=== PATIENT | female | born 1950 | race Caucasian/White ===

== ENCOUNTER → 2022-11-03 16:11 | Outpatient (BNVA) | payer MEDICARE, MEDICAID, SELFPAY | PROVIDERS: PCP Nurse Practitioner Family; Visit Provider Nurse Practitioner Family | DX: R30.0 Dysuria (principal) | CPT/HCPCS: 81003; 87077; 87086; 87184 ==

== ENCOUNTER 2023-01-03 14:56 | Inpatient (IN) | payer MEDICARE, MEDICAID, SELFPAY ==
--- NOTE | 2023-01-03 15:02 | XRR_ITS ---
PROCEDURE INFORMATION: Exam: XR Chest Exam date and time: 01/03/2023 3:26 PM Age: 72 years old Clinical indication: Fever; Additional info: Fever chills TECHNIQUE: Imaging protocol: Radiologic exam of the chest. Views: 1 view. COMPARISON: No relevant prior studies available. FINDINGS: Tubes, catheters and devices: Left chest loop recorder. Lungs: Mild left basilar scarring versus atelectasis. Vertical bandlike medial retrocardiac opacity. Pleural spaces: Unremarkable. No pleural effusion. No pneumothorax. Heart/Mediastinum: Unremarkable. No cardiomegaly. Vasculature: Aortic arch atherosclerotic calcification. Bones/joints: Multiple healed fracture deformities of the left ribs. Degenerative changes along the spine and [id number]-left shoulders. XR/XR chest 1V portable [id number] IMPRESSION: Left medial retrocardiac bandlike opacity favored to represent atelectasis, although infection or aspiration difficult to entirely exclude.
[2023-01-03 15:12] VITALS: BP 119/66; PULSE 99; RESP 16; TEMP 39.1; O2SAT 98
--- NOTE | 2023-01-03 15:18 | ED_ITS ---
HPI - Fever General: Chief Complaint: Fever Stated Complaint: weakness, fever, chills Time Seen by Provider: 01/03/23 14:59 History of Present Illness: Patient presents by EMS to the ER from [facility] with complaints of fever chills altered mental status possible urosepsis. Patient alert and oriented x1 at the moment he is alert and oriented x3. EMS did states she had a fever of 102 upon their arrival. Otherwise patient is patient is very poor historian patient is a full code per shelter chart Review of Systems General: Reports: ROS unobtainable due to mental status Physical Exam Const: COMMON NORMALS: no acute distress, average body habitus, healthy appearing, alert and well nourished HENMT: COMMON NORMALS: normocephalic, atraumatic, hearing grossly normal bilaterally, external ears normal, Normal external nose present and moist oral mucous membranes HEAD & SCALP: normocephalic and atraumatic NOSE: Normal external nose present EXTERNAL EAR: Yes external ears normal Eye: COMMON NORMALS: Equal, round and reactive pupils present, EOMs intact bilaterally, conjunctivae normal and no scleral icterus CONJUNCTIVA: Yes conjunctivae normal PUPIL: Yes Equal, round and reactive pupils present Neck/C-Spine: COMMON NORMALS: full ROM, no lymphadenopathy, no meningeal signs, no JVD and Thyroid normal THYROID: Thyroid normal Lymph: LYMPHATIC: no lymphadenopathy noted Chest: COMMONS NORMALS: normal inspection of the chest and normal palpation of entire chest wall Resp: COMMON NORMALS: normal respiratory effort, No retractions, No use of accessory muscles and clear to auscultation bilaterally AUSCULTATION: clear to auscultation bilaterally Cardio: COMMON NORMALS: no JVD, regular rate, regular rhythm, S1 normal heart sound present, S2 normal heart sound present, No gallops present (Cardio), No clicks present (Cardio), No murmurs present (Cardio) and No rub (Cardio) RATE: regular rate RHYTHM: regular rhythm HEART SOUNDS: S1 normal heart sound present and S2 normal heart sound present GI: COMMON NORMALS: Normal to inspection, nondistended, normoactive bowel fadumo nds present, Soft to palpation, non-tender, No hepatosplenomegaly present and no masses PALPATION: Yes Soft to palpation and Yes No hepatosplenomegaly present : COMMON NORMALS: Yes no CVA tenderness BLADDER/KIDNEY EXAM: Yes no CVA tenderness Back/Pelvis: COMMON NORMALS: no CVA tenderness Extremity: NARRATIVE EXTREMITY EXAM: 2 Plus pitting edema bilateral lower extremities Neuro: SENSORIUM/ORIENTATION: Yes alert MENINGEAL SIGNS: Yes no meningeal signs Course Vital Signs: Vital signs: Vital Signs Temperature 99.5 F 01/03/23 19:08 Pulse Rate 89 01/03/23 17:16 Respiratory Rate 22 H 01/03/23 18:00 Blood Pressure 119/66 01/03/23 15:12 Pulse Oximetry 95 01/03/23 18:00 Oxygen Delivery Me thod Room Air 01/03/23 15:12 MDM - Fever Medical Decision Making Patient presented with altered mental status and fever. Patient has history of urosepsis. Work-up was obtained which showed significant for urinary tract infection. Patient's white blood cell count was 6.3. Chest x-ray showed bandlike opacity favored to represent atelectasis although infection aspiration difficulty to entirely exclude. Patient was given magnesium oxide p.o., Toradol IV for fever, normal saline bolus, Cipro IV, Dr. Morales was consulted who agreed to admit for further evaluation and treatment and MedSurg. Differential Diagnosis Unlikely abdominal pain, acute appendicitis, calculus of kidney, constipation, diverticulitis, endometriosis, gastroenteritis, pancreatitis or small bowel obstruction Medical Records I reviewed the patient's medical records. Lab Data I reviewed the patient's lab results. 01/03/23 16:00 01/03/23 16:00 Radiology Impressions Chest X-Ray 01/03/23 15:02 IMPRESSION: Left medial retrocardiac bandlike opacity favored to represent atelectasis, although infection or aspiration difficult to entirely exclude. Laboratory Results WBC 6.3 10^3/uL (4.0-10.0) 01/03/23 16:00 RBC 4.23 10^6/uL (4.1-5.3) 01/03/23 16:00 Hgb 11.0 g/dL (11.5-15.3) L 01/03/23 16:00 Hct 35.3 % (37.0-47.0) L 01/03/23 16:00 MCV 83.5 fl (81-99) 01/03/23 16:00 MCH 26.0 pg (28.0-34.0) L 01/03/23 16:00 MCHC 31.2 g/dL (30.0-36.0) 01/03/23 16:00 RDW 14.2 % (12.1-15.1) 01/03/23 16:00 Plt Count 229 10^3/cmm (130-400) 01/03/23 16:00 MPV 9.3 fL (7.4-10.4) 01/03/23 16:00 Neut % (Auto) 83.7 % 01/03/23 16:00 Lymph % (Auto) 8.1 % 01/03/23 16:00 [place] % (Auto) 6.5 % 01/03/23 16:00 Eos % (Auto) 1.1 % 01/03/23 16:00 Baso % (Auto) 0.3 % 01/03/23 16:00 Neut # (Auto) 5.24 10^3/uL (1.8-7.7) 01/03/23 16:00 Lymph # (Auto) 0.5 10^3/uL (0.8-4.8) L 01/03/23 16:00 [place] # (Auto) 0.4 10^3/uL (0.2-0.9) 01/03/23 16:00 Eos # (Auto) 0.1 10^3/uL (0.0-0.8) 01/03/23 16:00 Baso # (Auto) 0.0 10^3/uL (0.0-0.1) 01/03/23 16:00 Nucleated RBC % (auto) 0 % 01/03/23 16:00 Nucleated RBCs # 0.0 /100WBC 01/03/23 16:00 Sodium 137 mmol/L (136-145) 01/03/23 16:00 Potassium 4.5 mmol/L (3.5-5.1) 01/03/23 16:00 Chloride 102 mmol/L (98-107) 01/03/23 16:00 Carbon Dioxide 24 mmol/L (22-29) 01/03/23 16:00 Anion Gap 15.5 (5-19) 01/03/23 16:00 BUN 12 mg/dL (8-23) 01/03/23 16:00 Creatinine 0.8 mg/dL (0.5-0.9) 01/03/23 16:00 GFR Calculation Not Reportable 01/03/23 16:00 Glucose 104 mg/dL (65-115) 01/03/23 16:00 Calculated Osmolality 284 mOsm/kg (285-295) L 01/03/23 16:00 Calcium 8.7 mg/dL (8.5-10.5) 01/03/23 16:00 Magnesium 1.6 mg/dL (1.7-2.3) L 01/03/23 16:00 Total Bilirubin 0.5 mg/dL (0.15-1.2) 01/03/23 16:00 AST 5 U/L (0-32) 01/03/23 16:00 ALT 6 U/L (0-33) 01/03/23 16:00 Alkaline Phosphatase 117 U/L (35-105) H 01/03/23 16:00 Total Protein 6.2 g/dL (6.6-8.7) L 01/03/23 16:00 Albumin 3.7 g/dL (3.5-5.2) 01/03/23 16:00 Globulin 2.5 g/dL (1.3-4.6) 01/03/23 16:00 Urine Color [place] (Yellow) 01/03/23 16:13 Urine Appearance Clear (CLEAR) 01/03/23 16:13 Urine pH 5 (5-7) 01/03/23 16:13 Ur Specific [place] 1.010 (1.005-1.030) 01/03/23 16:13 Urine Protein 3+ (Negative) H 01/03/23 16:13 Urine Glucose (UA) Norm (Normal) 01/03/23 16:13 Urine Ketones Negative (Negative) 01/03/23 16:13 Urine Blood Neg (Negative) 01/03/23 16:13 Urine Nitrate Positive (Negative) H 01/03/23 16:13 Urine Bilirubin 2+ (Negative) H 01/03/23 16:13 Urine Urobilinogen 8 mg/dL (Negative) H 01/03/23 16:13 Ur Leukocyte Esterase Negative (Negative) 01/03/23 16:13 Urine RBC 0-4 /hpf (0-2) H 01/03/23 16:13 Urine WBC 5-10 /hpf (0-5) H 01/03/23 16:13 Ur Squamous Epith Cells 0-4 /hpf (0-5) H 01/03/23 16:13 Amorphous Sediment Not Reportable 01/03/23 16:13 Urine Bacteria Trace /hpf (NONE) 01/03/23 16:13 EKG Data EKG 1: I personally reviewed and interpreted this EKG as follows: EKG interpretation date: 01/03/23 EKG interpretation time: 15:19 Prior EKG tracings: not available for review Interpretation: EKG showed ventricular rate 97 beats minute, DC interval 197, QRS duration 96, QTc 388, sinus rhythm with occasional PVC, left axis deviation, Q waves in V1 through V4, Discharge Plan Discharge Patient Disposition: Admitted As Inpatient Clinical Impression: Acute alteration in mental status, Urinary tract infection, Fever Condition: Stable Coding Level of Care Code ED Manager Progressive Care for Sergio Pinedo
--- NOTE | 2023-01-03 15:19 | ECG_ITS ---
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 Measurements Intervals [place] Rate: 97 P: 60 OK: 197 QRS: -37 QRSD: 96 T: 30 QT: 334 QTc: 425 Interpretive Statements SINUS RHYTHM WITH OCCASIONAL SUPRAVENTRICULAR PREMATURE COMPLEXES LEFT AXIS DEVIATION [QRS AXIS < -30] MODERATE VOLTAGE CRITERIA FOR LVH, CONSIDER NORMAL VARIANT [MEETS CRITERIA IN ONE OF: R(aVL), S(V1), R(V5), R(V5/V6)+S(V1)] POSSIBLE ANTEROSEPTAL MYOCARDIAL INFARCTION , OF INDETERMINATE AGE [30 ms Q WAVE IN V1-V4] No previous ECG available for comparison Electronically Signed On 01-03-2023 21:05:36 CDT by Patricia Liang M.D. [id number]
--- NOTE | 2023-01-03 15:53 | PC.PHAR ---
pt is from [facility] [phone]-per barbi charge nurse states the pt had all am and noon meds-and only had prn 10 ml of dextromethorphan polistirex today
[2023-01-03 16:19] LABS: Basophils % 0.3 %; Eosinophils # 0.1 10^3/uL (0.0-0.8); Eosinophils % 1.1 %; Hematocrit 35.3 % (37.0-47.0); Lymphocytes # 0.5 10^3/uL (0.8-4.8); Lymphocytes % 8.1 %; Mean Corpuscular HGB Conc 31.2 g/dL (30.0-36.0); Mean Corpuscular Volume 83.5 fl (81-99); Mean Platelet Volume 9.3 fL (7.4-10.4); Monocytes # 0.4 10^3/uL (0.2-0.9); Monocytes % 6.5 %; Neutrophils # 5.24 10^3/uL (1.8-7.7); Neutrophils % 83.7 %; Nucleated Red Blood Cells % 0 %; Platelet Count 229 10^3/cmm (130-400); Red Blood Count 4.23 10^6/uL (4.1-5.3); Red Cell Distribution Width 14.2 % (12.1-15.1); White Blood Count 6.3 10^3/uL (4.0-10.0)
[2023-01-03 16:35] LABS: Alanine Aminotransferase 6 U/L (0-33); Albumin Level 3.7 g/dL (3.5-5.2); Alkaline Phosphatase 117 U/L (35-105); Anion Gap 15.5 (5-19); Blood Urea Nitrogen 12 mg/dL (8-23); Calcium 8.7 mg/dL (8.5-10.5); Carbon Dioxide 24 mmol/L (22-29); Chloride 102 mmol/L (98-107); Globulin 2.5 g/dL (1.3-4.6); Glucose 104 mg/dL (65-115); Magnesium 1.6 mg/dL (1.7-2.3); Osmolality Calculated 284 mOsm/kg (285-295); Potassium 4.5 mmol/L (3.5-5.1); Sodium 137 mmol/L (136-145); Total Bilirubin 0.5 mg/dL (0.15-1.2); Total Protein 6.2 g/dL (6.6-8.7)
[2023-01-03 16:44] LABS: Aspartate Amino Transferase 5 U/L (0-32)
[2023-01-03 16:48] LABS: Urine Appearance Clear (CLEAR)
[2023-01-03 16:49] LABS: Add Urine Culture? No; Add Urine Microscopic? YES; Bacteria Urine TRACE /hpf; Bilirubin Urine 2+ (Negative); Blood Urine Neg (Negative); Glucose Urine UA Norm (Normal); Ketones Urine Negative (Negative); Leukocyte Esterase Urine Negative (Negative); Nitrate Urine Positive (Negative); Protein Urine 3+ (Negative); RBC Urine 0-4 /hpf (0-2); Squamous Epithelial Cell Urine 0-4 /hpf (0-5); Urine Color Orange (Yellow); Urobilinogen Urine 8 mg/dL (Negative); pH Urine 5 (5-7)
[2023-01-03 17:16] VITALS: PULSE 89; RESP 22; O2SAT 98
[2023-01-03] MEDS: magnesium oxide 400 mg tablet PO (17:44)
[2023-01-03] MEDS: ciprofloxacin 400 MG/200 ML PREMIX 200 MG IV (17:44)
[2023-01-03] MEDS: sodium chloride 0.9% 1,000 ML 999 ML IV (17:44)
[2023-01-03] MEDS: ketorolac 30 mg/mL INJ IVP (17:45)
[2023-01-03 18:00] VITALS: RESP 22; O2SAT 95
[2023-01-03 19:08] VITALS: TEMP 37.5
--- NOTE | 2023-01-03 19:50 | CTR_ITS ---
PROCEDURE INFORMATION: Exam: CT Chest Without Contrast; Diagnostic Exam date and time: 01/03/2023 8:30 PM Age: 72 years old Clinical indication: Other: Copd/pneumonia; Additional info: Copd/pna TECHNIQUE: Imaging protocol: Diagnostic computed tomography of the chest without contrast. Radiation optimization: All CT scans at this facility use at least one of these dose optimization techniques: automated exposure control; mA and/or kV adjustment per patient size (includes targeted exams where dose is matched to clinical indication); or iterative reconstruction. REPORTING DATA: Count of CT and Cardiac NM exams in prior 12 months: This patient has received 0 known CTs and 0 known cardiac nuclear medicine studies in the 12 months prior to the current study. COMPARISON: CR XR chest 1V portable [id number] 01/03/2023 3:26 PM RADIATION DOSE METRICS: Total DLP (mGy-cm): 648.88 FINDINGS: Lungs: Left lower lobe pneumonia. Emphysematous changes. Pleural spaces: Small left pleural effusion. Heart: Cardiomegaly. Coronary arteries: Coronary artery atherosclerotic calcifications. Lymph nodes: Scattered prominent subcentimeter short axis nonspecific mediastinal lymph nodes. Vasculature: Ascending thoracic aorta dilated to 3.9 cm. Gallbladder and bile ducts: Cholecystectomy. Bones/joints: Multiple chronic left rib fractures. Soft tissues: Unremarkable. CT/CT chest wo con [id number] IMPRESSION: 1. Small left pleural effusion. 2. Left lower lobe pneumonia. 3. Coronary artery atherosclerotic calcifications. 4. Cardiomegaly. 5. Cholecystectomy. 6. Emphysematous changes. 7. Scattered prominent subcentimeter short axis nonspecific mediastinal lymph nodes. 8. Multiple chronic left rib fractures. COMMENTS: In the absence of a history or active diagnosis of lung cancer, it is recommended that this patient with emphysema be evaluated for enrollment in a low dose CT lung cancer screening program.
--- NOTE | 2023-01-03 22:04 | PM.HP ---
Providers/Chief Complaint Admitting Physician: Alf Calderon MD Primary Care Provider: Martha Lloyd NP Chief Complaint: weakness, fever, chills History of Present Illness History gathered through chart review. Herlinda Shah is a 72 year old female senior care resident, past medical history of type 2 diabetes mellitus, hypertension, recurrent UTIs, possible history of recent gram-negative bacteremia was sent in the senior care today for worsening mental status over the last 2 days along with high-grade fever today. As per documentation from senior care patient has been complaining of burning micturition, increased frequency of urination over the last 2 days week. Patient has also been having nausea and vomiting for 2 days along with diarrhea around a week ago. Patient was recently at [facility] for UTI and gram-negative bacteremia around a month ago and was discharged on oral amoxicillin which she finished 3 weeks ago. At baseline patient is AOx3, able to ambulate with a walker but today morning became acutely confused. On examination patient sleeping, looks dehydrated, wakes up to verbal stimulus, not waking up is alert to self and being in the hospital, following simple commands and stating she is hungry ER course: CBC, CMP, blood culture and UA have been drawn, chest x-ray was done with results as below. Patient has been given ketorolac 30 mg IV 1 time, oral magnesium, 1 L of normal saline, IV ciprofloxacin one-time Review of Systems General: Reports: ROS unobtainable due to mental status Medications/Allergies Home Medications Medication Instructions Recorded Confirmed Last Taken Type acetaminophen 325 mg tablet 650 mg PO Q4H PRN pain/fever 01/03/23 01/03/23 Unknown History (Tylenol) albuterol sulfate 2.5 mg/3 mL 2.5 mg inhalation Q6H PRN 01/03/23 01/03/23 Unknown History (0.083 %) solution for nebulization Shortness Of Breath apixaban 5 mg tablet (Eliquis) 5 mg PO BID 01/03/23 01/03/23 01/03/23 10:10 History budesonide-formoterol HFA 160 2 puff inhalation BID 01/03/23 01/03/23 01/03/23 History mcg-4.5 mcg/actuation aerosol inhaler cetirizine 10 mg tablet (Zyrtec) 10 mg PO QAM 01/03/23 01/03/23 01/03/23 10:10 History cholecalciferol (vitamin D3) 1,250 50,000 unit PO Q7D 01/03/23 01/03/23 12/30/22 History mcg (50,000 unit) capsule colestipol 1 gram tablet 1 g PO BID 01/03/23 01/03/23 01/03/23 10:10 History cyanocobalamin (vitamin B-12) 1,000 mcg PO QAM 01/03/23 01/03/23 01/03/23 10:10 History 1,000 mcg tablet dextromethorphan polistirex 30 10 ml PO Q12H PRN Cough 01/03/23 01/03/23 01/03/23 History mg/5 mL oral susp ext.release 12hr diclofenac sodium 1 % topical gel See Rx Instructions .Route .COMPLEX 01/03/23 01/03/23 Unknown History escitalopram oxalate 20 mg tablet 20 mg PO QAM 01/03/23 01/03/23 01/03/23 10:10 History fluticasone propionate 50 2 spray intranasal QAM 01/03/23 01/03/23 01/03/23 History mcg/actuation nasal spray,suspension gabapentin 600 mg tablet 600 mg PO TID 01/03/23 01/03/23 01/03/23 12:00 History glipizide 5 mg tablet 5 mg PO DAILY@12 01/03/23 01/03/23 01/03/23 History guaifenesin 400 mg tablet (Mucus 400 - 800 mg PO Q12H PRN Cough 01/03/23 01/03/23 Unknown History Relief) ibuprofen 800 mg tablet 800 mg PO Q8H PRN Pain 01/03/23 01/03/23 Unknown History ipratropium 0.5 mg-albuterol 3 mg 3 ml inhalation Q6H PRN Shortness 01/03/23 01/03/23 Unknown History (2.5 mg base)/3 mL nebulization Of Breath soln lisinopril 5 mg tablet 5 mg PO QAM 01/03/23 01/03/23 01/03/23 10:10 History metformin 1,000 mg tablet 1,000 mg PO BID 01/03/23 01/03/23 01/03/23 History metoprolol tartrate 25 mg tablet 25 mg PO BID 01/03/23 01/03/23 01/03/23 10:10 History phenazopyridine 95 mg tablet 190 mg PO TID for pain with 01/03/23 01/03/23 01/03/23 History urination for 2 days 2 tabs potassium chloride 20 mEq 20 meq PO BID 01/03/23 01/03/23 01/03/23 10:10 History tablet,extended release(part/cryst) ropinirole 0.5 mg tablet 0.5 mg PO DAILY PRN Restless Leg(S) 01/03/23 01/03/23 Unknown History tramadol 50 mg tablet 50 - 100 mg PO Q6H PRN Pain 01/03/23 01/03/23 Unknown History Allergies Allergy/AdvReac Type Severity Reaction Status Date / Time acetaminophen Allergy Unknown Verified 01/03/23 15:21 [From Tylenol-Codeine #3] atorvastatin Allergy Unknown Verified 01/03/23 15:21 codeine Allergy Unknown Verified 01/03/23 15:21 iodine Allergy Unknown Verified 01/03/23 15:21 PFSH Acute PFSH: Medical History (Updated 01/03/23 @ 22:13 by Alf Calderon MD) COPD (chronic obstructive pulmonary disease) Gram-negative bacteremia History of recurrent UTIs HTN (hypertension) Malignant melanoma Non-Hodgkin lymphoma Osteoarthritis, knee Paroxysmal A-fib Type 2 diabetes mellitus Social History (Updated 01/03/23 @ 22:13 by Alf Calderon MD) Smoking and tobacco status: former smoker Alcohol intake: never Household members: other Housing: Custodial Vitals/I&O/Wt Last Vital Signs Temp 99.5 F 01/03/23 19:08 Pulse 89 01/03/23 17:16 Resp 22 H 01/03/23 18:00 BP 119/66 01/03/23 15:12 Pulse Ox 95 01/03/23 18:00 O2 Del Method Room Air 01/03/23 15:12 01/03/23 01/03/23 01/03/23 06:59 14:59 22:59 Intake Total 1200 / 1200 Balance 1200 / 1200 Weight last 48 hrs Weight 133.356 kg Physical Exam Narrative: General: No acute distress, sleeping on entering room, wakes up to verbal stimulus, AO x2-3, slow to respond, dehydrated HEENT: PERRLA, pupils bilaterally equal and reactive Chest: Normal vesicular breath sounds, no added sounds, equal good air entry bilaterally CVS: S1-S2 regular, no murmurs, no tachycardia, no gallops, no rubs Abdomen: Soft, soft, no guarding, generalized tenderness all over abdomen, no organomegaly, bowel sounds present but sluggish Neuro: No focal deficits, no facial deformity, moving all limbs Data 01/03/23 16:00 01/03/23 16:00 Micro: Microbiology 01/03/23 17:37 Blood Culture - Preliminary Blood SPECIMEN COLLECTED 01/03/23 17:37 Blood Culture - Preliminary Blood SPECIMEN COLLECTED A&P Assessment and plan (1) Acute alteration in mental status: Most likely in setting of UTI versus diarrhea. Not in sepsis currently. Patient does not have leukocytosis, tachycardia though did have high-grade fever of 102. Chest x-ray consistent with a possible right-sided pneumonia though patient is on room air and not complaining of cough. CT chest without contrast, CT abdomen pelvis with contrast given concerns for recurrent UTI, diarrhea. CT head as patient is on Eliquis. LFTs within normal limits so we will hold off on ammonia levels. Cannot rule out polypharmacy. Continue gabapentin but at a lower dose of 200 mg 3 times daily, hold off on escitalopram for now. Normal saline at 75 cc/h. Follow-up blood culture, urine culture, check procalcitonin, lactate, MRSA swab. Culture history consistent with E. coli in urine sensitive to ceftriaxone. Start on IV ceftriaxone 1 g daily for now. (2) Urinary tract infection: Qualifiers: Hematuria presence: without hematuria Urinary tract infection type: acute cystitis Qualified Code(s): N30.00 - Acute cystitis without hematuria (3) Diarrhea: Check stool studies to rule out C. difficile. Patient was recently on amoxicillin. (4) Paroxysmal A-fib: Chronic history. Telemetry. Continue with home dose of Eliquis, metoprolol 25 mg twice daily. Plan Type 2 diabetes mellitus: Hold off on OHA's. Check A1c. Insulin sliding scale low-dose protocol before meals and at bedtime. History of COPD: Not in acute exacerbation. DuoNebs as needed. Cannot rule out aspiration pneumonitis. Currently on room air. Continue with ceftriaxone as above. Currently NPO. Advance diet as per speech evaluation when possible. CODE STATUS: As per documentation from the senior care as per conversation with the nurse at [facility]. Full code. N.p.o. for now. Start on diet once patient more awake. Protonix for PUD prophylaxis. Eliquis will suffice as DVT prophylaxis. Attestations Medical Necessity Statement*: Admission for more than 2 midnights for management and evaluation of altered mental status while UTI is ruled out in an elderly with past medical history of recurrent UTIs Coding Level of Care Code 37113 High MDM includes number and complexity of problems actively addressed during encounter, amount and/or complexity of data reviewed/ordered (Speaking with nurse at the senior care, gathering past medical history through chart review and conversation with nurse at senior care) [ previous or external records, resulted lab(s)/test(s), ordered lab(s)/test(s), independent historian, independent test interpretation and other healthcare professional discussion] and described risk of complication, morbidity or mortality of management as documented Diagnoses Acute alteration in mental status R41.82 Urinary tract infection N30.00 Hematuria presence: without hematuria Urinary tract infection type: acute cystitis Diarrhea R19.7 Paroxysmal A-fib I48.0
[2023-01-03 22:10] LABS: Adenovirus Not Detected (NOT DETECT); Chlamydia Pneumoniae Not Detected (NOT DETECT); Coronavirus 229E,HKU1,NL63,OC4 Not Detected (NOT DETECT); Human Metapneumovirus Not Detected (NOT DETECT); Human Rhinovirus/Enterovirus Detected (NOT DETECT); Influenza A Not Detected (NOT DETECT); Influenza A H1 Not Detected (NOT DETECT); Influenza A H1-2009 Not Detected (NOT DETECT); Influenza A H3 Not Detected (NOT DETECT); Influenza B Not Detected (NOT DETECT); Mycoplasma Pneumoniae Not Detected (NOT DETECT); Parainfluenza Virus Type 1 Not Detected (NOT DETECT); Parainfluenza Virus Type 2 Not Detected (NOT DETECT); Parainfluenza Virus Type 3 Not Detected (NOT DETECT); Parainfluenza Virus Type 4 Not Detected (NOT DETECT); Respiratory Syncytial Virus A Not Detected (NOT DETECT); Respiratory Syncytial Virus B Not Detected (NOT DETECT); SARS-COV-2 Not Detected (NOT DETECT)
[2023-01-03 22:26] VITALS: BP 97/56; PULSE 72; RESP 17; TEMP 36.4; O2SAT 92
[2023-01-03 23:48] LABS: Lactic Sepsis W/Reflex 0.6 mmol/L (0.5-2.2)
[2023-01-04] VITALS (14 sets, daily range): BP systolic 94–130; BP diastolic 51–72; PULSE 68–96; RESP 16–20; TEMP 36.6–37.6; O2SAT 91–99
[2023-01-04] MEDS: sodium chloride 0.9% 1,000 ML 75 ML IV (01:47)
[2023-01-04] MEDS: cefTRIAXone 1,000 MG in sodium chloride 0.9% (plus) 50 ML 100 MG IV (01:48)
[2023-01-04 01:57] LABS: Iron 30 ug/dL (37-145); Percent Saturation 9.1 % (20-50); Thyroid Stimulating Hormone 2.21 uIU/mL (0.27-4.20); Total Iron Binding Capacity 328 mcg/dl; Unsaturated Iron Binding 298 ug/dL (112-347); Vitamin B12 628 pg/mL (232-1245)
[2023-01-04] MEDS: pantoprazole 40 mg SDV IVP (02:32)
[2023-01-04] MEDS: lisinopril 5 mg Tablet PO (06:15)
[2023-01-04 06:47] LABS: Basophils % 0.6 %; Eosinophils # 0.1 10^3/uL (0.0-0.8); Eosinophils % 1.9 %; Hemoglobin 9.7 g/dL (11.5-15.3); Lymphocytes # 0.6 10^3/uL (0.8-4.8); Lymphocytes % 12.2 %; Mean Corpuscular HGB Conc 31.3 g/dL (30.0-36.0); Mean Corpuscular Hemoglobin 26.2 pg (28.0-34.0); Mean Corpuscular Volume 83.8 fl (81-99); Mean Platelet Volume 9.5 fL (7.4-10.4); Monocytes # 0.5 10^3/uL (0.2-0.9); Monocytes % 9.7 %; Neutrophils # 3.88 10^3/uL (1.8-7.7); Neutrophils % 74.8 %; Nucleated Red Blood Cells % 0 %; Platelet Count 219 10^3/cmm (130-400); Red Cell Distribution Width 14.3 % (12.1-15.1); White Blood Count 5.2 10^3/uL (4.0-10.0)
[2023-01-04 06:51] LABS: Glucose Point of Care 130 mg/dL (70-110)
[2023-01-04 07:09] LABS: Alanine Aminotransferase < 5 U/L (0-33); Alkaline Phosphatase 99 U/L (35-105); Anion Gap 14.5 (5-19); Aspartate Amino Transferase 9 U/L (0-32); Blood Urea Nitrogen 11 mg/dL (8-23); Carbon Dioxide 23 mmol/L (22-29); Chloride 107 mmol/L (98-107); Globulin 1.4 g/dL (1.3-4.6); Glucose 105 mg/dL (65-115); Magnesium 1.5 mg/dL (1.7-2.3); Osmolality Calculated 290 mOsm/kg (285-295); Phosphorus 3.8 mg/dL (2.5-4.5); Potassium 4.5 mmol/L (3.5-5.1); Sodium 140 mmol/L (136-145); Total Bilirubin 0.4 mg/dL (0.15-1.2); Total Protein 4.4 g/dL (6.6-8.7)
[2023-01-04 07:10] LABS: Chol HDL Ratio 3.31 mg/dL (0.0-4.40); Cholesterol 116 mg/dL (0-200); HDL Cholesterol 35 mg/dL (60-100); LDL Cholesterol Calculated 66 mg/dL (50-129); LDL HDL Ratio 1.89 RATIO (0.00-3.22); Triglycerides 77 mg/dL (0-150)
[2023-01-04 07:28] LABS: Folate Level 8.8 ng/mL (4.8-37.3)
[2023-01-04 07:52] LABS: Estmated Average Glucose 114; Hemoglobin A1C 5.6 % (4.0-6.0)
[2023-01-04] MEDS: metoprolol tartrate 25 mg Tablet PO ×2 (08:28→17:59)
[2023-01-04] MEDS: apixaban 5 mg Tablet PO ×2 (08:28→17:59)
[2023-01-04] MEDS: gabapentin 100 mg Capsule 200 MG PO ×3 (08:29→21:38)
[2023-01-04 12:16] LABS: Glucose Point of Care 113 mg/dL (70-110)
--- NOTE | 2023-01-04 13:30 | P.PN_ITS ---
Subjective Subjective: H&P reviewed Patient feeling much better Blood culture prelim report showing gram-negative chloe Repeat blood culture tomorrow No leukocytosis or fever Altered mental status has improved Patient is stating that she was at [facility] but she did not like her stay at there We are waiting for records Not endorsing nausea, vomiting abdominal pain or dysuria at this point CT abdomen consistent with umbilical hernia with concern for bowel obstruction however she does not have any active symptoms, it is reversible Vitals/I&O/Wt Last Vital Signs Temp 99.1 F 01/04/23 11:07 Pulse 76 01/04/23 11:07 Resp 20 H 01/04/23 11:07 BP 130/54 01/04/23 11:07 Pulse Ox 94 01/04/23 11:07 O2 Del Method Room Air 01/04/23 11:07 01/03/23 01/04/23 01/04/23 22:59 06:59 14:59 Intake Total 1200 / 1200 50 / 1250 240 / 240 Output Total 300 / 300 Balance 1200 / 1200 -250 / 950 240 / 240 Weight last 48 hrs Weight 138.391 kg Weight 133.356 kg Physical Exam Narrative: Nonfocal neuro exam GCS 15 Abdomen distended nontender Reducible umbilical hernia No active nausea or vomiting Morbidly obese Distended abdomen GCS 15 Nonfocal neuro exam S1, S2 Currently on room air Urinary Catheter Management: Valenzuela: Cath Placed During This Visit: yes Reason for Continuing Indwelling Catheter: Other Urinary Catheter Date of Insertion: 01/04/23 Urinary Catheter Time of Insertion: 02:01 Data 01/04/23 06:00 01/04/23 06:09 Micro: Microbiology 01/03/23 17:37 Blood Culture - Preliminary Blood 01/03/23 17:37 Blood Culture - Preliminary Blood SPECIMEN COLLECTED A&P Assessment and plan (1) Enterovirus infection: (2) Paroxysmal A-fib: (3) Diarrhea: (4) Acute alteration in mental status: (5) Urinary tract infection: Qualifiers: Hematuria presence: without hematuria Urinary tract infection type: acute cystitis Qualified Code(s): N30.00 - Acute cystitis without hematuria (6) Fever: Qualifiers: Fever type: unspecified Qualified Code(s): R50.9 - Fever, unspecified Plan Acute metabolic encephalopathy related to UTI and pneumonia gram-negative bacteremia, repeat cultures on 7/26 Continue broad-spectrum antibiotics Request records from [facility] No fever or leukocytosis today Metabolic encephalopathy: Resolved No signs of stroke Patient is not septic, does not meet sepsis criteria Diarrhea: C. difficile to be ruled out Umbilical hernia with bowel No signs of strangulation Reversible hernia No active symptoms COPD without acute exacerbation currently on room air doing well I will put her on CPAP for tonight Type 2 diabetes: Continues diabetic diet with insulin and sliding scale A-fib without RVR: Continue anticoagulating agent Awaiting records from [facility] Full code Patient is stating that at the long term at [place] she is wheelchair- bound does not use a walker because of her bad knee osteoarthritis she never had a stroke in the past Attestations Medical Necessity Statement*: Continue medical management Diagnoses Enterovirus infection B34.1 Paroxysmal A-fib I48.0 Diarrhea R19.7 Acute alteration in mental status R41.82 Urinary tract infection N30.00 Hematuria presence: without hematuria Urinary tract infection type: acute cystitis Fever R50.9 Fever type: unspecified
[2023-01-04] MEDS: meropenem 500 MG in sodium chloride 0.9% (plus) 50 ML 100 MG IV ×2 (13:55→21:39)
[2023-01-04 16:31] LABS: Glucose Point of Care 140 mg/dL (70-110)
[2023-01-04] MEDS: magnesium oxide 400 mg tablet PO (18:02)
[2023-01-04] MEDS: ipratropium-albuterol 3 mL Neb INHALATION (18:05)
[2023-01-04 20:21] LABS: Glucose Point of Care 140 mg/dL (70-110)
[2023-01-04] MEDS: insulin glargine 100 units/1 mL 10 UNIT SUBCUT (21:38)
[2023-01-04] MEDS: lanolin oint 7 gm 1 APPLIC TOPICAL (21:49)
[2023-01-04] MEDS: acetaminophen 325 mg Tablet 650 MG PO (21:49)
--- NOTE | 2023-01-04 21:52 | CT_ITS ---
WS: [id number] CT HEAD TECHNIQUE: Noncontrast CT of the head obtained from the skullbase to the vertex. CLINICAL INFORMATION: ams COMPARISON: None. DLP: 1154.[address] scans at [facility] use at least one of these dose optimization techniques: automated e xposure control; mA and/or kV adjustment per patient size (includes targeted exams where dose is matc hed to clinical indication); or iterative reconstruction. FINDINGS: No evidence of intracranial hemorrhage or mass effect. Ventricular system and basal cisterns are cason nt. Mild small vessel changes with moderate parenchymal volume loss. Intracranial vascular calcificat ion. Cavum septum pellucidum and vergae. No extra-axial fluid collections. No evidence of mass or mas s effect. 15 mm retention cyst or polyp RIGHT maxillary sinus. Mucosal thickening LEFT mastoid tip. Normal posterior nasopharynx. Normal parapharyngeal fat. CT/CT head wo con* [id number] IMPRESSION: 1. No evidence of intracranial hemorrhage or mass effect. 2. Mild small vessel changes. Moderate parenchymal volume loss. 3. Intracranial vascular calcification. 4. No acute intracranial findings.
--- NOTE | 2023-01-04 21:52 | CT_ITS ---
WS: [id number] CT ABDOMEN PELVIS TECHNIQUE: Noncontrast CT of the abdomen and pelvis with coronal and sagittal reformatted images. CLINICAL INFORMATION: abd pain, uti, obs nephropathy COMPARISON: None. DLP: 1851.[address] scans at [facility] use at least one of these dose optimization techniques: automated e xposure control; mA and/or kV adjustment per patient size (includes targeted exams where dose is matc hed to clinical indication); or iterative reconstruction. FINDINGS: Tiny LEFT pleural effusion with compressive atelectasis LEFT lower lobe. Hazy atelectasis in the ling isiah. Slight subsegmental atelectasis RIGHT lower lobe. Small umbilical/supraumbilical hernia with her niated small segment of small bowel with evidence of early partial obstruction. Air-fluid level in th e herniated segment. Fluid in the proximal small bowel loops. Recommend correlation for umbilical isidro n No free air. Mild hepatomegaly and splenomegaly. Splenic granulomas. Hepatic granulomas. Prior cholec ystectomy. Splenic artery calcification. Tiny esophageal hiatal hernia. Fatty atrophy of the pancreas. Splenic artery calcification. Normal caliber abdominal aorta. Aortic c alcification. Adrenal glands are normal. No hydronephrosis in either kidney. Valenzuela catheter. Normal s igmoid colon. Colon is decompressed. Small bowel anastomosis in the RIGHT lower quadrant. No free fluid in the abdomen or pelvis. Slight anterolisthesis L4 on L5. Moderate spondylitic changes lumbar spine. Tiny calcified uterine fibroid. CT/CT abdomen pelvis con [id number] IMPRESSION: 1. Umbilical/supraumbilical hernia with herniation of a small segment of small bowel with air-fluid level suspicious for partial obstruction. No free air. 2. Small LEFT pleural effusion with compressive atelectasis LEFT lower lobe ap pears unchanged. 3. Prior cholecystectomy. 4. Evidence of prior small bowel surgery in the RIGHT lower quadrant. 5. No hydronephrosis in either kidney. Notified Alf Calderon MD at 01/04/2023 8:55 AM.
[2023-01-05] VITALS (10 sets, daily range): BP systolic 105–133; BP diastolic 68–76; PULSE 66–84; RESP 15–20; TEMP 36.1–37; O2SAT 92–96
[2023-01-05] MEDS: pantoprazole 40 mg SDV IVP (02:53)
[2023-01-05] MEDS: meropenem 500 MG in sodium chloride 0.9% (plus) 50 ML 100 MG IV ×3 (06:12→21:18)
[2023-01-05] MEDS: lisinopril 5 mg Tablet PO (06:12)
[2023-01-05 06:36] LABS: Glucose Point of Care 144 mg/dL (70-110)
[2023-01-05 08:50] LABS: Basophils % 0.7 %; Eosinophils # 0.2 10^3/uL (0.0-0.8); Eosinophils % 3.6 %; Hematocrit 33.3 % (37.0-47.0); Hemoglobin 10.2 g/dL (11.5-15.3); Lymphocytes # 0.8 10^3/uL (0.8-4.8); Lymphocytes % 17.7 %; Mean Corpuscular HGB Conc 30.6 g/dL (30.0-36.0); Mean Corpuscular Hemoglobin 26.2 pg (28.0-34.0); Mean Corpuscular Volume 85.4 fl (81-99); Mean Platelet Volume 9.5 fL (7.4-10.4); Monocytes # 0.6 10^3/uL (0.2-0.9); Monocytes % 12.5 %; Neutrophils # 2.87 10^3/uL (1.8-7.7); Nucleated Red Blood Cells % 0 %; Platelet Count 221 10^3/cmm (130-400); Red Cell Distribution Width 14.4 % (12.1-15.1); White Blood Count 4.4 10^3/uL (4.0-10.0)
[2023-01-05] MEDS: gabapentin 100 mg Capsule 200 MG PO ×3 (09:28→21:19)
[2023-01-05] MEDS: apixaban 5 mg Tablet PO ×2 (09:28→17:21)
[2023-01-05 09:29] LABS: Alanine Aminotransferase < 5 U/L (0-33); Alkaline Phosphatase 98 U/L (35-105); Blood Urea Nitrogen 7 mg/dL (8-23); Calcium 8.4 mg/dL (8.5-10.5); Carbon Dioxide 22 mmol/L (22-29); Chloride 106 mmol/L (98-107); Globulin 1.6 g/dL (1.3-4.6); Glucose 133 mg/dL (65-115); Osmolality Calculated 286 mOsm/kg (285-295); Procalcitonin 0.13 ng/mL (0-0.5); Sodium 138 mmol/L (136-145); Total Bilirubin 0.4 mg/dL (0.15-1.2); Total Protein 4.6 g/dL (6.6-8.7)
[2023-01-05] MEDS: metoprolol tartrate 25 mg Tablet PO ×2 (09:29→17:21)
[2023-01-05] MEDS: insulin lispro 100 unit/1 mL SUBCUT ×2 (09:29→21:19)
[2023-01-05] MEDS: magnesium oxide 400 mg tablet PO ×2 (09:29→17:21)
[2023-01-05 09:31] LABS: Anion Gap 14.4 (5-19); Aspartate Amino Transferase 11 U/L (0-32); Potassium 4.4 mmol/L (3.5-5.1)
[2023-01-05 11:34] LABS: Glucose Point of Care 131 mg/dL (70-110)
--- NOTE | 2023-01-05 11:43 | PM.PN ---
Subjective Subjective: She is awake and alert Watching television No overnight events Repeat cultures today No fever or worsening of leukocytosis Vitals/I&O/Wt Last Vital Signs Temp 97.0 F L 01/05/23 07:57 Pulse 76 01/05/23 08:00 Resp 16 01/05/23 08:00 BP 111/68 01/05/23 07:57 Pulse Ox 92 01/05/23 08:00 O2 Del Method Room Air 01/05/23 08:00 01/04/23 01/05/23 01/05/23 22:59 06:59 14:59 Intake Total 460 / 1843.75 290 / 290 Output Total 1800 / 1800 1500 / 3300 Balance -1340 / 43.75 -1500 / -1456.25 290 / 290 Weight last 48 hrs Weight 138.391 kg Weight 133.356 kg Physical Exam Narrative: Morbid obese female sitting in a chair watching television Awake and alert Currently on room air Pleasant and cooperative No signs of confusion Nonfocal neuro exam S1, S2 Nonpitting edema of legs Urinary Catheter Management: Valenzuela: Cath Placed During This Visit: yes Reason for Continuing Indwelling Catheter: Other Urinary Catheter Date of Insertion: 01/04/23 Urinary Catheter Time of Insertion: 02:01 Data 01/05/23 08:25 01/05/23 08:25 Micro: Microbiology 01/03/23 17:37 Blood Culture - Preliminary Blood NEGATIVE TO DATE 01/03/23 17:37 Blood Culture - Preliminary Blood A&P Assessment and plan (1) Enterovirus infection: (2) Paroxysmal A-fib: (3) Diarrhea: (4) Acute alteration in mental status: (5) Urinary tract infection: Qualifiers: Hematuria presence: without hematuria Urinary tract infection type: acute cystitis Qualified Code(s): N30.00 - Acute cystitis without hematuria (6) Fever: Qualifiers: Fever type: unspecified Qualified Code(s): R50.9 - Fever, unspecified Plan Metabolic encephalopathy related to UTI Bacteremia with gram-negative chloe Repeat cultures today Continue broad-spectrum antibiotics No signs of sepsis, febrile episodes improved No leukocytosis A-fib without RVR Continue AV volodymyr blocking agent and anticoagulating agent Diarrhea: Resolved Repeat cultures 01/05 Full code Eliquis will suffice DVT prophylaxis Dissipating discharge today Tuesday to [facility] Continue consistent carb diet with insulin and sliding scale Attestations Medical Necessity Statement*: Awaiting final blood culture report Diagnoses Enterovirus infection B34.1 Paroxysmal A-fib I48.0 Diarrhea R19.7 Acute alteration in mental status R41.82 Urinary tract infection N30.00 Hematuria presence: without hematuria Urinary tract infection type: acute cystitis Fever R50.9 Fever type: unspecified
[2023-01-05 16:25] LABS: Glucose Point of Care 122 mg/dL (70-110)
[2023-01-05 21:00] LABS: Glucose Point of Care 217 mg/dL (70-110)
[2023-01-05] MEDS: insulin glargine 100 units/1 mL 10 UNIT SUBCUT (21:19)
[2023-01-06] VITALS (9 sets, daily range): BP systolic 103–159; BP diastolic 66–72; PULSE 67–92; RESP 13–16; TEMP 36.4–37.4; O2SAT 91–98
[2023-01-06] MEDS: pantoprazole 40 mg SDV IVP (01:57)
[2023-01-06] MEDS: lisinopril 5 mg Tablet PO (06:30)
[2023-01-06] MEDS: meropenem 500 MG in sodium chloride 0.9% (plus) 50 ML 100 MG IV ×3 (06:30→21:31)
[2023-01-06 06:34] LABS: Glucose Point of Care 151 mg/dL (70-110)
[2023-01-06] MEDS: gabapentin 100 mg Capsule 200 MG PO ×3 (08:43→21:30)
[2023-01-06] MEDS: apixaban 5 mg Tablet PO ×2 (08:43→17:54)
[2023-01-06] MEDS: magnesium oxide 400 mg tablet PO ×2 (08:43→17:54)
[2023-01-06] MEDS: metoprolol tartrate 25 mg Tablet PO ×2 (08:44→17:54)
[2023-01-06] MEDS: insulin lispro 100 unit/1 mL SUBCUT (08:44)
--- NOTE | 2023-01-06 11:49 | PC.SOCIAL ---
IMM update IMM Updated with patient. Verbalized an understanding. Copy PG 2 provided. Initialled, dated, timed, and placed in chart.
[2023-01-06 12:07] LABS: Glucose Point of Care 112 mg/dL (70-110)
--- NOTE | 2023-01-06 12:14 | P.PN_ITS ---
Subjective Subjective: Patient is endorsing feeling better Valenzuela catheter will be removed We will touch this with micro lab for finalization of blood culture report Patient is afebrile Vitals/I&O/Wt Last Vital Signs Temp 97.6 F 01/06/23 11:52 Pulse 71 01/06/23 11:52 Resp 16 01/06/23 11:52 BP 103/66 01/06/23 11:52 Pulse Ox 94 01/06/23 11:52 O2 Del Method Room Air 01/06/23 11:52 01/05/23 01/06/23 01/06/23 22:59 06:59 14:59 Intake Total 290 / 990 530 / 530 Output Total 450 / 450 1425 / 1875 750 / 750 Balance -160 / 540 -1425 / -885 -220 / -220 Weight last 48 hrs Weight 136.395 kg Weight 136.395 kg Physical Exam Narrative: Patient endorsing feeling better Currently on room air Watching television GCS 15 Nonfocal neuro exam Morbid obese Dorsum of the nonpitting edema Pleasant and cooperative S1, S2 No audible stridor or wheezing Urinary Catheter Management: Valenzuela: Cath Placed During This Visit: yes, but has since been removed by the nurse Reason for Continuing Indwelling Catheter: Decision to DC Catheter Urinary Catheter Date of Insertion: 01/04/23 Urinary Catheter Time of Insertion: 02:01 Date Urinary Catheter Removed: 01/06/23 Time Urinary Catheter Discontinued: 11:37 Data 01/05/23 08:25 01/05/23 08:25 Micro: Microbiology 01/05/23 13:33 Blood Culture - Preliminary Blood SPECIMEN COLLECTED 01/05/23 13:28 Blood Culture - Preliminary Blood SPECIMEN COLLECTED A&P Assessment and plan (1) Enterovirus infection: (2) Paroxysmal A-fib: (3) Diarrhea: (4) Acute alteration in mental status: (5) Urinary tract infection: Qualifiers: Hematuria presence: without hematuria Urinary tract infection type: acute cystitis Qualified Code(s): N30.00 - Acute cystitis without hematuria (6) Fever: Qualifiers: Fever type: unspecified Qualified Code(s): R50.9 - Fever, unspecified Plan Acute metabolic encephalopathy related to UTI Bacteremia with gram-negative chloe Currently on meropenem No signs of sepsis Persistent/recurrent UTI currently on meropenem We will remove Valenzuela catheter today Paroxysmal A-fib not in RVR Continue Eliquis History carb diet with insulin and sliding scale COPD without acute exacerbation doing well on room air Patient is full code Common cold with enterovirus, face mask will be needed during encounter Plan to discharge her on Tuesday if we get prior Auth and cultures are finalized, provided cultures are pansensitive Attestations Medical Necessity Statement*: Likely discharge in next 24 hours Coding Level of Care Code 06102 Moderate MDM includes number and complexity of problems actively addressed during encounter, amount and/or complexity of data reviewed/ordered and described risk of complication, morbidity or mortality of management as docum ented Diagnoses Enterovirus infection B34.1 Paroxysmal A-fib I48.0 Diarrhea R19.7 Acute alteration in mental status R41.82 Urinary tract infection N30.00 Hematuria presence: without hematuria Urinary tract infection type: acute cystitis Fever R50.9 Fever type: unspecified
[2023-01-06 17:06] LABS: Glucose Point of Care 119 mg/dL (70-110)
[2023-01-06 18:53] LABS: SARS Covid-2 Antigen negative (Negative)
[2023-01-06 20:57] LABS: Glucose Point of Care 139 mg/dL (70-110)
[2023-01-06] MEDS: insulin glargine 100 units/1 mL 10 UNIT SUBCUT (21:30)
[2023-01-07] VITALS: BP 112/66; PULSE 77; RESP 16; TEMP 36.7; O2SAT 92
[2023-01-07] MEDS: pantoprazole 40 mg SDV IVP (02:00)
[2023-01-07 02:04] VITALS: PULSE 82; RESP 14; O2SAT 93
[2023-01-07 04:00] VITALS: BP 120/69; PULSE 80; RESP 17; TEMP 36.4; O2SAT 95
[2023-01-07 05:35] LABS: Basophils % 0.7 %; Eosinophils # 0.2 10^3/uL (0.0-0.8); Eosinophils % 4.9 %; Hematocrit 34.2 % (37.0-47.0); Lymphocytes # 0.9 10^3/uL (0.8-4.8); Lymphocytes % 21.6 %; Mean Corpuscular HGB Conc 32.2 g/dL (30.0-36.0); Mean Corpuscular Hemoglobin 26.7 pg (28.0-34.0); Mean Platelet Volume 8.7 fL (7.4-10.4); Monocytes # 0.4 10^3/uL (0.2-0.9); Monocytes % 9.8 %; Neutrophils # 2.55 10^3/uL (1.8-7.7); Neutrophils % 62.5 %; Nucleated Red Blood Cells % 0 %; Platelet Count 221 10^3/cmm (130-400); Red Blood Count 4.12 10^6/uL (4.1-5.3); Red Cell Distribution Width 14.2 % (12.1-15.1); White Blood Count 4.1 10^3/uL (4.0-10.0)
[2023-01-07] MEDS: lisinopril 5 mg Tablet PO (05:45)
[2023-01-07] MEDS: meropenem 500 MG in sodium chloride 0.9% (plus) 50 ML 100 MG IV (05:46)
[2023-01-07 06:00] VITALS: PULSE 89
[2023-01-07 06:00] LABS: Anion Gap 13.1 (5-19); Blood Urea Nitrogen 7 mg/dL (8-23); Calcium 8.8 mg/dL (8.5-10.5); Carbon Dioxide 29 mmol/L (22-29); Chloride 102 mmol/L (98-107); Glucose 149 mg/dL (65-115); Osmolality Calculated 291 mOsm/kg (285-295); Potassium 4.1 mmol/L (3.5-5.1); Sodium 140 mmol/L (136-145)
[2023-01-07 06:33] LABS: Glucose Point of Care 146 mg/dL (70-110)
[2023-01-07 07:54] VITALS: BP 116/66; PULSE 79; RESP 18; TEMP 36.8; O2SAT 94
--- NOTE | 2023-01-07 08:14 | PM.DCS ---
Discharge Providers Date of Admission: 01/03/23 19:27 Date of Discharge: January 07, 2023 Attending Provider at Admission: Alf Calderon MD Attending Provider at Discharge: Kay Acevedo MD Primary Care Provider: Martha Lloyd NP Diagnoses at Discharge Discharge Diagnosis (1) Enterovirus infection: Status: Acute (2) Paroxysmal A-fib: Status: Acute (3) Diarrhea: Status: Acute (4) Acute alteration in mental status: Status: Acute (5) Urinary tract infection: Status: Acute Qualifiers: Hematuria presence: without hematuria Urinary tract infection type: acute cystitis Qualified Code(s): N30.00 - Acute cystitis without hematuria (6) Fever: Status: Acute Qualifiers: Fever type: unspecified Qualified Code(s): R50.9 - Fever, unspecified Reason for Visit Reason for Visit: weakness, fever, chills Hospital Course Hospital Course 72-year-old female who was recently discharged from [facility] after management of UTI, reportedly there was concern for gram-negative bacteremia, she was discharged back to her shelter at [facility] patient presented back with altered mental status related to UTI, urine and blood culture showing E. coli which is pansensitive, she will be discharged on cefpodoxime 2-week regimen, she remained afebrile other than 1 episode at the time of admission, no leukocytosis, we are not able to calculate her GFR I have discontinued her metformin and glipizide because her hemoglobin A1c is 5.6 and she is at risk of hypoglycemic events I have asked her to follow-up with her doctor to discuss her antihyperglycemic agent She remained hemodynamically stable, able to work with PT, Valenzuela catheter removed 01/06 Repeat blood cultures negative to date, CT abdomen pelvis did not show any stones to show any foci of infection Physical Exam Narrative: Pleasant and cooperative Morbid obese GCS 15 Currently on room air S1, S2 variable Urinary Catheter Management: Valenzuela: Cath Placed During This Visit: yes, but has since been removed by the nurse Reason for Continuing Indwelling Catheter: Decision to DC Catheter Urinary Catheter Date of Insertion: 01/04/23 Urinary Catheter Time of Insertion: 02:01 Date Urinary Catheter Removed: 01/06/23 Time Urinary Catheter Discontinued: 11:37 Discharge Data Studies Completed and Pending Completed Studies During Hospitalization Category Date Time Status CT abdomen pelvis wo con [id number] Routine Cat Scan 01/04/23 21:[address] chest wo con [id number] Stat Cat Scan 01/03/23 19:[address] head wo con* [id number] Routine Cat Scan 01/04/23 21:52 Completed XR chest 1V portable [id number] Stat Exams 01/03/23 15:02 Completed Pending at discharge Category Date Time Status Blood Culture Stat Lab 01/03/23 17:37 Results Blood Culture Stat Lab 01/05/23 13:33 Results Radiology Impressions Chest X-Ray 01/03/23 15:02 IMPRESSION: Left medial retrocardiac bandlike opacity favored to represent atelectasis, although infection or aspiration difficult to entirely exclude. Chest CT 01/03/23 19:50 IMPRESSION: 1. Small left pleural effusion. 2. Left lower lobe pneumonia. 3. Coronary artery atherosclerotic calcifications. 4. Cardiomegaly. 5. Cholecystectomy. 6. Emphysematous changes. 7. Scattered prominent subcentimeter short axis nonspecific mediastinal lymph nodes. 8. Multiple chronic left rib fractures. COMMENTS: In the absence of a history or active diagnosis of lung cancer, it is recommended that this patient with emphysema be evaluated for enrollment in a low dose CT lung cancer screening program. Abdomen/Pelvis CT 01/04/23 21:52 IMPRESSION: 1. Umbilical/supraumbilical hernia with herniation of a small segment of small bowel with air-fluid level suspicious for partial obstruction. No free air. 2. Small LEFT pleural effusion with compressive atelectasis LEFT lower lobe appears unchanged. 3. Prior cholecystectomy. 4. Evidence of prior small bowel surgery in the RIGHT lower quadrant. 5. No hydronephrosis in either kidney. Notified Alf Calderon MD at 01/04/2023 8:[address] 01/04/23 21:52 IMPRESSION: 1. No evidence of intracranial hemorrhage or mass effect. 2. Mild small vessel changes. Moderate parenchymal volume loss. 3. Intracranial vascular calcification. 4. No acute intracranial findings. Laboratory Results WBC 4.1 10^3/uL (4.0-10.0) 01/07/23 05:24 RBC 4.12 10^6/uL (4.1-5.3) 01/07/23 05:24 Hgb 11.0 g/dL (11.5-15.3) L 01/07/23 05:24 Hct 34.2 % (37.0-47.0) L 01/07/23 05:24 MCV 83.0 fl (81-99) 01/07/23 05:24 MCH 26.7 pg (28.0-34.0) L 01/07/23 05:24 MCHC 32.2 g/dL (30.0-36.0) 01/07/23 05:24 RDW 14.2 % (12.1-15.1) 01/07/23 05:24 Plt Count 221 10^3/cmm (130-400) 01/07/23 05:24 MPV 8.7 fL (7.4-10.4) 01/07/23 05:24 Neut % (Auto) 62.5 % 01/07/23 05:24 Lymph % (Auto) 21.6 % 01/07/23 05:24 [place] % (Auto) 9.8 % 01/07/23 05:24 Eos % (Auto) 4.9 % 01/07/23 05:24 Baso % (Auto) 0.7 % 01/07/23 05:24 Neut # (Auto) 2.55 10^3/uL (1.8-7.7) 01/07/23 05:24 Lymph # (Auto) 0.9 10^3/uL (0.8-4.8) 01/07/23 05:24 [place] # (Auto) 0.4 10^3/uL (0.2-0.9) 01/07/23 05:24 Eos # (Auto) 0.2 10^3/uL (0.0-0.8) 01/07/23 05:24 Baso # (Auto) 0.0 10^3/uL (0.0-0.1) 01/07/23 05:24 Nucleated RBC % (auto) 0 % 01/07/23 05:24 Nucleated RBCs # 0.0 /100WBC 01/07/23 05:24 Sodium 140 mmol/L (136-145) 01/07/23 05:24 Potassium 4.1 mmol/L (3.5-5.1) 01/07/23 05:24 Chloride 102 mmol/L (98-107) 01/07/23 05:24 Carbon Dioxide 29 mmol/L (22-29) 01/07/23 05:24 Anion Gap 13.1 (5-19) 01/07/23 05:24 BUN 7 mg/dL (8-23) L 01/07/23 05:24 Creatinine 0.8 mg/dL (0.5-0.9) 01/07/23 05:24 GFR Calculation Not Reportable 01/07/23 05:24 Glucose 149 mg/dL (65-115) H 01/07/23 05:24 POC Glucose 146 mg/dL (70-110) H 01/07/23 06:29 Estimat Average Glucose 114 01/04/23 06:09 Hemoglobin A1c 5.6 % (4.0-6.0) 01/04/23 06:09 Calculated Osmolality 291 mOsm/kg (285-295) 01/07/23 05:24 Lactic Acid 0.6 mmol/L (0.5-2.2) 01/03/23 23:15 Calcium 8.8 mg/dL (8.5-10.5) 01/07/23 05:24 Phosphorus 3.8 mg/dL (2.5-4.5) 01/04/23 06:09 Magnesium 1.5 mg/dL (1.7-2.3) L 01/04/23 06:09 Iron 30 ug/dL (37-145) L 01/03/23 16:00 TIBC 328 mcg/dl 01/03/23 16:00 % Saturation 9.1 % (20-50) L 01/03/23 16:00 Unsat Iron Binding 298 ug/dL (112-347) 01/03/23 16:00 Total Bilirubin 0.4 mg/dL (0.15-1.2) 01/05/23 08:25 AST 11 U/L (0-32) 01/05/23 08:25 ALT < 5 U/L (0-33) 01/05/23 08:25 Alkaline Phosphatase 98 U/L (35-105) 01/05/23 08:25 Total Protein 4.6 g/dL (6.6-8.7) L 01/05/23 08:25 Albumin 3.0 g/dL (3.5-5.2) L 01/05/23 08:25 Globulin 1.6 g/dL (1.3-4.6) 01/05/23 08:25 Triglycerides 77 mg/dL (0-150) 01/04/23 06:09 Cholesterol 116 mg/dL (0-200) 01/04/23 06:09 LDL Cholesterol, Calc 66 mg/dL (50-129) 01/04/23 06:09 HDL Cholesterol 35 mg/dL (60-100) L 01/04/23 06:09 LDL/HDL Ratio 1.89 RATIO (0.00-3.22) 01/04/23 06:09 Cholesterol/HDL Ratio 3.31 mg/dL (0.0-4.40) 01/04/23 06:09 Vitamin B12 628 pg/mL (232-1245) 01/03/23 16:00 Folate 8.8 ng/mL (4.8-37.3) 01/04/23 06:09 Procalcitonin 0.13 ng/mL (0-0.5) 01/05/23 08:25 TSH 2.21 uIU/mL (0.27-4.20) 01/03/23 16:00 Urine Color [place] (Yellow) 01/03/23 16:13 Urine Appearance Clear (CLEAR) 01/03/23 16:13 Urine pH 5 (5-7) 01/03/23 16:13 Ur Specific [place] 1.010 (1.005-1.030) 01/03/23 16:13 Urine Protein 3+ (Negative) H 01/03/23 16:13 Urine Glucose (UA) Norm (Normal) 01/03/23 16:13 Urine Ketones Negative (Negative) 01/03/23 16:13 Urine Blood Neg (Negative) 01/03/23 16:13 Urine Nitrate Positive (Negative) H 01/03/23 16:13 Urine Bilirubin 2+ (Negative) H 01/03/23 16:13 Urine Urobilinogen 8 mg/dL (Negative) H 01/03/23 16:13 Ur Leukocyte Esterase Negative (Negative) 01/03/23 16:13 Urine RBC 0-4 /hpf (0-2) H 01/03/23 16:13 Urine WBC 5-10 /hpf (0-5) H 01/03/23 16:13 Ur Squamous Epith Cells 0-4 /hpf (0-5) H 01/03/23 16:13 Amorphous Sediment Not Reportable 01/03/23 16:13 Urine Bacteria Trace /hpf (NONE) 01/03/23 16:13 Nasal Influ A H1 2009 PCR Not detected (NOT DETECT) 01/03/23 20:25 Adenovirus (PCR) Not detected (NOT DETECT) 01/03/23 20:25 C. pneumoniae DNA (PCR) Not detected (NOT DETECT) 01/03/23 20:25 Coronavirus 229E (PCR) Not detected (NOT DETECT) 01/03/23 20:25 Human Metapneumovir PCR Not detected (NOT DETECT) 01/03/23 20:25 Influenza A (H1) PCR Not detected (NOT DETECT) 01/03/23 20:25 Influenza A (H3) PCR Not detected (NOT DETECT) 01/03/23 20:25 Influenza Type A (PCR) Not detected (NOT DETECT) 01/03/23 20:25 Influenza Type B (PCR) Not detected (NOT DETECT) 01/03/23 20:25 M. pneumoniae (PCR) Not detected (NOT DETECT) 01/03/23 20:25 Parainfluenza 1 (PCR) Not detected (NOT DETECT) 01/03/23 20:25 Parainfluenza 2 (PCR) Not detected (NOT DETECT) 01/03/23 20:25 Parainfluenza 3 (PCR) Not detected (NOT DETECT) 01/03/23 20:25 Parainfluenza 4 (PCR) Not detected (NOT DETECT) 01/03/23 20:25 RSV Type A (PCR) Not detected (NOT DETECT) 01/03/23 20:25 RSV Type B (PCR) Not detected (NOT DETECT) 01/03/23 20:25 Entero/Rhino (PCR) Detected (NOT DETECT) A 01/03/23 20:25 SARS-CoV-2 (PCR) Not detected (NOT DETECT) 01/03/23 20:25 SARS-CoV-2 Ag (Rapid) negative (Negative) 01/06/23 17:51 Vitals Last Vital Signs Temp 98.2 F 01/07/23 07:54 Pulse 79 01/07/23 07:54 Resp 18 01/07/23 07:54 BP 116/66 01/07/23 07:54 Pulse Ox 94 01/07/23 07:54 O2 Del Method Room Air 01/07/23 07:54 Discharge Plan Discharge Patient Disposition: Xfer SNF Condition: Stable Prescriptions: New cefpodoxime 200 mg tablet 200 mg PO BID Qty: 28 0RF Rx Instructions: must administer with a meal/food Continued dextromethorphan polistirex 30 mg/5 mL Suspension,Extended Rel 12 Hr 10 ml PO Q12H PRN (Reason: Cough) Tylenol 325 mg Tablet 650 mg PO Q4H PRN (Reason: pain/fever) gabapentin 600 mg tablet 600 mg PO TID ipratropium-albuterol 0.5 mg-3 mg(2.5 mg base)/3 mL solution for nebulization 3 ml INHALATION Q6H PRN (Reason: Shortness Of Breath) albuterol sulfate 2.5 mg /3 mL (0.083 %) Solution For Nebulization 2.5 mg INHALATION Q6H PRN (Reason: Shortness Of Breath) Zyrtec 10 mg Tablet 10 mg PO QAM cyanocobalamin (vitamin B-12) 1,000 mcg Tablet 1,000 mcg PO QAM tramadol 50 mg tablet 50 - 100 mg PO Q6H PRN (Reason: Pain) phenazopyridine [Azo-Tabs] 95 mg Tablet 190 mg PO TID ropinirole 0.5 mg tablet 0.5 mg PO DAILY PRN (Reason: Restless Leg(S)) lisinopril 5 mg tablet 5 mg PO QAM Flonase 50 mcg/actuation [place],Suspension 2 spray INTRANASAL QAM Rx Instructions: administer into each nostril colestipol 1 gram tablet 1 g PO BID escitalopram oxalate 20 mg tablet 20 mg PO QAM Mucus Relief 400 mg Tablet 400 - 800 mg PO Q12H PRN (Reason: Cough) metoprolol tartrate 25 mg tablet 25 mg PO BID cholecalciferol (vitamin D3) 1,250 mcg (50,000 unit) Capsule 50,000 unit PO Q7D Rx Instructions: on budesonide-formoterol 160-4.5 mcg/actuation HFA aerosol inhaler 2 puff INHALATION BID diclofenac sodium 1 % gel See Rx Instructions .ROUTE .COMPLEX Rx Instructions: apply 2 grams topically up to four times a day to upper ext and 4 grams up to four times to lower ext max dose per joint 16gm/day on lower ext and 8gm/day upper ext Eliquis 5 mg tablet 5 mg PO BID Discontinued ibuprofen 800 mg tablet 800 mg PO Q8H PRN (Reason: Pain) potassium chloride 20 mEq tablet,ER particles/crystals 20 meq PO BID metformin 1,000 mg tablet 1,000 mg PO BID glipizide 5 mg tablet 5 mg PO DAILY@12 Discharge Orders: Discharge Order (Routine); Ordered 01/07/23 Ordered By: Kay Acevedo Referrals: [facility] [Outside] Martha Lloyd NP [Primary Care Provider] - Discharge Diet: Diabetic Discharge Activity: Increase activity as tolerated Patient Instructions: Opioid Safety Activity Restrictions/Additional Instructions: I have discontinued metformin because we are not able to calculate GFR here in the hospital kindly discussed with doctor Considering your hemoglobin A1c of 5.6 I have also discontinued glipizide which can cause low sugar You have E. coli which is pansensitive please take 2 weeks of cefpodoxime 200 mg twice daily Discharge Attestations Time Spent in Discharge Care*: greater than 30 min Quality Metrics Clinical Quality Measures [ No reported AMI, CVA or VTE this stay] Coding Level of Care Code Acute Code for Chg Fwd Diagnoses Enterovirus infection B34.1 Paroxysmal A-fib I48.0 Diarrhea R19.7 Acute alteration in mental status R41.82 Urinary tract infection N30.00 Hematuria presence: without hematuria Urinary tract infection type: acute cystitis Fever R50.9 Fever type: unspecified
[2023-01-07] MEDS: gabapentin 100 mg Capsule 200 MG PO (08:36)
[2023-01-07] MEDS: magnesium oxide 400 mg tablet PO (08:36)
[2023-01-07] MEDS: insulin lispro 100 unit/1 mL SUBCUT (08:36)
[2023-01-07] MEDS: apixaban 5 mg Tablet PO (08:37)
[2023-01-07] MEDS: metoprolol tartrate 25 mg Tablet PO (08:37)
[2023-01-07 11:06] VITALS: BP 116/66; PULSE 79; RESP 18; TEMP 36.8; O2SAT 94
== END 2023-01-07 11:08 | disposition skilled nursing facility (03) | DRG 689 ==
LOC: ER 19:36 → MEDSURG 20:11
PROVIDERS: Admitting Provider Student in an Organized Health Care Education/Training Program; Emergency Provider Emergency Medicine; PCP Nurse Practitioner Family; Visit Provider Internal Medicine
DX: N30.00 Acute cystitis without hematuria (principal); G93.41 Metabolic encephalopathy; I48.0 Paroxysmal atrial fibrillation; Z87.440 Personal history of urinary (tract) infections; B96.20 Unspecified Escherichia coli [E. coli] as the cause of diseases classified elsewhere; E66.01 Morbid (severe) obesity due to excess calories; Z79.51 Long term (current) use of inhaled steroids; Z79.891 Long term (current) use of opiate analgesic; E11.9 Type 2 diabetes mellitus without complications; I10 Essential (primary) hypertension; E86.0 Dehydration; Z85.820 Personal history of malignant melanoma of skin; Z85.72 Personal history of non-Hodgkin lymphomas; Z87.891 Personal history of nicotine dependence; J44.9 Chronic obstructive pulmonary disease, unspecified; R19.7 Diarrhea, unspecified; B97.10 Unspecified enterovirus as the cause of diseases classified elsewhere
CPT/HCPCS: 36415; 36416; 51702; 70450; 71045; 71250; 74176; 80048; 80053; 80061; 81001; 82607; 82746; 82962; 83036; 83540; 83550; 83605; 83735; 84100; 84145; 84443; 85025; 87040; 87077; 87186; 87205; 87426; 87486; 87581; 87633; 92523; 92610; 93005; 94640; 94664; 96365; 96372; 96375; 99285; C9113; J0696; J0744; J1815; J1885; J2185; J7030

== ENCOUNTER 2023-02-04 22:59 | Inpatient (IN) | payer MEDICARE, MEDICAID, SELFPAY ==
[2023-02-04 22:59] VITALS: BP 81/47; PULSE 120; RESP 18; TEMP 40.3; O2SAT 91; BMI 48.6
--- NOTE | 2023-02-04 23:11 | XRR_ITS ---
PROCEDURE INFORMATION: Exam: XR Chest Exam date and time: 02/04/2023 11:34 PM Age: 73 years old Clinical indication: Fever and shortness of breath; Prior surgery; Surgery date: 6+ months; Surgery type: Loop recorder; Patient HX: SOB with fever. History of copd. TECHNIQUE: Imaging protocol: Radiologic exam of the chest. Views: 1 view. COMPARISON: CT chest con [id number] 01/03/2023 8:30 PM FINDINGS: Tubes, catheters and devices: There is a loop recorder device seen overlying the left lower thorax. Lungs: No consolidative pulmonary infiltrate noted. Pleural spaces: No pleural effusion. No pneumothorax. Heart/Mediastinum: Cardiomegaly is present. Calcified lymph nodes in the bilateral dve, consistent with old granulomatous disease. Bones/joints: Degenerative spine changes are noted. XR/XR chest 1V portable [id number] IMPRESSION: 1. Cardiomegaly is present. 2. No consolidative pulmonary infiltrate noted. 3. There is a loop recorder device seen overlying the left lower thorax. 4. Findings of old granulomatous disease are identified.
[2023-02-04] MEDS: ketorolac 30 mg/mL INJ 15 MG IVP (23:26)
[2023-02-04] MEDS: piperacillin-tazobactam 4.5 GM in sodium chloride 0.9% (plus) 50 ML IV (23:27)
[2023-02-04] MEDS: vancomycin 1,500 MG/300 ML PIGGYBACK 200 MG IV (23:28)
[2023-02-04 23:31] LABS: Basophils % 0.5 %; Eosinophils % 0.5 %; Lymphocytes # 0.6 10^3/uL (0.8-4.8); Lymphocytes % 6.8 %; Mean Corpuscular HGB Conc 32.5 g/dL (30-55); Mean Corpuscular Hemoglobin 26.5 pg (27-33); Mean Corpuscular Volume 81.4 fl (85-98); Mean Platelet Volume 9.5 fL (7.4-10.4); Monocytes # 0.5 10^3/uL (0.2-0.9); Monocytes % 5.8 %; Neutrophils # 7.54 10^3/uL (1.8-7.7); Neutrophils % 86.2 %; Nucleated Red Blood Cells % 0 %; Platelet Count 146 10^3/cmm (157-399); Red Blood Count 3.93 10^6/uL (3.85-5.65); Red Cell Distribution Width 14.1 % (12.1-15.1); White Blood Count 8.74 10^3/uL (3.29-11.43)
[2023-02-04] MEDS: sodium chloride 0.9% 1,000 ML 999 ML IV (23:33)
[2023-02-04 23:53] LABS: Alanine Aminotransferase 7 U/L (0-33); Albumin Level 3.5 g/dL (3.5-5.2); Alkaline Phosphatase 104 U/L (35-105); Anion Gap 11.1 (5-19); Aspartate Amino Transferase 11 U/L (0-32); Blood Urea Nitrogen 19 mg/dL (8-23); Calcium 8.4 mg/dL (8.5-10.5); Carbon Dioxide 26 mmol/L (22-29); Chloride 103 mmol/L (98-107); Globulin 1.8 g/dL (1.3-4.6); Glucose 177 mg/dL (65-115); Osmolality Calculated 289 mOsm/kg (285-295); Potassium 4.1 mmol/L (3.5-5.1); Sodium 136 mmol/L (136-145); Total Bilirubin 0.9 mg/dL (0.15-1.2); Total Protein 5.3 g/dL (6.6-8.7)
[2023-02-04 23:54] LABS: Lactic Sepsis W/Reflex 1.4 mmol/L (0.5-2.2)
[2023-02-05] VITALS (54 sets, daily range): BP systolic 61–177; BP diastolic 43–84; PULSE 55–104; RESP 15–26; TEMP 36.9–38.3; O2SAT 90–100
[2023-02-05 00:23] LABS: Add Urine Culture? Yes; Add Urine Microscopic? YES; Bacteria Urine 3+ /hpf; Bilirubin Urine Neg (Negative); Blood Urine 3+ (Negative); Glucose Urine UA Trace (Normal); Ketones Urine Negative (Negative); Leukocyte Esterase Urine 2+ (Negative); Nitrate Urine Positive (Negative); Protein Urine 3+ (Negative); RBC Urine 0-4 /hpf (0-2); Specific Gravity, Urine 1.015 (1.005-1.030); Squamous Epithelial Cell Urine 0-4 /hpf (0-5); Urine Appearance Cloudy (CLEAR); Urine Color Yellow (Yellow); Urobilinogen Urine Norm (Negative); WBC Urine TOO NUMEROUS TO CNT /hpf (0-5); pH Urine 6 (5-7)
--- NOTE | 2023-02-05 00:33 | CTR_ITS ---
PROCEDURE INFORMATION: Exam: CT Abdomen And Pelvis Without Contrast Exam date and time: 02/05/2023 1:56 AM Age: 73 years old Clinical indication: Fever and other: Hypotensive. Bacteriuria. Prior surgery; Surgery date: 6+ months; Surgery type: Loop recorder. Gb; Patient HX: Hypotensive with high grade fever and bacteriuria. ; Additional info: Sepsis, vomiting TECHNIQUE: Imaging protocol: Computed tomography of the abdomen and pelvis without contrast. Radiation optimization: All CT scans at this facility use at least one of these dose optimization techniques: automated exposure control; mA and/or kV adjustment per patient size (includes targeted exams where dose is matched to clinical indication); or iterative reconstruction. REPORTING DATA: Count of CT and Cardiac NM exams in prior 12 months: This patient has received 3 known CTs and 0 known cardiac nuclear medicine studies in the 12 months prior to the current study. COMPARISON: CT abdomen pelvis wo con [id number] 01/04/2023 8:01 AM RADIATION DOSE METRICS: Total DLP (mGy-cm): 1750.01 FINDINGS: Lungs: Mild probable atelectasis or parenchymal scarring lower lungs. Previously seen left medial lower lung consolidation has almost completely resolved. Trace amount of pleural fluid bilaterally. Liver: The liver appears mildly enlarged, with right lobe length of about 21 cm. Several small hepatic calcifications/granulomata. No definite/significant focal hepatic abnormality. Gallbladder and bile ducts: Prior cholecystectomy, no significant biliary tree dilation. Pancreas: Unremarkable. Spleen: The spleen appears moderately enlarged, with a length of 14-15 cm. Several small splenic calcifications. No definite/significant focal splenic abnormality or perisplenic fluid. Adrenal glands: Unremarkable. Kidneys and ureters: No hydronephrosis of either kidney. No visible renal or ureteral calculus. Mild perinephric stranding bilaterally, similar to prior exam. This is a nonspecific appearance and could be chronic. Pyelonephritis should also be considered, please correlate clinically. Stomach and bowel: No significant bowel distention. There are no CT findings to strongly suggest diverticulitis. Appendix: The appendix is not identified with certainty, however no pericecal inflammatory changes are seen. Intraperitoneal space: No free intraperitoneal air, or ascites. No evidence for retroperitoneal or intra-abdominal hematoma. Vasculature: Prominent aortic and other vascular calcifications noted. No evidence for abdominal aortic aneurysm. Lymph nodes: No retroperitoneal adenopathy. Urinary bladder: Valenzuela catheter in the urinary bladder. Possible mild diffuse urinary bladder wall thickening. However, evaluation is limited, as the bladder is essentially empty. While nonspecific, this could indicate evidence for cystitis. Please correlate clinically. Reproductive: Small uterine calcification, similar to the prior exam. A small uterine fibroid is possible. No definite abnormal ovarian/adnexal cyst or mass by CT. Bones/joints: Moderate to severe degenerative/arthritic changes throughout the lumbar spine, similar to the prior exam. Soft tissues: Small supraumbilical ventral hernia again noted, partially containing a small bowel loop. No evidence for significant bowel obstruction at this time. As clinically directed, follow-up be helpful to exclude progression. CT/CT abdomen pelvis wo con [id number] IMPRESSION: 1. No hydronephrosis of either kidney. No visible renal or ureteral calculus. 2. Mild perinephric stranding bilaterally, see above discussion. 3. Valenzuela catheter in the urinary bladder. Possible mild urinary bladder wall thickening, see above. 4. Small supraumbilical ventral hernia again noted, partially containing a small bowel loop. No evidence for significant bowel obstruction at this time. As clinically directed, follow-up may be helpful to exclude progression. 5. No free air or significant bowel distention. 6. No evidence for retroperitoneal intra-abdominal hematoma. 7. Other findings discussed above.
[2023-02-05] MEDS: sodium chloride 0.9% 1,000 ML 999 ML IV ×2 (00:46)
--- NOTE | 2023-02-05 01:01 | XRR_ITS ---
PROCEDURE INFORMATION: Exam: XR Chest Exam date and time: 02/05/2023 1:39 AM Age: 73 years old Clinical indication: Other vascular access device placement or adjustment; Central line, tunnelled; Prior surgery; Surgery date: 6+ months; Surgery type: Loop recorder; Patient HX: Check S/P RT sided central line placement TECHNIQUE: Imaging protocol: Radiologic exam of the chest. Views: 1 view. COMPARISON: CR (CHEST, ) 02/04/2023 11:34 PM FINDINGS: Tubes, catheters and devices: A right central venous catheter is present. The tip appears to lie in the right atrium of the heart. Lungs: No CHF/pulmonary edema. Very mild bilateral lower lung opacities, suspicious for atelectasis or parenchymal scarring. Pneumonitis not excluded. Please correlate clinically. Calcified hilar lymph nodes again noted. Pleural spaces: No visible pneumothorax . No definite pleural fluid. Heart/Mediastinum: Mild to moderate cardiomegaly. Bones/joints: Several old rib fractures again noted. XR/XR chest 1V portable [id number] IMPRESSION: 1. Catheter placement as above. 2. Very mild bilateral lower lung opacities, see above discussion. 3. Other findings discussed above.
--- NOTE | 2023-02-05 01:25 | P.HP_ITS ---
Providers/Chief Complaint Primary Care Provider: Martha Lloyd NP Chief Complaint: FEVER History of Present Illness Herlinda Shah is a 73 year old female with a past medical history of hypertension, history of recurrent UTIs, recent hospitalization for gram- negative bacteremia with UTI, who had a hospitalization at [place] in November for UTI and bacteremia, COPD, hypertension, paroxysmal atrial fibrillation on Eliquis, who presents to [facility] due to confusion, and high fever of 104. Currently patient is alert to person, not to place, not to time, she tells me that nothing is really bothering her she does not know why she is here, denies any abdominal pain, nausea, vomiting, no chest pain, no palpitations,. In emergency room she was found to have Tmax of 104, given Toradol, hypotensive, given sepsis bolus remains persistently hypotensive placed on Levophed, received vancomycin, Zosyn, UA with evidence of UTI, creatinine 1.1, CT scan of the pelvis ordered, will be moved to the ICU for septic shock secondary to UTI with encephalopathy Review of Systems Const: Denies: fever(s) or chills Card: Denies: chest pain Resp: Denies: dyspnea GI: Denies: abdominal pain : Denies: flank pain, difficulty voiding or dysuria Skin/Breast: Denies: rash Neuro: Denies: headache(s) Medications/Allergies Home Medications Medication Instructions Recorded Confirmed Last Taken Type acetaminophen 325 mg tablet 650 mg PO Q4H PRN pain/fever 01/03/23 01/03/23 Unknown History (Tylenol) albuterol sulfate 2.5 mg/3 mL 2.5 mg inhalation Q6H PRN 01/03/23 01/03/23 Unknown History (0.083 %) solution for nebulization Shortness Of Breath apixaban 5 mg tablet (Eliquis) 5 mg PO BID 01/03/23 01/03/23 01/03/23 10:10 History budesonide-formoterol HFA 160 2 puff inhalation BID 01/03/23 01/03/23 01/03/23 History mcg-4.5 mcg/actuation aerosol inhaler cetirizine 10 mg tablet (Zyrtec) 10 mg PO QAM 01/03/23 01/03/23 01/03/23 10:10 History cholecalciferol (vitamin D3) 1,250 50,000 unit PO Q7D 01/03/23 01/03/23 12/30/22 History mcg (50,000 unit) capsule colestipol 1 gram tablet 1 g PO BID 01/03/23 01/03/23 01/03/23 10:10 History cyanocobalamin (vitamin B-12) 1,000 mcg PO QAM 01/03/23 01/03/23 01/03/23 10:10 History 1,000 mcg tablet dextromethorphan polistirex 30 10 ml PO Q12H PRN Cough 01/03/23 01/03/23 01/03/23 History mg/5 mL oral susp ext.release 12hr diclofenac sodium 1 % topical gel See Rx Instructions .Route .COMPLEX 01/03/23 01/03/23 Unknown History escitalopram oxalate 20 mg tablet 20 mg PO QAM 01/03/23 01/03/23 01/03/23 10:10 History fluticasone propionate 50 2 spray intranasal QAM 01/03/23 01/03/23 01/03/23 History mcg/actuation nasal spray,suspension gabapentin 600 mg tablet 600 mg PO TID 01/03/23 01/03/23 01/03/23 12:00 History guaifenesin 400 mg tablet (Mucus 400 - 800 mg PO Q12H PRN Cough 01/03/2312/12 Unknown History Relief) ipratropium 0.5 mg-albuterol 3 mg 3 ml inhalation Q6H PRN Shortness 01/03/23 01/03/23 Unknown History (2.5 mg base)/3 mL nebulization Of Breath soln lisinopril 5 mg tablet 5 mg PO QAM 01/03/23 01/03/23 01/03/23 10:10 History metoprolol tartrate 25 mg tablet 25 mg PO BID 01/03/23 01/03/23 01/03/23 10:10 History phenazopyridine 95 mg tablet 190 mg PO TID for pain with 01/03/23 01/03/23 01/03/23 History urination for 2 days 2 tabs ropinirole 0.5 mg tablet 0.5 mg PO DAILY PRN Restless Leg(S) 01/03/23 01/03/23 Unknown History tramadol 50 mg tablet 50 - 100 mg PO Q6H PRN Pain 01/03/23 01/03/23 Unknown History cefpodoxime 200 mg tablet 200 mg PO BID #28 tabs 01/07/23 Unknown Rx Allergies Allergy/AdvReac Type Severity Reaction Status Date / Time acetaminophen Allergy Unknown Verified 01/03/23 15:21 [From Tylenol-Codeine #3] atorvastatin Allergy Unknown Verified 01/03/23 15:21 codeine Allergy Unknown Verified 01/03/23 15:21 iodine Allergy Unknown Verified 01/03/23 15:21 PFSH Acute PFSH: Medical History (Updated 02/05/23 @ 01:30 by Wellington Duff MD) Acute alteration in mental status COPD (chronic obstructive pulmonary disease) Diarrhea Enterovirus infection Fever Gram-negative bacteremia History of recurrent UTIs HTN (hypertension) Malignant melanoma Non-Hodgkin lymphoma Osteoarthritis, knee Paroxysmal A-fib Type 2 diabetes mellitus Urinary tract infection Social History Smoking and tobacco status: former smoker Alcohol intake: never Household members: other Housing: Alf Vitals/I&O/Wt Last Vital Signs Temp 104.6 F H 02/04/23 22:59 Pulse 120 H 02/04/23 22:59 Resp 18 02/04/23 22:59 BP 81/47 02/04/23 22:59 Pulse Ox 91 02/04/23 22:59 O2 Del Method Nasal Cannula 02/04/23 22:59 O2 Flow Rate 3 02/04/23 22:59 02/04/23 02/04/23 02/05/23 14:59 22:59 06:59 Intake Total 1050 / 1050 Balance 1050 / 1050 Weight last 48 hrs Weight 136.531 kg Physical Exam Const: COMMON NORMALS: no acute distress EXAM LIMITATIONS: altered mental status GENERAL APPEARANCE: cooperative and well developed ORIENTATION/CONSCIOUSNESS: Yes awake, Yes oriented to person and Yes confused; not oriented to place and not oriented to time HENMT: COMMON NORMALS: normocephalic and Normal external nose present HEAD & SCALP: normocephalic FACE & SINUS: normal facial exam NOSE: Normal external nose present Eye: COMMON NORMALS: Equal, round and reactive pupils present, conjunctivae normal and no scleral icterus CONJUNCTIVA: Yes conjunctivae normal PUPIL: Yes Equal, round and reactive pupils present Neck/C-Spine: COMMON NORMALS: full ROM, no lymphadenopathy, no meningeal signs, Thyroid normal and No carotid bruits THYROID: Thyroid normal Lymph: LYMPHATIC: no lymphadenopathy noted Chest: COMMONS NORMALS: normal inspection of the chest Resp: COMMON NORMALS: normal respiratory effort, No retractions, No use of accessory muscles and clear to auscultation bilaterally AUSCULTATION: clear to auscultation bilaterally Cardio: COMMON NORMALS: regular rate, regular rhythm, S1 normal heart sound present, S2 normal heart sound present and No murmurs present (Cardio) RATE: tachycardic RHYTHM: regular rhythm HEART SOUNDS: S1 normal heart sound present and S2 normal heart sound present GI: COMMON NORMALS: Normal to inspection, nondistended, normoactive bowel sounds present, Soft to palpation and non-tender : BLADDER/KIDNEY EXAM: Yes no CVA tenderness Back/Pelvis: COMMON NORMALS: no CVA tenderness Neuro: COMMON NORMALS: moves all extremities MENINGEAL SIGNS: Yes no meningeal signs OTHER: Altered mental status, does not follow neurologic testing Psych: COMMON NORMALS: speech normal THOUGHT PROCESS: Normal thought process present Sepsis: Is patient septic: Yes Focused sepsis exam performed: Yes Focused sepsis exam: DP PT pulses diminished bilateral lower extremities, mottling, pale extremity up to the level of bilateral mid calf, capillary refill greater than 3 seconds, tachycardia, hypotension Data 02/04/23 23:20 02/04/23 23:20 Micro: Microbiology 02/04/23 23:20 Blood Culture - Preliminary Blood SPECIMEN COLLECTED 02/04/23 23:20 Blood Culture - Preliminary Blood SPECIMEN COLLECTED A&P Assessment and plan (1) Septic shock: (2) Acute kidney injury: (3) Acute encephalopathy: (4) Urinary tract infection: Qualifiers: Hematuria presence: without hematuria Urinary tract infection type: acute cystitis Qualified Code(s): N30.00 - Acute cystitis without hematuria Plan Septic shock -Secondary to UTI -With DEIRDRE -Acute encephalopathy Plan -Admit to ICU -Neurochecks -Aspiration precautions -Continue Levophed, maintain MAP greater than 65 -Vancomycin, Zosyn -follow-up blood cultures, urine culture -Pro-Dante, CRP -Eliquis 5 mg twice daily -Monitor mentation closely -Central line to be placed in the emergency room -CT scan abdomen pelvis -Full code -Eliquis for DVT prophylaxis Attestations Medical Necessity Statement*: Patient requires hospitalization, inpatient, greater than 2 midnights, for encephalopathy, UTI, DEIRDRE, secondary to septic shock Coding Level of Care Code Critical Care >/= 30 minutes Critical care time (in minutes): 45 The high probability of a clinically significant, sudden or life threatening deterioration, as referenced in this documentation, required my full and direct attention, intervention and personal management. The critical care time shown is in addition to time spent performing any reported separately billable procedures and includes the following: [x] Data and vital sign review and interpretation [x ] Patient assessment, examination and intervention [x] Medication orders and management [x] Patient/Family updates as able [x] Care Coordination and Documentation. Diagnoses Septic shock A41.9; R65.21 Acute kidney injury N17.9 Acute encephalopathy G93.40 Urinary tract infection N30.00 Hematuria presence: without hematuria Urinary tract infection type: acute cystitis
--- NOTE | 2023-02-05 01:43 | ECG_ITS ---
[facility] Test Date: 2023-02-05 Pat Name: Herlinda Shah Department: Room: [facility] Gender: Female [place]: : 1950 Requested By: Wellington Duff Order Number: [id number] Jack MD: Tejas Kwon M.D. Measurements Intervals [place] Rate: 84 P: 30 SC: 171 QRS: -46 QRSD: 92 T: 9 QT: 409 QTc: 485 Interpretive Statements SINUS RHYTHM LEFT ANTERIOR FASCICULAR BLOCK [QRS AXIS <= -45, QR IN I, RS IN II] MINIMAL VOLTAGE CRITERIA FOR LVH, CONSIDER NORMAL VARIANT [MEETS CRITERIA IN ONE OF: R(aVL), S(V1), R(V5), R(V5/V6)+S(V1)] ANTEROSEPTAL MYOCARDIAL INFARCTION , OF INDETERMINATE AGE [40+ ms Q WAVE IN V1-V4] Compared to ECG 01/03/2023 15:19:09 Left anterior fascicular block now present Left-axis deviation no longer present Myocardial infarct finding still present Electronically Signed On 02-05-2023 14:41:53 CDT by Tejas Kwon M.D. [email or web address]
[2023-02-05 01:54] LABS: Troponin(5th) Baseline 174 ng/L (0-10)
[2023-02-05 01:58] LABS: Adenovirus Not Detected (NOT DETECT); Chlamydia Pneumoniae Not Detected (NOT DETECT); Coronavirus 229E,HKU1,NL63,OC4 Not Detected (NOT DETECT); Human Metapneumovirus Not Detected (NOT DETECT); Human Rhinovirus/Enterovirus Not Detected (NOT DETECT); Influenza A Not Detected (NOT DETECT); Influenza A H1 Not Detected (NOT DETECT); Influenza A H1-2009 Not Detected (NOT DETECT); Influenza A H3 Not Detected (NOT DETECT); Influenza B Not Detected (NOT DETECT); Mycoplasma Pneumoniae Not Detected (NOT DETECT); Parainfluenza Virus Type 1 Not Detected (NOT DETECT); Parainfluenza Virus Type 2 Not Detected (NOT DETECT); Parainfluenza Virus Type 3 Not Detected (NOT DETECT); Parainfluenza Virus Type 4 Not Detected (NOT DETECT); Respiratory Syncytial Virus A Not Detected (NOT DETECT); Respiratory Syncytial Virus B Not Detected (NOT DETECT); SARS-COV-2 Not Detected (NOT DETECT)
[2023-02-05 02:00] LABS: NT Pro B Type Natriuretic Pept 1257 pg/mL (0-450); Procalcitonin 0.36 ng/mL (0-0.5)
--- NOTE | 2023-02-05 03:10 | PC.PHAR ---
Pharmacokinetic dosing service Date: 02/05/23 Time: 310 Objective: Patient: Herlinda Shah Floor: ICU-4 Age: 73 yo Serum creatinine: 1.0 mg/dL Height: 66.0 Inches Weight (kg): 136.531 Diagnosis: Relevant medical/social history: Cultures and sensitivities: Other labs: Assessment: IBW (kg): 59.30 Dosing wt(kg): 90.2 Estimated Creatinine clearance (ml/min): 45.5 CRCL method: Cockcroft and Gault using ibw(default). Drug selected: Vancomycin Loading dose (mg): 0 Vd (liters): 81.2 (factor used: 0.9 L/kg) Don (hr-1): 0.042 Half life (hrs): 16.50 Recommended dose: 2000 mg Interval: 24 hrs Infusion time (hrs): 1.5 Predicted peak (mcg/mL): 37.6 Predicted trough (mcg/mL): 14.61 Adjusted body weight was selected for vancomycin dosing. To switch back, select the total body weight option above. Renal function is stable [ ] /unstable [ ] Recommendations: Give Vancomycin 2000 mg q 24 hrs with an expected Cpeak of 37.6 mcg/ml and an expected Ctrough of 14.61 mcg/ml Renal dosing of other antibiotics (review renal dosing of other medications and list guidelines here): Thank you for the consult, will continue to follow. Signature: Claudia Oliver [facility]
[2023-02-05] MEDS: pantoprazole 40 mg SDV IVP (03:15)
[2023-02-05 03:41] LABS: Thyroid Stimulating Hormone 2.38 uIU/mL (0.27-4.20)
--- NOTE | 2023-02-05 04:30 | W.ED.FEVER ---
HPI - Fever General: Chief Complaint: Fever Stated Complaint: FEVER Time Seen by Provider: 02/04/23 23:03 History of Present Illness: 73-year-old female presenting with fever and hypotension and mild mental status changes. She was evidently seen at an outside facility yesterday, and sent home with Melida for vomiting. He states she has vomited a couple more times today. Initial systolic pressures for EMS were in the 80s with a significant temperature Associated symptoms: Reports confusion, nausea and vomiting; Deny abdominal pain, chest pain, dysuria or headache(s) Review of Systems Const: Reports: fever(s) ENMT: Denies: throat pain Card: Denies: chest pain or palpitations Resp: Denies: dyspnea, productive cough or non-productive cough GI: Reports: nausea and vomiting; Denies: abdominal pain : Denies: dysuria Neuro: Reports: confusion; Denies: headache(s) PFS ED PFSH: Medical History Acute alteration in mental status COPD (chronic obstructive pulmonary disease) Diarrhea Enterovirus infection Fever Gram-negative bacteremia History of recurrent UTIs HTN (hypertension) Malignant melanoma Non-Hodgkin lymphoma Osteoarthritis, knee Paroxysmal A-fib Type 2 diabetes mellitus Urinary tract infection Social History Smoking and tobacco status: former smoker Alcohol intake: never Household members: other Housing: [facility] Physical Exam Const: GENERAL APPEARANCE: cooperative, ill appearing and frail appearing NUTRITIONAL APPEARANCE: obese HENMT: COMMON NORMALS: normocephalic, atraumatic and Normal external nose present HEAD & SCALP: normocephalic and atraumatic NOSE: Normal external nose present Eye: COMMON NORMALS: Equal, round and reactive pupils present and EOMs intact bilaterally PUPIL: Yes Equal, round and reactive pupils present Neck/C-Spine: GENERAL: Yes trachea midline Chest: CHEST: Yes Symmetrical chest wall rise Resp: COMMON NORMALS: normal respiratory effort, No use of accessory muscles and clear to auscultation bilaterally AUSCULTATION: clear to auscultation bilaterally Cardio: COMMON NORMALS: regular rhythm RATE: tachycardic RHYTHM: regular rhythm GI: COMMON NORMALS: Soft to palpation PALPATION: Yes Soft to palpation and No Tenderness to palpation present (GI) : COMMON NORMALS: Yes no CVA tenderness BLADDER/KIDNEY EXAM: Yes no CVA tenderness Back/Pelvis: COMMON NORMALS: no CVA tenderness Neuro: PAM COMA SCALE: document GCS findings Pam coma scale eye opening: Spontaneous Pam coma scale verbal response: Confused Hanahan coma scale motor response: Obey commands Pam coma scale total score: 14 Psych: COMMON NORMALS: cooperative Skin: COMMON NORMALS: no rashes or lesions noted GENERAL SKIN EXAM: no rashes or lesions noted Procedures Central Line Placement Right IJ: Time Out Performed: Yes Patient Placed on Monitor/Pulse Ox: Yes MD Prep: mask, gown and gloves Central Line Prep: Chlorhexidine scrub Local Anesthetic: lidocaine 1% Amount of anesthesia used (mL): 3 Ultrasound Used for Placement: Yes Central Line Lumen Inserted: triple Post Procedure: sutured in place, good blood return, all ports aspirated, flushed, capped and sterile dressing applied Post Procedure X-Ray: tip of catheter in good position and no pneumothorax seen Patient Tolerated Procedure: well and no complications Complications: none Course Vital Signs: Vital signs: Vital Signs Temperature 100 F H 02/05/23 03:00 Pulse Rate 85 02/05/23 03:00 Respiratory Rate 19 H 02/05/23 03:00 Blood Pressure 105/55 02/05/23 03:00 Pulse Oximetry 95 02/05/23 04:31 Oxygen Delivery Me thod Room Air 02/05/23 04:31 Oxygen Flow Rate 3 02/04/23 22:59 MDM - Fever Medical Decision Making Temperature initially was 104.6. Patient is awake, and alert, she has mild situational confusion. Blood pressures were in the 80s systolic. Fluid bolus to 30 mL/kg was completed, but the patient remained hypotensive. She was placed on Levophed for sepsis protocol. Patient had a normal white blood cell count, hemoglobin of 10.4 creatinine of 1. Fever was treated with Toradol and fluid. Chest x-ray was initially negative for infiltrate. Urinalysis showed too many white blood cells to count and positive nitrates. She was started on vancomycin and Zosyn following blood cultures. Central line was placed due to the need for pressors. This happened without complication. Hospitalist was alerted to admission. He will see the patient. She will go to the ICU. Lab Data 02/04/23 23:20 02/04/23 23:20 Radiology Impressions Abdomen/Pelvis CT 02/05/23 00:33 IMPRESSION: 1. No hydronephrosis of either kidney. No visible renal or ureteral calculus. 2. Mild perinephric stranding bilaterally, see above discussion. 3. Valenzuela catheter in the urinary bladder. Possible mild urinary bladder wall thickening, see above. 4. Small supraumbilical ventral hernia again noted, partially containing a small bowel loop. No evidence for significant bowel obstruction at this time. As clinically directed, follow-up may be helpful to exclude progression. 5. No free air or significant bowel distention. 6. No evidence for retroperitoneal intra-abdominal hematoma. 7. Other findings discussed above. Chest X-Ray 02/05/23 01:01 IMPRESSION: 1. Catheter placement as above. 2. Very mild bilateral lower lung opacities, see above discussion. 3. Other findings discussed above. Laboratory Results WBC 8.74 10^3/uL (3.29-11.43) 02/04/23 23:20 RBC 3.93 10^6/uL (3.85-5.65) 02/04/23 23:20 Hgb 10.40 g/dL (11.27-16.99) L 02/04/23 23:20 Hct 32.0 % (36-47) L 02/04/23 23:20 MCV 81.4 fl (85-98) L 02/04/23 23:20 MCH 26.5 pg (27-33) L 02/04/23 23:20 MCHC 32.5 g/dL (30-55) 02/04/23 23:20 RDW 14.1 % (12.1-15.1) 02/04/23 23:20 Plt Count 146 10^3/cmm (157-399) L 02/04/23 23:20 MPV 9.5 fL (7.4-10.4) 02/04/23 23:20 Neut % (Auto) 86.2 % 02/04/23 23:20 Lymph % (Auto) 6.8 % 02/04/23 23:20 Sharkey % (Auto) 5.8 % 02/04/23 23:20 Eos % (Auto) 0.5 % 02/04/23 23:20 Baso % (Auto) 0.5 % 02/04/23 23:20 Neut # (Auto) 7.54 10^3/uL (1.8-7.7) 02/04/23 23:20 Lymph # (Auto) 0.6 10^3/uL (0.8-4.8) L 02/04/23 23:20 Sharkey # (Auto) 0.5 10^3/uL (0.2-0.9) 02/04/23 23:20 Eos # (Auto) 0.0 10^3/uL (0.0-0.8) 02/04/23 23:20 Baso # (Auto) 0.0 10^3/uL (0.0-0.1) 02/04/23 23:20 Nucleated RBC % (auto) 0 % 02/04/23 23:20 Nucleated RBCs # 0.0 /100WBC 02/04/23 23:20 Sodium 136 mmol/L (136-145) 02/04/23 23:20 Potassium 4.1 mmol/L (3.5-5.1) 02/04/23 23:20 Chloride 103 mmol/L (98-107) 02/04/23 23:20 Carbon Dioxide 26 mmol/L (22-29) 02/04/23 23:20 Anion Gap 11.1 (5-19) 02/04/23 23:20 BUN 19 mg/dL (8-23) 02/04/23 23:20 Creatinine 1.0 mg/dL (0.5-0.9) H 02/04/23 23:20 GFR Calculation Not Reportable 02/04/23 23:20 Glucose 177 mg/dL (65-115) H 02/04/23 23:20 Calculated Osmolality 289 mOsm/kg (285-295) 02/04/23 23:20 Lactic Acid 1.4 mmol/L (0.5-2.2) 02/04/23 23:20 Calcium 8.4 mg/dL (8.5-10.5) L 02/04/23 23:20 Total Bilirubin 0.9 mg/dL (0.15-1.2) 02/04/23 23:20 AST 11 U/L (0-32) 02/04/23 23:20 ALT 7 U/L (0-33) 02/04/23 23:20 Alkaline Phosphatase 104 U/L (35-105) 02/04/23 23:20 Troponin T Baseline 174 ng/L (0-10) H* 02/04/23 23:20 C-Reactive Protein 63.0 mg/L (0.0-4.9) H 02/04/23 23:20 NT-Pro-B Natriuret Pep 1257 pg/mL (0-450) H 02/04/23 23:20 Total Protein 5.3 g/dL (6.6-8.7) L 02/04/23 23:20 Albumin 3.5 g/dL (3.5-5.2) 02/04/23 23:20 Globulin 1.8 g/dL (1.3-4.6) 02/04/23 23:20 Procalcitonin 0.36 ng/mL (0-0.5) 02/04/23 23:20 Urine Color Yellow (Yellow) 02/05/23 00:00 Urine Appearance Cloudy (CLEAR) A 02/05/23 00:00 Urine pH 6 (5-7) 02/05/23 00:00 Ur Specific [place] 1.015 (1.005-1.030) 02/05/23 00:00 Urine Protein 3+ (Negative) H 02/05/23 00:00 Urine Glucose (UA) Trace (Normal) H 02/05/23 00:00 Urine Ketones Negative (Negative) 02/05/23 00:00 Urine Blood 3+ (Negative) H 02/05/23 00:00 Urine Nitrate Positive (Negative) H 02/05/23 00:00 Urine Bilirubin Neg (Negative) 02/05/23 00:00 Urine Urobilinogen Norm mg/dL (Negative) 02/05/23 00:00 Ur Leukocyte Esterase 2+ (Negative) H 02/05/23 00:00 Urine RBC 0-4 /hpf (0-2) H 02/05/23 00:00 Urine WBC Too numerous to cnt /hpf (0-5) H 02/05/23 00:00 Ur Squamous Epith Cells 0-4 /hpf (0-5) H 02/05/23 00:00 Amorphous Sediment Not Reportable 02/05/23 00:00 Urine Bacteria 3+ /hpf (NONE) H 02/05/23 00:00 Nasal Influ A H1 2009 PCR Not detected (NOT DETECT) 02/04/23 23:38 Adenovirus (PCR) Not detected (NOT DETECT) 02/04/23 23:38 C. pneumoniae DNA (PCR) Not detected (NOT DETECT) 02/04/23 23:38 Coronavirus 229E (PCR) Not detected (NOT DETECT) 02/04/23 23:38 Human Metapneumovir PCR Not detected (NOT DETECT) 02/04/23 23:38 Influenza A (H1) PCR Not detected (NOT DETECT) 02/04/23 23:38 Influenza A (H3) PCR Not detected (NOT DETECT) 02/04/23 23:38 Influenza Type A (PCR) Not detected (NOT DETECT) 02/04/23 23:38 Influenza Type B (PCR) Not detected (NOT DETECT) 02/04/23 23:38 M. pneumoniae (PCR) Not detected (NOT DETECT) 02/04/23 23:38 Parainfluenza 1 (PCR) Not detected (NOT DETECT) 02/04/23 23:38 Parainfluenza 2 (PCR) Not detected (NOT DETECT) 02/04/23 23:38 Parainfluenza 3 (PCR) Not detected (NOT DETECT) 02/04/23 23:38 Parainfluenza 4 (PCR) Not detected (NOT DETECT) 02/04/23 23:38 RSV Type A (PCR) Not detected (NOT DETECT) 02/04/23 23:38 RSV Type B (PCR) Not detected (NOT DETECT) 02/04/23 23:38 Entero/Rhino (PCR) Not detected (NOT DETECT) 02/04/23 23:38 SARS-CoV-2 (PCR) Not detected (NOT DETECT) 02/04/23 23:38 Critical Care Time Critical Care Time: Critical Care Time: Yes Total Critical Care Time: 40 Attestation: This case had a high probability of a clinically significant, sudden, or life threatening deterioration of this patient's condition which required my full and direct attention, intervention and personal management. Time is independent of any procedures performed Discharge Plan Discharge Patient Disposition: Admitted As Inpatient Admit Provider: Wellington Duff Clinical Impression: Septic shock, Acute kidney injury, Acute encephalopathy, Urinary tract infection Condition: Serious Coding Level of Care Code ED Architecture Analyst for Sergio Pinedo
[2023-02-05] MEDS: sodium chloride 0.9% 1,000 ML 50 ML IV (06:14)
[2023-02-05 06:27] LABS: Troponin 5 6HR 211.3 ng/L (0-10); Troponin 5 6HR Delta 37.3 ng/L (0-12)
--- NOTE | 2023-02-05 06:31 | USCV_ITS ---
Herlinda Shah Age: 73 Gender: F : 1950 Exam Date: 02/05/2023 06:54 Ordering Phys: Wellington Duff MD Technologist: Dario Hoffman Exam Location: [facility] [place] Indication: NSTEMI BP: 136 / 61 HR: 87 Rhythm: Sinus Technical Quality: Adequate MEASUREMENTS (Male / Female) Normal Values 2D ECHO LVOT Diameter 2.0 cm LV Ejection Fraction MOD 2C 60.4 % LV Ejection Fraction 2C AL 62.3 % LA Diameter 3.4 cm LA Width 4.1 cm LA Height 5.6 cm RA Width 3.5 cm RA Height 4.4 cm Aorta at Sinotubular Diameter 2.6 cm IVC Diameter 2.9 cm M-MODE Aortic Annulus Diameter 3.2 cm LA Ao Ratio MM 1.2 MV E Point Septal Separation 0.7 cm DOPPLER AV Peak Velocity 340.0 cm/s LVOT Peak Velocity 81.0 cm/s AV Area Cont Eq vti 0.7 cm squared AV Area Cont Eq pk 0.8 cm squared MV Peak Velocity 180.0 cm/s MV Area PHT 6.5 cm squared Mitral E to A Ratio 0.7 MV E' Velocity 36.5 cm/s Mitral E to MV E' Ratio 10.5 Mitral E to LV E' Lateral Ratio 11.2 Mitral E to LV E' Septal Ratio 10.0 TR Peak Velocity 282.4 cm/s TR Peak Gradient 31.9 mmHg TR Mean Velocity 211.5 cm/s TR Mean Gradient 19.5 mmHg TR Velocity Time Integral 85.0 cm Right Atrial Pressure 15.0 mmHg Pulmonary Artery Systolic Pressu 46.9 mmHg PV Peak Velocity 90.0 cm/s RV Acceleration Time 0.1 s RV Ejection Time 0.3 s RV AcT/ET 0.3 FINDINGS Left Ventricle Technically limited quality echocardiogram because of poor ultrasonic windows. LV systolic function is normal with EF of 55 to 60%. No regional wall motion abnormalities seen. Grade 1 diastolic dysfunction Right Ventricle Normal in size and function Right Atrium Normal in size Left Atrium Dilated Mitral Valve Moderate to severe mitral annular calcification. Mild mitral regurgitation. Moderate mitral stenosis with mean gradient across mitral stenosis is 6.3mmHg. Aortic Valve Aortic valve is thickened and calcified. Moderate to severe aortic stenosis with aortic valve area of 0.85cm2 and mean gradient across aortic valve of 23mmHg.Moderate aortic regurgitation. Tricuspid Valve Mild tricuspid regurgitation. RVSP is 45-50mmHg. This is consistent with moderate pulmonary hypertension Pulmonic Valve Not well visualized Pericardium Normal Aorta Normal in size IVC Appears to be dilated. RA pressure is elevated CONCLUSIONS LV systolic function is normal with EF of 55-60%. Grade 1 diastolic dysfunction Left atrial dilation Moderate to severe mitral annular calcification. Mild mitral regurgitation. Moderate mitral stenosis Moderate to severe aortic stenosis Moderate aortic regurgitation Mild tricuspid regurgitation. Moderate pulmonary hypertension IVC appears to be dilated. RA pressure is elevated. No comparsion studies are available. Tejas Kwon MD (Electronically Signed) Final Date: 05 February 2023 11:27 S
[2023-02-05] MEDS: perflutren protein-a microsphr 0.22 mg/mL SDV 3 mL IV (07:42)
[2023-02-05] MEDS: ipratropium-albuterol 3 mL Neb INHALATION ×2 (07:44→19:32)
[2023-02-05] MEDS: budesonide 0.5 mg/2 mL Neb INHALATION ×2 (07:45→19:32)
--- NOTE | 2023-02-05 07:49 | ECG_ITS ---
[facility] Test Date: 2023-02-05 Pat Name: Herlinda Shah Department: Room: [facility] Gender: Female Educational Program Director: : 1950 Requested By: Wellington Duff Order Number: [id number] Marcie MD: Tejas Kwon M.D. Measurements Intervals [place] Rate: 76 P: 35 WV: 192 QRS: -44 QRSD: 93 T: -13 QT: 414 QTc: 467 Interpretive Statements SINUS RHYTHM LEFT AXIS DEVIATION [QRS AXIS < -30] MODERATE VOLTAGE CRITERIA FOR LVH, CONSIDER NORMAL VARIANT [MEETS CRITERIA IN ONE OF: R(aVL), S(V1), R(V5), R(V5/V6)+S(V1)] ANTEROSEPTAL MYOCARDIAL INFARCTION , OF INDETERMINATE AGE [40+ ms Q WAVE IN V1-V4] Compared to ECG 02/05/2023 01:43:06 Left-axis deviation now present Left anterior fascicular block no longer present Myocardial infarct finding still present Electronically Signed On 02-05-2023 14:45:23 CDT by Tejas Kwon M.D. [id number]
--- NOTE | 2023-02-05 08:00 | PC.PHAR ---
[facility] W[employer] RESOURCES PROJECT MANAGER RECORD 8 AM 02/05/23
[2023-02-05] MEDS: piperacillin-tazobactam 3.375 GM in sodium chloride 0.9% (plus) 50 ML IV (09:19)
[2023-02-05] MEDS: apixaban 5 mg Tablet PO (09:19)
[2023-02-05] MEDS: acetaminophen 325 mg Tablet 650 MG PO ×2 (10:37→20:03)
[2023-02-05] MEDS: aspirin 81 mg Chew Tablet 324 MG PO (10:39)
[2023-02-05] MEDS: meropenem 1,000 MG in sodium chloride 0.9% (plus) 50 ML 100 MG IV ×2 (11:10→21:10)
--- NOTE | 2023-02-05 13:00 | P.PN_ITS ---
Subjective Subjective: She is alert awake oriented. Continues to have fever spikes of 100.9 Fahrenheit. She has chills. Appears pale and ill. Currently on Levophed at 7. Medications: Reviewed: Yes Vitals/I&O/Wt Last Vital Signs Temp 100.9 F H 02/05/23 12:30 Pulse 80 02/05/23 14:00 Resp 21 H 02/05/23 11:30 BP 128/84 02/05/23 12:30 Pulse Ox 92 02/05/23 12:30 O2 Del Method Nasal Cannula 02/05/23 09:00 O2 Flow Rate 2 02/05/23 09:00 02/05/23 02/05/23 02/05/23 06:59 14:59 22:59 Intake Total 3387.592 / 3387.592 528.700 / 528.700 Output Total 750 / 750 Balance 2637.592 / 2637.592 528.700 / 528.700 Weight last 48 hrs Weight 136.531 kg Physical Exam Narrative: General: No acute distress, AO x3 HEENT: PERRLA, pupils bilaterally equal and reactive, pallors not present Chest: Normal vesicular breath sounds, no added sounds, equal good air entry bilaterally CVS: S1-S2 regular, no murmurs, no tachycardia, no gallops, no rubs Abdomen: Soft, nontender, no organomegaly, bowel sounds present Neuro: No focal deficits, no facial deformity, AO x3, power 5/5 in all limbs Data 02/04/23 23:20 02/04/23 23:20 Micro: Microbiology 02/04/23 23:20 Blood Culture - Preliminary Blood Escherichia coli 02/04/23 23:20 Blood Culture - Preliminary Blood SPECIMEN COLLECTED A&P Assessment and plan (1) Septic shock: (2) Acute kidney injury: (3) Acute encephalopathy: (4) Urinary tract infection: (5) NSTEMI (non-ST elevated myocardial infarction): Plan # Septic shock -Secondary to UTI, possible pyelonephritis -With DEIRDRE and Acute encephalopathy Patient has had recurrent hospital admissions recently due to UTI. Suspicion for possibly resistant organisms. Change Zosyn to meropenem. Continue vancomycin Await cultures. Clinical suspicion for gram-negative sepsis. Continue Levophed, titrate for map of 65. #NSTEMI Troponin trend 174--> 253 ---> 211 with delta of 79 and 37 at 2 and 6 hours respectively. Concern for NSTEMI versus type II [place] due to sepsis. IVIS Ruano. Change to Lovenox 1 mg/kg every 12 hours. Aspirin 325 mg now, followed by aspirin 81 mg p.o. daily listed allergy to atorvastatin Echocardiogram ordered. Once patient is treated for acute sepsis and starts to clinically improve, will likely need further ischemic work-up. She denies any past medical history of CAD. DVT prophylaxis: Currently on full dose Lovenox Full code Attestations Medical Necessity Statement*: Continued ICU level care for need of pressors, IV antibiotics, sepsis likely from a UTI, awaiting cultures, NSTEMI needing close cardiac monitoring. Critical Care Time: The high probability of a clinically significant, sudden or life threatening deterioration of the patient's [infectious, cardiovascular] system(s) required my full and direct attention, intervention and personal management. The critical care time is as shown. This time is in addition to time spent performing any reported procedures but includes the following: [x] Data and vital sign review and interpretation [x] Patient assessment, examination and intervention [x] Documentation [x] Medication orders and management Critical Care Time (min): 40 Coding Level of Care Code Acute Code for [facility] Fwd Diagnoses Septic shock A41.9; R65.21 Acute kidney injury N17.9 Acute encephalopathy G93.40 Urinary tract infection N39.0 NSTEMI (non-ST elevated myocardial infarction) I21.4
[2023-02-05] MEDS: enoxaparin 150 mg/mL Syringe 140 MG SUBCUT (21:10)
--- NOTE | 2023-02-05 21:51 | PC.NURSE ---
Patient was unable to follow finger when I was testing visual holland. No signs of stroke. Equal senior trial attorney on both hands and equal strength on both feet.
[2023-02-05] MEDS: lanolin oint 7 gm 1 APPLIC TOPICAL (22:31)
[2023-02-06] VITALS (39 sets, daily range): BP systolic 106–178; BP diastolic 53–105; PULSE 66–110; RESP 11–27; TEMP 36.9–37.7; O2SAT 79–100; BMI 50.3
[2023-02-06] MEDS: acetaminophen 325 mg Tablet 650 MG PO (00:32)
[2023-02-06] MEDS: meropenem 1,000 MG in sodium chloride 0.9% (plus) 50 ML 100 MG IV ×3 (02:08→18:37)
[2023-02-06] MEDS: sodium chloride 0.9% 1,000 ML 50 ML IV (02:09)
[2023-02-06] MEDS: pantoprazole 40 mg SDV IVP (02:09)
[2023-02-06 04:58] LABS: Basophils % 0.7 %; Eosinophils # 0.1 10^3/uL (0.0-0.8); Eosinophils % 1.6 %; Hematocrit 30.7 % (36-47); Lymphocytes # 0.8 10^3/uL (0.8-4.8); Lymphocytes % 14.5 %; Mean Corpuscular HGB Conc 31.3 g/dL (30-55); Mean Corpuscular Hemoglobin 26.1 pg (27-33); Mean Corpuscular Volume 83.4 fl (85-98); Mean Platelet Volume 10.4 fL (7.4-10.4); Monocytes # 0.6 10^3/uL (0.2-0.9); Monocytes % 10.1 %; Neutrophils # 4.18 10^3/uL (1.8-7.7); Neutrophils % 72.8 %; Nucleated Red Blood Cells % 0 %; Platelet Count 139 10^3/cmm (157-399); Red Blood Count 3.68 10^6/uL (3.85-5.65); Red Cell Distribution Width 14.2 % (12.1-15.1); White Blood Count 5.74 10^3/uL (3.29-11.43)
[2023-02-06 05:16] LABS: Alanine Aminotransferase 6 U/L (0-33); Alkaline Phosphatase 92 U/L (35-105); Anion Gap 11.6 (5-19); Aspartate Amino Transferase 13 U/L (0-32); Blood Urea Nitrogen 9 mg/dL (8-23); Carbon Dioxide 23 mmol/L (22-29); Chloride 111 mmol/L (98-107); Chol HDL Ratio 2.38 mg/dL (0.0-4.40); Cholesterol 124 mg/dL (0-200); Globulin 1.7 g/dL (1.3-4.6); Glucose 150 mg/dL (65-115); HDL Cholesterol 52 mg/dL (60-100); LDL Cholesterol Calculated 55 mg/dL (50-129); LDL HDL Ratio 1.06 RATIO (0.00-3.22); Magnesium 1.7 mg/dL (1.7-2.3); Osmolality Calculated 296 mOsm/kg (285-295); Potassium 3.6 mmol/L (3.5-5.1); Sodium 142 mmol/L (136-145); Total Bilirubin 0.7 mg/dL (0.15-1.2); Total Protein 4.7 g/dL (6.6-8.7); Triglycerides 86 mg/dL (0-150)
[2023-02-06 05:21] LABS: Estmated Average Glucose 128; Hemoglobin A1C 6.1 % (4.0-6.0)
[2023-02-06] MEDS: enoxaparin 150 mg/mL Syringe 140 MG SUBCUT ×2 (06:06→17:30)
[2023-02-06] MEDS: escitalopram 10 mg Tablet 20 MG PO (06:06)
[2023-02-06] MEDS: budesonide 0.5 mg/2 mL Neb INHALATION ×2 (07:48→20:28)
[2023-02-06] MEDS: ipratropium-albuterol 3 mL Neb INHALATION ×2 (07:48→20:28)
[2023-02-06] MEDS: aspirin 81 mg EC Tablet PO (08:29)
[2023-02-06] MEDS: lanolin oint 7 gm 1 APPLIC TOPICAL (08:41)
--- NOTE | 2023-02-06 16:48 | P.PN_ITS ---
Subjective Subjective: t max 100F today, off pressors, feeling much better, wants to eat , blood cx + GNR identified as e coli Medications: Reviewed: Yes Vitals/I&O/Wt Last Vital Signs Temp 100 F H 02/06/23 14:00 Pulse 100 02/06/23 15:00 Resp 22 H 02/06/23 15:00 BP 161/96 02/06/23 15:00 Pulse Ox 92 02/06/23 14:30 O2 Del Method Room Air 02/06/23 15:00 O2 Flow Rate 2 02/05/23 19:33 02/06/23 02/06/23 02/06/23 06:59 14:59 22:59 Intake Total 1093.077 / 2241.342 650 / 650 Output Total 1800 / 4050 Balance -706.923 / -1808.658 650 / 650 Weight last 48 hrs Weight 141.5 kg Weight 136.531 kg Physical Exam Narrative: General: No acute distress, AO x3 HEENT: PERRLA, pupils bilaterally equal and reactive, pallors not present Chest: Normal vesicular breath sounds, no added sounds, equal good air entry bi laterally CVS: S1-S2 regular, no murmurs, no tachycardia, no gallops, no rubs Abdomen: Soft, nontender, no organomegaly, bowel sounds present Neuro: No focal deficits, no facial deformity, AO x3, power 5/5 in all limbs Urinary Catheter Management: Valenzuela: Cath Placed During This Visit: no Reason for Continuing Indwelling Catheter: Accurate Measurement of Urinary Output in Critically Ill Patients Data 02/06/23 04:05 02/06/23 04:05 Micro: Microbiology 02/04/23 23:20 Blood Culture - Preliminary Blood Escherichia coli 02/04/23 23:20 Blood Culture - Preliminary Blood Escherichia coli 02/05/23 00:00 Urine Culture - Preliminary Urine,Clean Catch Gram Negative Rods 02/06/23 04:15 Blood Culture - Preliminary Blood SPECIMEN COLLECTED 02/06/23 04:05 Blood Culture - Preliminary Blood SPECIMEN COLLECTED A&P Assessment and plan (1) Septic shock: (2) Acute kidney injury: (3) Acute encephalopathy: (4) Urinary tract infection: (5) NSTEMI (non-ST elevated myocardial infarction): (6) Gram negative sepsis: Plan # gram negative sepsis # Septic shock -Secondary to UTI, possible pyelonephritis -With DEIRDRE and Acute encephalopathy, now improving Patient has had recurrent hospital admissions recently due to UTI. continue meropenem while pending cx D/c vancomycin Blood cx + GNR identified as E coli, susceptibility pending off pressors advance diet CT abd/pelvis without any source of urinary obstruction. Will need urology referral as outpatient after discharge for possible cystoscopy and voiding studies given recurrent episodes of UTI leading to sepsis. #NSTEMI Denies any chest pain Troponin trend 174--> 253 ---> 211 with delta of 79 and 37 at 2 and 6 hours respectively. Concern for NSTEMI versus type II [place] due to sepsis. continue Lovenox 1 mg/kg every 12 hours. continue aspirin 81 mg p.o. daily listed allergy to atorvastatin Echocardiogram with LVEF 55-60%, mild MR, mild AR Plan on possible stress test, likely Tuesday if continues to do well now that improving from sepsis standpoint. DVT prophylaxis: Currently on full dose Lovenox Full code Attestations Medical Necessity Statement*: Transfer out of ICU to med/surg with tele, continued iv abx for E coli sepsis, d/c fluids, encourage po intake Coding Level of Care Code Acute Code for Chg Fwd High MDM includes number and complexity of problems actively addressed during encounter, amount and/or complexity of data reviewed/ordered and described risk of complication, morbidity or mortality of management as documented Diagnoses Septic shock A41.9; R65.21 Acute kidney injury N17.9 Acute encephalopathy G93.40 Urinary tract infection N39.0 NSTEMI (non-ST elevated myocardial infarction) I21.4 Gram negative sepsis A41.50
--- NOTE | 2023-02-06 17:17 | PC.NURSE ---
Central line removed as per Dr Nuñez. Two peripheral lines in place. CVL intact. Pressure held unto hemostatis obtained. Gauze and Bioccluisve dressing in place. Pt tolerated well.
--- NOTE | 2023-02-06 17:56 | PC.NURSE ---
Report called to [facility], given to STEPHANIE Abreu. Pt transferred to [facility] via Bed. All belongings with pt. [facility] updated on urine output.
[2023-02-07] VITALS (10 sets, daily range): BP systolic 102–145; BP diastolic 62–84; PULSE 88–118; RESP 16–20; TEMP 36.6–37.1; O2SAT 92–98
[2023-02-07] MEDS: meropenem 1,000 MG in sodium chloride 0.9% (plus) 50 ML 100 MG IV ×3 (03:51→19:13)
[2023-02-07 05:07] LABS: Basophils % 0.8 %; Eosinophils # 0.1 10^3/uL (0.0-0.8); Eosinophils % 3.4 %; Hematocrit 29.8 % (36-47); Lymphocytes # 0.8 10^3/uL (0.8-4.8); Lymphocytes % 19.6 %; Mean Corpuscular HGB Conc 31.5 g/dL (30-55); Mean Corpuscular Hemoglobin 25.8 pg (27-33); Mean Corpuscular Volume 81.9 fl (85-98); Mean Platelet Volume 10.4 fL (7.4-10.4); Monocytes # 0.5 10^3/uL (0.2-0.9); Monocytes % 11.6 %; Neutrophils # 2.49 10^3/uL (1.8-7.7); Neutrophils % 64.3 %; Nucleated Red Blood Cells % 0 %; Platelet Count 132 10^3/cmm (157-399); Red Blood Count 3.64 10^6/uL (3.85-5.65); Red Cell Distribution Width 14.1 % (12.1-15.1); White Blood Count 3.87 10^3/uL (3.29-11.43)
[2023-02-07] MEDS: escitalopram 10 mg Tablet 20 MG PO (05:28)
[2023-02-07] MEDS: enoxaparin 150 mg/mL Syringe 140 MG SUBCUT ×2 (05:28→18:50)
[2023-02-07 05:29] LABS: Troponin T (5th) Once 88 ng/L (0-10)
[2023-02-07 05:30] LABS: Alanine Aminotransferase 7 U/L (0-33); Albumin Level 3.2 g/dL (3.5-5.2); Alkaline Phosphatase 96 U/L (35-105); Aspartate Amino Transferase 10 U/L (0-32); Blood Urea Nitrogen 8 mg/dL (8-23); Calcium 8.1 mg/dL (8.5-10.5); Carbon Dioxide 25 mmol/L (22-29); Chloride 107 mmol/L (98-107); Globulin 1.2 g/dL (1.3-4.6); Glucose 138 mg/dL (65-115); Magnesium 1.7 mg/dL (1.7-2.3); Osmolality Calculated 291 mOsm/kg (285-295); Sodium 140 mmol/L (136-145); Total Bilirubin 0.6 mg/dL (0.15-1.2); Total Protein 4.4 g/dL (6.6-8.7)
[2023-02-07] MEDS: ipratropium-albuterol 3 mL Neb INHALATION (08:32)
[2023-02-07] MEDS: budesonide 0.5 mg/2 mL Neb INHALATION ×2 (08:32→20:37)
[2023-02-07] MEDS: aspirin 81 mg EC Tablet PO (09:15)
[2023-02-07] MEDS: pantoprazole DR 40 mg Tablet PO (09:15)
[2023-02-07 11:19] LABS: Glucose Point of Care 183 mg/dL (70-110)
--- NOTE | 2023-02-07 19:56 | P.PN_ITS ---
Subjective Subjective: TSH is MRI. She is inquiring about follow-up with urology after discharge. Denies chest pain or pressure. Discussed stress test tomorrow. Medications: Reviewed: Yes Vitals/I&O/Wt Last Vital Signs Temp 98.2 F 02/07/23 16:00 Pulse 94 02/07/23 16:00 Resp 17 02/07/23 16:00 BP 123/84 02/07/23 16:00 Pulse Ox 96 02/07/23 16:00 O2 Del Method Room Air 02/07/23 08:30 O2 Flow Rate 2 02/05/23 19:33 02/07/23 02/07/23 02/07/23 06:59 14:59 22:59 Intake Total 50 / 2081.191 650 / 650 290 / 940 Output Total 700 / 1600 Balance -650 / 481.191 650 / 650 290 / 940 Weight last 48 hrs Weight 141.5 kg Physical Exam Narrative: Up in chair. Const: COMMON NORMALS: patient oriented x3 and alert GENERAL APPEARANCE: cooperative ORIENTATION/CONSCIOUSNESS: Yes awake HENMT: COMMON NORMALS: oropharynx normal Neck/C-Spine: COMMON NORMALS: no JVD Resp: COMMON NORMALS: normal respiratory effort and clear to auscultation bilaterally AUSCULTATION: clear to auscultation bilaterally Cardio: COMMON NORMALS: no JVD, regular rhythm, S1 normal heart sound present, S2 normal heart sound present and No murmurs present (Cardio) RHYTHM: regular rhythm HEART SOUNDS: S1 normal heart sound present and S2 normal heart sound present GI: COMMON NORMALS: Normal to inspection, nondistended, normoactive bowel sounds present, Soft to palpation and non-tender PALPATION: Yes Soft to palpation Extremity: COMMON NORMALS: no joint enlargement and no pedal edema Neuro: COMMON NORMALS: patient oriented x3 and moves all extremities SENSORIUM/ORIENTATION: Yes alert Skin: COMMON NORMALS: no rashes or lesions noted GENERAL SKIN EXAM: no rashes or lesions noted Urinary Catheter Management: Valenzuela: Cath Placed During This Visit: no Reason for Continuing Indwelling Catheter: Other Data 02/07/23 04:08 02/07/23 04:08 Micro: Microbiology 02/04/23 23:20 Blood Culture - Preliminary Blood Escherichia coli 02/04/23 23:20 Blood Culture - Preliminary Blood Escherichia coli 02/05/23 00:00 Urine Culture - Final Urine,Clean Catch Escherichia coli 02/06/23 04:15 Blood Culture - Preliminary Blood NEGATIVE TO DATE 02/06/23 04:05 Blood Culture - Preliminary Blood NEGATIVE TO DATE A&P Assessment and plan (1) Septic shock: (2) Acute kidney injury: (3) Acute encephalopathy: (4) Urinary tract infection: (5) NSTEMI (non-ST elevated myocardial infarction): (6) Gram negative sepsis: Plan # gram negative sepsis # Septic shock Septic shock resolved. Continue treatment of complicated UTI with bacteremia. Review of culture reveals E. coli in urine. Follow-up culture results. Repeat blood cultures so far negative. Original blood culture growing E. coli. Follow-up CBC. continue meropenem. -Secondary to UTI, possible pyelonephritis -With DEIRDRE and Acute encephalopathy, now improving Patient has had recurrent hospital admissions recently due to UTI. continue meropenem while pending cx D/c vancomycin Blood cx + GNR identified as E coli, susceptibility pending off pressors advance diet CT abd/pelvis without any source of urinary obstruction. Will need urology referral as outpatient after discharge for possible cystoscopy and voiding studies given recurrent episodes of UTI leading to sepsis. #NSTEMI Discussed with her regarding obtaining a stress test. Requested for tomorrow. Continue aspirin, Lovenox. Follow-up BMP. Denies any chest pain. Possible type II NSTEMI with septic shock. Troponin trend 174--> 253 ---> 211 with delta of 79 and 37 at 2 and 6 hours respectively. Concern for NSTEMI versus type II [place] due to sepsis. continue Lovenox 1 mg/kg every 12 hours. continue aspirin 81 mg p.o. daily listed allergy to atorvastatin Echocardiogram with LVEF 55-60%, mild MR, mild AR Hypomagnesemia: Magnesium is 1.7, will give 1 g magnesium. Recheck magnesium in the morning. Discussed with case management, nursing. DVT prophylaxis: Currently on full dose Lovenox Full code Attestations Medical Necessity Statement*: Continue admission for assessment management of complicated UTI with gram- negative chloe bacteremia, additional cardiac assessment after NSTEMI. Diagnoses Septic shock A41.9; R65.21 Acute kidney injury N17.9 Acute encephalopathy G93.40 Urinary tract infection N39.0 NSTEMI (non-ST elevated myocardial infarction) I21.4 Gram negative sepsis A41.50
[2023-02-08] VITALS (13 sets, daily range): BP systolic 103–136; BP diastolic 63–85; PULSE 86–106; RESP 16–19; TEMP 36.4–36.8; O2SAT 94–98
--- NOTE | 2023-02-08 | ECG_ITS ---
[facility] Test Date: 2023-02-08 Pat Name: Herlinda Shah Department: Room: 266 Gender: Female Hospital Staff Pharmacist: Margo Hernandez : 1950 Requested By: Davin Lezama Order Number: [id number] Marcie MD: Tejas Kwon M.D. Interpretive Statements NAME OF STUDY: LEXISCAN SESTAMIBI STRESS TEST INDICATION: [Trop Elevation] Procedure: At the baseline, the blood pressure was 124/82mmHg with a heart rate of 97 bpm. The electrocardiogram showed normal sinus rhythm, left axis deviation with normal ST and T's. The Lexiscan was infused over a period of 20 seconds. A total of 0.4 mg of Lexiscan was infused. The stress phase was continued for a total of 5 minutes. Heart rate was at the end of stress phase was 100bpm and a blood pressure of 132/72 mmHg. The EKG at the peak infusion revealed normal sinus rhythm with no significant ST-T wave changes. Sestamibi was injected 20 seconds after the Lexiscan infusion. Blood pressure at the end of recovery phase was 126/71 mmHg with a heart rate of 108 bpm. Conclusion: 1. Normal EKG response to Lexiscan infusion 2. No Lexiscan induced chest pain or cardiac arrhythmia. 3. Normal blood pressure and heart rate response. 4. Sestamibi/sestamibi perfusion scan pending; see separate report. Electronically Signed On 02-22-2023 10:09:02 CDT by Tejas Kwon M.D. [id number]
[2023-02-08] MEDS: meropenem 1,000 MG in sodium chloride 0.9% (plus) 50 ML 100 MG IV ×2 (02:49→18:16)
[2023-02-08] MEDS: enoxaparin 150 mg/mL Syringe 140 MG SUBCUT ×2 (05:07→17:08)
[2023-02-08 06:04] LABS: Basophils % 0.9 %; Eosinophils # 0.1 10^3/uL (0.0-0.8); Eosinophils % 4.1 %; Hematocrit 30.4 % (36-47); Lymphocytes # 0.9 10^3/uL (0.8-4.8); Lymphocytes % 24.9 %; Mean Corpuscular HGB Conc 32.2 g/dL (30-55); Mean Corpuscular Hemoglobin 26.2 pg (27-33); Mean Corpuscular Volume 81.3 fl (85-98); Mean Platelet Volume 9.6 fL (7.4-10.4); Monocytes # 0.4 10^3/uL (0.2-0.9); Monocytes % 10.5 %; Neutrophils # 2.03 10^3/uL (1.8-7.7); Neutrophils % 59.3 %; Nucleated Red Blood Cells % 0 %; Platelet Count 157 10^3/cmm (157-399); Red Blood Count 3.74 10^6/uL (3.85-5.65); Red Cell Distribution Width 14.3 % (12.1-15.1); White Blood Count 3.42 10^3/uL (3.29-11.43)
[2023-02-08 06:26] LABS: Alanine Aminotransferase 6 U/L (0-33); Albumin Level 3.2 g/dL (3.5-5.2); Alkaline Phosphatase 88 U/L (35-105); Anion Gap 9.6 (5-19); Aspartate Amino Transferase 9 U/L (0-32); Blood Urea Nitrogen 7 mg/dL (8-23); Calcium 8.3 mg/dL (8.5-10.5); Carbon Dioxide 27 mmol/L (22-29); Chloride 106 mmol/L (98-107); Globulin 1.7 g/dL (1.3-4.6); Glucose 147 mg/dL (65-115); Magnesium 1.7 mg/dL (1.7-2.3); Osmolality Calculated 289 mOsm/kg (285-295); Potassium 3.6 mmol/L (3.5-5.1); Sodium 139 mmol/L (136-145); Total Bilirubin 0.5 mg/dL (0.15-1.2); Total Protein 4.9 g/dL (6.6-8.7)
[2023-02-08] MEDS: budesonide 0.5 mg/2 mL Neb INHALATION ×2 (07:48→20:10)
--- NOTE | 2023-02-08 10:52 | PC.SOCIAL ---
IMM update IMM updated with patient. Verbalized an understanding. Copy Pg 2 provided. Initialled, dated, timed, and placed in chart.
[2023-02-08] MEDS: regadenoson 0.4 Mg/5 ml Syringe IVP (12:57)
[2023-02-08] MEDS: ondansetron 2 mg/ML SDV 2 mL 4 MG IVP ×2 (13:13→22:16)
--- NOTE | 2023-02-08 16:24 | PM.PN ---
Subjective Subjective: She is doing well today. Awaiting stress test. Denies chest pain or pressure. No trouble breathing. Vitals/I&O/Wt Last Vital Signs Temp 97.6 F 02/08/23 15:31 Pulse 94 02/08/23 15:31 Resp 16 02/08/23 15:31 BP 122/81 02/08/23 15:31 Pulse Ox 98 02/08/23 15:31 O2 Del Method Room Air 02/08/23 15:31 O2 Flow Rate 2 02/08/23 08:00 02/08/23 02/08/23 02/08/23 06:59 14:59 22:59 Intake Total 290 / 1282 Output Total 1250 / 1250 Balance -960 / 32 Physical Exam Const: COMMON NORMALS: patient oriented x3 and alert GENERAL APPEARANCE: cooperative ORIENTATION/CONSCIOUSNESS: Yes awake OTHER: In good spirits. HENMT: COMMON NORMALS: oropharynx normal Neck/C-Spine: COMMON NORMALS: no JVD Resp: COMMON NORMALS: normal respiratory effort and clear to auscultation bilaterally AUSCULTATION: clear to auscultation bilaterally Cardio: COMMON NORMALS: no JVD, regular rhythm, S1 normal heart sound present, S2 normal heart sound present and No murmurs present (Cardio) RHYTHM: regular rhythm HEART SOUNDS: S1 normal heart sound present and S2 normal heart sound present GI: COMMON NORMALS: Normal to inspection, nondistended, normoactive bowel sounds present, Soft to palpation and non-tender PALPATION: Yes Soft to palpation Extremity: COMMON NORMALS: no joint enlargement and no pedal edema Neuro: COMMON NORMALS: patient oriented x3 and moves all extremities SENSORIUM/ORIENTATION: Yes alert Skin: COMMON NORMALS: no rashes or lesions noted GENERAL SKIN EXAM: no rashes or lesions noted Urinary Catheter Management: Valenzuela: Cath Placed During This Visit: no Reason for Continuing Indwelling Catheter: Acute Urinary Retention or Obstruction Data 02/08/23 05:38 02/08/23 05:38 Micro: Microbiology 02/04/23 23:20 Blood Culture - Preliminary Blood Escherichia coli 02/04/23 23:20 Blood Culture - Preliminary Blood Escherichia coli 02/05/23 00:00 Urine Culture - Final Urine,Clean Catch Escherichia coli A&P Assessment and plan (1) Septic shock: (2) Acute kidney injury: (3) Acute encephalopathy: (4) Urinary tract infection: (5) NSTEMI (non-ST elevated myocardial infarction): (6) Gram negative sepsis: Plan # gram negative sepsis # Septic shock Complicated UTI with gram-negative chloe bacteremia, continue meropenem for now. Reviewed blood culture, E. coli noted 02/04. Urine culture with E. coli resistant to ciprofloxacin and Levaquin from 02/05. Negative blood culture noted from 02/06 still preliminary. Follow-up final cultures and sensitivities. Septic shock resolved. Review of culture reveals E. coli in urine. Follow-up culture results. Repeat blood cultures so far negative. Original blood culture growing E. coli. -Secondary to UTI, possible pyelonephritis -With DEIRDRE and Acute encephalopathy, now improving Patient has had recurrent hospital admissions recently due to UTI. continue meropenem while pending cx D/c vancomycin Blood cx + GNR identified as E coli, susceptibility pending off pressors advance diet CT abd/pelvis without any source of urinary obstruction. Will need urology referral as outpatient after discharge for possible cystoscopy and voiding studies given recurrent episodes of UTI leading to sepsis. #NSTEMI Pending stress test. Not yet resulted. Unable to discharge just yet. So far reviewed EKG portion, did have some noted intraprocedure shortness of breath. Pending perfusion scan interpretation. Discussed with case management, for now discharge pending cardiac work-up, stress test, as it is not back yet, unable to discharge today yet. Continue aspirin, Lovenox. Follow-up BMP. Denies any chest pain. Possible type II NSTEMI with septic shock. Troponin trend 174--> 253 ---> 211 with delta of 79 and 37 at 2 and 6 hours respectively. Concern for NSTEMI versus type II [place] due to sepsis. continue Lovenox 1 mg/kg every 12 hours. continue aspirin 81 mg p.o. daily listed allergy to atorvastatin Echocardiogram with LVEF 55-60%, mild MR, mild AR Hypomagnesemia: Magnesium reviewed, will give additional using replacement 2 g. Recheck level. DVT prophylaxis: Currently on full dose Lovenox Full code Attestations Medical Necessity Statement*: Continue admission for cardiac assessment after NSTEMI, treatment of complicated UTI with gram-negative chloe bacteremia. and High MDM includes amount and/or complexity of data reviewed/ordered [ resulted lab(s)/test(s), ordered lab(s)/test(s) and other healthcare professional discussion] as documented Diagnoses Septic shock A41.9; R65.21 Acute kidney injury N17.9 Acute encephalopathy G93.40 Urinary tract infection N39.0 NSTEMI (non-ST elevated myocardial infarction) I21.4 Gram negative sepsis A41.50
[2023-02-08] MEDS: acetaminophen 325 mg Tablet 650 MG PO ×2 (17:08→22:16)
[2023-02-08] MEDS: magnesium sulfate premix 2 GM/50 ML PIGGYBACK IV (17:08)
--- NOTE | 2023-02-08 19:56 | NMCV_ITS ---
NM kenny perf SPECT r/s* [id number] Herlinda Shah Age: 73 Gender: F : 1950 Exam Date: 02/08/2023 19:56 Ordering Phys: Davin Lezama MD Technologist: BRIANA Britt Exam Location: [facility] Indications: CHEST PAIN STRESS TEST Please see separate stress test report in [facility] for full findings IMAGE PROTOCOL Rest/Stress 1 Lexiscan Day Radiopharmaceutical Dose (mCi) Administration Site Administered by Rest: Tc-99m 11.0 IV BRIANA Britt Sestamibi Stress:Tc-99m 33.0 IV BRIANA Esparza Tetrofosmin Rest: 08-Feb-2023 60 Discovery 630 Stress: 08-Feb-2023 30 Discovery 630 0.4mg Lexiscan. Supine position only as patient was unable to lay prone. SPECT RESULTS Technical Quality: Excellent Raw Data Analysis: Normal Image Corrections: No attenuation or motion correction applied Summed Stress Score: 0 Summed Rest Score: 1 Summed Difference Score: 0 PERFUSION FINDINGS SPECT images demonstrate homogeneous tracer distribution throughout the myocardium. FUNCTIONAL RESULTS (calculated via Gated SPECT) Stress Image LV EF (%): 79 Stress EDV (mL):84 TID: 0.85 Stress ESV (mL):18 FUNCTIONAL FINDINGS: There is normal left ventricular systolic function. IMPRESSIONS 1. Normal myocardial perfusion imaging with no evidence of ischemia 2. LV systolic function is normal Tejas Kwon MD (Electronically Signed) Final Date: 08 February 2023 16:35 S
[2023-02-09] VITALS (49 sets, daily range): BP systolic 57–159; BP diastolic 30–112; PULSE 103–148; RESP 16–38; TEMP 36.2–36.6; O2SAT 64–100
[2023-02-09 00:42] LABS: Glucose Point of Care 289 mg/dL (70-110)
[2023-02-09] MEDS: TRAMadol 50 mg Tablet PO (01:53)
[2023-02-09] MEDS: meropenem 1,000 MG in sodium chloride 0.9% (plus) 50 ML 100 MG IV ×2 (03:10→10:29)
--- NOTE | 2023-02-09 03:41 | ECG_ITS ---
[facility] Test Date: 2023-02-09 Pat Name: Herlinda Shah Department: Room: 266 Gender: Female [employer] Coxswain: : 1950 Requested By: Merritt Barney Order Number: [id number] Marcie MD: Patricia Liang M.D. Measurements Intervals [place] Rate: 115 P: 50 KS: 159 QRS: -35 QRSD: 89 T: 13 QT: 381 QTc: 529 Interpretive Statements SINUS TACHYCARDIA WITH OCCASIONAL SUPRAVENTRICULAR PREMATURE COMPLEXES LEFT AXIS DEVIATION [QRS AXIS < -30] ANTEROSEPTAL MYOCARDIAL INFARCTION , PROBABLY RECENT Compared to ECG 02/05/2023 07:49:02 Sinus rhythm no longer present Myocardial infarct finding still present Electronically Signed On 02-09-2023 8:41:44 CDT by Patricia Liang M.D. [email or web address]/[id number] f
[2023-02-09 03:45] LABS: Glucose Point of Care 329 mg/dL (70-110)
[2023-02-09] MEDS: sodium chloride 0.9% 1,000 ML 999 ML IV (03:48)
[2023-02-09 04:18] LABS: Magnesium 2.1 mg/dL (1.7-2.3)
[2023-02-09 04:24] LABS: Basophils # 0.1 10^3/uL (0.0-0.1); Basophils % 0.5 %; Eosinophils % 0.1 %; Hematocrit 26.9 % (36-47); Lymphocytes # 1.4 10^3/uL (0.8-4.8); Lymphocytes % 10.4 %; Mean Corpuscular HGB Conc 30.1 g/dL (30-55); Mean Corpuscular Hemoglobin 26.2 pg (27-33); Mean Corpuscular Volume 87.1 fl (85-98); Mean Platelet Volume 10.4 fL (7.4-10.4); Monocytes # 0.9 10^3/uL (0.2-0.9); Monocytes % 6.9 %; Neutrophils # 11.07 10^3/uL (1.8-7.7); Neutrophils % 81.5 %; Nucleated Red Blood Cells % 0 %; Platelet Count 283 10^3/cmm (157-399); Red Blood Count 3.09 10^6/uL (3.85-5.65); Red Cell Distribution Width 14.4 % (12.1-15.1); White Blood Count 13.59 10^3/uL (3.29-11.43)
[2023-02-09 04:39] LABS: Anion Gap 24.5 (5-19); Blood Urea Nitrogen 12 mg/dL (8-23); Calcium 8.4 mg/dL (8.5-10.5); Carbon Dioxide 16 mmol/L (22-29); Chloride 103 mmol/L (98-107); Glucose 356 mg/dL (65-115); Osmolality Calculated 304 mOsm/kg (285-295); Potassium 3.5 mmol/L (3.5-5.1); Sodium 140 mmol/L (136-145)
--- NOTE | 2023-02-09 05:05 | PC.NURSE ---
Addendum entered by Anil Garcia LPN 02/09/23 06:00: Patient hypotensive at time of syncopal episode, not hypertensive Original Note: At approximately 0330 this nurse went to patients room to answer call light. Patient stated she needed to use the restroom. Patient was assisted to the side of the bed and to a sitting position. I had enough time to grab the bedside commode and turn back to the patient, when I turned back the patient closed her eyes and fell back on the bed and passed out. I yelled for help to assist patient into bed. Several other nurses assisted with assessing the patient. Blood pressure was noted to have a hypertensive blood pressure. Attempts were made to call the hospitalist for orders with no answer, so Rapid response was called. Patient placed in trendelenburg to assist with low blood pressure. supervisor core drilling at bedside. Blood glucose was 304. Patient then transferred to ICU with failure to raise blood pressure with fluid bolus.Bedside report given to MASSIMO Reinoso.
--- NOTE | 2023-02-09 05:29 | PC.NURSE ---
Transfer to ICU 7: Pt arrived to ICU @0412 w/ 2 RN's @bedside. Verbal order from Dr. Breaux to transfer pt to CT for chest CTA. Pt connected to continuos monitoring. BP 72/45. Dr. Breaux notified, verbal order for Levophed drip and transfer pt to CT. Pt transferred to CT w/ 3 RN's @bedside on continuos cardiac monitoring. CTA was unable to be completed due to equipment malfunction. Oriana, [employer] Tooling Technician, made aware. Pt transferred back to ICU. Arrived to ICU @0445. See MAR for initiation of Levophed drip. Dr. Breaux on unit and notified of inability to complete scan.
--- NOTE | 2023-02-09 05:35 | P.MISC_ITS ---
Miscellaneous Note Purpose of Documentation: Rapid response around 0400 Note: Rapid response due to syncopal episode while patient sitting on edge of bed. Overnight patient had been complaining of knee pain and hip pain. She had received 1 dose of Ultram prior to event. Patient also had been complaining of of nausea. She received Zofran with good results then she is complained of pain like her stomach was tearing apart. She vomited bile. And felt better aft erwards she has tenderness to palpation per RN. Also of note. Patient underwent stress testing which was negative yesterday. On exam. Patient was alert slow to respond she was in a Trendelenburg position at time of exam. Patient only reported feeling pain in her right knee at time of exam Vital signs blood pressure was approximately 80/40 with a low MAP. Heart rate was in the 80s pulse ox was 100% on room air Neurologic patient was a lethargic but easily arousable she was nonfocal to exam Heart regular rate and rhythm normal S1-S2 with a 3 out of 6 systolic murmur heard best at the left lower sternal border Respiratory normal effort, clear to auscultation anteriorly difficult to assess due to body habitus Abdomen obese very tender in the epigastric and right lower quadrant area. Cam ewhat distended positive guarding Extremities nonpitting edema in the right lower extremity no calf tenderness the right lower extremity does seem larger than the left Impression #1 syncope/hypotension. Relating to the patient's anxiety earlier in the mild tachycardia wanted to rule out PE. Also with the patient's right knee pain/leg pain and overall size difference. CTA was ordered and unable to be completed. Still would like this test when day staff is present. #2 abdominal pain, vomiting bile. Abnormal abdominal exam. Recommend CT abdomen and pelvis. Concern for leading while on full dose Lovenox for suspected non-STEMI. #3. Doubt non-STEMI given normal stress test. #4 repeat blood cultures lactic acid pending #5 elevated WBC count today. #6 bicarb 16 consistent with acidosis. #7 creatinine elevated to 1.4 #8 blood sugar elevated
--- NOTE | 2023-02-09 05:47 | CTR_ITS ---
PROCEDURE INFORMATION: Exam: CT Chest Without Contrast; Diagnostic Exam date and time: 02/09/2023 6:37 AM Age: 73 years old Clinical indication: Bloating; Shortness of breath; Additional info: Syncope, hypotension, tachycardia, abd pain, please obtain when day staff arrives stat TECHNIQUE: Imaging protocol: Diagnostic computed tomography of the chest without contrast. Radiation optimization: All CT scans at this facility use at least one of these dose optimization techniques: automated exposure control; mA and/or kV adjustment per patient size (includes targeted exams where dose is matched to clinical indication); or iterative reconstruction. REPORTING DATA: Count of CT and Cardiac NM exams in prior 12 months: This patient has received 5 known CTs and 0 known cardiac nuclear medicine studies in the 12 months prior to the current study. COMPARISON: CT chest wo con [id number] 01/03/2023 8:30 PM RADIATION DOSE METRICS: Total DLP (mGy-cm): 1260.96 FINDINGS: Tubes, catheters and devices: Small leadless metallic device implanted superficially in the left chest, unchanged. Thyroid: Thyroid is normal. Lungs: Bibasilar linear atelectasis versus scarring . Small bibasilar dependent consolidations. Lungs demonstrate multiple tiny scattered calcified granulomas, unchanged. Pleural spaces: Unremarkable. No pneumothorax. No pleural effusion. Heart: Trace pericardial effusion. Coronary and valvular calcific disease. Lymph nodes: Calcified perihilar lymph nodes. No suspicious lymphadenopathy. Vasculature: Mild scattered calcific athero sclerosis of the large vessels. Bones/joints: Multiple healed fracture deformities of the left ribs laterally. Soft tissues: Unremarkable. PROCEDURE INFORMATION: Exam: CT Abdomen And Pelvis Without Contrast Exam date and time: 02/09/2023 6:37 AM Age: 73 years old Clinical indication: Bloating; Shortness of breath; Additional info: Syncope, hypotension, tachycardia, abd pain, please obtain when day staff arrives stat Additional history: Technologist reports that patient received IV contrast earlier in the same day from an abandoned CTA chest PE study. TECHNIQUE: Imaging protocol: Computed tomography of the abdomen and pelvis without contrast. Radiation optimization: All CT scans at this facility use at least one of these dose optimization techniques: automated exposure control; mA and/or kV adjustment per patient size (includes targeted exams where dose is matched to clinical indication); or iterative reconstruction. REPORTING DATA: Count of CT and Cardiac NM exams in prior 12 months: This patient has received 5 known CTs and 0 known cardiac nuclear medicine studies in the 12 months prior to the current study. COMPARISON: CT abdomen pelvis wo con [id number] 02/05/2023 1:56 AM RADIATION DOSE METRICS: Total DLP (mGy-cm): 1260.96 FINDINGS: Liver: Multiple punctate calcifications throughout the liver and spleen, likely secondary to prior granulomatous disease. Gallbladder and bile ducts: Status post cholecystectomy. Pancreas: Fatty atrophy of the pancreas. Spleen: See Liver finding. Adrenal glands: Normal. Kidneys and ureters: Moderate atrophy of the bilateral kidneys. Bilateral kidney parenchyma demonstrates enhancement indicative of retained contrast from prior procedure/imaging. This was not present on 02/05/2023. Tiny bilateral renal cysts are noted, too small to further characterize. Retained contrast noted in the bilateral ureters. Stomach and bowel: Unremarkable. No obstruction. No mucosal thickening. Appendix: No evidence of appendicitis. Intraperitoneal space: Multiple inter loculated fluid collections within the abdomen, with the largest located in the central upper pelvis measuring roughly 11.2 x 6.0 x 9.0 cm (sagittal series 12, image 47; coronal series 11, image 35; axial series 10, image 70). No extraluminal free air in the abdomen. There is extensive soft tissue stranding about these fluid collections. There is no extravasated contrast within these collections from the ureters or bladder to suggest a urine leak. There is additional small amounts of free fluid about the liver and the spleen and extending along the bilateral paracolic gutters. Mild diffuse soft tissue anasarca. Vasculature: Mild scattered calcific disease of the large vessels. Moderate to severe calcific disease of the splenic artery, without distinct splenic artery aneurysm identified. Lymph nodes: No suspicious lymphadenopathy. Urinary bladder: Retained contrast noted in the urinary bladder, which is minimally distended. Reproductive: Uterus is poorly visualized. Bones/joints: Multilevel spondylosis. Chronic appearing grade 1 anterolisthesis of L4 on L5. No acute fracture identified. Soft tissues: The right psoas muscle is prominent and asymmetrically enlarged compared to the left. This was not present on 02/05/2023 and raises concern for psoas abscess. CT/[place] [id number] IMPRESSION: Small bibasilar dependent consolidations. This is improved on the left and worsened on the right compared to 01/03/2023 and likely represents dependent atelectasis. Consolidative pneumonia is not excluded but is considered less likely. IMPRESSION: 1. Multiple interloculated fluid collections within the abdomen, with the largest located in the central upper pelvis measuring roughly 11.2 x 6.0 x 9.0 cm. These were not present on 02/05/2023. These findings, in combination with surrounding significant fat stranding and the enlarged right psoas muscle, are highly concerning for multiple interloculated intra-abdominal abscesses. Interloculated ascites without infection is considered much less likely. Recommend surgery consult. 2. The right psoas muscle is prominent and asymmetrically enlarged compared to the left. This was not present on 02/05/2023 and likely represents a psoas abscess. COMMENTS: Consistent with the [employer]'s Incidental Findings Committee white paper (J Am Lux Radiol 2018): Any incidental renal lesion less than 1 cm or classified as too small to characterize, or any incidental cystic renal lesion characterized as simple-appearing, is likely benign. No follow-up imaging is recommended for these lesions per consensus recommendations based on imaging criteria.
--- NOTE | 2023-02-09 05:52 | PM.MISC ---
Miscellaneous Note Purpose of Documentation: follow up Note: Hemoglobin dropped from 9.8-8.1. Lovenox on hold . Abdominal pain with abnormal abdominal exam Concern for intra-abdominal bleeding. Called house soup, radiology day staff will be here soon. At that time will obtain CT chest abdomen and pelvis with CTA for the chest for PE.
--- NOTE | 2023-02-09 06:05 | PC.NURSE ---
Patient's next of kin notified of change in condition and relocation.
[2023-02-09] MEDS: vancomycin 1,750 MG/350 ML PIGGYBACK 233.33 MG IV (06:14)
[2023-02-09] MEDS: ondansetron 2 mg/ML SDV 2 mL 4 MG IVP ×2 (06:23→08:32)
[2023-02-09] MEDS: metroNIDAZOLE IV 500 MG/100 ML PREMIX 100 MG IV (07:13)
[2023-02-09] MEDS: sodium chloride 0.9% 1,000 ML 100 ML IV (07:14)
[2023-02-09] MEDS: budesonide 0.5 mg/2 mL Neb INHALATION (08:12)
[2023-02-09] MEDS: ipratropium-albuterol 3 mL Neb INHALATION (08:12)
[2023-02-09] MEDS: insulin lispro 100 unit/1 mL SUBCUT (08:43)
[2023-02-09] MEDS: sodium chloride 0.9% 500 ML 999 ML IV ×2 (09:03→10:10)
[2023-02-09 10:00] LABS: Lactate (Lactic Acid level) 11.6 mmol/L (0.5-2.2)
[2023-02-09] MEDS: norepinephrine 8 MG in dextrose 5 % 500 ML 76.2 MG IV (10:08)
[2023-02-09] MEDS: EPINEPHrine 2.5 MG in sodium chloride 0.9% 250 ML 428.75 MG IV (10:09)
--- NOTE | 2023-02-09 10:17 | PC.NURSE ---
approximately 0915 patient pale, decreased LOC dyspnea with gasping and wheezing, unable to obtain BP. Levo and vaso maxed dr. Valencia came to bedside orders received for 2 units emergent O neg blood, blood administered per , Epi drip started per AUG, placed 10L oxy mask. BP normalized at this time
--- NOTE | 2023-02-09 10:53 | ECG_ITS ---
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 Measurements Intervals [place] Rate: 124 P: 46 NM: 168 QRS: -51 QRSD: 89 T: 52 QT: 349 QTc: 502 Interpretive Statements SINUS TACHYCARDIA WITH OCCASIONAL SUPRAVENTRICULAR PREMATURE COMPLEXES LEFT AXIS DEVIATION [QRS AXIS < -30] LEFT VENTRICULAR HYPERTROPHY AND ST-T CHANGE [VOLTAGE CRITERIA PLUS ST/T ABNORMALITY] POSSIBLE ANTERIOR MYOCARDIAL INFARCTION , OF INDETERMINATE AGE [30 ms Q WAVE IN V3/V4, OR R < 0.2 mV IN V4] Compared to ECG 02/09/2023 03:44:01 Left ventricular hypertrophy now present ST (T wave) deviation now present Myocardial infarct finding still present Electronically Signed On 02-09-2023 12:11:11 CDT by Patricia Liang M.D. [email or web address]
--- NOTE | 2023-02-09 13:38 | XR_ITS ---
WS: [id number] Exam: XR chest 1V portable [id number] Date/Time of Exam: 02/09/2023 1:38 PM Reason For Exam: et/og Comparison 02/05/2023. An endotracheal tube is been placed and ends about 3 cm above the ronny. There is plaque atelectasis in the LEFT base. The lungs are fully inflated. No pleural effusions. Cardiomediastinal silhouette i s unremarkable for technique. Numerous old LEFT rib fractures. IMPRESSION: 1. ET tube ending about 3 cm above the ronny. 2. Plaque atelectasis in the LEFT lower lobe. No acute process identified.
--- NOTE | 2023-02-09 13:50 | PM.TDS ---
Transfer Summary Providers Date of Admission: 02/05/23 01:20 Date of Discharge/Transfer: 02/09/23 Attending Provider at Admission: Wellington Duff MD Attending Provider at Transfer: Davin Lezama Primary Care Provider: Martha Lloyd NP Transfer Plans: Anticipated date of transfer: 02/09/23. Diagnoses at Discharge Discharge Diagnosis (1) Septic shock: Status: Acute (2) Acute kidney injury: Status: Acute (3) Acute encephalopathy: Status: Acute (4) Urinary tract infection: Status: Acute (5) NSTEMI (non-ST elevated myocardial infarction): Status: Acute (6) Gram negative sepsis: Status: Acute Reason for Visit Reason for Visit FEVER Hospital Course Hospital Course Pleasant 73-year-old lady with history of COPD, paroxysmal A-fib, on anticoagulation with Eliquis, HTN, recurrent UTIs, DM 2, history of non-Hodgkin lymphoma, other medical problems, was admitted on 02/05 after presenting with fever, recently was hospitalized for gram-negative bacteremia with UTI, early in November hospitalization at [facility] for UTI and bacteremia, found to be febrile on presentation up to 104 Fahrenheit, hypotensive, with UA suggestive of UTI, started on Zosyn, empirically vancomycin, pressor support initially in ICU. With troponin elevation, baseline 174, 2 hours 253, 6hr 211. Mild acute encephalopathy on presentation. CT abdomen pelvis without obstructive uropathy. No renal or ureteric calculus. Mild perinephric stranding bilaterally. Possible mild urinary bladder wall thickening. Small supraumbilical ventral hernia. No evidence of bowel obstruction, free air or hematoma. Initially on Zosyn vancomycin, subsequently on meropenem with concern for recurrent UTIs, possibility of resistant infection. With treatment initial septic shock resolved, encephalopathy resolved, urine culture and blood cultures growing gram-negative rods, eventually identified as E. coli resistant to quinolones. Plans for referral for outpatient follow-up with urology for cystoscopy, consideration of chronic cystitis or other underlying anatomic abnormalities, as well as chronic suppression until follow-up with urology due to third episode of UTI dysuria. Heart rates have been controlled. Continued on Lovenox instead of Eliquis with regards to paroxysmal A-fib, as well as possible NSTEMI. 81 mg aspirin. TTE on 02/05 with normal ejection fraction, grade 1 diastolic function, noted left atrial dilation, moderate to severe mitral annular calcification, mild mitral regurgitation, moderate mitral stenosis. Moderate to severe aortic stenosis. Moderate aortic regurgitation. Mild cuspid regurgitation. Moderate pulmonary hypertension. IVC appears dilated. RA pressure elevated. Underwent stress testing on 02/08 which revealed normal perfusion scan, no evidence of ischemia. Overnight 02/08-02/09 her condition deteriorated with reported syncopal episode while sitting up at edge of bed, some additional complaints knee pain, hip pain, nausea, stomach pain, had an episode of emesis. Slow to respond. Blood pressure found hypotensive, 80/40, with no complaints CTA was requested to assess for possible PE, as well as CT abdomen pelvis requested for additional assessment. Repeat CBC with noted elevated WBC count 13.6. Blood cultures collected. Antibiotic broadened in addition to meropenem with vancomycin. Received fluid boluses, started on Levophed. Last anticoagulant dose 5 PM 02/08. This morning bicarb 16, creatinine up to 1.4. Elevated blood glucose 300s. Hemoglobin noted down from 9.4 yesterday this morning down to 8.1. Notification from [facility] concerning finding with new fluid collections as well as psoas asymmetry with right psoas enlargement concern for psoas abscess, intra-abdominal abscesses. Contacted surgery, further contacted IR for consideration of aspiration/drainage. On review of images by our radiologist, as well as discussed with colleague findings more consistent with psoas and intra-abdominal hematoma. Not likely amenable to a sample at this time due to hematoma, as well as with anticipated very difficult access due to high BMI 50.4. Continues on broad-spectrum antibiotics, with consideration of hematoma requested 1 unit RBC transfusion. Withhold anticoagulation. Discussed condition with her granddaughter. Repeat hemoglobin down to 7.1 drawn before the first unit. Additional RBC requested. Initially blood pressure maintained on 14 mics of Levophed, but with worsening, given additional bolus, blood finished with pressure bag, given additional unit of O- blood. 3 units of FFP requested, requested additionally several units of platelets which had to be brought up from [place]. Continued pressor support with norepinephrine 20, vasopressin 0.03 -> 0.04, epinephrine 0.5 mcg/kg/min. Third unit of RBC was ordered, to be set up prior to transfer. Maintaining mean arterial pressure over 65. With concern for persistence of hypotension, concern for psoas hematoma, intra-abdominal hematoma, encroachment onto IVC, versus possible abscesses or infected hematoma, need for high-level care, and need for possible IR embolization in case of persistent bleeding on discussion with math coach transfer sought to higher level facility, no beds available in [place] at [facility], no beds at [facility] or [facility], on discussion with math coach at [facility] accepted for further assessment management there. As per discussion math coach with family in addition to central access, art line, intubated due to high risk transfer, ICU staff confirming whether he can be transported by air EVAC. Physical Exam Const: COMMON NORMALS: patient oriented x3 and alert GENERAL APPEARANCE: cooperative ORIENTATION/CONSCIOUSNESS: Yes awake OTHER: Pale. HENMT: COMMON NORMALS: oropharynx normal Neck/C-Spine: COMMON NORMALS: no JVD Resp: COMMON NORMALS: normal respiratory effort and clear to auscultation bilaterally AUSCULTATION: clear to auscultation bilaterally Cardio: COMMON NORMALS: no JVD, regular rhythm, S1 normal heart sound present, S2 normal heart sound present and No murmurs present (Cardio) RHYTHM: regular rhythm HEART SOUNDS: S1 normal heart sound present and S2 normal heart sound present GI: COMMON NORMALS: Normal to inspection, nondistended, normoactive bowel sounds present, Soft to palpation and non-tender PALPATION: Yes Soft to palpation Extremity: COMMON NORMALS: no joint enlargement and no pedal edema Neuro: COMMON NORMALS: patient oriented x3 and moves all extremities SENSORIUM/ORIENTATION: Yes alert Skin: COMMON NORMALS: no rashes or lesions noted GENERAL SKIN EXAM: no rashes or lesions noted Urinary Catheter Management: Valenzuela: Cath Placed During This Visit: no Reason for Continuing Indwelling Catheter: Acute Urinary Retention or Obstruction TS Data Studies Completed and Pending Pending at discharge Category Date Time Status CXRP [XR chest 1V portable [id number]] Stat Exams 02/09/23 13:38 Ordered ABO/Rh Type Stat Lab 02/09/23 09:07 Results Blood Culture AM LABS Lab 02/06/23 04:15 Results Blood Culture Stat Lab 02/04/23 23:20 Results Blood Culture Stat Lab 02/09/23 09:10 Results Complete Blood Count w/Auto AM LABS Lab 02/10/23 04:00 Ordered Complete Blood Count w/Auto AM LABS Lab 02/11/23 04:00 Ordered Complete Blood Count w/Auto AM LABS Lab 02/12/23 04:00 Ordered Complete Crossmatch Stat Lab 02/09/23 09:07 Results Comprehensive Metabolic Panel AM LABS Lab 02/10/23 04:00 Ordered Comprehensive Metabolic Panel AM LABS Lab 02/11/23 04:00 Ordered Comprehensive Metabolic Panel AM LABS Lab 02/12/23 04:00 Ordered FFP [Frozen Plasma FZ <24 1st Cont] Routine Lab 02/09/23 09:07 Results Hemoglobin Q4H Lab 02/09/23 17:00 Ordered Hemoglobin Q4H Lab 02/09/23 21:00 Ordered Lactate (Lactic Acid level) Routine Lab 02/09/23 12:45 Received Leukocyte Reduced RBC Routine Lab 02/09/23 09:07 Results Platelets Leuko-Reduced Routine Lab 02/09/23 09:07 Results Type and Screen Routine Lab 02/09/23 09:07 Results Labs from last 24 hours 02/09/23 02/09/23 02/09/23 12:45 12:45 09:07 WBC RBC Hgb 8.30 L Hct MCV MCH MCHC RDW Plt Count MPV Neut % (Auto) Lymph % (Auto) [place] % (Auto) Eos % (Auto) Baso % (Auto) Neut # (Auto) Lymph # (Auto) [place] # (Auto) Eos # (Auto) Baso # (Auto) Nucleated RBC % (auto) Nucleated RBCs # Sodium Potassium Chloride Carbon Dioxide Anion Gap BUN Creatinine GFR Calculation Glucose POC Glucose Calculated Osmolality Lactate Pending Calcium Magnesium Blood Type A Positive Rho(D) Type Positive Antibody Screen Negative Crossmatch See Detail 02/09/23 02/09/23 02/09/23 09:07 09:07 03:57 WBC RBC Hgb 7.10 L Hct MCV MCH MCHC RDW Plt Count MPV Neut % (Auto) Lymph % (Auto) [place] % (Auto) Eos % (Auto) Baso % (Auto) Neut # (Auto) Lymph # (Auto) [place] # (Auto) Eos # (Auto) Baso # (Auto) Nucleated RBC % (auto) Nucleated RBCs # Sodium 140 Potassium 3.5 Chloride 103 Carbon Dioxide 16 L Anion Gap 24.5 H BUN 12 Creatinine 1.4 H GFR Calculation Not Reportable Glucose 356 H POC Glucose Calculated Osmolality 304 H Lactate 11.6 H* Calcium 8.4 L Magnesium Blood Type Rho(D) Type Antibody Screen Crossmatch 02/09/23 02/09/23 02/09/23 03:57 03:57 03:39 WBC 13.59 H RBC 3.09 L Hgb 8.10 L Hct 26.9 L MCV 87.1 D MCH 26.2 L MCHC 30.1 D RDW 14.4 Plt Count 283 D MPV 10.4 Neut % (Auto) 81.5 Lymph % (Auto) 10.4 [place] % (Auto) 6.9 Eos % (Auto) 0.1 Baso % (Auto) 0.5 Neut # (Auto) 11.07 H Lymph # (Auto) 1.4 [place] # (Auto) 0.9 Eos # (Auto) 0.0 Baso # (Auto) 0.1 Nucleated RBC % (auto) 0 Nucleated RBCs # 0.0 Sodium Potassium Chloride Carbon Dioxide Anion Gap BUN Creatinine GFR Calculation Glucose POC Glucose 329 H Calculated Osmolality Lactate Calcium Magnesium 2.1 Blood Type Rho(D) Type Antibody Screen Crossmatch 02/09/23 00:31 WBC RBC Hgb Hct MCV MCH MCHC RDW Plt Count MPV Neut % (Auto) Lymph % (Auto) [place] % (Auto) Eos % (Auto) Baso % (Auto) Neut # (Auto) Lymph # (Auto) [place] # (Auto) Eos # (Auto) Baso # (Auto) Nucleated RBC % (auto) Nucleated RBCs # Sodium Potassium Chloride Carbon Dioxide Anion Gap BUN Creatinine GFR Calculation Glucose POC Glucose 289 H Calculated Osmolality Lactate Calcium Magnesium Blood Type Rho(D) Type Antibody Screen Crossmatch Completed Studies During Hospitalization Category Date Time Status CT abdomen pelvis wo con [id number] Stat Cat Scan 02/05/23 00:[address] [place] [id number] Routine Cat Scan 02/09/23 05:47 Completed Cardiac Stress Test MIBI [Sestamibi Stress Test Request Exams 02/08/23 07:00 Draft ] Routine XR chest 1V portable [id number] Stat Exams 02/04/23 23:11 Completed XR chest 1V portable [id number] Stat Exams 02/05/23 01:01 Completed NM kenny perf SPECT r/s* [id number] Routine Nuc Med 02/08/23 19:56 Completed CV. echo wo/w contrast [id number] Routine Ultrasound 02/05/23 06:31 Completed Laboratory Last Values WBC 13.59 10^3/uL (3.29-11.43) H 02/09/23 03:57 RBC 3.09 10^6/uL (3.85-5.65) L 02/09/23 03:57 Hgb 8.30 g/dL (11.27-16.99) L 02/09/23 12:45 Hct 26.9 % (36-47) L 02/09/23 03:57 MCV 87.1 fl (85-98) D 02/09/23 03:57 MCH 26.2 pg (27-33) L 02/09/23 03:57 MCHC 30.1 g/dL (30-55) D 02/09/23 03:57 RDW 14.4 % (12.1-15.1) 02/09/23 03:57 Plt Count 283 10^3/cmm (157-399) D 02/09/23 03:57 MPV 10.4 fL (7.4-10.4) 02/09/23 03:57 Neut % (Auto) 81.5 % 02/09/23 03:57 Lymph % (Auto) 10.4 % 02/09/23 03:57 [place]lette % (Auto) 6.9 % 02/09/23 03:57 Eos % (Auto) 0.1 % 02/09/23 03:57 Baso % (Auto) 0.5 % 02/09/23 03:57 Neut # (Auto) 11.07 10^3/uL (1.8-7.7) H 02/09/23 03:57 Lymph # (Auto) 1.4 10^3/uL (0.8-4.8) 02/09/23 03:57 [place] # (Auto) 0.9 10^3/uL (0.2-0.9) 02/09/23 03:57 Eos # (Auto) 0.0 10^3/uL (0.0-0.8) 02/09/23 03:57 Baso # (Auto) 0.1 10^3/uL (0.0-0.1) 02/09/23 03:57 Nucleated RBC % (auto) 0 % 02/09/23 03:57 Nucleated RBCs # 0.0 /100WBC 02/09/23 03:57 Sodium 140 mmol/L (136-145) 02/09/23 03:57 Potassium 3.5 mmol/L (3.5-5.1) 02/09/23 03:57 Chloride 103 mmol/L (98-107) 02/09/23 03:57 Carbon Dioxide 16 mmol/L (22-29) L 02/09/23 03:57 Anion Gap 24.5 (5-19) H 02/09/23 03:57 BUN 12 mg/dL (8-23) 02/09/23 03:57 Creatinine 1.4 mg/dL (0.5-0.9) H 02/09/23 03:57 GFR Calculation Not Reportable 02/09/23 03:57 Glucose 356 mg/dL (65-115) H 02/09/23 03:57 POC Glucose 329 mg/dL (70-110) H 02/09/23 03:39 Estimat Average Glucose 128 02/06/23 04:05 Hemoglobin A1c 6.1 % (4.0-6.0) H 02/06/23 04:05 Calculated Osmolality 304 mOsm/kg (285-295) H 02/09/23 03:57 Lactic Acid 1.4 mmol/L (0.5-2.2) 02/04/23 23:20 Lactate 11.6 mmol/L (0.5-2.2) H* 02/09/23 09:07 Calcium 8.4 mg/dL (8.5-10.5) L 02/09/23 03:57 Magnesium 2.1 mg/dL (1.7-2.3) 02/09/23 03:57 Total Bilirubin 0.5 mg/dL (0.15-1.2) 02/08/23 05:38 AST 9 U/L (0-32) 02/08/23 05:38 ALT 6 U/L (0-33) 02/08/23 05:38 Alkaline Phosphatase 88 U/L (35-105) 02/08/23 05:38 Troponin T Gen 5 ng/L 88 ng/L (0-10) H 02/07/23 04:08 Troponin T Baseline 174 ng/L (0-10) H* 02/04/23 23:20 Troponin T 120 Minute 253.0 ng/L (0-10) H 02/05/23 02:53 Delta Troponin T 79.0 ABS# (0-10) H* 02/05/23 02:53 Troponin T Hi Sens 6Hr 211.3 ng/L (0-10) H 02/05/23 05:20 Troponin T Hi Sens 6Hr Delta 37.3 ng/L (0-12) H* 02/05/23 05:20 C-Reactive Protein 63.0 mg/L (0.0-4.9) H 02/04/23 23:20 NT-Pro-B Natriuret Pep 1257 pg/mL (0-450) H 02/04/23 23:20 Total Protein 4.9 g/dL (6.6-8.7) L 02/08/23 05:38 Albumin 3.2 g/dL (3.5-5.2) L 02/08/23 05:38 Globulin 1.7 g/dL (1.3-4.6) 02/08/23 05:38 Triglycerides 86 mg/dL (0-150) 02/06/23 04:05 Cholesterol 124 mg/dL (0-200) 02/06/23 04:05 LDL Cholesterol, Calc 55 mg/dL (50-129) 02/06/23 04:05 HDL Cholesterol 52 mg/dL (60-100) L 02/06/23 04:05 LDL/HDL Ratio 1.06 RATIO (0.00-3.22) 02/06/23 04:05 Cholesterol/HDL Ratio 2.38 mg/dL (0.0-4.40) 02/06/23 04:05 Procalcitonin 0.36 ng/mL (0-0.5) 02/04/23 23:20 TSH 2.38 uIU/mL (0.27-4.20) 02/05/23 02:53 Urine Color Yellow (Yellow) 02/05/23 00:00 Urine Appearance Cloudy (CLEAR) A 02/05/23 00:00 Urine pH 6 (5-7) 02/05/23 00:00 Ur Specific [place] 1.015 (1.005-1.030) 02/05/23 00:00 Urine Protein 3+ (Negative) H 02/05/23 00:00 Urine Glucose (UA) Trace (Normal) H 02/05/23 00:00 Urine Ketones Negative (Negative) 02/05/23 00:00 Urine Blood 3+ (Negative) H 02/05/23 00:00 Urine Nitrate Positive (Negative) H 02/05/23 00:00 Urine Bilirubin Neg (Negative) 02/05/23 00:00 Urine Urobilinogen Norm mg/dL (Negative) 02/05/23 00:00 Ur Leukocyte Esterase 2+ (Negative) H 02/05/23 00:00 Urine RBC 0-4 /hpf (0-2) H 02/05/23 00:00 Urine WBC Too numerous to cnt /hpf (0-5) H 02/05/23 00:00 Ur Squamous Epith Cells 0-4 /hpf (0-5) H 02/05/23 00:00 Amorphous Sediment Not Reportable 02/05/23 00:00 Urine Bacteria 3+ /hpf (NONE) H 02/05/23 00:00 Nasal Influ A H1 2009 PCR Not detected (NOT DETECT) 02/04/23 23:38 Adenovirus (PCR) Not detected (NOT DETECT) 02/04/23 23:38 C. pneumoniae DNA (PCR) Not detected (NOT DETECT) 02/04/23 23:38 Coronavirus 229E (PCR) Not detected (NOT DETECT) 02/04/23 23:38 Human Metapneumovir PCR Not detected (NOT DETECT) 02/04/23 23:38 Influenza A (H1) PCR Not detected (NOT DETECT) 02/04/23 23:38 Influenza A (H3) PCR Not detected (NOT DETECT) 02/04/23 23:38 Influenza Type A (PCR) Not detected (NOT DETECT) 02/04/23 23:38 Influenza Type B (PCR) Not detected (NOT DETECT) 02/04/23 23:38 M. pneumoniae (PCR) Not detected (NOT DETECT) 02/04/23 23:38 Parainfluenza 1 (PCR) Not detected (NOT DETECT) 02/04/23 23:38 Parainfluenza 2 (PCR) Not detected (NOT DETECT) 02/04/23 23:38 Parainfluenza 3 (PCR) Not detected (NOT DETECT) 02/04/23 23:38 Parainfluenza 4 (PCR) Not detected (NOT DETECT) 02/04/23 23:38 RSV Type A (PCR) Not detected (NOT DETECT) 02/04/23 23:38 RSV Type B (PCR) Not detected (NOT DETECT) 02/04/23 23:38 Entero/Rhino (PCR) Not detected (NOT DETECT) 02/04/23 23:38 SARS-CoV-2 (PCR) Not detected (NOT DETECT) 02/04/23 23:38 Blood Type A Positive 02/09/23 09:07 Rho(D) Type Positive 02/09/23 09:07 Antibody Screen Negative 02/09/23 09:07 Crossmatch See Detail 02/09/23 09:07 Radiology Impressions Abdomen/Pelvis CT 02/05/23 00:33 IMPRESSION: 1. No hydronephrosis of either kidney. No visible renal or ureteral calculus. 2. Mild perinephric stranding bilaterally, see above discussion. 3. Valenzuela catheter in the urinary bladder. Possible mild urinary bladder wall thickening, see above. 4. Small supraumbilical ventral hernia again noted, partially containing a small bowel loop. No evidence for significant bowel obstruction at this time. As clinically directed, follow-up may be helpful to exclude progression. 5. No free air or significant bowel distention. 6. No evidence for retroperitoneal intra-abdominal hematoma. 7. Other findings discussed above. Chest X-Ray 02/05/23 01:01 IMPRESSION: 1. Catheter placement as above. 2. Very mild bilateral lower lung opacities, see above discussion. 3. Other findings discussed above. Chest/Abdomen/Pelvis CT 02/09/23 05:47 IMPRESSION: Small bibasilar dependent consolidations. This is improved on the left and worsened on the right compared to 01/03/2023 and likely represents dependent atelectasis. Consolidative pneumonia is not excluded but is considered less likely. IMPRESSION: 1. Multiple interloculated fluid collections within the abdomen, with the largest located in the central upper pelvis measuring roughly 11.2 x 6.0 x 9.0 cm. These were not present on 02/05/2023. These findings, in combination with surrounding significant fat stranding and the enlarged right psoas muscle, are highly concerning for multiple interloculated intra-abdominal abscesses. Interloculated ascites without infection is considered much less likely. Recommend surgery consult. 2. The right psoas muscle is prominent and asymmetrically enlarged compared to the left. This was not present on 02/05/2023 and likely represents a psoas abscess. COMMENTS: Consistent with the [employer]'s Incidental Findings Committee white paper (J Am Lux Radiol 2018): Any incidental renal lesion less than 1 cm or classified as too small to characterize, or any incidental cystic renal lesion characterized as simple-appearing, is likely benign. No follow-up imaging is recommended for these lesions per consensus recommendations based on imaging criteria. ADDENDUM: 02/09/23 0750 ADDENDUM: THIS REPORT CONTAINS FINDINGS THAT MAY BE CRITICAL TO PATIENT CARE. The findings were verbally communicated via telephone conference with Dr. Lezama at 7:45 AM CDT on 02/09/2023. The findings were acknowledged and understood. Recent Clincial Data Last Vital Signs Temp 97.2 F L 02/09/23 05:30 Pulse 123 H 02/09/23 11:30 Resp 25 H 02/09/23 11:30 BP 78/56 02/09/23 11:30 Pulse Ox 89 L 02/09/23 11:30 O2 Del Method Room Air 02/09/23 08:12 O2 Flow Rate 2 02/08/23 08:00 Vital Signs Temp Pulse Resp BP Pulse Ox O2 Del Method 02/09/23 11:30 123 H 25 H 78/56 89 L 02/09/23 11:15 122 H 27 H 121/79 100 02/09/23 11:00 126 H 28 H 127/88 100 02/09/23 10:45 126 H 26 H 133/76 99 02/09/23 10:30 124 H 17 94/62 82 L 02/09/23 10:15 125 H 24 H 115/83 100 02/09/23 10:00 120 H 28 H 110/68 99 02/09/23 09:45 141 H 72/30 93 02/09/23 09:30 134 H 27 H 68/44 02/09/23 09:15 120 H 30 H 100 02/09/23 09:00 117 H 28 H 57/36 100 02/09/23 08:45 116 H 25 H 84/62 97 02/09/23 08:30 116 H 27 H 84/62 99 02/09/23 08:15 110 H 24 H 77/43 98 02/09/23 08:00 116 H 20 H 84/58 88 L 02/09/23 07:45 113 H 23 H 88/62 92 02/09/23 07:30 113 H 26 H 113/60 92 02/09/23 07:15 114 H 24 H 78/58 97 02/09/23 07:00 114 H 27 H 100/71 84 L 02/09/23 08:18 106 H 02/09/23 08:12 112 H 22 H 97 Room Air 02/09/23 06:15 111 H 23 H 88/50 96 Room Air 02/09/23 06:00 108 H 24 H 68/53 Room Air 02/09/23 05:45 110 H 26 H 74/47 100 Room Air 02/09/23 05:30 97.2 F L 104 H 24 H 85/60 98 Room Air 02/09/23 05:15 104 H 18 98/57 Room Air 02/09/23 05:00 106 H 22 H 86/57 100 Room Air 02/09/23 04:46 124 H 24 H 92 Room Air 02/09/23 06:11 108 H 02/09/23 03:42 135 H 62/42 91 Room Air Intake & Output/Weight 02/07/23 02/08/23 02/09/23 02/10/23 06:59 06:59 06:59 06:59 Intake Total 2081.191 / 2081.191 1282 / 1282 1431.148 / 1431.148 702.01 / 702.01 Output Total 1600 / 1600 1250 / 1250 Balance 481.191 / 481.191 32 / 32 1431.148 / 1431.148 702.01 / 702.01 Vitals Last Vital Signs Temp 97.2 F L 02/09/23 05:30 Pulse 123 H 02/09/23 11:30 Resp 25 H 02/09/23 11:30 BP 78/56 02/09/23 11:30 Pulse Ox 89 L 02/09/23 11:30 O2 Del Method Room Air 02/09/23 08:12 O2 Flow Rate 2 02/08/23 08:00 TS Medications Medications Acetaminophen (Acetaminophen 325 Mg Tablet) 650 mg PO Q6H PRN PRN Reason: MILD PAIN Last Admin: 02/08/23 22:16 Dose: 650 mg Albuterol/Ipratropium (Ipratropium-Albuterol 3 Ml Neb) 3 ml INHALATION Q6H PRN PRN Reason: SHORTNESS OF BREATH Last Admin: 02/09/23 08:12 Dose: 3 ml Aspirin (Aspirin 81 Mg Ec Tablet) 81 mg PO DAILY SOM Last Admin: 02/09/23 08:57 Dose: Not Given Budesonide (Budesonide 0.5 Mg/2 Ml Neb) 0.5 mg INHALATION BID.RESPIRATORY SOM Last Admin: 02/09/23 08:12 Dose: 0.5 mg Dextrose (Dextrose 50% Syringe 50 Ml) 50 ml IVP PRN PRN; Protocol PRN Reason: hypoglycemia protocol Dextrose (Dextrose 50% Syringe 50 Ml) 25 ml IVP ONCE PRN; Protocol PRN Reason: hypoglycemia protocol Glucagon (Glucagon 1 Mg/Ml Inj 1 Ml) 1 mg IM ONCE PRN; Protocol PRN Reason: Adult Acute Hypoglycemia Prot. Meropenem 1,000 mg/ Sodium (Chloride) 50 mls @ 100 mls/hr IV Q8H SOM; Protocol Last Admin: 02/09/23 10:29 Dose: 100 mls/hr Norepinephrine Bitartrate 4 mg (/ Dextrose) 254 mls @ 0 mls/hr IV .Q0M SOM; Protocol Last Titration: 02/09/23 06:22 Dose: 12 mcg/min, 45.72 mls/hr Vancomycin/PEG/NADA/Lysine/Water (Vancocin) 1,750 mg in 350 mls @ 233.333 mls/hr IV Q24H SOM Last Admin: 02/09/23 06:14 Dose: 233.33 mls/hr Metronidazole (Flagyl Iv) 500 mg in 100 mls @ 100 mls/hr IV Q8H SOM Last Admin: 02/09/23 07:13 Dose: 100 mls/hr Vasopressin 40 unit/ Sodium (Chloride) 40 mls @ 0.03 mls/min IV CONT SOM Last Infusion: 02/09/23 10:09 Dose: 0.04 mls/min Dextrose (D5w) 500 mls @ 100 mls/hr IV ONCE PRN; Protocol PRN Reason: Adult Acute Hypoglycemia Prot Norepinephrine Bitartrate 8 mg (/ Dextrose) 508 mls @ 0 mls/hr IV .Q0M SOM; Protocol Last Admin: 02/09/23 10:08 Dose: 20 mcg/min, 76.2 mls/hr Epinephrine HCl 2.5 mg/ Sodium (Chloride) 252.5 mls @ 0 mls/hr IV .Q0M [facility]; Protocol Last Admin: 02/09/23 10:09 Dose: 0.5 mcg/kg/min, 428.75 mls/hr Amiodarone HCl 900 mg/Dextrose/ IV Miscellaneous Supplies 518 mls @ 0 mls/hr IV .Q0M SOM; Protocol Epinephrine HCl 5 mg/ Sodium (Chloride) 505 mls @ 0 mls/hr IV .Q0M SOM; Protocol Propofol (Diprivan) 1,000 mg in 100 mls @ 0 mls/hr IV .Q0M SOM; Protocol Fentanyl 2,500 mcg/ Sodium (Chloride) 250 mls @ 0 mls/hr IV .Q0M SOM; Protocol Insulin Human Lispro (Insulin Lispro 100 Unit/1 Ml) 0 unit SUBCUT Q6H [facility]; Protocol Last Admin: 02/09/23 08:43 Dose: 6 unit Lanolin (Lanolin Oint 7 Gm) 1 applic TOPICAL PRN PRN PRN Reason: DRYNESS Last Admin: 02/06/23 08:41 Dose: 1 applic Ondansetron HCl (Ondansetron 2 Mg/Ml Sdv 2 Ml) 4 mg IVP Q8H PRN PRN Reason: vomiting, or N/V if npo Last Admin: 02/09/23 08:32 Dose: 4 mg Pantoprazole Sodium (Pantoprazole Dr 40 Mg Tablet) 40 mg PO DAILY [facility] Last Admin: 02/09/23 08:57 Dose: Not Given Promethazine HCl (Promethazine 25 Mg/Ml Sdv 1 Ml) 12.5 mg IM Q6H PRN PRN Reason: NAUSEA Saliva Substitute (Saliva Stimulant [place] 44.3 Ml Btl) 1 spray MUCOUS MEM BID [facility] Last Admin: 02/09/23 08:58 Dose: Not Given Sodium Chloride (Sodium Chloride 0.9% 100 Ml Bag) 50 ml IV PRN PRN PRN Reason: Blood transfusion prime and flush Stop: 02/10/23 08:47 Discontinued Medications Adenosine (Adenosine 3 Mg/Ml Sdv 2ml) 6 mg IVP ONCE ONE Stop: 02/09/23 12:48 Aminophylline (Aminophylline 25 Mg/Ml Sdv 10 Ml) 25 mg IVP Q2M PRN PRN Reason: see dose instructions Stop: 02/09/23 06:19 Apixaban (Apixaban 5 Mg Tablet) 5 mg PO BID [facility] Last Admin: 02/05/23 09:19 Dose: 5 mg Aspirin (Aspirin 81 Mg Chew Tablet) 324 mg PO NOW ONE Stop: 02/05/23 10:22 Last Admin: 02/05/23 10:39 Dose: 324 mg Cyanocobalamin (Cyanocobalamin 1,000 Mcg Tablet) [facility] Last Admin: 02/05/23 05:12 Dose: Not Given Enoxaparin Sodium (Enoxaparin 150 Mg/Ml Syringe) 140 mg SUBCUT Q12H [facility] Enoxaparin Sodium (Enoxaparin 150 Mg/Ml Syringe) 140 mg SUBCUT Q12H [facility] Last Admin: 02/08/23 17:08 Dose: 140 mg Escitalopram Oxalate ([facility]italopram 10 Mg Tablet) [facility] Last Admin: 02/09/23 06:49 Dose: Not Given Etomidate (Etomidate 2 Mg/Ml Inj Sdv 10 Ml) 20 mg IVP NOW ONE Stop: 02/09/23 13:07 Fentanyl (Fentanyl 50 Mcg/Ml Inj 2ml) 50 mcg IVP ONCE ONE Stop: 02/09/23 13:07 Sodium Chloride (Sodium Chloride 0.9%) 1,000 mls @ 999 mls/hr IV .Q1H1M [facility] Stop: 02/05/23 01:30 Last Infusion: 02/05/23 03:11 Dose: Infused Piperacillin Sod/Tazobactam (Sod 4.5 gm/ Sodium Chloride) 50 mls @ 100 mls/hr IV ONCE ONE; Protocol Stop: 02/04/23 23:46 Last Infusion: 02/05/23 00:50 Dose: Infused Vancomycin/PEG/NA[place]/Lysine/Water (Vancocin) 1,500 mg in 300 mls @ 200 mls/hr IV ONCE ONE; Protocol Stop: 02/05/23 00:46 Last Infusion: 02/05/23 03:11 Dose: Infused Sodium Chloride (Sodium Chloride 0.9%) 1,000 mls @ 999 mls/hr IV .Q1H1M [facility] Stop: 02/05/23 02:45 Last Infusion: 02/05/23 03:12 Dose: Infused Norepinephrine Bitartrate 4 mg (/ Dextrose) 254 mls @ 0 mls/hr IV .Q0M [facility]OM; Protocol Last Titration: 02/06/23 17:56 Dose: Infused Piperacillin Sod/Tazobactam (Sod 3.375 gm/ Sodium Chloride) 50 mls @ 12.5 mls/hr IV Q8H [facility]; Protocol Last Infusion: 02/05/23 11:06 Dose: Infused Sodium Chloride (Sodium Chloride 0.9%) 1,000 mls @ 50 mls/hr IV .Q20H [facility]OM Last Infusion: 02/06/23 17:56 Dose: Infused Vancomycin/PEG/[place]/Lysine/Water (Vancocin) 2,000 mg in 400 mls @ 200 mls/hr IV Q24H [facility] Magnesium Sulfate 1 gm/ Sodium (Chloride) 52 mls @ 104 mls/hr IV ONCE ONE Stop: 02/07/23 20:30 Last Infusion: 02/07/23 22:33 Dose: Infused Magnesium Sulfate (Magnesium Sulfate Premix) 2 gm in 50 mls @ 50 mls/hr IV ONCE ONE Stop: 02/08/23 17:31 Last Infusion: 02/08/23 18:10 Dose: Infused Sodium Chloride (Sodium Chloride 0.9%) Confirm Administered Dose 1,000 mls @ as directed .ROUTE .STK-MED ONE Stop: 02/09/23 03:49 Sodium Chloride (Sodium Chloride 0.9%) 1,000 mls @ 999 mls/hr IV .Q1H1M ONE Stop: 02/09/23 04:45 Last Infusion: 02/09/23 05:26 Dose: Infused Sodium Chloride (Sodium Chloride 0.9%) 1,000 mls @ 100 mls/hr IV .Q10H [facility] Last Admin: 02/09/23 07:14 Dose: 100 mls/hr Sodium Chloride (Sodium Chloride 0.9%) 500 mls @ 999 mls/hr IV .Q31M ONE Stop: 02/09/23 07:51 Last Admin: 02/09/23 09:03 Dose: 999 mls/hr Sodium Chloride (Sodium Chloride 0.9%) 500 mls @ 999 mls/hr IV .Q31M ONE Stop: 02/09/23 10:04 Last Admin: 02/09/23 10:10 Dose: 999 mls/hr Ketorolac Tromethamine (Ketorolac 30 Mg/Ml Inj) 15 mg IVP ONCE ONE Stop: 02/04/23 23:18 Last Admin: 02/04/23 23:26 Dose: 15 mg Midazolam HCl (Midazolam 1 Mg/Ml Inj 2 Ml) 2 mg IVP ONCE ONE Stop: 02/09/23 13:07 Naloxone HCl (Naloxone 0.4 Mg/Ml Sdv) 0.1 mg IVP Q2M PRN PRN Reason: OPIATERV Nitroglycerin (Nitroglycerin 0.4 Mg Sublingual Tablet) 0.4 mg SUBLINGUAL Q5M PRN PRN Reason: CHEST PAIN Stop: 02/09/23 06:19 Ondansetron HCl (Ondansetron 2 Mg/Ml Sdv 2 Ml) 4 mg IVP Q2M PRN PRN Reason: NAUSEA Last Admin: 02/08/23 13:13 Dose: 4 mg Pantoprazole Sodium (Pantoprazole 40 Mg Sdv) 40 mg IVP Q24H [facility] Last Admin: 02/06/23 02:09 Dose: 40 mg Perflutren Protein Type A Microsphe (Perflutren Protein-A Microsphr 0.22 Mg/Ml Sdv 3 Ml) 0 ml IV ONCE ONE Stop: 02/05/23 07:34 Last Admin: 02/05/23 07:42 Dose: 3 ml Regadenoson (Regadenoson 0.4 Mg/5 Ml Syringe) 0.4 mg IVP ONCE PRN PRN Reason: Lexiscan Stress Test Last Admin: 02/08/23 12:57 Dose: 0.4 mg Rocuronium [place] (Rocuronium 10 Mg/Ml Inj 5ml) 0 mg IVP Q1H ONE Stop: 02/09/23 13:16 Rocuronium [place] (Rocuronium 10 Mg/Ml Inj 5ml) Confirm Administered Dose 50 mg .ROUTE .STK-MED ONE Stop: 02/09/23 13:15 Tramadol HCl (Tramadol 50 Mg Tablet) 50 - 100 mg PO Q6H PRN PRN Reason: MODERATE PAIN Last Admin: 02/09/23 01:53 Dose: 100 mg Allergies atorvastatin Allergy (Verified 01/03/23 15:21) Unknown codeine Allergy (Verified 01/03/23 15:21) Unknown iodine Allergy (Verified 01/03/23 15:21) Unknown Home Medications acetaminophen 325 mg tablet (Tylenol) 650 mg PO Q4H PRN pain/fever 07/24/23 [History Confirmed 02/05/23] albuterol sulfate 2.5 mg/3 mL (0.083 %) solution for nebulization 2.5 mg inhalation Q6H PRN Shortness Of Breath 01/03/23 [History Confirmed 02/05/23] apixaban 5 mg tablet (Eliquis) 5 mg PO BID 01/03/23 [History Confirmed 02/05/23] budesonide-formoterol HFA 160 mcg-4.5 mcg/actuation aerosol inhaler 2 puff inhalation BID 01/03/23 [History Confirmed 02/05/23] cetirizine 10 mg tablet (Zyrtec) 10 mg PO QAM 01/03/23 [History Confirmed 02/05/23] cholecalciferol (vitamin D3) 1,250 mcg (50,000 unit) capsule 50,000 unit PO Q7D 01/03/23 [History Confirmed 02/05/23] colestipol 1 gram tablet 1 g PO BID 01/03/23 [History Confirmed 02/05/23] cyanocobalamin (vitamin B-12) 1,000 mcg tablet 1,000 mcg PO QAM 01/03/23 [History Confirmed 02/05/23] dextromethorphan polistirex 30 mg/5 mL oral susp ext.release 12hr 10 ml PO Q12H PRN Cough 01/03/23 [History Confirmed 02/05/23] diclofenac sodium 1 % topical gel See Rx Instructions .Route .COMPLEX 01/03/23 [History Confirmed 02/05/23] escitalopram oxalate 20 mg tablet 20 mg PO QAM 01/03/23 [History Confirmed 02/05/23] fluticasone propionate 50 mcg/actuation nasal spray,suspension 2 spray intranasal QAM 01/03/23 [History Confirmed 02/05/23] gabapentin 600 mg tablet 600 mg PO TID 01/03/23 [History Confirmed 02/05/23] guaifenesin 400 mg tablet (Mucus Relief) 400 - 800 mg PO Q12H PRN Cough 01/03/23 [History Confirmed 02/05/23] ipratropium 0.5 mg-albuterol 3 mg (2.5 mg base)/3 mL nebulization soln 3 ml inhalation Q6H PRN Shortness Of Breath 01/03/23 [History Confirmed 02/05/23] lisinopril 5 mg tablet 5 mg PO QAM 01/03/23 [History Confirmed 02/05/23] metoprolol tartrate 25 mg tablet 25 mg PO BID 01/03/23 [History Confirmed 02/05/23] ropinirole 0.5 mg tablet 0.5 mg PO DAILY PRN Restless Leg(S) 01/03/23 [History Confirmed 02/05/23] tramadol 50 mg tablet 50 - 100 mg PO Q6H PRN Pain 01/03/23 [History Confirmed 02/05/23] Lactobacillus acidophilus (Acidophilus capsule) 200 mg PO DAILY 02/05/23 [History Confirmed 02/05/23] ibuprofen 200 mg tablet 600 mg PO Q8H PRN Pain 02/05/23 [History Confirmed 02/05/23] metformin 500 mg tablet 500 mg PO BID 02/05/23 [History Confirmed 02/05/23] ondansetron 4 mg disintegrating tablet 4 mg PO Q6H PRN NAUSEA 02/05/23 [History Confirmed 02/05/23] Discharge Plan Discharge Patient Disposition: Xfer Short-Term Hosp Condition: Serious Prescriptions: No Action dextromethorphan polistirex 30 mg/5 mL Suspension,Extended Rel 12 Hr 10 ml PO Q12H PRN (Reason: Cough) acetaminophen [Tylenol] 325 mg Tablet 650 mg PO Q4H PRN (Reason: pain/fever) gabapentin 600 mg tablet 600 mg PO TID ipratropium-albuterol 0.5 mg-3 mg(2.5 mg base)/3 mL solution for nebulization 3 ml INHALATION Q6H PRN (Reason: Shortness Of Breath) albuterol sulfate 2.5 mg /3 mL (0.083 %) Solution For Nebulization 2.5 mg INHALATION Q6H PRN (Reason: Shortness Of Breath) cetirizine [Zyrtec] 10 mg Tablet 10 mg PO QAM cyanocobalamin (vitamin B-12) 1,000 mcg Tablet 1,000 mcg PO QAM tramadol 50 mg tablet 50 - 100 mg PO Q6H PRN (Reason: Pain) ropinirole 0.5 mg tablet 0.5 mg PO DAILY PRN (Reason: Restless Leg(S)) lisinopril 5 mg tablet 5 mg PO QAM fluticasone propionate 50 mcg/actuation [place],Suspension 2 spray INTRANASAL QAM Rx Instructions: administer into each nostril colestipol 1 gram tablet 1 g PO BID escitalopram oxalate 20 mg tablet 20 mg PO QAM guaifenesin [Mucus Relief] 400 mg Tablet 400 - 800 mg PO Q12H PRN (Reason: Cough) metoprolol tartrate 25 mg tablet 25 mg PO BID cholecalciferol (vitamin D3) 1,250 mcg (50,000 unit) Capsule 50,000 unit PO Q7D Rx Instructions: on budesonide-formoterol 160-4.5 mcg/actuation HFA aerosol inhaler 2 puff INHALATION BID diclofenac sodium 1 % gel See Rx Instructions .ROUTE .COMPLEX Rx Instructions: apply 2 grams topically up to four times a day to upper ext and 4 grams up to four times to lower ext max dose per joint 16gm/day on lower ext and 8gm/day upper ext Eliquis 5 mg tablet 5 mg PO BID metformin 500 mg tablet 500 mg PO BID ibuprofen 200 mg Tablet 600 mg PO Q8H PRN (Reason: Pain) ondansetron 4 mg Tablet,Disintegrating 4 mg PO Q6H PRN (Reason: NAUSEA) Acidophilus Capsule 200 mg PO DAILY Rx Instructions: FOR 30 DAYS Referrals: [facility] [Provider Group] - 2 weeks (chronic suppression- message sent to clinic. Clinic will contact patient for appointment) [facility] [Referring] - 2 weeks (recurrent UTI with sepsis, normal anatomy on CT imaging, assess for cytoscopy Faxed referral to clinic. Clinic will contact patient ) Patient Instructions: Opioid Safety Transfer Attestations Time Spent in Transfer Care: greater than 30 min Quality Metrics Clinical Quality Measures [ No reported AMI, CVA or VTE this stay] Coding Level of Care Code Critical Care >/= 30 minutes Critical care time (in minutes): 75 Diagnoses Septic shock A41.9; R65.21 Acute kidney injury N17.9 Acute encephalopathy G93.40 Urinary tract infection N39.0 NSTEMI (non-ST elevated myocardial infarction) I21.4 Gram negative sepsis A41.50
[2023-02-09 14:01] LABS: Lactate (Lactic Acid level) 11.8 mmol/L (0.5-2.2)
[2023-02-09 14:32] LABS: ABG PCO2 34.3 mmHg (35-45); Arterial Blood Gas Hematocrit 22.3 % (37-47); Base Excess ABG -14.4 mmol/L (-2.0-2.0); Blood Gas Allen Test Pos; Blood Gas Sample Type Arterial; Carboxyhemoglobin 1.2 %THgb (0.4-20.1); HCO3 ABG 12.8 mmol/L (22-26); HGB O2 Sat 98.3 % (95-100); Ionized Calcium Level - ABG 1.1 mmol/L (1.1-1.4); Oxygen Saturation ABG > 100.0; Potassium Level - ABG 3.1 mmol/L (3.5-5.0); Total Hemoglobin 7.3 g/dL (12-16)
[2023-02-09 14:33] LABS: Alveolar-Arterial Oxygen Gradi 37.7 mmHg (5-10); Blood Gas Operator Identificat MONRO; Blood Gas Sample Site A LINE; Oxygen Device VENT
[2023-02-09 14:35] LABS: ABG PH Result 7.18 (7.35-7.45)
[2023-02-09] MEDS: EPINEPHrine 5 MG in sodium chloride 0.9% 500 ML 171.5 MG IV (14:36)
--- NOTE | 2023-02-09 14:37 | P.PCN_ITS ---
Procedure/Consent Time out: Time Out Performed: Yes Consent: Consent for Procedure: Consent obtained from patient (Verbal consent obtained from patient), Emergency procedure, Risks & Benefits reviewed and Agrees to proceed with procedure Procedure Narrative: Procedure: Ultrasound-guided identification of the left femoral vein CPT code [id number] placement of Central venous line CPT code 69953 Acute Procedures Central Line Placement: Left Femoral: Additional comments: Procedure time: 1215 Procedure: Ultrasound-guided identification of the left femoral vein CPT code [id number] placement of Central venous line CPT code 58288 Indication: Hemodynamic unstable patient requiring multiple pressors Chinese Teacher(s): Nghia Elizabethr Consent: Emergent Yes Time out called. [place] precautions applied. Site: left femoral vein Catheter:7 Fr 20cm, Triple Lumen Sutured at: 20 cm Anesthesia: 5 cc 1% lidocaine without epinephrine Description: Cap, eye protection, mask donned by myself and RN. Sterile gown and gloves donned. Time out patient prepped with Chlorhexidine and full body fenestrated drape placed in sterile fashion. The vessel anatomy and patency was examined by ultrasound probe which was covered with sterile probe cover. Real time US guidance for target selection and real time US visualization of needle entry into vessel, after venous blood aspirated the guidewire was inserted through the needle and kept in situ, needle was removed. Placement of guidewire in the vein confirmed in relation to the adjacent artery in both in-plane and [id number] US views. After appropriate dilation of entry site with dilator, removed dilator and Catheter was then advanced over the guidewire,and guidewire was successfully removed. All ports drawn back and flushed with ease. Ports capped and locked. Catheter sutured at [address] Sterile dressing applied. Patient tolerated procedure well. Number of attempts:1 Dilator applied: 1, number of Dilations: 1 Placement Verified by: Blood draw from all ports and Ultrasound exam EBL: 5-10 cc Complications: None Ultrasound guidance used: Yes. Epistaxis Control: Time out performed: Yes
--- NOTE | 2023-02-09 14:37 | PM.CONSULT ---
Providers/Reason For Consult Consulting Physician/Specialty*: Nghia Baez MD [facility] Reason for Consult*: Shock likely Hemorrhagic versus septic-consulted for critical care evaluation as well as intervention for central line Requesting Physician: Davin Lezama Attending Physician: Davin Lezama Primary Care Provider: Martha Lloyd NP History of Present Illness History of Present Illness Herlinda Shah is a 73-year-old lady with history of COPD, paroxysmal A-fib, on anticoagulation with Eliquis, HTN, recurrent UTIs, DM 2, history of non-Hodgkin lymphoma, other medical problems, hospitalized for gram-negative bacteremia with UTI in early November at [facility], was admitted to [facility] on 02/05 for septic shock secondary to urosepsis and was started on Zosyn, empirically vancomycin, pressor support initially in ICU.? Initial CT abdomen pelvis without obstructive uropathy.? No renal or ureteric calculus.? Mild perinephric stranding bilaterally.? Possible mild urinary bladder wall thickening.? Small supraumbilical ventral hernia.? No evidence of bowel obstruction, free air or hematoma.? With Zosyn vancomycin, subsequently on meropenem with concern for recurrent UTIs, possibility of resistant infection her septic shock resolved, encephalopathy resolved. urine culture and blood cultures growing gram-negative rods, eventually identified as E. coli resistant to quinolones.? During hospitalization she was continued on Lovenox instead of Eliquis with regards to paroxysmal A-fib, as well as possible NSTEMI.? TTE on 02/05 with normal ejection fraction, grade 1 diastolic function, noted left atrial dilation, moderate to severe mitral annular calcification, mild mitral regurgitation, moderate mitral stenosis.? Moderate to severe aortic stenosis.? Moderate aortic regurgitation.? Mild cuspid regurgitation.? Moderate pulmonary hypertension.? IVC appears dilated.? RA pressure elevated.? Underwent stress testing on 02/08 which revealed normal perfusion scan, no evidence of ischemia.? Patient was recovering for septic shock due to history E. coli urine infection-She was off pressors and she was hemodynamically stable until yesterday night. Today early hours patient had syncopal episode while sitting on edge of bed and response was called Patient had abdominal pain, she was vomiting bile, she was hypotensive, and lethargic. She was on Lovenox for paroxysmal A-fib until yesterday evening. There is sudden drop in H&H from 9.80 yesterday to today morning 7.10 and drop in blood pressure requiring 3 pressors Currently she is requiring 3 pressors-received 2 units of PRBc Patient is being transferred to higher facility for IR embolization 02/09/2023 CT chest was not performed with contrast due to concern for DEIRDRE, however CT chest showed small bibasilar dependent consolidations improved on left and worsened on right compared to 01/03/2023. CT abdomen pelvis showed multiple interval loculated fluid collections within the abdomen with the largest loculated in the central upper pelvis measuring 11 x 6 x 9 cm which was not present during admission 02/05/2023. There is also significant fat stranding and enlarged right psoas muscle highly concerning for multiple intra loculated intra-abdominal abscesses. Pulmonary critical care consult requested for central line placement as well as evaluation of shock Hemorrhagic versus sepsis. I have seen patient at bedside-she is lethargic but awake alert and communicative; she denied any complaints except Intermittent chills. She complained of abdominal pain and is sensitive to touch By now she is requiring 3 pressor support Levophed, vasopressin and epinephrine to maintain MAP greater than 65. Her lactic acid is elevated as well as her bicarb is low. Her morning hemoglobin dropped From 9.4-8.1 and later to 7.1. Her Last anticoagulant dose 5 PM 02/08.? Upon review of images by our radiologist, as well as discussed with colleague findings more consistent with psoas and intra-abdominal hematoma.? She was transfused with 2 units of PRBC,1 unit of FFP and there is plan to transfuse more. Hospitalist is arranging for transfer to high-level care, and need for possible IR embolization in case of persistent bleeding on discussion with internal controls manager transfer sought to higher level facility. Apparently she was accepted at [facility].? I have discussed with patient and family in addition to central access, art line, Intubation due to high risk transfer. Patient agreed for the procedure. Review of Systems General: Reports: 10 or more systems reviewed and unremarkable except in HPI and below Medications/Allergies Home Medications Medication Instructions Recorded Confirmed Last Taken Type acetaminophen 325 mg tablet 650 mg PO Q4H PRN pain/fever 01/03/23 02/05/23 Unknown History (Tylenol) albuterol sulfate 2.5 mg/3 mL 2.5 mg inhalation Q6H PRN 01/03/23 02/05/23 Unknown History (0.083 %) solution for nebulization Shortness Of Breath apixaban 5 mg tablet (Eliquis) 5 mg PO BID 01/03/23 02/05/23 01/03/23 10:10 History budesonide-formoterol HFA 160 2 puff inhalation BID 01/03/23 02/05/23 01/03/23 History mcg-4.5 mcg/actuation aerosol inhaler cetirizine 10 mg tablet (Zyrtec) 10 mg PO QAM 01/03/23 02/05/23 01/03/23 10:10 History cholecalciferol (vitamin D3) 1,250 50,000 unit PO Q7D 01/03/23 02/05/23 12/30/22 History mcg (50,000 unit) capsule colestipol 1 gram tablet 1 g PO BID 01/03/23 02/05/23 01/03/23 10:10 History cyanocobalamin (vitamin B-12) 1,000 mcg PO QAM 01/03/23 02/05/23 01/03/23 10:10 History 1,000 mcg tablet dextromethorphan polistirex 30 10 ml PO Q12H PRN Cough 01/03/23 02/05/23 01/03/23 History mg/5 mL oral susp ext.release 12hr diclofenac sodium 1 % topical gel See Rx Instructions .Route .COMPLEX 01/03/23 02/05/23 Unknown History escitalopram oxalate 20 mg tablet 20 mg PO QAM 01/03/23 02/05/23 01/03/23 10:10 History fluticasone propionate 50 2 spray intranasal QAM 01/03/23 02/05/23 01/03/23 History mcg/actuation nasal spray,suspension gabapentin 600 mg tablet 600 mg PO TID 01/03/23 02/05/23 01/03/23 12:00 History guaifenesin 400 mg tablet (Mucus 400 - 800 mg PO Q12H PRN Cough 01/03/23 02/05/23 Unknown History Relief) ipratropium 0.5 mg-albuterol 3 mg 3 ml inhalation Q6H PRN Shortness 01/03/23 02/05/23 Unknown History (2.5 mg base)/3 mL nebulization Of Breath soln lisinopril 5 mg tablet 5 mg PO QAM 01/03/23 02/05/23 01/03/23 10:10 History metoprolol tartrate 25 mg tablet 25 mg PO BID 01/03/23 02/05/23 01/03/23 10:10 History ropinirole 0.5 mg tablet 0.5 mg PO DAILY PRN Restless Leg(S) 01/03/23 02/05/23 Unknown History tramadol 50 mg tablet 50 - 100 mg PO Q6H PRN Pain 01/03/23 02/05/23 Unknown History Lactobacillus acidophilus 200 mg PO DAILY 02/05/23 02/05/23 Unknown History (Acidophilus capsule) ibuprofen 200 mg tablet 600 mg PO Q8H PRN Pain 02/05/23 02/05/23 Unknown History metformin 500 mg tablet 500 mg PO BID 02/05/23 02/05/23 Unknown History ondansetron 4 mg disintegrating 4 mg PO Q6H PRN NAUSEA 02/05/23 02/05/23 Unknown History tablet Allergies Allergy/AdvReac Type Severity Reaction Status Date / Time atorvastatin Allergy Unknown Verified 01/03/23 15:21 codeine Allergy Unknown Verified 01/03/23 15:21 iodine Allergy Unknown Verified 01/03/23 15:21 Current Medications Generic Name Dose Route Start Last Admin Trade Name Freq PRN Reason Stop Dose Admin Acetaminophen 650 mg 02/05/23 10:00 02/08/23 22:16 Acetaminophen 325 Mg Tablet PO 650 mg Q6H PRN Administration MILD PAIN Albuterol/Ipratropium 3 ml 02/05/23 04:34 02/09/23 08:12 Ipratropium-Albuterol 3 Ml Neb INHALATION 3 ml Q6H PRN Administration SHORTNESS OF BREATH Aspirin 81 mg 02/06/23 09:00 02/09/23 08:57 Aspirin 81 Mg Ec Tablet PO Not Given DAILY SOM Budesonide 0.5 mg 02/05/23 08:00 02/09/23 08:12 Budesonide 0.5 Mg/2 Ml Neb INHALATION 0.5 mg BID.RESPIRATORY SOM Administration Meropenem 1,000 mg/ Sodium 50 mls @ 100 mls/hr 02/05/23 11:00 02/09/23 10:29 Chloride IV 100 mls/hr Q8H SOM Administration Protocol Norepinephrine Bitartrate 4 mg 254 mls @ 0 mls/hr 02/09/23 04:30 02/09/23 06:22 / Dextrose IV 12 mcg/min .Q0M SOM 45.72 mls/hr Titration Protocol Per Protocol Vancomycin/PEG/NADA/Lysine/Water 1,750 mg in 350 mls @ 233.333 mls/hr 02/09/23 06:30 02/09/23 06:14 Vancocin IV 233.33 mls/hr Q24H SOM Administration Metronidazole 500 mg in 100 mls @ 100 mls/hr 02/09/23 06:30 02/09/23 07:13 Flagyl Iv IV 100 mls/hr Q8H SOM Administration Vasopressin 40 unit/ Sodium 40 mls @ 0.03 mls/min 02/09/23 08:30 02/09/23 10:09 Chloride IV 0.04 mls/min CONT SOM Infusion Norepinephrine Bitartrate 8 mg 508 mls @ 0 mls/hr 02/09/23 09:30 02/09/23 10:08 / Dextrose IV 20 mcg/min .Q0M SOM 76.2 mls/hr Administration Protocol Per Protocol Epinephrine HCl 2.5 mg/ Sodium 252.5 mls @ 0 mls/hr 02/09/23 09:45 02/09/23 10:09 Chloride IV 0.5 mcg/kg/min .Q0M SOM 428.75 mls/hr Administration Protocol Per Protocol Epinephrine HCl 5 mg/ Sodium 505 mls @ 0 mls/hr 02/09/23 13:15 02/09/23 14:36 Chloride IV 0.2 mcg/kg/min .Q0M SOM 171.5 mls/hr Administration Protocol Per Protocol Fentanyl 2,500 mcg/ Sodium 250 mls @ 0 mls/hr 02/09/23 13:15 02/09/23 14:36 Chloride IV 50 mcg/hr .Q0M SOM 5 mls/hr Administration Protocol Per Protocol Insulin Human Lispro 0 unit 02/09/23 08:30 02/09/23 08:43 Insulin Lispro 100 Unit/1 Ml SUBCUT 6 unit Q6H SOM Administration Protocol Lanolin 1 applic 02/05/23 22:16 02/06/23 08:41 Lanolin Oint 7 Gm TOPICAL 1 applic PRN PRN Administration DRYNESS Ondansetron HCl 4 mg 02/05/23 02:36 02/09/23 08:32 Ondansetron 2 Mg/Ml Sdv 2 Ml IVP 4 mg Q8H PRN Administration vomiting, or N/V if npo Pantoprazole Sodium 40 mg 02/07/23 09:00 02/09/23 08:[address] 40 Mg Tablet PO Not Given DAILY SOM Saliva Substitute 1 spray 02/05/23 18:00 02/09/23 08:58 Saliva Stimulant [place] 44.3 Ml Btl MUCOUS MEM Not Given BID SOM PFSH Acute PFSH: Medical History Acute alteration in mental status COPD (chronic obstructive pulmonary disease) Diarrhea Enterovirus infection Fever Gram-negative bacteremia History of recurrent UTIs HTN (hypertension) Malignant melanoma Non-Hodgkin lymphoma Osteoarthritis, knee Paroxysmal A-fib Type 2 diabetes mellitus Urinary tract infection Social History Smoking and tobacco status: former smoker Alcohol intake: never Household members: other Housing: Jail Vitals/I&O/Wt Last Vital Signs Temp 97.2 F L 02/09/23 05:30 Pulse 123 H 02/09/23 11:30 Resp 16 02/09/23 13:48 BP 78/56 02/09/23 11:30 Pulse Ox 100 02/09/23 13:48 O2 Del Method Room Air 02/09/23 08:12 O2 Flow Rate 2 02/08/23 08:00 FiO2 100 02/09/23 13:48 02/08/23 02/09/23 02/09/23 22:59 06:59 14:59 Intake Total 340 / 340 1091.148 / 1431.148 702.01 / 702.01 Balance 340 / 340 1091.148 / 1431.148 702.01 / 702.01 Physical Exam Narrative: General: Lethargic but awake and alert and communicative HEENT: conj clear, EOMI, PERRL, mmm, Neck: supple, no meningismus Heme: no cervical LAP Respiratory: Inspection: No visible deformity of the chest wall Palpation: Trachea is mildly deviated to the right, bilateral symmetric expansion Percussion: Bilateral tympanic percussion note both anterior and posteriorly Auscultation: Bilateral clear to auscultation both anterior and posteriorly, no crackles wheezing or rhonchi Cardiovascular: rrr, nl s1s2, no mrg Abdomen: Distended obese abdomen-tenderness on palpation Extremities: pulses +, no edema, no c/c : no CVA tenderness Skin: intact, no rash MSK: no back or neck pain Neurologic: grossly intact Urinary Catheter Management: Valenzuela: Cath Placed During This Visit: no Reason for Continuing Indwelling Catheter: Acute Urinary Retention or Obstruction Data 02/09/23 12:45 02/09/23 03:57 Other Labs: Radiology Impressions Abdomen/Pelvis CT 02/05/23 00:33 IMPRESSION: 1. No hydronephrosis of either kidney. No visible renal or ureteral calculus. 2. Mild perinephric stranding bilaterally, see above discussion. 3. Valenzuela catheter in the urinary bladder. Possible mild urinary bladder wall thickening, see above. 4. Small supraumbilical ventral hernia again noted, partially containing a small bowel loop. No evidence for significant bowel obstruction at this time. As clinically directed, follow-up may be helpful to exclude progression. 5. No free air or significant bowel distention. 6. No evidence for retroperitoneal intra-abdominal hematoma. 7. Other findings discussed above. Chest/Abdomen/Pelvis CT 02/09/23 05:47 IMPRESSION: Small bibasilar dependent consolidations. This is improved on the left and worsened on the right compared to 01/03/2023 and likely represents dependent atelectasis. Consolidative pneumonia is not excluded but is considered less likely. IMPRESSION: 1. Multiple interloculated fluid collections within the abdomen, with the largest located in the central upper pelvis measuring roughly 11.2 x 6.0 x 9.0 cm. These were not present on 02/05/2023. These findings, in combination with surrounding significant fat stranding and the enlarged right psoas muscle, are highly concerning for multiple interloculated intra-abdominal abscesses. Interloculated ascites without infection is considered much less likely. Recommend surgery consult. 2. The right psoas muscle is prominent and asymmetrically enlarged compared to the left. This was not present on 02/05/2023 and likely represents a psoas abscess. COMMENTS: Consistent with the [employer]'s Incidental Findings Committee white paper (J Am Lux Radiol 2018): Any incidental renal lesion less than 1 cm or classified as too small to characterize, or any incidental cystic renal lesion characterized as simple-appearing, is likely benign. No follow-up imaging is recommended for these lesions per consensus recommendations based on imaging criteria. ADDENDUM: 02/09/23 0750 ADDENDUM: THIS REPORT CONTAINS FINDINGS THAT MAY BE CRITICAL TO PATIENT CARE. The findings were verbally communicated via telephone conference with Dr. Lezama at 7:45 AM CDT on 02/09/2023. The findings were acknowledged and understood. Laboratory Results WBC 13.59 10^3/uL (3.29-11.43) H 02/09/23 03:57 RBC 3.09 10^6/uL (3.85-5.65) L 02/09/23 03:57 Hgb 8.30 g/dL (11.27-16.99) L 02/09/23 12:45 Hct 26.9 % (36-47) L 02/09/23 03:57 MCV 87.1 fl (85-98) D 02/09/23 03:57 MCH 26.2 pg (27-33) L 02/09/23 03:57 MCHC 30.1 g/dL (30-55) D 02/09/23 03:57 RDW 14.4 % (12.1-15.1) 02/09/23 03:57 Plt Count 283 10^3/cmm (157-399) D 02/09/23 03:57 MPV 10.4 fL (7.4-10.4) 02/09/23 03:57 Neut % (Auto) 81.5 % 02/09/23 03:57 Lymph % (Auto) 10.4 % 02/09/23 03:57 Reeves % (Auto) 6.9 % 02/09/23 03:57 Eos % (Auto) 0.1 % 02/09/23 03:57 Baso % (Auto) 0.5 % 02/09/23 03:57 Neut # (Auto) 11.07 10^3/uL (1.8-7.7) H 02/09/23 03:57 Lymph # (Auto) 1.4 10^3/uL (0.8-4.8) 02/09/23 03:57 Reeves # (Auto) 0.9 10^3/uL (0.2-0.9) 02/09/23 03:57 Eos # (Auto) 0.0 10^3/uL (0.0-0.8) 02/09/23 03:57 Baso # (Auto) 0.1 10^3/uL (0.0-0.1) 02/09/23 03:57 Nucleated RBC % (auto) 0 % 02/09/23 03:57 Nucleated RBCs # 0.0 /100WBC 02/09/23 03:57 Specimen Type Arterial 02/09/23 14:20 Sample Site A line 02/09/23 14:20 ABG pH 7.18 (7.35-7.45) L* 02/09/23 14:20 ABG pCO2 34.3 mmHg (35-45) L 02/09/23 14:20 ABG pO2 230.0 mmHg (80.0-100.0) H 02/09/23 14:20 ABG HCO3 12.8 mmol/L (22-26) L 02/09/23 14:20 ABG O2 Saturation > 100.0 02/09/23 14:20 ABG Base Excess -14.4 mmol/L (-2.0-2.0) L 02/09/23 14:20 Juan J Test Pos 02/09/23 14:20 A-a O2 Gradient 37.7 mmHg (5-10) H 02/09/23 14:20 Hematocrit 22.3 % (37-47) L 02/09/23 14:20 Hgb O2 Saturation 98.3 % (95-100) 02/09/23 14:20 Carboxyhemoglobin 1.2 %THgb (0.4-20.1) 02/09/23 14:20 Methemoglobin 1.0 % (0.4-1.5) 02/09/23 14:20 Total Hemoglobin 7.3 g/dL (12-16) L 02/09/23 14:20 Sodium 142.0 mmol/L (131-143) 02/09/23 14:20 Potassium 3.1 mmol/L (3.5-5.0) L 02/09/23 14:20 Glucose 413.0 mg/dL (70-115) H 02/09/23 14:20 Ionized Calcium 1.1 mmol/L (1.1-1.4) 02/09/23 14:20 O2 Delivery Device Vent 02/09/23 14:20 FiO2 80.0 % 02/09/23 14:20 Tidal Volume 0.40 02/09/23 14:20 PEEP 5.0 cmH20 02/09/23 14:20 Exercise Equipment Specialist ID Monro 02/09/23 14:20 Sodium 140 mmol/L (136-145) 02/09/23 03:57 Potassium 3.5 mmol/L (3.5-5.1) 02/09/23 03:57 Chloride 103 mmol/L (98-107) 02/09/23 03:57 Carbon Dioxide 16 mmol/L (22-29) L 02/09/23 03:57 Anion Gap 24.5 (5-19) H 02/09/23 03:57 BUN 12 mg/dL (8-23) 02/09/23 03:57 Creatinine 1.4 mg/dL (0.5-0.9) H 02/09/23 03:57 GFR Calculation Not Reportable 02/09/23 03:57 Glucose 356 mg/dL (65-115) H 02/09/23 03:57 POC Glucose 294 mg/dL (70-110) H 02/09/23 08:38 Estimat Average Glucose 128 02/06/23 04:05 Hemoglobin A1c 6.1 % (4.0-6.0) H 02/06/23 04:05 Calculated Osmolality 304 mOsm/kg (285-295) H 02/09/23 03:57 Lactic Acid 1.4 mmol/L (0.5-2.2) 02/04/23 23:20 Lactate 11.8 mmol/L (0.5-2.2) H* 02/09/23 12:45 Calcium 8.4 mg/dL (8.5-10.5) L 02/09/23 03:57 Magnesium 2.1 mg/dL (1.7-2.3) 02/09/23 03:57 Total Bilirubin 0.5 mg/dL (0.15-1.2) 02/08/23 05:38 AST 9 U/L (0-32) 02/08/23 05:38 ALT 6 U/L (0-33) 02/08/23 05:38 Alkaline Phosphatase 88 U/L (35-105) 02/08/23 05:38 Troponin T Gen 5 ng/L 88 ng/L (0-10) H 02/07/23 04:08 Troponin T Baseline 174 ng/L (0-10) H* 02/04/23 23:20 Troponin T 120 Minute 253.0 ng/L (0-10) H 02/05/23 02:53 Delta Troponin T 79.0 ABS# (0-10) H* 02/05/23 02:53 Troponin T Hi Sens 6Hr 211.3 ng/L (0-10) H 02/05/23 05:20 Troponin T Hi Sens 6Hr Delta 37.3 ng/L (0-12) H* 02/05/23 05:20 C-Reactive Protein 63.0 mg/L (0.0-4.9) H 02/04/23 23:20 NT-Pro-B Natriuret Pep 1257 pg/mL (0-450) H 02/04/23 23:20 Total Protein 4.9 g/dL (6.6-8.7) L 02/08/23 05:38 Albumin 3.2 g/dL (3.5-5.2) L 02/08/23 05:38 Globulin 1.7 g/dL (1.3-4.6) 02/08/23 05:38 Triglycerides 86 mg/dL (0-150) 02/06/23 04:05 Cholesterol 124 mg/dL (0-200) 02/06/23 04:05 LDL Cholesterol, Calc 55 mg/dL (50-129) 02/06/23 04:05 HDL Cholesterol 52 mg/dL (60-100) L 02/06/23 04:05 LDL/HDL Ratio 1.06 RATIO (0.00-3.22) 02/06/23 04:05 Cholesterol/HDL Ratio 2.38 mg/dL (0.0-4.40) 02/06/23 04:05 Procalcitonin 0.36 ng/mL (0-0.5) 02/04/23 23:20 TSH 2.38 uIU/mL (0.27-4.20) 02/05/23 02:53 Urine Color Yellow (Yellow) 02/05/23 00:00 Urine Appearance Cloudy (CLEAR) A 02/05/23 00:00 Urine pH 6 (5-7) 02/05/23 00:00 Ur Specific [place] 1.015 (1.005-1.030) 02/05/23 00:00 Urine Protein 3+ (Negative) H 02/05/23 00:00 Urine Glucose (UA) Trace (Normal) H 02/05/23 00:00 Urine Ketones Negative (Negative) 02/05/23 00:00 Urine Blood 3+ (Negative) H 02/05/23 00:00 Urine Nitrate Positive (Negative) H 02/05/23 00:00 Urine Bilirubin Neg (Negative) 02/05/23 00:00 Urine Urobilinogen Norm mg/dL (Negative) 02/05/23 00:00 Ur Leukocyte Esterase 2+ (Negative) H 02/05/23 00:00 Urine RBC 0-4 /hpf (0-2) H 02/05/23 00:00 Urine WBC Too numerous to cnt /hpf (0-5) H 02/05/23 00:00 Ur Squamous Epith Cells 0-4 /hpf (0-5) H 02/05/23 00:00 Amorphous Sediment Not Reportable 02/05/23 00:00 Urine Bacteria 3+ /hpf (NONE) H 02/05/23 00:00 Nasal Influ A H1 2009 PCR Not detected (NOT DETECT) 02/04/23 23:38 Adenovirus (PCR) Not detected (NOT DETECT) 02/04/23 23:38 C. pneumoniae DNA (PCR) Not detected (NOT DETECT) 02/04/23 23:38 Coronavirus 229E (PCR) Not detected (NOT DETECT) 02/04/23 23:38 Human Metapneumovir PCR Not detected (NOT DETECT) 02/04/23 23:38 Influenza A (H1) PCR Not detected (NOT DETECT) 02/04/23 23:38 Influenza A (H3) PCR Not detected (NOT DETECT) 02/04/23 23:38 Influenza Type A (PCR) Not detected (NOT DETECT) 02/04/23 23:38 Influenza Type B (PCR) Not detected (NOT DETECT) 02/04/23 23:38 M. pneumoniae (PCR) Not detected (NOT DETECT) 02/04/23 23:38 Parainfluenza 1 (PCR) Not detected (NOT DETECT) 02/04/23 23:38 Parainfluenza 2 (PCR) Not detected (NOT DETECT) 02/04/23 23:38 Parainfluenza 3 (PCR) Not detected (NOT DETECT) 02/04/23 23:38 Parainfluenza 4 (PCR) Not detected (NOT DETECT) 02/04/23 23:38 RSV Type A (PCR) Not detected (NOT DETECT) 02/04/23 23:38 RSV Type B (PCR) Not detected (NOT DETECT) 02/04/23 23:38 Entero/Rhino (PCR) Not detected (NOT DETECT) 02/04/23 23:38 SARS-CoV-2 (PCR) Not detected (NOT DETECT) 02/04/23 23:38 Blood Type A Positive 02/09/23 09:07 Rho(D) Type Positive 02/09/23 09:07 Antibody Screen Negative 02/09/23 09:07 Crossmatch See Detail 02/09/23 09:07 Micro: Microbiology 02/09/23 09:10 Blood Culture - Preliminary Blood SPECIMEN COLLECTED 02/09/23 09:07 Blood Culture - Preliminary Blood SPECIMEN COLLECTED A&P Assessment and plan (1) Hemorrhagic shock: This could be a combination of hemorrhagic as well as cardiogenic Patient was recovering for septic shock due to history E. coli urine infection- and she was hemodynamically stable until yesterday night. Today early hours patient had syncopal episode while sitting on edge of bed and response was called Patient had abdominal pain, she was vomiting bile, she was hypotensive, and lethargic. She was on Lovenox for paroxysmal A-fib until yesterday evening. There is sudden drop in H&H from 9.80 yesterday to today morning 7.10 and drop in blood pressure requiring [address] showing intra abdominal collections-suspect spontaneous intra-abdominal bleeding Her echocardiogram showed moderate to severe aortic stenosis which worsened her shock given hypoperfusion due to hemorrhage Currently she is requiring 3 pressors-received 2 units of PRBC-repeat hemoglobin 8.30-closely monitoring hemoglobin hematocrit and transfusions Patient is being transferred to higher facility for IR embolization Elevated lactic acid can be secondary to hypoperfusion There is a concern if these are abscesses in the abdomen-less likely shock secondary to sepsis-however patient was being treated with vancomycin, Zosyn and meropenemfor the last 5 days when she was admitted with urosepsis-cultures positive for E. coli-she responded to antibiotics and her shock resolved and central line removed yesterday. Her admission CT abdomen pelvis 02/05/2023 did not show these collections. There is a concern for NSTEMI during admission-her myocardial perfusion scan 02/08/2023. was normal with no evidence of ischemia. Her echocardiogram 02/05/2023 showed moderate to severe mitral annular calcification. Moderate mitral stenosis with mean gradient 6.3. Moderate to severe aortic stenosis with aortic valve area 0.85 cm? and mean gradient 23. (2) Counseling regarding goals of care: I have discussed with the patient as well as patient's granddaughter over phone about goals of care and explained the current critical condition and risk of significant rapid deterioration given her hemorrhagic shock requiring 3 pressors I have discussed the need to intubate for safe transfer into higher facility and patient agreed for intubation. Patient's granddaughter was also informed over phone (3) Tachycardia: Patient had significant sinus tachycardia with heart rates up to 1 80-1 90s-did not resolve with 2 doses of 6 Mg adenosine given pt amio bolus 150 and started on amio drip Plan Currently patient is maintaining MAP more than 65 on 3 pressors, 2 units of PRBC were transfused-repeat hemoglobin 8.[address] a right internal jugular however bilateral internal jugular's are significantly collapsed due to hypovolemia I was able to place a left femoral central line, and arterial line for close blood pressure monitoring, intubated for safe transfer to higher facility for IR embolization of possible intra-abdominal bleed Consult Attestations Medical Necessity Statement: She is being transferred to higher facility Time Spent in Patient Care: Greater than 35 minutes (>than 50% of time spent in counselling and/or direct pt care on unit). Critical Care Time: The high probability of a clinically significant, sudden or life threatening deterioration of the patient's [heart, lungs, renal, hematologic] system(s) required my full and direct attention, intervention and personal management. The critical care time is as shown. This time is in addition to time spent performing any reported procedures but includes the following: [x] Data and vital sign review and interpretation [x] Patient assessment, examination and intervention [x] Documentation [x] Medication orders and management Critical Care Time (min): 84 Coding Level of Care Code Critical Care >/= 30 minutes Diagnoses Hemorrhagic shock R57.8 Counseling regarding goals of care Z71.89 Tachycardia R00.0 Time Spent (min) 84
--- NOTE | 2023-02-09 14:37 | PM.ACPR ---
Procedure/Consent Time out: Time Out Performed: Yes Consent: Consent for Procedure: Consent obtained from patient (Verbal consent taken from patient), Emergency procedure, Risks & Benefits reviewed and Agrees to proceed with procedure Procedure Narrative: Procedure: Ultrasound-guided arterial line placement; CPT code 79340 & CPT code 13128 Acute Procedures Arterial Line: Additional comments: Procedure: Ultrasound-guided arterial line placement; CPT code 81278 & CPT code 43941 Indication: Need for invasive BP monitoring Consent: Verbally given by patient Site: Right radial artery Anesthesia: 3 cc 1% lidocaine without epinephrine Complications: The patient tolerated the procedure well and no complications were noted. Estimated Blood Loss: minimal Plan: Arterial line to remain in place for hemodynamic monitoring. Description: All persons involved were shielded with hairnets, facemasks and sterile gowns. After doing timeout with patient's RN at bedside, the patient's wrist in the properly positioned and the site was prepped and draped in a sterile fashion. With sterile-gloved hands the right wrist area was draped with sterile towels. The skin and subcutaneous tissues superficial to the right radial artery was anesthetized with 3 mL of 1% lidocaine. The radial artery was identified under ultrasound guidance. The artery was noted to be pulsatile, patent. After collateral flow was determined by Juan J test, the Arrow catheter with included guide wire was advanced at a 45-degree angle with concurrent real-time ultrasound visualization of vascular needle entry into the lumen of the artery until the syringe was seen to rapidly fill with bright red blood. The needle was then held in place while the guide wire was advanced. The needle and guidewire was then removed as the arterial catheter was advanced into proper position. Bright red pulsatile blood was seen from the catheter as the tubing was being connected. The catheter was stabilized and sutured to the skin with 2- 0 silk. The catheter was then connected to the transducer with a good waveform noted on the monitor. After properly cleaning a sterile bio-occlusive dressing was placed over the catheter, including the insertion site. The patient tolerated the procedure well. Ultrasound guidance used: yes. EBL:5-10 cc Complications: None Nghia Mckeon MD, FCCP Pulmonary, Critical Care medicine Epistaxis Control: Time out performed: Yes
--- NOTE | 2023-02-09 14:37 | PM.ACPR ---
Procedure/Consent Time out: Time Out Performed: Yes Consent: Consent for Procedure: Consent obtained from patient, Emergency procedure, Risks & Benefits reviewed and Agrees to proceed with procedure Procedure Narrative: Endotracheal Intubation Procedure Note Acute Procedures Epistaxis Control: Time out performed: Yes Intubation: Additional comments: Endotracheal Intubation Procedure Note Just prior to intubation-patient had an episode of bilious vomiting; NG tube was placed and connected to suction for 10 minutes and after making sure there is no gastric aspirate NG tube was removed and proceeded with intubation Indication for endotracheal intubation: Patient in hemodynamic shock due to ongoing intraperitoneal bleed requiring 3 pressors and currently being transferred to higher facility in a different city; patient was made to intubate her for safe transfer. Time of the procedure: 1314 Consent: There was not time to obtain consent. The patient was in immediate danger, and required the procedure emergently. Patient gave consent verbally and we have notified patient's granddaughter over phone. Sedation: Fentanyl 50 mcg , Versed 2 mg, Etomidate 20 mg Paralytic: Rocuronium 100 mg Equipment: Glidoscope blade 4 ET tube size: 8 cm Tube secured at: 24 cm View: Grade 1 Cricoid Pressure: No Number of attempts: 1 ETT location confirmed by direct visulization, ET fogging, Capnometer, bilateral breath sounds, Chest x ray Complications: None Patient tolerated procedure well Nghia Mckeon MD Pulm/Critical Care Medicine
[2023-02-09] MEDS: rocuronium 10 mg/mL INJ 5mL IVP (14:39)
[2023-02-09] MEDS: fentaNYL 50 mcg/mL INJ 2mL IVP (14:40)
[2023-02-09] MEDS: etomidate 2 mg/mL INJ SDV 10 mL 20 MG IVP (14:40)
[2023-02-09] MEDS: adenosine 3 mg/mL SDV 2mL 6 MG IVP (14:40)
[2023-02-09] MEDS: midazolam 1 mg/mL INJ 2 mL 2 MG IVP (14:40)
--- NOTE | 2023-02-09 15:52 | PC.NURSE ---
Report called to Nancy. unable to fly patient due to size accommodation of helicopters, Lob[facility]1, family updated
--- NOTE | 2023-02-09 15:56 | PC.NURSE ---
Approximatly 1230 Dr Datar placed L femoral central line, R wrist art line and intubated patient
[2023-02-09 17:11] LABS: Glucose Point of Care 294 mg/dL (70-110)
== END 2023-02-09 15:57 | disposition short-term general hospital (02) | DRG 871 ==
LOC: ER 23:13 → ICU 02-05 01:32 → MEDSURG 02-06 17:41 → ICU 02-09 04:55
PROVIDERS: Internal Medicine; Internal Medicine Pulmonary Disease; Student in an Organized Health Care Education/Training Program; Admitting Provider Family Medicine; Emergency Provider Emergency Medicine; PCP Nurse Practitioner Family; Visit Provider Internal Medicine
DX: A41.51 Sepsis due to Escherichia coli [E. coli] (principal); G93.41 Metabolic encephalopathy; I21.A1 Myocardial infarction type 2; K66.1 Hemoperitoneum; R57.8 Other shock; R57.0 Cardiogenic shock; N30.00 Acute cystitis without hematuria; Z16.23 Resistance to quinolones and fluoroquinolones; N17.9 Acute kidney failure, unspecified; R65.20 Severe sepsis without septic shock; J44.9 Chronic obstructive pulmonary disease, unspecified; I48.0 Paroxysmal atrial fibrillation; I10 Essential (primary) hypertension; Z87.440 Personal history of urinary (tract) infections; E11.9 Type 2 diabetes mellitus without complications; Z85.72 Personal history of non-Hodgkin lymphomas; I08.3 Combined rheumatic disorders of mitral, aortic and tricuspid valves; E83.42 Hypomagnesemia; I25.10 Atherosclerotic heart disease of native coronary artery without angina pectoris; R00.0 Tachycardia, unspecified; Z87.891 Personal history of nicotine dependence; Z85.820 Personal history of malignant melanoma of skin; I95.9 Hypotension, unspecified; I27.20 Pulmonary hypertension, unspecified
CPT/HCPCS: 36415; 36416; 36556; 36592; 71045; 71250; 74176; 78452; 80048; 80051; 80053; 80061; 81001; 82330; 82805; 82962; 83036; 83605; 83735; 83880; 84145; 84443; 84484; 85018; 85025; 86140; 86850; 86900; 86920; 86927; 87040; 87077; 87086; 87150; 87186; 87205; 87486; 87581; 87633; 93005; 93017; 94002; 94640; 94664; 94799; 96365; 96367; 96372; 96375; 96376; 99291; A9500; C1751; C8929; C9113; J0153; J0171; J0282; J1650; J1815; J1885; J2185; J2250; J2405; J2543; J2785; J3010; J3370; J3372; J3475; J3490; J7030; J7040; J7050; J7060; J7626; P9016; P9017; Q9956

== ENCOUNTER → 2023-03-29 15:34 | Outpatient (BNVA) | payer MEDICARE, MEDICAID, SELFPAY | PROVIDERS: PCP Nurse Practitioner Family; Visit Provider Nurse Practitioner Family | DX: R30.0 Dysuria (principal) | CPT/HCPCS: 81000; 87077; 87086; 87184 ==

== ENCOUNTER → 2023-04-27 09:38 | Outpatient (BNVA) | payer MEDICARE, MEDICAID, SELFPAY | PROVIDERS: PCP Nurse Practitioner Family; Visit Provider Nurse Practitioner Family | DX: N39.0 Urinary tract infection, site not specified (principal) | CPT/HCPCS: 81003; 87077; 87086; 87184 ==

== ENCOUNTER 2023-05-15 11:49 | Emergency (ER) | payer MEDICARE, MEDICAID, SELFPAY ==
[2023-05-15] VITALS (9 sets, daily range): BP systolic 98–130; BP diastolic 52–74; PULSE 79–114; RESP 20; TEMP 36.9–37.7; O2SAT 93–100; BMI 43.8
--- NOTE | 2023-05-15 11:59 | XRR_ITS ---
PROCEDURE INFORMATION: Exam: XR Chest Exam date and time: 05/15/2023 12:03 PM Age: 73 years old Clinical indication: Cough; Additional info: Dyspnea/cough TECHNIQUE: Imaging protocol: Radiologic exam of the chest. Views: 1 view. COMPARISON: CR XR chest 1V portable [id number] 02/09/2023 1:58 PM FINDINGS: Lungs: No focal consolidation. Pleural spaces: No pleural effusion. No pneumothorax. Heart/Mediastinum: Heart size unchanged. Bones/joints: No acute findings. XR/XR chest 1V portable [id number] IMPRESSION: No acute findings.
--- NOTE | 2023-05-15 12:59 | W.ED.SOB ---
Documented by User: Anastacio Guido DO 05/22/23 17:07 HPI - SOB/Dyspnea General: Chief Complaint: Shortness of Breath/Dyspnea Stated Complaint: N/V; HAND TREMORS Time Seen by Provider: 05/15/23 11:56 Source: patient Mode of arrival: EMS History of Present Illness: HPI Narrative: 73-year-old female [facility] [place] presents to the ER with complaints of shortness of breath and tremor. Nursing reported temp of 100.3 temp on arrival here is 99 9. EMS reports tremors ceased once they applied oxygen. She is currently on Room air maintaining sats in the mid 90s. According to her nurse notes that she only uses the oxygen on a as needed basis and reads as 2 to 4 L/min. MD elicited complaint: shortness of breath Timing: intermittent Severity: mild Exacerbating factors: nothing Relieving factors: nothing Associated symptoms: Deny abdominal pain, chest congestion, chest pain, cough, diaphoresis, dizziness, extremity pain, fever(s), hemoptysis, lightheadedness, myalgias, nausea, orthopnea, palpitations, paresthesias, polydipsia, polyuria, rash, sense of impending doom, syncope or vomiting Review of Systems Const: Denies: fever(s), chills or diaphoresis Card: Denies: chest pain, palpitations, lightheadedness, syncope or orthopnea Resp: Denies: dyspnea, hemoptysis or chest congestion GI: Denies: abdominal pain, nausea or vomiting : Denies: dysuria, urinary frequency or urinary urgency Musc: Denies: neck pain, back pain or extremity pain Skin/Breast: Denies: rash Neuro: Denies: dizziness Endo: Denies: polyuria or polydipsia [facility] ED PFSH: Medical History Nonrheumatic aortic (valve) stenosis Acute kidney failure, unspecified Hemoperitoneum Morbid (severe) obesity with alveolar hypoventilation Muscle weakness (generalized) BMI 45.0-49.9, adult Candidiasis, unspecified Hypovolemic shock Pain in left shoulder Pain in right shoulder Primary osteoarthritis, unspecified site Weakness Metabolic encephalopathy Disorder of brain, unspecified detention (current) use of 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 Anxiety disorder, unspecified Personal history of COVID-19 Personal history of pneumonia (recurrent) Stiffness of left hip, not elsewhere classified Osteoarthritis of knee, unspecified Osteophyte, left knee Osteophyte, right knee NSTEMI (non-ST elevated myocardial infarction) Enterovirus infection Malignant melanoma Osteoarthritis, knee Non-Hodgkin lymphoma Paroxysmal A-fib COPD (chronic obstructive pulmonary disease) Diarrhea Gram-negative bacteremia HTN (hypertension) Type 2 diabetes mellitus History of recurrent UTIs Fever Urinary tract infection Acute alteration in mental status Social History Smoking and tobacco/nicotine status: former use of tobacco/nicotine Alcohol intake: never Household members: other Housing: Assisted Physical Exam Const: GENERAL APPEARANCE: cooperative and comfortable ORIENTATION/CONSCIOUSNESS: Yes awake HENMT: COMMON NORMALS: normocephalic, atraumatic and hearing grossly normal bilaterally HEAD & SCALP: normocephalic and atraumatic Resp: COMMON NORMALS: normal respiratory effort, No retractions, No use of accessory muscles and clear to auscultation bilaterally AUSCULTATION: clear to auscultation bilaterally Cardio: COMMON NORMALS: regular rate, regular rhythm and No murmurs present (Cardio) RATE: regular rate RHYTHM: regular rhythm GI: COMMON NORMALS: Soft to palpation and No hepatosplenomegaly present AUSCULTATION: Yes normoactive bowel sounds PALPATION: Yes Soft to palpation, No Tenderness to palpation present (GI), No Guarding due to palpation present (GI) and Yes No hepatosplenomegaly present Extremity: COMMON NORMALS: normal to inspection, capillary refill normal, no clubbing, cyanosis or edema, no calf tenderness and no pedal edema Skin: COMMON NORMALS: no rashes or lesions noted GENERAL SKIN EXAM: no rashes or lesions noted Course Vital Signs: Vital signs: Vital Signs Temperature 98.4 F 05/15/23 18:00 Pulse Rate 79 05/15/23 19:23 Respiratory Rate 20 H 05/15/23 11:51 Blood Pressure 114/67 05/15/23 19:23 Pulse Oximetry 100 05/15/23 19:23 Oxygen Delivery Me thod Room Air 05/15/23 18:00 Oxygen Flow Rate 4 05/15/23 11:51 MDM - SOB/Dyspnea Medical Decision Making Care signed out to Dr. Parks at change of shift. See final notes for diagnosis and disposition. Physical exam completed and documented, I will obtain laboratory evaluation to include a CBC, CMP, urinalysis, and a plain film x-ray Lab Data 05/15/23 12:49 05/15/23 12:49 Labs/Radiology: Radiology Impressions Chest X-Ray 05/15/23 11:59 IMPRESSION: No acute findings. Laboratory Results WBC 6.93 10^3/uL (3.29-11.43) 05/15/23 12:49 RBC 4.26 10^6/uL (3.85-5.65) 05/15/23 12:49 Hgb 12.10 g/dL (11.27-16.99) 05/15/23 12:49 Hct 37.6 % (36-47) 05/15/23 12:49 MCV 88.3 fl (85-98) 05/15/23 12:49 MCH 28.4 pg (27-33) 05/15/23 12:49 MCHC 32.2 g/dL (30-55) 05/15/23 12:49 RDW 13.4 % (12.1-15.1) 05/15/23 12:49 Plt Count 149 10^3/cmm (157-399) L 05/15/23 12:49 MPV 9.6 fL (7.4-10.4) 05/15/23 12:49 Neut % (Auto) 84.3 % 05/15/23 12:49 Lymph % (Auto) 8.1 % 05/15/23 12:49 [place] % (Auto) 5.9 % 05/15/23 12:49 Eos % (Auto) 0.6 % 05/15/23 12:49 Baso % (Auto) 0.4 % 05/15/23 12:49 Neut # (Auto) 5.84 10^3/uL (1.8-7.7) 05/15/23 12:49 Lymph # (Auto) 0.6 10^3/uL (0.8-4.8) L 05/15/23 12:49 [place] # (Auto) 0.4 10^3/uL (0.2-0.9) 05/15/23 12:49 Eos # (Auto) 0.0 10^3/uL (0.0-0.8) 05/15/23 12:49 Baso # (Auto) 0.0 10^3/uL (0.0-0.1) 05/15/23 12:49 Nucleated RBC % (auto) 0 % 05/15/23 12:49 Nucleated RBCs # 0.0 /100WBC 05/15/23 12:49 Sodium 138 mmol/L (136-145) 05/15/23 12:49 Potassium 3.9 mmol/L (3.5-5.1) 05/15/23 12:49 Chloride 103 mmol/L (98-107) 05/15/23 12:49 Carbon Dioxide 23 mmol/L (22-29) 05/15/23 12:49 Anion Gap 15.9 (5-19) 05/15/23 12:49 BUN 17 mg/dL (8-23) 05/15/23 12:49 Creatinine 0.8 mg/dL (0.5-0.9) 05/15/23 12:49 GFR Calculation Not Reportable 05/15/23 12:49 Glucose 134 mg/dL (65-115) H 05/15/23 12:49 Calculated Osmolality 290 mOsm/kg (285-295) 05/15/23 12:49 Calcium 9.1 mg/dL (8.5-10.5) 05/15/23 12:49 Total Bilirubin 0.8 mg/dL (0.15-1.2) 05/15/23 12:49 AST 11 U/L (0-32) 05/15/23 12:49 ALT 8 U/L (0-33) 05/15/23 12:49 Alkaline Phosphatase 98 U/L (35-105) 05/15/23 12:49 Troponin T Baseline 22 ng/L (0-10) H 05/15/23 12:49 Troponin T 120 Minute 25.73 ng/L (0-10) H 05/15/23 15:39 Delta Troponin T 3.73 ABS# (0-10) 05/15/23 15:39 Total Protein 5.7 g/dL (6.6-8.7) L 05/15/23 12:49 Albumin 3.8 g/dL (3.5-5.2) 05/15/23 12:49 Globulin 1.9 g/dL (1.3-4.6) 05/15/23 12:49 Urine Color Yellow (Yellow) 05/15/23 14:45 Urine Appearance Hazy (CLEAR) A 05/15/23 14:45 Urine pH 5 (5-7) 05/15/23 14:45 Ur Specific [place] 1.010 (1.005-1.030) 05/15/23 14:45 Urine Protein Trace (Negative) 05/15/23 14:45 Urine Glucose (UA) Norm (Normal) 05/15/23 14:45 Urine Ketones 1+ (Negative) H 05/15/23 14:45 Urine Blood 2+ (Negative) H 05/15/23 14:45 Urine Nitrate Positive (Negative) H 05/15/23 14:45 Urine Bilirubin Neg (Negative) 05/15/23 14:45 Urine Urobilinogen Norm mg/dL (Negative) 05/15/23 14:45 Ur Leukocyte Esterase 2+ (Negative) H 05/15/23 14:45 Urine RBC 5-10 /hpf (0-2) H 05/15/23 14:45 Urine WBC >100 /hpf (0-5) H 05/15/23 14:45 Ur Squamous Epith Cells 0-4 /hpf (0-5) H 05/15/23 14:45 Amorphous Sediment Not Reportable 05/15/23 14:45 Urine Bacteria 3+ /hpf (NONE) H 05/15/23 14:45 Influenza Type A Ag negative (Negative) 05/15/23 13:30 Influenza Type B Ag negative (Negative) 05/15/23 13:30 SARS-CoV-2 Ag (Rapid) negative (Negative) 05/15/23 02:01 Discharge Plan Discharge Patient Disposition: Home Clinical Impression: Urinary tract infection Qualifiers: Urinary tract infection type: acute cystitis Condition: Stable Prescriptions: New Cipro 500 mg tablet 500 mg PO BID Qty: 7 0RF No Action aspirin [Adult Low Dose Aspirin] 81 mg tablet,delayed release (DR/EC) 81 mg PO DAILY metformin 1,000 mg tablet 1,000 mg PO BID magnesium hydroxide [Milk of Magnesia] 400 mg/5 mL suspension 30 ml PO DAILY PRN (Reason: Constipation) nystatin 100,000 unit/gram cream 1 applic topical BID olopatadine 0.2 % drops 1 drp ophthalmic (eye) DAILY potassium chloride 20 mEq tablet extended release 20 meq PO BID simvastatin 10 mg tablet 10 mg PO DAILY furosemide 20 mg tablet 20 mg PO DAILY dextromethorphan polistirex 30 mg/5 mL Suspension,Extended Rel 12 Hr 10 ml PO Q12H PRN (Reason: Cough) acetaminophen [Tylenol] 325 mg Tablet 650 mg PO Q4H PRN (Reason: pain/fever) gabapentin 600 mg tablet 600 mg PO TID ipratropium-albuterol 0.5 mg-3 mg(2.5 mg base)/3 mL solution for nebulization 3 ml INHALATION Q6H PRN (Reason: Shortness Of Breath) albuterol sulfate 2.5 mg /3 mL (0.083 %) Solution For Nebulization 2.5 mg INHALATION Q6H PRN (Reason: Shortness Of Breath) cetirizine [Zyrtec] 10 mg Tablet 10 mg PO QAM cyanocobalamin (vitamin B-12) 1,000 mcg Tablet 1,000 mcg PO QAM tramadol 50 mg tablet 50 - 100 mg PO Q6H PRN (Reason: Pain) ropinirole 0.5 mg tablet 0.5 mg PO DAILY PRN (Reason: Restless Leg(S)) fluticasone propionate 50 mcg/actuation [place],Suspension 2 spray INTRANASAL QAM Rx Instructions: administer into each nostril colestipol 1 gram tablet 1 g PO BID escitalopram oxalate 20 mg tablet 20 mg PO QAM guaifenesin [Mucus Relief] 400 mg Tablet 400 - 800 mg PO Q12H PRN (Reason: Cough) metoprolol tartrate 25 mg tablet 25 mg PO BID cholecalciferol (vitamin D3) 1,250 mcg (50,000 unit) Capsule 50,000 unit PO Q7D Rx Instructions: on budesonide-formoterol 160-4.5 mcg/actuation HFA aerosol inhaler 2 puff INHALATION BID diclofenac sodium 1 % gel See Rx Instructions .ROUTE .COMPLEX Rx Instructions: apply 2 grams topically up to four times a day to upper ext and 4 grams up to four times to lower ext max dose per joint 16gm/day on lower ext and 8gm/day upper ext Discharge Orders: Discharge ED (Routine); Ordered 05/15/23 Ordered By: Anastacio Guido Referrals: Martha Lloyd NP [Primary Care Provider] - Discharge Diet: Usual diet Discharge Activity: Resume usual activity Patient Instructions: Opioid Safety, Pain Management Activity Restrictions/Additional Instructions: Thank you for choosing [facility] for your healthcare needs today. Please realize this is an emergency room and that we are providing you with a medical screening exam and this may not be complete and all inclusive of all the testing and or work up that you may need to determine your ailment or severity of your illness. It is very important that you follow up as instructed or that you return to the Emergency Department should you have concerns or if your condition changes or worsens in any way. You are seen today for an episode of nausea vomiting weakness you are found to have a cystitis. We will start on oral antibiotics remainder of your cardiac enzymes laboratory tests were unremarkable. Coding Level of Care Code ED Rolling Chair Pusher for Chg Fwd Documented by User: [email or web address] Parks MD 05/18/23 23:49 HPI - SOB/Dyspnea General: Chief Complaint: Shortness of Breath/Dyspnea Stated Complaint: N/V; HAND TREMORS Time Seen by Provider: 05/15/23 11:56 [facility] ED PFSH: Medical History Nonrheumatic aortic (valve) stenosis Acute kidney failure, unspecified Hemoperitoneum Morbid (severe) obesity with alveolar hypoventilation Muscle weakness (generalized) BMI 45.0-49.9, adult Candidiasis, unspecified Hypovolemic shock Pain in left shoulder Pain in right shoulder Primary osteoarthritis, unspecified site Weakness Metabolic encephalopathy Disorder of brain, unspecified terminal gauger (current) use of 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 Anxiety disorder, unspecified Personal history of COVID-19 Personal history of pneumonia (recurrent) Stiffness of left hip, not elsewhere classified Osteoarthritis of knee, unspecified Osteophyte, left knee Osteophyte, right knee NSTEMI (non-ST elevated myocardial infarction) Enterovirus infection Malignant melanoma Osteoarthritis, knee Non-Hodgkin lymphoma Paroxysmal A-fib COPD (chronic obstructive pulmonary disease) Diarrhea Gram-negative bacteremia HTN (hypertension) Type 2 diabetes mellitus History of recurrent UTIs Fever Urinary tract infection Acute alteration in mental status Social History Smoking and tobacco/nicotine status: former use of tobacco/nicotine Alcohol intake: never Household members: other Housing: Assisted Course Vital Signs: Vital signs: Vital Signs Temperature 98.4 F 05/15/23 18:00 Pulse Rate 79 05/15/23 19: Respiratory Rate 20 H 05/15/23 11:51 Blood Pressure 114/67 05/15/23 19:23 Pulse Oximetry 100 05/15/23 19:23 Oxygen Delivery Me thod Room Air 05/15/23 18:00 Oxygen Flow Rate 4 05/15/23 11:51 MDM - SOB/Dyspnea Medical Decision Making Physical exam completed and documented, I will obtain laboratory evaluation to include a CBC, CMP, urinalysis, and a plain film x-ray Medical Records I reviewed the patient's medical records. Lab Data I reviewed the patient's lab results. 05/15/23 12:49 05/15/23 12:49 Labs/Radiology: Radiology Impressions Chest X-Ray 05/15/23 11:59 IMPRESSION: No acute findings. Laboratory Results WBC 6.93 10^3/uL (3.29-11.43) 05/15/23 12:49 RBC 4.26 10^6/uL (3.85-5.65) 05/15/23 12:49 Hgb 12.10 g/dL (11.27-16.99) 05/15/23 12:49 Hct 37.6 % (36-47) 05/15/23 12:49 MCV 88.3 fl (85-98) 05/15/23 12:49 MCH 28.4 pg (27-33) 05/15/23 12:49 MCHC 32.2 g/dL (30-55) 05/15/23 12:49 RDW 13.4 % (12.1-15.1) 05/15/23 12:49 Plt Count 149 10^3/cmm (157-399) L 05/15/23 12:49 MPV 9.6 fL (7.4-10.4) 05/15/23 12:49 Neut % (Auto) 84.3 % 05/15/23 12:49 Lymph % (Auto) 8.1 % 05/15/23 12:49 [place] % (Auto) 5.9 % 05/15/23 12:49 Eos % (Auto) 0.6 % 05/15/23 12:49 Baso % (Auto) 0.4 % 05/15/23 12:49 Neut # (Auto) 5.84 10^3/uL (1.8-7.7) 05/15/23 12:49 Lymph # (Auto) 0.6 10^3/uL (0.8-4.8) L 05/15/23 12:49 [place] # (Auto) 0.4 10^3/uL (0.2-0.9) 05/15/23 12:49 Eos # (Auto) 0.0 10^3/uL (0.0-0.8) 05/15/23 12:49 Baso # (Auto) 0.0 10^3/uL (0.0-0.1) 05/15/23 12:49 Nucleated RBC % (auto) 0 % 05/15/23 12:49 Nucleated RBCs # 0.0 /100WBC 05/15/23 12:49 Sodium 138 mmol/L (136-145) 05/15/23 12:49 Potassium 3.9 mmol/L (3.5-5.1) 05/15/23 12:49 Chloride 103 mmol/L (98-107) 05/15/23 12:49 Carbon Dioxide 23 mmol/L (22-29) 05/15/23 12:49 Anion Gap 15.9 (5-19) 05/15/23 12:49 BUN 17 mg/dL (8-23) 05/15/23 12:49 Creatinine 0.8 mg/dL (0.5-0.9) 05/15/23 12:49 GFR Calculation Not Reportable 05/15/23 12:49 Glucose 134 mg/dL (65-115) H 05/15/23 12:49 Calculated Osmolality 290 mOsm/kg (285-295) 05/15/23 12:49 Calcium 9.1 mg/dL (8.5-10.5) 05/15/23 12:49 Total Bilirubin 0.8 mg/dL (0.15-1.2) 05/15/23 12:49 AST 11 U/L (0-32) 05/15/23 12:49 ALT 8 U/L (0-33) 05/15/23 12:49 Alkaline Phosphatase 98 U/L (35-105) 05/15/23 12:49 Troponin T Baseline 22 ng/L (0-10) H 05/15/23 12:49 Troponin T 120 Minute 25.73 ng/L (0-10) H 05/15/23 15:39 Delta Troponin T 3.73 ABS# (0-10) 05/15/23 15:39 Total Protein 5.7 g/dL (6.6-8.7) L 05/15/23 12:49 Albumin 3.8 g/dL (3.5-5.2) 05/15/23 12:49 Globulin 1.9 g/dL (1.3-4.6) 05/15/23 12:49 Urine Color Yellow (Yellow) 05/15/23 14:45 Urine Appearance Hazy (CLEAR) A 05/15/23 14:45 Urine pH 5 (5-7) 05/15/23 14:45 Ur Specific [place] 1.010 (1.005-1.030) 05/15/23 14:45 Urine Protein Trace (Negative) 05/15/23 14:45 Urine Glucose (UA) Norm (Normal) 05/15/23 14:45 Urine Ketones 1+ (Negative) H 05/15/23 14:45 Urine Blood 2+ (Negative) H 05/15/23 14:45 Urine Nitrate Positive (Negative) H 05/15/23 14:45 Urine Bilirubin Neg (Negative) 05/15/23 14:45 Urine Urobilinogen Norm mg/dL (Negative) 05/15/23 14:45 Ur Leukocyte Esterase 2+ (Negative) H 05/15/23 14:45 Urine RBC 5-10 /hpf (0-2) H 05/15/23 14:45 Urine WBC >100 /hpf (0-5) H 05/15/23 14:45 Ur Squamous Epith Cells 0-4 /hpf (0-5) H 05/15/23 14:45 Amorphous Sediment Not Reportable 05/15/23 14:45 Urine Bacteria 3+ /hpf (NONE) H 05/15/23 14:45 Influenza Type A Ag negative (Negative) 05/15/23 13:30 Influenza Type B Ag negative (Negative) 05/15/23 13:30 SARS-CoV-2 Ag (Rapid) negative (Negative) 05/15/23 02:01 All radiology interpretation(s) finalized by discharge Discharge Plan Discharge Patient Disposition: Home Clinical Impression: Urinary tract infection Qualifiers: Urinary tract infection type: acute cystitis Condition: Stable Prescriptions: New Cipro 500 mg tablet 500 mg PO BID Qty: 7 0RF No Action aspirin [Adult Low Dose Aspirin] 81 mg tablet,delayed release (DR/EC) 81 mg PO DAILY metformin 1,000 mg tablet 1,000 mg PO BID magnesium hydroxide [Milk of Magnesia] 400 mg/5 mL suspension 30 ml PO DAILY PRN (Reason: Constipation) nystatin 100,000 unit/gram cream 1 applic topical BID olopatadine 0.2 % drops 1 drp ophthalmic (eye) DAILY potassium chloride 20 mEq tablet extended release 20 meq PO BID simvastatin 10 mg tablet 10 mg PO DAILY furosemide 20 mg tablet 20 mg PO DAILY dextromethorphan polistirex 30 mg/5 mL Suspension,Extended Rel 12 Hr 10 ml PO Q12H PRN (Reason: Cough) acetaminophen [Tylenol] 325 mg Tablet 650 mg PO Q4H PRN (Reason: pain/fever) gabapentin 600 mg tablet 600 mg PO TID ipratropium-albuterol 0.5 mg-3 mg(2.5 mg base)/3 mL solution for nebulization 3 ml INHALATION Q6H PRN (Reason: Shortness Of Breath) albuterol sulfate 2.5 mg /3 mL (0.083 %) Solution For Nebulization 2.5 mg INHALATION Q6H PRN (Reason: Shortness Of Breath) cetirizine [Zyrtec] 10 mg Tablet 10 mg PO QAM cyanocobalamin (vitamin B-12) 1,000 mcg Tablet 1,000 mcg PO QAM tramadol 50 mg tablet 50 - 100 mg PO Q6H PRN (Reason: Pain) ropinirole 0.5 mg tablet 0.5 mg PO DAILY PRN (Reason: Restless Leg(S)) fluticasone propionate 50 mcg/actuation [place],Suspension 2 spray INTRANASAL QAM Rx Instructions: administer into each nostril colestipol 1 gram tablet 1 g PO BID escitalopram oxalate 20 mg tablet 20 mg PO QAM guaifenesin [Mucus Relief] 400 mg Tablet 400 - 800 mg PO Q12H PRN (Reason: Cough) metoprolol tartrate 25 mg tablet 25 mg PO BID cholecalciferol (vitamin D3) 1,250 mcg (50,000 unit) Capsule 50,000 unit PO Q7D Rx Instructions: on budesonide-formoterol 160-4.5 mcg/actuation HFA aerosol inhaler 2 puff INHALATION BID diclofenac sodium 1 % gel See Rx Instructions .ROUTE .COMPLEX Rx Instructions: apply 2 grams topically up to four times a day to upper ext and 4 grams up to four times to lower ext max dose per joint 16gm/day on lower ext and 8gm/day upper ext Discharge Orders: Discharge ED (Routine); Ordered 05/15/23 Ordered By: Anastacio Guido Referrals: Martha Lloyd NP [Primary Care Provider] - Discharge Diet: Usual diet Discharge Activity: Resume usual activity Patient Instructions: Opioid Safety, Pain Management Activity Restrictions/Additional Instructions: Thank you for choosing [facility] for your healthcare needs today. Please realize this is an emergency room and that we are providing you with a medical screening exam and this may not be complete and all inclusive of all the testing and or work up that you may need to determine your ailment or severity of your illness. It is very important that you follow up as instructed or that you return to the Emergency Department should you have concerns or if your condition changes or worsens in any way. You are seen today for an episode of nausea vomiting weakness you are found to have a cystitis. We will start on oral antibiotics remainder of your cardiac enzymes laboratory tests were unremarkable. Coding Level of Care Code ED Rolling Chair Pusher for Sergio Pinedo
[2023-05-15 13:08] LABS: SARS Covid-2 Antigen negative (Negative)
[2023-05-15 13:10] LABS: Basophils % 0.4 %; Eosinophils % 0.6 %; Hematocrit 37.6 % (36-47); Lymphocytes # 0.6 10^3/uL (0.8-4.8); Lymphocytes % 8.1 %; Mean Corpuscular HGB Conc 32.2 g/dL (30-55); Mean Corpuscular Hemoglobin 28.4 pg (27-33); Mean Corpuscular Volume 88.3 fl (85-98); Mean Platelet Volume 9.6 fL (7.4-10.4); Monocytes # 0.4 10^3/uL (0.2-0.9); Monocytes % 5.9 %; Neutrophils # 5.84 10^3/uL (1.8-7.7); Neutrophils % 84.3 %; Nucleated Red Blood Cells % 0 %; Platelet Count 149 10^3/cmm (157-399); Red Blood Count 4.26 10^6/uL (3.85-5.65); Red Cell Distribution Width 13.4 % (12.1-15.1); White Blood Count 6.93 10^3/uL (3.29-11.43)
[2023-05-15 13:21] LABS: Alanine Aminotransferase 8 U/L (0-33); Albumin Level 3.8 g/dL (3.5-5.2); Alkaline Phosphatase 98 U/L (35-105); Anion Gap 15.9 (5-19); Aspartate Amino Transferase 11 U/L (0-32); Blood Urea Nitrogen 17 mg/dL (8-23); Calcium 9.1 mg/dL (8.5-10.5); Carbon Dioxide 23 mmol/L (22-29); Chloride 103 mmol/L (98-107); Creatinine Clr Calc Pharmacy 84.1818; Globulin 1.9 g/dL (1.3-4.6); Glucose 134 mg/dL (65-115); Osmolality Calculated 290 mOsm/kg (285-295); Potassium 3.9 mmol/L (3.5-5.1); Sodium 138 mmol/L (136-145); Total Bilirubin 0.8 mg/dL (0.15-1.2); Total Protein 5.7 g/dL (6.6-8.7)
--- NOTE | 2023-05-15 13:45 | ECG_ITS ---
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 Measurements Intervals [place] Rate: 111 P: 50 DE: 191 QRS: -52 QRSD: 94 T: 67 QT: 345 QTc: 470 Interpretive Statements SINUS TACHYCARDIA LEFT AXIS DEVIATION [QRS AXIS < -30] LEFT VENTRICULAR HYPERTROPHY AND ST-T CHANGE [VOLTAGE CRITERIA PLUS ST/T ABNORMALITY] ANTEROSEPTAL MYOCARDIAL INFARCTION , OF INDETERMINATE AGE [40+ ms Q WAVE IN V1-V4] Compared to ECG 02/09/2023 10:53:26 No significant changes Electronically Signed On 05-15-2023 21:27:44 [employer] by Patricia Liang M.D. [id number]
[2023-05-15 13:52] LABS: Influenza A by IFA negative (Negative); Influenza B by IFA negative (Negative)
[2023-05-15 15:12] LABS: Troponin(5th) Baseline 22 ng/L (0-10)
[2023-05-15 15:18] LABS: Bilirubin Urine Neg (Negative); Blood Urine 2+ (Negative); Glucose Urine UA Norm (Normal); Ketones Urine 1+ (Negative); Leukocyte Esterase Urine 2+ (Negative); Nitrate Urine Positive (Negative); Protein Urine Trace (Negative); Urine Appearance Hazy (CLEAR); Urine Color Yellow (Yellow); Urobilinogen Urine Norm (Negative); pH Urine 5 (5-7)
[2023-05-15 15:19] LABS: Add Urine Culture? Yes; Add Urine Microscopic? YES; Bacteria Urine 3+ /hpf; Squamous Epithelial Cell Urine 0-4 /hpf (0-5); WBC Urine >100 /hpf (0-5)
[2023-05-15 16:03] LABS: Troponin 5 2HR 25.73 ng/L (0-10); Troponin 5 2HR Delta 3.73 ABS# (0-10)
[2023-05-15] MEDS: cefTRIAXone 1,000 MG in sodium chloride 0.9% (plus) 50 ML 100 MG IV (16:23)
== END 2023-05-15 19:28 | disposition home or self-care (01) ==
PROVIDERS: Family Medicine; Emergency Provider Internal Medicine; PCP Nurse Practitioner Family
DX: N30.00 Acute cystitis without hematuria (principal); Z79.82 Long term (current) use of aspirin; Z11.52 Encounter for screening for COVID-19; Z87.891 Personal history of nicotine dependence; I25.2 Old myocardial infarction; Z85.72 Personal history of non-Hodgkin lymphomas; J44.9 Chronic obstructive pulmonary disease, unspecified; I10 Essential (primary) hypertension; E11.9 Type 2 diabetes mellitus without complications; Z87.440 Personal history of urinary (tract) infections
CPT/HCPCS: 36415; 71045; 80053; 81001; 84484; 85025; 87040; 87077; 87086; 87186; 87426; 87804; 93005; 96365; 99285; J0696

== ENCOUNTER → 2023-08-17 11:40 | Outpatient (BNVA) | payer MEDICARE, MEDICAID, SELFPAY | PROVIDERS: PCP Nurse Practitioner Family; Visit Provider Nurse Practitioner Family | DX: R30.0 Dysuria (principal) | CPT/HCPCS: 81000; 87086 ==

== ENCOUNTER → 2023-10-07 16:08 | Outpatient (BNVA) | payer MEDICARE, MEDICAID, SELFPAY | PROVIDERS: PCP Nurse Practitioner Family; Visit Provider Family Medicine | DX: R82.998 Other abnormal findings in urine (principal) | CPT/HCPCS: 81000 ==

== ENCOUNTER → 2024-05-14 09:38 | Outpatient (BNVA) | payer MEDICARE, MEDICAID, SELFPAY | PROVIDERS: PCP Nurse Practitioner Family; Visit Provider Family Medicine | DX: R35.0 Frequency of micturition (principal) | CPT/HCPCS: 81000 ==

== ENCOUNTER 2024-05-25 09:34 | Emergency (ER) | payer MEDICARE, SELFPAY ==
[2024-05-25 09:37] VITALS: BP 158/81; PULSE 69; RESP 17; TEMP 36.4; O2SAT 99; BMI 50.3
--- NOTE | 2024-05-25 09:37 | CT_ITS ---
WS: [id number] CT HEAD NONCONTRAST HISTORY: ams TECHNIQUE: Contiguous axial imaging performed through the brain. Bone and soft tissue windows. Sagitt al and coronal reformats reviewed. All CT scans at [facility] use at least one of these dose optimization techniques: automated exposure control; mA and/or kV adjustment per patient size (includ es targeted exams where dose is matched to clinical indication); or iterative reconstruction. DLP: 1129.79 mGy.cm COMPARISON: 01/04/2023 No acute intracranial hemorrhage, midline shift or mass effect. Moderate volume loss and atrophy. Mild small vessel ischemic changes. No acute infarct. No progressio n of volume loss since the prior study. Mild cerebellar atrophy. Ventricles: Cavum septum pellucida and vergae. This is a normal variant. No hydrocephalus. No inferior displacement of the cerebellar tonsils. Paranasal sinuses: Small mucous retention cyst in the RIGHT maxillary sinus. No air-fluid levels. Mastoid air cells: Well pneumatized. Calvarium and scalp: Skull is intact with no soft tissue edema or swelling. CT/CT head wo con* [id number] IMPRESSION: 1. No acute intracranial hemorrhage or edema. 2. Mild small vessel ischemic disease with moderate volume loss. Similar to .
--- NOTE | 2024-05-25 09:37 | XR_ITS ---
WS: [id number] Exam: XR chest 1V portable [id number] Date/Time of Exam: 05/25/2024 9:46 AM Reason For Exam: ams Comparison 05/15/2023. Lungs are fully inflated and clear. Heart size top limits normal. No pleural effusions. Scattered cecil cified granulomas. Small battery pack superimposes the LEFT heart. Several old left-sided rib fractur es. Spondylosis and slight scoliosis of the upper T-spine. XR/XR chest 1V portable [id number] IMPRESSION: 1. No acute cardiopulmonary finding.
--- NOTE | 2024-05-25 09:40 | W.ED.GENADLT ---
HPI - General Adult General: Chief complaint: Altered Mental Status Stated complaint: ams, fall x1 week ago Time Seen by Provider: 05/25/24 09:35 Source: patient and EMS Mode of arrival: EMS Limitations: no limitations History of Present Illness: 74-year-old female is here from custodial states she had a fall roughly a week ago and struck her head states since then she has had some confusion. Patient here is able answer all my questions appropriately GCS 15 she had no fevers no vomiting or diarrhea has a mild headache. Associated symptoms: Reports confusion; Deny chest pain, dyspnea, headache(s), nausea, rash or vomiting Related Data Home Medications Medication Instructions Recorded Confirmed acetaminophen 325 mg tablet 650 mg PO Q4H PRN pain/fever 01/03/23 05/25/24 (Tylenol) albuterol sulfate 2.5 mg/3 mL 2.5 mg inhalation Q6H PRN 01/03/23 05/25/24 (0.083 %) solution for nebulization Shortness Of Breath budesonide-formoterol HFA 160 2 puff inhalation BID 01/03/23 05/25/24 mcg-4.5 mcg/actuation aerosol inhaler cetirizine 10 mg tablet (Zyrtec) 10 mg PO QAM 01/03/23 05/25/24 cholecalciferol (vitamin D3) 1,250 50,000 unit PO Q7D 01/03/23 05/25/24 mcg (50,000 unit) capsule colestipol 1 gram tablet 1 g PO BID 01/03/23 05/25/24 cyanocobalamin (vitamin B-12) 1,000 mcg PO QAM 01/03/23 05/25/24 1,000 mcg tablet diclofenac sodium 1 % topical gel See Rx Instructions .Route .COMPLEX 01/03/23 05/25/24 escitalopram oxalate 20 mg tablet 20 mg PO QAM 01/03/23 05/25/24 fluticasone propionate 50 2 spray intranasal QAM 01/03/23 05/25/24 mcg/actuation nasal spray,suspension gabapentin 600 mg tablet 600 mg PO TID 01/03/23 05/25/24 ipratropium 0.5 mg-albuterol 3 mg 3 ml inhalation Q6H PRN Shortness 01/03/23 05/25/24 (2.5 mg base)/3 mL nebulization Of Breath soln metoprolol tartrate 25 mg tablet 25 mg PO BID 01/03/23 05/25/24 ropinirole 0.5 mg tablet 0.5 mg PO DAILY PRN Restless Leg(S) 01/03/23 05/25/24 aspirin 81 mg tablet,delayed 81 mg PO DAILY 04/24/23 05/25/24 release (Adult Low Dose Aspirin) magnesium hydroxide 400 mg/5 mL 30 ml PO DAILY PRN Constipation 04/24/23 05/25/24 oral suspension (Milk of Magnesia) metformin 1,000 mg tablet 1,000 mg PO BID 04/24/23 05/25/24 nystatin 100,000 unit/gram topical 1 applic topical BID 04/24/23 05/25/24 cream olopatadine 0.2 % eye drops 1 drp ophthalmic (eye) DAILY 04/24/23 05/25/24 potassium chloride 20 mEq 20 meq PO BID 04/24/23 05/25/24 tablet,extended release simvastatin 10 mg tablet 10 mg PO DAILY 04/24/23 05/25/24 furosemide 20 mg tablet 20 mg PO DAILY 05/15/23 05/25/24 bisacodyl 5 mg tablet 20 mg PO DAILY PRN Constipation 05/25/24 05/25/24 guaifenesin 600 mg tablet, 600 mg PO Q12H PRN Cough 05/25/24 05/25/24 extended release 12 hr (Mucinex) hydroxyzine HCl 25 mg tablet 25 mg PO Q6H 05/25/24 05/25/24 ondansetron HCl 8 mg tablet 8 mg PO Q8H PRN Nausea And Vomiting 05/25/24 05/25/24 sennosides 8.6 mg tablet (senna) 8.6 mg PO BID 05/25/24 05/25/24 tramadol 50 mg tablet 50 - 100 mg PO Q6H PRN Pain 05/25/24 05/25/24 Allergies Allergy/AdvReac Type Severity Reaction Status Date / Time atorvastatin Allergy Unknown Verified 04/26/24 13:55 codeine Allergy Unknown Verified 04/26/24 13:55 iodine Allergy Unknown Verified 04/26/24 13:55 Review of Systems Const: Denies: fever(s), chills, body aches or change in appetite ENMT: Denies: throat pain or dental pain Card: Denies: chest pain Resp: Denies: dyspnea GI: Denies: abdominal pain, nausea, vomiting or diarrhea Musc: Denies: neck pain or back pain Skin/Breast: Denies: rash Neuro: Reports: confusion; Denies: headache(s) PFS ED PFSH: Medical History Nonrheumatic aortic (valve) stenosis Acute kidney failure, unspecified Hemoperitoneum Morbid (severe) obesity with alveolar hypoventilation Muscle weakness (generalized) BMI 45.0-49.9, adult Candidiasis, unspecified Hypovolemic shock Pain in left shoulder Pain in right shoulder Primary osteoarthritis, unspecified site Weakness Metabolic encephalopathy Disorder of brain, unspecified custodial (current) use of 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 Anxiety disorder, unspecified Personal history of COVID-19 Personal history of pneumonia (recurrent) Stiffness of left hip, not elsewhere classified Osteoarthritis of knee, unspecified Osteophyte, left knee Osteophyte, right knee NSTEMI (non-ST elevated myocardial infarction) Enterovirus infection Malignant melanoma Osteoarthritis, knee Non-Hodgkin lymphoma Paroxysmal A-fib COPD (chronic obstructive pulmonary disease) Diarrhea Gram-negative bacteremia HTN (hypertension) Type 2 diabetes mellitus History of recurrent UTIs Fever Urinary tract infection Acute alteration in mental status Social History Smoking and tobacco/nicotine status: unknown if used tobacco/nicotine Alcohol intake: never Household members: other Housing: [facility] Physical Exam Const: COMMON NORMALS: no acute distress, patient oriented x3 and healthy appearing HENMT: COMMON NORMALS: normocephalic and atraumatic HEAD & SCALP: normocephalic and atraumatic Eye: COMMON NORMALS: Equal, round and reactive pupils present and EOMs intact bilaterally PUPIL: Yes Equal, round and reactive pupils present Neck/C-Spine: COMMON NORMALS: full ROM and supple Chest: COMMONS NORMALS: normal inspection of the chest and normal palpation of entire chest wall Resp: COMMON NORMALS: normal respiratory effort, No retractions, No use of accessory muscles and clear to auscultation bilaterally AUSCULTATION: clear to auscultation bilaterally Cardio: COMMON NORMALS: regular rate, regular rhythm and No murmurs present (Cardio) RATE: regular rate RHYTHM: regular rhythm GI: COMMON NORMALS: Normal to inspection, nondistended, normoactive bowel sounds present, Soft to palpation, non-tender and no masses PALPATION: Yes Soft to palpation Extremity: COMMON NORMALS: normal to inspection and full ROM Neuro: COMMON NORMALS: patient oriented x3, moves all extremities and no focal motor deficits Psych: COMMON NORMALS: mental status grossly normal, Normal thought process present and cooperative THOUGHT PROCESS: Normal thought process present Skin: COMMON NORMALS: no rashes or lesions noted and no wounds GENERAL SKIN EXAM: no rashes or lesions noted Course Vital Signs: Vital signs: Vital Signs Temperature 97.5 F L 05/25/24 09:37 Pulse Rate 71 05/25/24 11:14 Respiratory Rate 17 05/25/24 09:37 Blood Pressure 147/57 05/25/24 11:14 Pulse Oximetry 96 05/25/24 11:14 Oxygen Delivery Me thod Room Air 05/25/24 11:13 MDM - General Adult Medical Decision Making Patient presents here with close head injury along with some confusion since then she has been well-appearing here answering all my questions appropriate imaging blood works normal she stable for discharge follow-up PCP return if worsening Medical Records I reviewed the patient's medical records. Lab Data I reviewed the patient's lab results. 05/25/24 10:06 05/25/24 10:06 Radiology Impressions Chest X-Ray 05/25/24 09:37 IMPRESSION: 1. No acute cardiopulmonary finding. Head CT 05/25/24 09:37 IMPRESSION: 1. No acute intracranial hemorrhage or edema. 2. Mild small vessel ischemic disease with moderate volume loss. Similar to 01/04/2023. Laboratory Results WBC 5.49 10^3/uL (3.29-11.43) 05/25/24 10:06 RBC 4.24 10^6/uL (3.85-5.65) 05/25/24 10:06 Hgb 12.10 g/dL (11.27-16.99) 05/25/24 10:06 Hct 37.2 % (36-47) 05/25/24 10:06 MCV 87.7 fl (85-98) 05/25/24 10:06 MCH 28.5 pg (27-33) 05/25/24 10:06 MCHC 32.5 g/dL (30-55) 05/25/24 10:06 RDW 14.5 % (12.1-15.1) 05/25/24 10:06 Plt Count 159 10^3/cmm (157-399) 05/25/24 10:06 MPV 9.0 fL (7.4-10.4) 05/25/24 10:06 Neut % (Auto) 71.4 % 05/25/24 10:06 Lymph % (Auto) 18.4 % 05/25/24 10:06 [place] % (Auto) 7.5 % 05/25/24 10:06 Eos % (Auto) 1.8 % 05/25/24 10:06 Baso % (Auto) 0.5 % 05/25/24 10:06 Neut # (Auto) 3.92 10^3/uL (1.8-7.7) 05/25/24 10:06 Lymph # (Auto) 1.0 10^3/uL (0.8-4.8) 05/25/24 10:06 [place] # (Auto) 0.4 10^3/uL (0.2-0.9) 05/25/24 10:06 Eos # (Auto) 0.1 10^3/uL (0.0-0.8) 05/25/24 10:06 Baso # (Auto) 0.0 10^3/uL (0.0-0.1) 05/25/24 10:06 Nucleated RBC % (auto) 0 % 05/25/24 10:06 Nucleated RBCs # 0.0 /100WBC 05/25/24 10:06 Sodium 138 mmol/L (136-145) 05/25/24 10:06 Potassium 4.0 mmol/L (3.5-5.1) 05/25/24 10:06 Chloride 99 mmol/L (98-107) 05/25/24 10:06 Carbon Dioxide 28 mmol/L (22-29) 05/25/24 10:06 Anion Gap 15.0 (5-19) 05/25/24 10:06 BUN 9 mg/dL (8-23) 05/25/24 10:06 Creatinine 0.8 mg/dL (0.5-0.9) 05/25/24 10:06 GFR Calculation Not Reportable 05/25/24 10:06 Glucose 161 mg/dL (65-115) H 05/25/24 10:06 POC Glucose 155 mg/dL (70-110) H 05/25/24 09:55 Calculated Osmolality 288 mOsm/kg (285-295) 05/25/24 10:06 Calcium 9.3 mg/dL (8.5-10.5) 05/25/24 10:06 Total Bilirubin 0.6 mg/dL (0.15-1.2) 05/25/24 10:06 AST 17 U/L (0-32) 05/25/24 10:06 ALT 16 U/L (0-33) 05/25/24 10:06 Alkaline Phosphatase 107 U/L (35-105) H 05/25/24 10:06 Total Protein 5.7 g/dL (6.6-8.7) L 05/25/24 10:06 Albumin 3.9 g/dL (3.5-5.2) 05/25/24 10:06 Globulin 1.8 g/dL (1.3-4.6) 05/25/24 10:06 TSH 3.17 uIU/mL (0.27-4.20) 05/25/24 10:06 Urine Color Yellow (Yellow) 05/25/24 09:50 Urine Appearance Clear (CLEAR) 05/25/24 09:50 Urine pH 7.0 (5-7) 05/25/24 09:50 Ur Specific [place] 1.006 (1.005-1.030) 05/25/24 09:50 Urine Protein Negative (Negative) 05/25/24 09:50 Urine Glucose (UA) Negative (Normal) 05/25/24 09:50 Urine Ketones Negative (Negative) 05/25/24 09:50 Urine Blood Negative (Negative) 05/25/24 09:50 Urine Nitrate Negative (Negative) 05/25/24 09:50 Urine Bilirubin Negative (Negative) 05/25/24 09:50 Urine Urobilinogen 0.2 mg/dL (Negative) 05/25/24 09:50 Ur Leukocyte Esterase Trace (Negative) A 05/25/24 09:50 Urine RBC 0-2 /hpf (0-2) 05/25/24 09:50 Urine WBC 6-10 /hpf (0-5) 05/25/24 09:50 Ur Squamous Epith Cells 0-5 /hpf (0-5) 05/25/24 09:50 Amorphous Sediment Not Reportable 05/25/24 09:50 Urine Bacteria None seen /hpf (NONE) 05/25/24 09:50 Hyaline Casts 0-4 /lpf H 05/25/24 09:50 All radiology interpretation(s) finalized by discharge Discharge Plan Discharge Patient Disposition: Home Clinical Impression: Closed head injury, Confusion Condition: Stable Prescriptions: No Action aspirin [Adult Low Dose Aspirin] 81 mg tablet,delayed release (DR/EC) 81 mg PO DAILY metformin 1,000 mg tablet 1,000 mg PO BID magnesium hydroxide [Milk of Magnesia] 400 mg/5 mL suspension 30 ml PO DAILY PRN (Reason: Constipation) nystatin 100,000 unit/gram cream 1 applic topical BID olopatadine 0.2 % drops 1 drp ophthalmic (eye) DAILY potassium chloride 20 mEq tablet extended release 20 meq PO BID simvastatin 10 mg tablet 10 mg PO DAILY furosemide 20 mg tablet 20 mg PO DAILY acetaminophen [Tylenol] 325 mg Tablet 650 mg PO Q4H PRN (Reason: pain/fever) gabapentin 600 mg tablet 600 mg PO TID ipratropium-albuterol 0.5 mg-3 mg(2.5 mg base)/3 mL solution for nebulization 3 ml INHALATION Q6H PRN (Reason: Shortness Of Breath) albuterol sulfate 2.5 mg /3 mL (0.083 %) Solution For Nebulization 2.5 mg INHALATION Q6H PRN (Reason: Shortness Of Breath) cetirizine [Zyrtec] 10 mg Tablet 10 mg PO QAM cyanocobalamin (vitamin B-12) 1,000 mcg Tablet 1,000 mcg PO QAM ropinirole 0.5 mg tablet 0.5 mg PO DAILY PRN (Reason: Restless Leg(S)) fluticasone propionate 50 mcg/actuation [place],Suspension 2 spray INTRANASAL QAM Rx Instructions: administer into each nostril colestipol 1 gram tablet 1 g PO BID escitalopram oxalate 20 mg tablet 20 mg PO QAM metoprolol tartrate 25 mg tablet 25 mg PO BID cholecalciferol (vitamin D3) 1,250 mcg (50,000 unit) Capsule 50,000 unit PO Q7D Rx Instructions: on budesonide-formoterol 160-4.5 mcg/actuation HFA aerosol inhaler 2 puff INHALATION BID diclofenac sodium 1 % gel See Rx Instructions .ROUTE .COMPLEX Rx Instructions: apply 2 grams topically up to four times a day to upper ext and 4 grams up to four times to lower ext max dose per joint 16gm/day on lower ext and 8gm/day upper ext sennosides [senna] 8.6 mg Tablet 8.6 mg PO BID ondansetron HCl 8 mg Tablet 8 mg PO Q8H PRN (Reason: Nausea And Vomiting) tramadol 50 mg Tablet 50 - 100 mg PO Q6H PRN (Reason: Pain) hydroxyzine HCl 25 mg tablet 25 mg PO Q6H bisacodyl 5 mg Tablet 20 mg PO DAILY PRN (Reason: Constipation) guaifenesin [Mucinex] 600 mg Tablet Extended Release 12hr 600 mg PO Q12H PRN (Reason: Cough) Discharge Orders: Discharge ED (Routine); Ordered 05/25/24 Ordered By: Carmen Perez Referrals: Martha Lloyd [employer] [Primary Care Provider] - 1-3 days Discharge Diet: Advance as tolerated Discharge Activity: Resume usual activity Patient Instructions: Head Injury (ED), Altered Mental Status (ED) Coding Level of Care Code ED Title Insurance Examiner for Sergio Pinedo
[2024-05-25 09:58] LABS: Glucose Point of Care 155 mg/dL (70-110)
[2024-05-25 10:00] LABS: Bilirubin Urine Negative (Negative); Blood Urine Negative (Negative); Glucose Urine UA Negative (Normal); Ketones Urine Negative (Negative); Leukocyte Esterase Urine Trace (Negative); Nitrate Urine Negative (Negative); Protein Urine Negative (Negative); Specific Gravity, Urine 1.006 (1.005-1.030); Urine Appearance Clear (CLEAR); Urine Color Yellow (Yellow); Urobilinogen Urine 0.2 mg/dL (Negative)
[2024-05-25 10:02] LABS: Add Urine Microscopic? YES; Bacteria Urine None Seen /hpf; Hyaline Casts Urine 0-4 /lpf; RBC Urine 0-2 /hpf (0-2); Squamous Epithelial Cell Urine 0-5 /hpf (0-5)
[2024-05-25 10:20] LABS: Basophils % 0.5 %; Eosinophils # 0.1 10^3/uL (0.0-0.8); Eosinophils % 1.8 %; Hematocrit 37.2 % (36-47); Lymphocytes % 18.4 %; Mean Corpuscular HGB Conc 32.5 g/dL (30-55); Mean Corpuscular Hemoglobin 28.5 pg (27-33); Mean Corpuscular Volume 87.7 fl (85-98); Monocytes # 0.4 10^3/uL (0.2-0.9); Monocytes % 7.5 %; Neutrophils # 3.92 10^3/uL (1.8-7.7); Neutrophils % 71.4 %; Nucleated Red Blood Cells % 0 %; Platelet Count 159 10^3/cmm (157-399); Red Blood Count 4.24 10^6/uL (3.85-5.65); Red Cell Distribution Width 14.5 % (12.1-15.1); White Blood Count 5.49 10^3/uL (3.29-11.43)
[2024-05-25 10:48] LABS: Alanine Aminotransferase 16 U/L (0-33); Albumin Level 3.9 g/dL (3.5-5.2); Alkaline Phosphatase 107 U/L (35-105); Aspartate Amino Transferase 17 U/L (0-32); Blood Urea Nitrogen 9 mg/dL (8-23); Calcium 9.3 mg/dL (8.5-10.5); Carbon Dioxide 28 mmol/L (22-29); Chloride 99 mmol/L (98-107); Creatinine Clr Calc Pharmacy 87.0668; Globulin 1.8 g/dL (1.3-4.6); Glucose 161 mg/dL (65-115); Osmolality Calculated 288 mOsm/kg (285-295); Sodium 138 mmol/L (136-145); Thyroid Stimulating Hormone 3.17 uIU/mL (0.27-4.20); Total Bilirubin 0.6 mg/dL (0.15-1.2); Total Protein 5.7 g/dL (6.6-8.7)
[2024-05-25 11:13] VITALS: BP 147/57; PULSE 71; O2SAT 96
[2024-05-25 11:14] VITALS: BP 147/57; PULSE 71; O2SAT 96
== END 2024-05-25 11:28 | disposition home or self-care (01) ==
PROVIDERS: Emergency Provider Emergency Medicine; PCP Nurse Practitioner Family
DX: S09.8XXA Other specified injuries of head, initial encounter (principal); R41.0 Disorientation, unspecified; Z79.82 Long term (current) use of aspirin; J44.9 Chronic obstructive pulmonary disease, unspecified; E11.9 Type 2 diabetes mellitus without complications; I10 Essential (primary) hypertension; C43.9 Malignant melanoma of skin, unspecified; W19.XXXA Unspecified fall, initial encounter
CPT/HCPCS: 36415; 36416; 70450; 71045; 80053; 81001; 82962; 84443; 85025; 99284

== ENCOUNTER → 2024-07-06 10:10 | Outpatient (BNVA) | payer MEDICARE, SELFPAY | PROVIDERS: PCP Nurse Practitioner Family; Visit Provider Nurse Practitioner Family | DX: R30.0 Dysuria (principal); R41.82 Altered mental status, unspecified | CPT/HCPCS: 81000; 87077; 87086; 87184 ==

== ENCOUNTER → 2024-10-01 14:30 | Outpatient (BNVA) | payer MEDICARE, MEDICAID, SELFPAY | PROVIDERS: PCP Nurse Practitioner Family; Visit Provider Nurse Practitioner Family | DX: R41.82 Altered mental status, unspecified (principal) | CPT/HCPCS: 81000 ==

== ENCOUNTER → 2024-10-17 14:37 | Outpatient (BNVA) | payer MEDICARE, MEDICAID, SELFPAY | PROVIDERS: PCP Nurse Practitioner Family; Visit Provider Nurse Practitioner Family | DX: E11.40 Type 2 diabetes mellitus with diabetic neuropathy, unspecified (principal) | CPT/HCPCS: 81000 ==

== ENCOUNTER → 2024-11-23 08:53 | Outpatient (BNVA) | payer MEDICARE, MEDICAID, SELFPAY | PROVIDERS: PCP Nurse Practitioner Family; Visit Provider Nurse Practitioner Family | DX: R41.82 Altered mental status, unspecified (principal) | CPT/HCPCS: 81000; 87077; 87086; 87184 ==

== ENCOUNTER → 2024-12-27 16:07 | Outpatient (BNVA) | payer MEDICARE, MEDICAID, SELFPAY | PROVIDERS: PCP Nurse Practitioner Family; Visit Provider Nurse Practitioner Family | DX: R30.0 Dysuria (principal) | CPT/HCPCS: 81000; 87086 ==

== ENCOUNTER → 2025-01-15 09:17 | Outpatient (BNVA) | payer MEDICARE, MEDICAID, SELFPAY | PROVIDERS: PCP Nurse Practitioner Family; Visit Provider Nurse Practitioner Family | DX: N39.0 Urinary tract infection, site not specified (principal) | CPT/HCPCS: 81000; 87077; 87086; 87184 ==

== ENCOUNTER → 2025-02-19 09:13 | Outpatient (BNVA) | payer MEDICARE, MEDICAID, SELFPAY | PROVIDERS: PCP Nurse Practitioner Family; Visit Provider Nurse Practitioner Family | DX: L81.4 Other melanin hyperpigmentation (principal); D69.2 Other nonthrombocytopenic purpura; L57.8 Other skin changes due to chronic exposure to nonionizing radiation; L82.1 Other seborrheic keratosis; X32.XXXA Exposure to sunlight, initial encounter; D48.5 Neoplasm of uncertain behavior of skin; L57.0 Actinic keratosis | CPT/HCPCS: 11102; 17000; 99203 ==

== ENCOUNTER 2025-04-21 10:03 | Inpatient (IN) | payer MEDICARE, MEDICAID, SELFPAY ==
[2025-04-21] VITALS (54 sets, daily range): BP systolic 90–119; BP diastolic 54–70; PULSE 69–121; RESP 16–31; TEMP 36.8–38.3; O2SAT 91–100; BMI 48.2
--- OUTSIDE RECORDS SUMMARY | 2025-04-21 10:08 | XMS_ITS | Clinical Summary ---
Author Organization [facility] Address [address] [facility] [address] [place] [address] Care Team Providers Care Cash Posting Clerk Name Role Phone Franko Savage MD Primary Care Provider Allergies Active Allergy Reactions Criticality Noted Date Comments Atorvastatin Muscle Pain High 03/14/2020 Medications dextromethorphan polistirex (DELSYM) 30 mg/5 mL Suspension, Sust. Release 12HRIndications:Co ugh Take 10 mL by mouth every 12 hours as needed for Cough. 03/30/20 19 Active lancetsIndications :Type 2 diabetes mellitus with diabetic polyneuropathy, without long-term current use of insulin ([facility]) Check blood sugar 1-2 times daily as ordered. 60 Each 5 06/19/19 20 Active rOPINIRole (REQUIP) 0.5 mg tabletIndications: Restless leg syndrome Take 1 Tablet (0.5 mg) by mouth 1 time daily as needed (restless leg syndrome). 90 Tablet 08/07/19 20 Active glipiZIDE (GLUCOTROL) 10 mg tablet TAKE 1 TABLET(10 MG) BY MOUTH TWICE DAILY WITH MEALS 180 Tablet 12/06/19 20 Active gabapentin (NEURONTIN) 300 mg capsuleIndications :Type 2 diabetes mellitus with diabetic polyneuropathy, without long-term current use of insulin ([facility]),Chronic pain of both shoulders Take 2 Capsules (600 mg) by mouth 3 times daily. 180 Capsule 11 12/12/19 20 Active Blood-Glucose MeterIndications:T ype 2 diabetes mellitus with diabetic polyneuropathy, without long-term current use of insulin ([facility]) Check blood sugar daily as directed. 1 Each 12/27/19 20 Active lancetsIndications :Type 2 diabetes mellitus with diabetic polyneuropathy, without long-term current use of insulin ([facility]) Check blood sugar daily as directed. 100 Each 5 12/27/19 20 Active diclofenac sodium (VOLTAREN) 1 % gelIndications:Gen eralized osteoarthrosis, involving multiple sites APPLY 2 GRAMS EXTERNALLY TO THE AFFECTED AREA FOUR TIMES DAILY 100 Gram 3 12/31/19 20 Active Mucinex 600 mg Extended Release Biphasic tabletIndications: Chronic obstructive pulmonary disease, unspecified COPD type (CMS/HCC),Acute maxillary sinusitis, recurrence not specified Take 1 Tablet (600 mg) by mouth 2 times daily. 60 Tablet 11 03/26/20 20 Active citalopram (CeleXA) 20 mg tabletIndications: Major depressive disorder, single episode, in full remission Take 1 Tablet (20 mg) by mouth daily. 90 Tablet 3 05/02/20 20 Active Nebulizer & Compressor For Neb DeviceIndications: Chronic obstructive pulmonary disease, unspecified COPD type ([facility]/HCC),Shortnes s of breath Nebulized albuterol 3 times daily as needed for shortness of breath, wheezing. Length of need. - 99 months. DUANE Maddox, 06/04/2020. Please refax to [phone]. 1 Each 06/03/20 20 Active metFORMIN (GLUCOPHAGE) 1,000 mg tablet TAKE 1 TABLET(1000 MG) BY MOUTH TWICE DAILY WITH MEALS 180 Tablet 1 06/24/19 21 Active baclofen (LIORESAL) 10 mg tabletIndications: Chronic pain of both shoulders TAKE 1 TABLET(10 MG) BY MOUTH THREE TIMES DAILY NEEDED FOR PAIN 90 Tablet 5 07/14/19 21 Active traMADoL (ULTRAM) 50 mg tabletIndications: Generalized osteoarthrosis, involving multiple sites Take 1-2 Tablets (50-100 mg) by mouth every 6 hours as needed for Pain. 270 Tablet 1 07/29/19 21 Active metoprolol tartrate (LOPRESSOR) 25 mg tablet TAKE 1 TABLET TWICE A DAY 180 Tablet 1 07/29/19 21 Active triamcinolone acetonide (KENALOG) 0.5 % Cream Apply to affected area 2 times daily. 15 Gram 1 08/29/19 21 Active blood sugar diagnostic (Accu-Chek SmartView Test Strip) StripIndications:T ype 2 diabetes mellitus with diabetic polyneuropathy, without long-term current use of insulin ([facility]) CHECK BLOOD GLUCOSE ONCE TO TWICE DAILY 100 Strip 3 09/02/19 21 Active oxygen home deliveryIndication s:Chronic obstructive pulmonary disease with acute lower respiratory infection ([facility]),Chronic obstructive pulmonary disease, unspecified COPD type ([facility]) daily at bedtime. Home Oxygen Concentrator yes at 2 L/M Rest, 2 L/M Sleep, Delivery Device: Nasal Cannula Portability: no May provide device best for patient needs(E system,home fill, conserving device) Length of Need: 99 months 1 Each 3 09/13/19 21 Active budesonide-formote roL (SYMBICORT) 160-4.5 mcg/actuation HFA Aerosol Inhaler Take 2 Puffs by inhalation 2 times daily. 10.2 Gram 11 10/18/19 21 Active albuterol (PROVENTIL,VENTOLI N) 2.5 mg /3 mL (0.083 %) Solution for NebulizationIndica tions:Upper respiratory tract infection, unspecified type,COPD with exacerbation ([facility]) Take 3 mL (2.5 mg) by inhalation every 6 hours as needed for Shortness of Breath. 120 mL 1 10/22/19 21 Active fluticasone propionate (FLONASE) 50 mcg/spray [place], Suspension nasal inhalerIndications :Allergic rhinitis, unspecified seasonality, unspecified trigger SHAKE LIQUID AND USE 2 SPRAYS IN EACH NOSTRIL DAILY 16 Gram 4 10/28/19 21 Active cholecalciferol 1,250 mcg (50,000 unit) CapsuleIndications :Vitamin D deficiency Take 1 Capsule (50,000 Units) by mouth every 7 days. 13 Capsule 1 10/29/19 21 Active colestipoL (COLESTID) 1 gram tabletIndications: Mixed hyperlipidemia Take 1 Tablet (1,000 mg) by mouth 2 times daily. 180 Tablet 1 10/29/19 21 Active cyanocobalamin 1,000 mcg TabletIndications: Vitamin B12 deficiency (non anemic) Take 1 Tablet (1,000 mcg) by mouth daily. 90 Tablet 1 10/29/19 21 Active potassium chloride (KLOR-CON) 20 mEq Extended Release tablet TAKE 1 TABLET(20 MEQ) BY MOUTH TWICE DAILY 180 Tablet 11/15/19 21 Active Eliquis 5 mg tablet TAKE 1 TABLET(5 MG) BY MOUTH TWICE DAILY 180 Tablet 1 11/18/19 Active gabapentin (NEURONTIN) 600 mg tablet TAKE 1 TABLET BY MOUTH THREE TIMES DAILY 90 Tablet 10 11/26/19 Active OTHERIndications:G eneralized osteoarthrosis, involving multiple sites,Chronic obstructive pulmonary disease, unspecified COPD type (CMS/HCC) Please provide a new hospital bed mattress. [employer] 1 Each 12/02/19 Active ibuprofen (MOTRIN) 800 mg tablet TAKE 1 TABLET(800 MG) BY MOUTH EVERY 8 HOURS NEEDED FOR PAIN 180 Tablet 12/09/19 21 Active Active Problems Problem Noted Date Diagnosed Date Respiratory failure 10/30/2020 Mixed hyperlipidemia 10/28/2020 Vitamin B12 deficiency (non anemic) 10/28/2020 Vitamin D deficiency 10/28/2020 Chronic pain of both shoulders 12/12/2019 Frequent falls 06/15/2019 Balance disorder 06/15/2019 Class 3 severe obesity with body mass index (BMI) of 40.0 to 44.9 in adult 02/13/2019 COPD 02/13/2019 History of lymphoma 10/19/2017 Major depressive disorder, s luis f episode, in full remission 10/19/2017 Benign hypertension 10/19/2017 Type 2 diabetes mellitus wit h diabetic polyneuropathy, without long-term current use of insulin 10/19/2017 Generalized osteoarthrosis, involving multiple s ites 10/19/2017 Immunizations Immunization Administration Dates Next Due (PREVNAR 13)(6 WKS UP) PNEUM OCOCCAL CONJUGATE (PCV13) 0.5 ML, IM 02/28/2019,02/13/2019(Deferred: Other (See comments) - she will get this at her next visit instead.) (SPIKEVAX) (12 YRS UP PRIMAR Y SERIES) COVID-19 VACCINE - MRNA-1273(PF) 100 MCG/0.5 ML IM SUSP 08/22/2020,07/25/2020 INFLUENZA VACCINE HIGH DOSE QUADRIVALENT 65 YR UP PF IM 04/21/2020 Influenza Seasonal Unspecifi ed Formulation IM 02/28/2019,03/14/2018,03/01/2018 PNEUMOVAX (PPSV23) pneumococ cecil polysaccharide 23-valent Vaccine 03/18/2017 Family History Medical History Relation Name Comments Heart Disease Father Hypertension Father Hypertension Mother Osteoporosis Mother Stroke Mother Breast Cancer Paternal Cousin 3 Relation Name Status Comments Father Mother Paternal Cousin 3 Alive Social History Tobacco Use Types Packs/Day Years Used Date Smoking Tobacco: Never Smokeless Tobacco: Never Tobacco Cessation:Counseling Given: No Alcohol Use Standard Drinks/Week Comments No 0 (1 standard drink = 0.6 oz pur e alcohol) Financial Resource Strain Answer Date R ecorded How hard is it for you to pa y for the very basics like food, housing, medical care, and heating? Somewhat hard 10/30/2020 Food Insecurity Answer Date Recorded In the past 12 months, have you worried that your food would run out before you had money to buy more? Never true 10/30/2020 In the past 12 months, did y ou run out of food and didn't have money to buy more? Never true 10/30/2020 Transportation Needs Answer Date Record ed In the past 12 months, has l ack of transportation kept you from medical appointments or from getting medications? No 10/30/2020 Lack of Transportation (Non-Medical) Not on file 10/30/2020 Comments No Sex and Gender Information Value Date Recorded Sex Assigned at Not on file Legal Sex Female 3:31 AM DATA SCIENCES DIRECTOR Gender Identity Not on file Sexual Orientation Not on file Last Filed Vital Signs Vital Sign Reading Time Taken Comments Blood Pressure 124/80 10/30/2020 9:12 AM CDT Pulse 95 10/30/2020 9:12 AM CDT Temperature 36.2 C (97.1 F) 10/30/2020 9:12 AM CDT Respiratory Rate 20 10/30/2020 9:12 AM CDT Oxygen Saturation 94% 10/30/2020 9:12 AM CDT Inhaled Oxygen Concentration - - Weight 126 kg (277 lb 12.8 oz) 10/30/2020 9:12 A M CDT Height 167.6 cm (5' 6 ) 10/30/2020 9:12 AM CDT Body Mass Index 44.84 10/30/2020 9:12 AM CDT Plan of Treatment Health Maintenance Due Date Last Done Comments ZOSTER VACCINE (1 of 2) 01/30/1998 DTAP/TDAP/TD VACCINES (1 - Tdap) 01/04/2003 01/04/20 03 OSTEOPOROSIS SCREENING 01/30/2013 DIABETES ANNUAL FOOT EXAM 12/11/2020 12/12/2019 DIABETES MICROALBUMIN ANNUAL SCREEN 05/02/2021 05/02/2020, 02/13/2019, 01/05/2017, Additional history exists LDL CHOLESTEROL ANNUAL 10/23/2021 1, 12/26/2019, 10/19/2017, Additional history exists DIABETES ANNUAL RETINAL EXAM 07/23/202203/2022, 12/12/2019, 04/16/2019, Additional history exists RSV VACCINE (60+ or ) (1 - 1-dose 75+ series) 01/30/2023 DIABETES HBA1C Q 6 MONTHS 08/11/20232022, 10/23/2020, 12/26/2019, Additional history exists [place] ([place]) Preventative Visit/Annual Wellness Visit 06/13/2024 10/30/2020, 03/16/2016 INFLUENZA VACCINE (#1) 2025 0, 02/28/2019, 03/14/2018, Additional history exists COVID-19 Vaccine (3 - 2024-2 6 season) 2025 08/22/2020, 07/25/2020 COLORECTAL SCREENING Discontinued 04/09/2016, 04/16/20 11 Colorectal Cancer Screening Discontinued PNEUMOCOCCAL VACCINE 50+ YEARS Completed 0 02/28/2019, 03/18/2017, 04/13/2006 FIT-DNA Q 3 years Discontinued FIT/FOBT Q 1 year Discontinued Flex Sig/CT Colonography Q 5 years Discontinued Procedures Procedure Name Priority Date/Time Associated Diagnosis Comments LIPID RFLX Routine 10/23/2020 8:45 AM CDT Type 2 diabetes mellitus with diabetic polyneuropathy, without long-term current use of insulin ([facility]) Benign hypertension HEMOGLOBIN A1C Routine 10/23/2020 8:45 AM CDT Type 2 diabetes mellitus with diabetic polyneuropathy, without long-term current use of insulin ([facility]) Benign hypertension MICROALBUMIN/CREATI NINE RATIO, RANDOM UR Routine 05/02/2020 9:29 AM DATA SCIENCES DIRECTOR Type 2 diabetes mellitus with diabetic polyneuropathy, without long-term current use of insulin ([facility]) HM DIABETES EYE EXAM Routine 04/16/2019 ENDOSCOPY, COLON, DIAGNOSTIC Routine 04/09/2016 from Last 3 Months or Most Recently Relevant to Health Maintenance Results * (ABNORMAL) LIPID RFLX (10/23/2020 8:45 AM CDT) CHOLESTEROL 200(H) <200 mg/dL 10/24/2020 8:33 AM CDT [facility] TRIGLYCERIDE 118 <150 mg/dL 10/24/2020 8:33 AM CDT [facility] HDL 53 40 - 59 mg/dL 10/24/2020 8:33 AM CDT [facility] LDL CALCULATED 123(H) <100 mg/dL 10/24/2020 8:33 AM CDT [facility] NON-HDL CHOLESTEROL 147(H) <130 mg/dL 10/24/2020 8:33 AM CDT [facility] Blood Venipuncture / Unknown 10/23/2020 8:45 AM CDT 10/23/2020 8:12 PM CDT Narrative [facility] - 10/24/2020 8:33 AM CDT TOTAL CHOLESTEROL mg/dL Desirable <200 Borderline high 200-239 High >=240 TRIGLYCERIDES mg/dL Normal <150 Borderline high 150-199 High 200-499 Very high >=500 HDL CHOLESTEROL mg/dL Low <40 Normal 40-59 Desirable >=60 NON HDL CHOLESTEROL mg/dL Optimal <130 Near Optimal 130-159 Borderline High 160-189 Very High >=190 CALCULATED LDL mg/dL LDL <70, OPTIMAL if have Atherosclerotic cardiovascular disease (ASCVD) or intermediate or higher (>7.5%) 10 year risk of ASCVD including most adults with diabetes. LDL <100, Optimal in adult patients with low (<7.5%) 10 year ASCVD risk LDL 100-160, Suboptimal LDL >160, High LDL >190, Very high ATPIII Guidelines Reference Ranges for Lipid Panels (NCEP/AMA) . Sania Loco HOSTESS PARTY SALES REPRESENTATIVE CHEMISTRY ORDERABLES Final Result [facility] CLIA# [id number] [address] [place] [address] * (ABNORMAL) HEMOGLOBIN A1C (10/23/2020 8:45 AM CDT) HEMOGLOBIN A1C 6.3(H) See Comment % 10/23/2020 9:20 PM CDT [facility] EST. AVG GLUCOSE, A1C 134 mg/dL 10/23/2020 9:20 PM CDT [facility] Blood Venipuncture / Unknown 10/23/2020 8:45 AM CDT 10/23/2020 8:12 PM CDT Narrative [facility] - 10/23/2020 9:20 PM CDT HGB A1C INTERPRETATION NORMAL: <5.7% PRE-DIABETES: 5.7 - 6.4% DIABETES: 6.5% OR GREATER Falsely low A1C measurements can occur when: 1. Anemia and/or hemolytic anemia is present. 2. Hemoglobin variants present. 3. Renal failure. 4. Transfusion of blood product in the last 120 days. We recommend ordering a fructosamine test([id number]) to more accurately assess glycemic status if any of the above conditions are present. Sania Loco [facility] CHEMISTRY ORDERABLES Final Result [facility] CLIA# [id number] [address] [place] [address] * MICROALBUMIN/CREATININE RATIO, RANDOM UR (05/02/2020 9:29 AM DATA SCIENCES DIRECTOR) MICROALBUMIN, URINE <1.2 No Reference Range mg/dL 05/02/2020 9:27 PM [facility] CREATININE, URINE 92.5 29.0 - 226.0 mg/dL 05/02/2020 9:27 PM [facility] Comment:Reference Range vari es with fluid intake and diet. MICROALBUMIN/C REAT RATIO, UR <13.0 <25.0 mg/g 05/02/2020 9:27 PM [facility] Urine URINE SPECIMEN OBTAINED BY CLEAN CATCH PROCEDURE / Unknown Collection / Unknown 05/02/2020 9:29 AM DATA SCIENCES DIRECTOR 05/02/2020 7:59 PM DATA SCIENCES DIRECTOR Narrative [facility] - 05/02/2020 9:27 PM DATA SCIENCES DIRECTOR Condition Microalbumin/Creat ratio Normal Males <17 Normal Females <25 Microalbuminuria Males 17-299 Microalbuminuria Females 25-299 Overt proteinuria >=300 us Sania Loco HOSTESS PARTY SALES REPRESENTATIVE URINE ORDERABLES Final Res ult Performing Organization Address City/[facility]/ZIP Co de Phone Number [facility] CLIA# [id number] [address] [place] [address] * DIABETES EYE EXAM (04/16/2019) us Abstract Spg Provider HEALTH MAINTENANCE Final R esult Performing Organization Address [facility] Co de Phone Number [facility] * ENDOSCOPY, COLON, DIAGNOSTIC (04/09/2016) us Abstract Spg Provider GI PROCEDURE ORDERABLES Fi nal Result from Last 3 Months or Most Recently Relevant to Health Maintenance Insurance MEDICAID [facility] Care Teams Cash Posting Clerk Relationship Specialty Start Date End Date Franko Savage MD [address] [place] [address] PCP - General Family Practice 06/15/19
--- OUTSIDE RECORDS SUMMARY | 2025-04-21 10:08 | XMS_ITS | Encounter Summary ---
Author Organization [facility] Address [address] [place] [address] Care Team Providers Care Cushion Former Name Role Phone Franko Savage MD Primary Care Provider [phone] Encounter Details Date Type Department Care Team (Latest Contact Info) Description 06/30/2005 Outpatient Historical [facility] Brenda [facility] [address] [address] Lg Garrido Jr., MD [address] [place] [address] [address] [facility] [address] [place] [address] Sprain lumbar region (Primary Dx); Pain in limb Social History Tobacco Use Types Packs/Day Years Used Date Smoking Tobacco: Never Assessed Comments Unknown Sex and Gender Information Value Date Recorded Sex Assigned at Not on file Legal Sex Female 3:31 AM DIRECTOR DATA MANAGEMENT Gender Identity Not on file Sexual Orientation Not on file documented as of this encounter Plan of Treatment Not on file documented as of this encounter Visit Diagnoses Diagnosis Sprain lumbar region- Primary Sprain of lumbar region Pain in limb Pain in soft tissues of limb documented in this encounter Care Teams Cushion Former Relationship Specialty Start Date End Date Franko Savage MD [address] [address] PCP - General Family Practice 06/15/19 documented as of this encounter
--- OUTSIDE RECORDS SUMMARY | 2025-04-21 10:08 | XMS_ITS | Encounter Summary ---
Author Organization [employer] [facility] Address [address] [place] [address] Care Team Providers Care Patient Coordinator Front Desk Name Role Phone Franko Savage MD Primary Care Provider [phone] Reason for Referral * Radiology Services (Routine) - Closed Specialty Diagnoses / Procedures Referred By Ciro murry Referred To Contact Diagnoses Visit for screening mammogram Procedures MAMMO SCRN BILAT MOBILE W OR WO CAD Franko Savage MD [address] [place] [address] Phone: tel: fax: Referral ID Status Reason Start Date Expiration Date Visits Re quested Visits Authorized [id number] Closed 12/31/2019 01/30/2021 1 1 Encounter Details Date Type Department Care Team (Latest Contact Info) Description 12/31/2019 Ancillary Orders [facility] [place] [address] [address] Franko Savage MD [address] [place] [address] Visit for screening mammogram Social History Tobacco Use Types Packs/Day Years Used Date Smoking Tobacco: Never Smokeless Tobacco: Never Alcohol Use Standard Drinks/Week Comments No 0 (1 standard drink = 0.6 oz pur e alcohol) Comments No Sex and Gender Information Value Date Recorded Sex Assigned at Not on file Legal Sex Female 3:31 AM MANAGER UNION Gender Identity Not on file Sexual Orientation Not on file COVID-19 Exposure Response Date Recorded In the last month, have you been in contact with someone who was confirmed or suspected to have Coronavirus / COVID-19? No / Unsure 12/31/2019 8:28 AM CDT documented as of this encounter Plan of Treatment Not on file documented as of this encounter Results * MAMMO SCRN BILAT MOBILE W OR WO CAD (12/31/2019 9:45 AM CDT) Anatomical Region Laterality Modality Breast Bilateral Mammography 12/31/2019 9:45 AM CDT Narrative 01/17/2020 6:53 PM CDT MAMMO SCRN BILAT MOBILE W OR WO CAD INDICATION FOR EXAMINATION: See Diagnosis COMPARISONS: Mammogram dated 07/10/2018, 07/12/2014, 08/14/2012, 04/02/2011. BREAST COMPOSITION: Almost entirely fatty. FINDINGS: This digital mammogram was also analyzed by the Computer Aided Detection System (CAD), [employer], Version 8.3. Indeterminate calcifications are seen within the upper inner quadrant of the right breast at anterior depth. The left breast fibroglandular pattern is stable; no suspicious abnormality is identified. A loop recorder is noted within the medial left breast. ASSESSMENT: Incomplete evaluation. Additional imaging is needed. BI-RADS 0. RECOMMENDATIONS: Diagnostic right breast mammogram. Additional imaging of the right breast to include magnification views in the CC and true lateral projections. [id number] Franko Savage MD MAMMO ORDERABLES Final Result documented in this encounter Visit Diagnoses Diagnosis Encounter for screening mammogram for breast cancer Visit for screening mammogram Other screening mammogram Visit for screening mammogram Other screening mammogram documented in this encounter Additional Health Concerns Assessment Noted Time PHQ-9 Depression Total Score: 2 12/31/19 20 9:00 AM CDT documented as of this encounter Care Teams Patient Coordinator Front Desk Relationship Specialty Start Date End Date Franko Savage MD [address] [place] [address] [place] [address] PCP - General Family Practice 06/15/19 documented as of this encounter
--- OUTSIDE RECORDS SUMMARY | 2025-04-21 10:08 | XMS_ITS | Encounter Summary ---
Author Organization [facility] Address [address] [place] [address] Care Team Providers Care Clearing Hand Name Role Phone Franko Savage MD Primary Care Provider [phone] Reason for Referral * Radiology Services (Routine) - Closed Specialty Diagnoses / Procedures Referred By Ciro t Referred To Contact Diagnoses Visit for screening mammogram Procedures MAMMO SCRN BILAT 3D VIPIN W OR WO CAD MOBILE CHG SCREENING MAMMOGRAPHY BI 2-VIEW BREAST INC CAD CHG SCREENING DIGITAL BREAST TOMOSYNTHESIS BI Phani Coles PA Phone: tel: fax: Referral ID Status Reason Start Date Expiration Date Visits Re quested Visits Authorized [id number] Closed 06/26/2018 07/27/2019 1 1 SOMNOGRAPHER Encounter Details Date Type Department Care Team (Latest Contact Info) Description 06/26/2018 Ancillary Orders [facility] [employer] [facility] [place] [address] [phone] Phani Coles PA [address] [place] [phone] Visit for screening mammogram Social History Tobacco Use Types Packs/Day Years Used Date Smoking Tobacco: Never Smokeless Tobacco: Never Alcohol Use Standard Drinks/Week Comments No 0 (1 standard drink = 0.6 oz pur e alcohol) Comments No Sex and Gender Information Value Date Recorded Sex Assigned at Not on file Legal Sex Female 3:31 AM POLYSOMNOGRAPHER Gender Identity Not on file Sexual Orientation Not on file documented as of this encounter Plan of Treatment Not on file documented as of this encounter Results * MAMMO SCRN BILAT 3D VIPIN W OR WO CAD MOBILE (07/10/2018 7:26 AM POLYSOMNOGRAPHER) Anatomical Region Laterality Modality Breast Bilateral Mammography 07/10/2018 7:41 AM POLYSOMNOGRAPHER Impressions 07/13/2018 2:50 PM POLYSOMNOGRAPHER : No specific mammographic evidence of malignancy. No change from previous exams. BI-RADS: 2 Recommendation: Annual screening mammography Recommendation Laterality: Bilateral [id number] Narrative 07/13/2018 2:50 PM POLYSOMNOGRAPHER EXAM: MAMMO SCRN BILAT 3D VIPIN W OR WO CAD MOBILE, 07/10/2018 7:26 AM CLINICAL INDICATIONS: Screening COMPARISON: 07/12/2014, 08/14/2012, 02/20/2010, 04/04/2008. TECHNIQUE: 3-D MLO and CC digital tomosynthesis images were acquired. Synthesized 2-D images (C-view) were generated. This digital mammogram was also analyzed by the Computer Aided Detection System (CAD). FINDINGS: The breasts are almost entirely fatty. A loop recorder overlies inferior left breast posteriorly. There are no new suspicious masses, calcifications, or architectural distortions. us Phani [facility] MAMMO ORDERABLES Final Res ult documented in this encounter Visit Diagnoses Diagnosis Visit for screening mammogram Other screening mammogram Visit for screening mammogram Other screening mammogram documented in this encounter Care Teams Clearing Hand Relationship Specialty Start Date End Date Franko Savage MD [address] [place] [phone] PCP - General Family Practice 06/15/19 documented as of this encounter
--- OUTSIDE RECORDS SUMMARY | 2025-04-21 10:08 | XMS_ITS | Encounter Summary ---
Author Organization [facility] Address [address] [place] [address] Care Team Providers Care Mainspring Barrel Assembly Cleaner Name Role Phone Franko Savage MD Primary Care Provider [phone] Encounter Details Date Type Department Care Team (Late st Contact Info) Description 06/13/2005 Emergency [facility] Emergency Department [address] [place] [phone] Leonor Mariscal, [facility] NO ADDRESS ON FILE JOINT PAIN-L/LEG (Primary Dx) Social History Tobacco Use Types Packs/Day Years Used Date Smoking Tobacco: Never Assessed Comments Unknown Sex and Gender Information Value Date Recorded Sex Assigned at Not on file Legal Sex Female 3:31 AM MOBILE APPLICATION ENGINEER Gender Identity Not on file Sexual Orientation Not on file documented as of this encounter Plan of Treatment Not on file documented as of this encounter Procedures Procedure Name Priority Date/Time Associated Diagnosis Comments XR KNEE 1 OR 2 VW RIGHT Routine 06/13/2005 12:25 PM MOBILE APPLICATION ENGINEER documented in this encounter Results * XR KNEE 1 OR 2 VW RIGHT (06/13/2005 12:25 PM MOBILE APPLICATION ENGINEER) Anatomical Region Laterality Modality Lower Extremity Other 06/13/2005 12:2 5 PM MOBILE APPLICATION ENGINEER Narrative 06/13/2005 12:25 PM MOBILE APPLICATION ENGINEER RIGHT KNEE: 06-13-05 HISTORY: Knee pain. Views of the right knee were obtained and show minimal degenerative changes and no joint effusion. No acute abnormality. [facility] D: 06-13-05 1426 Dictated By: Phani Moreno M.D. Electronically Signed By: Phani Moreno M.D. Date Signed: 06/15/05 Procedure Note 05/01/2009 RIGHT KNEE: 06-13-05 HISTORY: Knee pain. Views of the right knee were obtained and show minimal degenerativechanges and no joint effusion. No acute abnormality. [facility] D: 06-13-05 1426 Dictated By: Phani Moreno M.D. Electronically Signed By: Phani Moreno M.D. Date Signed: 06/15/05 Leonor Mariscal NP DIAGNOSTIC IMAGING ORDERABLE S Edited documented in this encounter Visit Diagnoses Diagnosis Pain in joint, lower leg- Primary documented in this encounter Care Teams Mainspring Barrel Assembly Cleaner Relationship Specialty Start Date End Date Franko Savage MD [address] [place] [phone] PCP - General Family Practice 06/15/19 documented as of this encounter
--- OUTSIDE RECORDS SUMMARY | 2025-04-21 10:08 | XMS_ITS | Encounter Summary ---
Author Organization [facility] Address [address] [place] [address] Care Team Providers Care Chocolate Packer Name Role Phone Franko Savage MD Primary Care Provider [phone] Encounter Details Date Type Department Care Team (Late st Contact Info) Description 12/31/2019 Ancillary Orders [facility] [address] [place] [address] Franko Savage MD [address] [place] [address] Social History Tobacco Use Types Packs/Day Years Used Date Smoking Tobacco: Never Smokeless Tobacco: Never Alcohol Use Standard Drinks/Week Comments No 0 (1 standard drink = 0.6 oz pur e alcohol) Comments No Sex and Gender Information Value Date Recorded Sex Assigned at Not on file Legal Sex Female 3:31 AM AUTOMATION QTP TESTER Gender Identity Not on file Sexual Orientation Not on file COVID-19 Exposure Response Date Recorded In the last month, have you been in contact with someone who was confirmed or suspected to have Coronavirus / COVID-19? No / Unsure 12/31/2019 8:28 AM CDT documented as of this encounter Plan of Treatment Not on file documented as of this encounter Visit Diagnoses Not on filedocumented in this encounter Additional Health Concerns Assessment Noted Time PHQ-9 Depression Total Score: 2 12/31/19 20 9:00 AM CDT documented as of this encounter Care Teams Chocolate Packer Relationship Specialty Start Date End Date Franko Savage MD [facility] [address] [place] [address] PCP - General Family Practice 06/15/19 documented as of this encounter
--- OUTSIDE RECORDS SUMMARY | 2025-04-21 10:08 | XMS_ITS | Encounter Summary ---
Author Organization [facility] Address [address] [place] [address] Care Team Providers Care Product Assurance Engineer Name Role Phone Franko Savage MD Primary Care Provider [phone] Encounter Details Date Type Department Care Team (Late st Contact Info) Description 04/18/2018 Ancillary Orders [facility] [place] [address] [facility] [address] [place] [address] Phani Coles, JAYY [address] [place] [address] Pain of right hip joint Social History Tobacco Use Types Packs/Day Years Used Date Smoking Tobacco: Never Smokeless Tobacco: Never Alcohol Use Standard Drinks/Week Comments No 0 (1 standard drink = 0.6 oz pur e alcohol) Comments No Sex and Gender Information Value Date Recorded Sex Assigned at Not on file Legal Sex Female 3:31 AM CAFE OR RESTAURANT MANAGER Gender Identity Not on file Sexual Orientation Not on file documented as of this encounter Plan of Treatment Not on file documented as of this encounter Results * XR HIP 1 VW RIGHT (04/18/2018 1:03 PM CAFE OR RESTAURANT MANAGER) Anatomical Region Laterality Modality Lower Extremity Right Computed Radiogr aphy 04/18/2018 1:05 PM CAFE OR RESTAURANT MANAGER Impressions 04/18/2018 1:49 PM CAFE OR RESTAURANT MANAGER IMPRESSION: Moderate degenerative changes. Indeterminate lucency overlying the left iliac crest making lytic lesion difficult to exclude. MRI could assess further if clinically indicated. Narrative 04/18/2018 1:49 PM CAFE OR RESTAURANT MANAGER Exam: XR HIP 1 VW RIGHT Date/Time of Exam: 04/18/2018 1:03 PM Reason For Exam: See Diagnosis. Diagnosis: Pain of right hip joint. Comparison: None. Findings: There is no evidence of an acute fracture or dislocation. Moderate hip joint degenerative changes are present. The bone density is diminished. There is an area of lucency overlying the superior aspect of the left iliac crest. This may be related to overlying bowel gas with lucent osseous lesion not entirely excluded. The soft tissues appear appropriate. Procedure Note Corwin Padgett, DO - 04/18/2018 Exam: XR HIP 1 VW RIGHT Date/Time of Exam: 04/18/2018 1:03 PM Reason For Exam: See Diagnosis. Diagnosis: Pain of right hip joint. Comparison: None. Findings: There is no evidence of an acute fracture or dislocation. Moderate hip joint degenerative changes are present. The bone density is diminished. There is an area of lucency overlying the superior aspect of the left iliac crest. This may be related to overlying bowel gas with lucent osseous lesion not entirely excluded. The soft tissues appear appropriate. IMPRESSION: Moderate degenerative changes. Indeterminate lucency overlying the left iliac crest making lytic lesion difficult to exclude. MRI could assess further if clinically indicated. us Phani [facility] DIAGNOSTIC IMAGING ORDERAB LES Final Result documented in this encounter Visit Diagnoses Diagnosis Pain of right hip joint Pain of right hip joint documented in this encounter Care Teams Product Assurance Engineer Relationship Specialty Start Date End Date Franko Savage MD [address] [place] [phone] PCP - General Family Practice 06/15/19 documented as of this encounter
--- OUTSIDE RECORDS SUMMARY | 2025-04-21 10:08 | XMS_ITS | Encounter Summary ---
Author Organization [facility] Address [address] [place] [address] Care Team Providers Care Rv Mechanic Name Role Phone Franko Savage MD Primary Care Provider [phone] Encounter Details Date Type Department Care Team (Late st Contact Info) Description 08/20/[address] [facility] Pre-Registration [place] CALL TO MAKE APPOINTMENT ONLY [address] [place] [address] Franko Savage MD [address] [place] [address] Abnormal mammogram Social History Tobacco Use Types Packs/Day Years Used Date Smoking Tobacco: Never Smokeless Tobacco: Never Alcohol Use Standard Drinks/Week Comments No 0 (1 standard drink = 0.6 oz pur e alcohol) Comments No Sex and Gender Information Value Date Recorded Sex Assigned at Not on file Legal Sex Female 3:31 AM PIPE COREMAKER Gender Identity Not on file Sexual Orientation Not on file documented as of this encounter Plan of Treatment Not on file documented as of this encounter Visit Diagnoses Diagnosis Abnormal mammogram Abnormal mammogram, unspecified documented in this encounter Additional Health Concerns Assessment Noted Time PHQ-9 Depression Total Score: 1 06/25/19 21 12:00 PM PIPE COREMAKER documented as of this encounter Care Teams Rv Mechanic Relationship Specialty Start Date End Date Franko Savage MD [address] [facility] [address] [place] [phone] PCP - General Family Practice 06/15/19 documented as of this encounter
--- OUTSIDE RECORDS SUMMARY | 2025-04-21 10:08 | XMS_ITS | Clinical Summary ---
Author Organization [facility] Address [address] [place] [address] Care Team Providers Care Color Blender Name Role Phone Unavailable Primary Care Provider Unavailabl e Source Comments PLEASE NOTE, if this patient is a minor, it may be UNLAWFUL to discuss sensitive information that is contained in these records (such as FAMILY PLANNING, MENTAL HEALTH or SUBSTANCE ABUSE) with the minor patient's parent or other person without the patient's specific authorization.[facility] Medications acetaminophen (TYLENOL) 325 mg tablet Take 650 mg by mouth every 6 (six) hours as needed for pain Active albuterol sulfate 2.5 mg/0.5 mL nebulizer solution Take 2.5 mg by nebulization 3 to 4 (three to four) times daily Active aspirin [address] tablet Take 81 mg by mouth once daily Active bisacodyL (DULCOLAX) 5 mg EC tablet Take 5 mg by mouth once daily as needed for constipation Active budesonide-form oteroL (SYMBICORT) 160-4.5 mcg/actuation inhaler Inhale 2 Puffs into the lungs 2 (two) times daily Active cetirizine (ZYRTEC) 10 mg tablet Take 10 mg by mouth once daily Active cholecalciferol , vitamin D3, (VITAMIN D3) 1,250 mcg (50,000 unit) capsule Take 50,000 Units by mouth once a week Active colestipoL (COLESTID) 1 gram tab Take 1 g by mouth after breakfast and after evening meal Active cyanocobalamin (VITAMIN B-12) 1,000 mcg tablet Take 1,000 mcg by mouth once daily Active diclofenac sodium 1 % kit Apply topically Active escitalopram (LEXAPRO) 20 mg tablet Take 20 mg by mouth once daily Active fluticasone prp-sod.chl,bic arb 50 mcg- 0.9 % ksps Place into the nostril(s) Active furosemide (LASIX) 40 mg tablet Take 40 mg by mouth once daily Active gabapentin (NEURONTIN) 600 mg tablet Take 600 mg by mouth 3 (three) times daily Active dextromethorpha n-guaifenesin (SOFÍA-TUSSIN DM) 10-100 mg/5 mL liquid Take 5 mL by mouth every 4 to 6 (four to six) hours as needed for cough Active hydrOXYzine HCL (ATARAX) 25 mg tablet Take 25 mg by mouth 3 (three) times daily as needed Active ipratropium-alb uteroL (DUONEB) 0.5 mg-3 mg(2.5 mg base)/3 mL nebulizer solution Take 3 mL by nebulization 4 (four) times daily Active metFORMIN (GLUCOPHAGE) 1,000 mg tablet Take 1,000 mg by mouth 2 (two) times daily with a meal Active METOPROLOL TARTRATE ORAL Take by mouth Ac tive magnesium hydroxide (MILK OF MAGNESIA) 400 mg/5 mL suspension Take by mouth once daily as needed for heartburn Active guaiFENesin (MUCINEX) 600 mg Ta12 Take 600 mg by mouth 2 (two) times daily as needed Active olopatadine (PATADAY) 0.2 % ophthalmic solution 1 Drop once daily Active ondansetron HCL (ZOFRAN) 8 mg tablet Take 8 mg by mouth every 8 (eight) hours as needed for nausea Active potassium chloride 20 mEq TbER Take 20 mEq by mouth once daily Active rOPINIRole (REQUIP) 5 mg tablet Take 5 mg by mouth nightly at bedtime Active sennosides (SENNA ORAL) Take by mouth Act rodolfo simvastatin (ZOCOR) 10 mg tablet Take 10 mg by mouth nightly at bedtime Active traMADoL (ULTRAM) 50 mg tablet Take by mouth 4 (four) times daily as needed for pain Active zinc oxide 20 % pste Apply topically Acti ve Social History Tobacco Use Types Packs/Day Years Used Date Smoking Tobacco: Never Passive Smoke Exposure: Never Smokeless Tobacco: Never Tobacco Cessation:Counseling Given: No Comments Unknown Sex and Gender Information Value Date Recorded Sex Assigned at Female 07/26/2024 1:24 PM PST Legal Sex Female 8:16 AM PST Gender Identity Female 07/26/2024 1:24 PM PST Sexual Orientation Straight 07/26/2024 1: 24 PM PST Last Filed Vital Signs Vital Sign Reading Time Taken Comments Blood Pressure 114/69 10/03/2024 11:46 AM CDT Pulse 66 10/03/2024 11:46 AM CDT Temperature - - Respiratory Rate - - Oxygen Saturation - - Inhaled Oxygen Concentration - - Weight 104.3 kg (230 lb) 10/03/2024 11:46 AM CDT Height 167.6 cm (5' 6 ) 10/03/2024 11:46 AM CDT Body Mass Index 37.12 10/03/2024 11:46 AM CDT Plan of Treatment Upcoming Encounters Date Type Department Care Team (Late st Contact Info) Description 05/22/2025 11:00 AM DIRECTOR OF RESIDENTIAL SERVICES [facility] [address] [place] [address] Camilo Alcantar [address] [place] [address] Health Maintenance Due Date Last Done Comments Dental Perio Charting 1948 Dental Prophy 1948 Hepatitis C Screening 1950 Urine Drug Screen 1950 Medicare Annual Wellness Visit 01/30/1966 Imm-Zoster, Recombinant (1 of 2) 01/30/1998 Falls Prevention 01/30/2013 Alcohol and Drug Screen 06/13/2024 Depression Annual Screen 06/13/2024 Imm-DTaP/Tdap/Td (3 - Td or Tdap) 09/02/2024 015, 06/17/2011 [id number] ( season) 2025 04/12/2024, 12/22/2023, 04/06/2022, Additional history exists Tobacco Screening 07/26/2025 07/26/2024 Dental BW 07/28/2025 07/26/2024 Dental Examination 07/28/2025 07/26/2024 Hypertension Screening (#1) 10/03/2025 Dental FMX/Pano 07/28/2029 07/26/2024 Imm-Pneumococcal 50+ Completed 02/28/2019, 03/18/2017, 03/17/2016 Bone Density Screening Completed 07/23/2021 Imm-RSV (adult) Completed 12/22/2023 Imm-Influenza Completed 03/19/2025, 08/2023, 03/21/2023, Additional history exists Procedures Procedure Name Priority Date/Time Associated Diagnosis Comments PANORAMIC RADIOGRAPHIC IMAGE Routine 07/26/2024 2:45 PM DIRECTOR OF RESIDENTIAL SERVICES Caries BITEWINGS - FOUR RADIOGRAPHIC IMAGES Routine 07/26/2024 2:45 PM DIRECTOR OF RESIDENTIAL SERVICES Caries COMP ORAL EVALUATION - NEW/ESTABLISHED PATIENT Routine 07/26/2024 2:45 PM DIRECTOR OF RESIDENTIAL SERVICES Caries from Last 3 Months or Most Recently Relevant to Health Maintenance [place] [address] [place] [address] MEDICARE ADVANTAGE DENTAL
--- OUTSIDE RECORDS SUMMARY | 2025-04-21 10:08 | XMS_ITS | Encounter Summary ---
Author Organization [facility] Address [address] [place] [address] Care Team Providers Care Spool Sorter Name Role Phone Franko Savage MD Primary Care Provider [phone] Encounter Details Date Type Department Care Team (Latest Contact Info) Description 05/25/2006 Outpatient Historical [facility] Family Medicine [facility] [address] [address] Lg Garrido Jr., MD [address] [place] [address] 248 [facility] [address] [place] [address] Gout, Unspecified (Primary Dx) Social History Tobacco Use Types Packs/Day Years Used Date Smoking Tobacco: Never Assessed Comments Unknown Sex and Gender Information Value Date Recorded Sex Assigned at Not on file Legal Sex Female 3:31 AM STEEL ROD BUSTER Gender Identity Not on file Sexual Orientation Not on file documented as of this encounter Plan of Treatment Not on file documented as of this encounter Visit Diagnoses Diagnosis Gout, unspecified- Primary documented in this encounter Care Teams Spool Sorter Relationship Specialty Start Date End Date Franko Savage MD [address] [phone] PCP - General Family Practice 06/15/19 documented as of this encounter
--- OUTSIDE RECORDS SUMMARY | 2025-04-21 10:08 | XMS_ITS | Encounter Summary ---
Author Organization [facility] Address [address] [place] [address] Care Team Providers Care Multimedia Production Assistant Name Role Phone Franko Savage MD Primary Care Provider [phone] Encounter Details Date Type Department Care Team (Late st Contact Info) Description 06/12/2005 Emergency [facility] Emergency Department [address] [place] [address] Santhosh Gamino MD NO ADDRESS ON FILE LUMBAGO (Primary Dx) Social History Tobacco Use Types Packs/Day Years Used Date Smoking Tobacco: Never Assessed Comments Unknown Sex and Gender Information Value Date Recorded Sex Assigned at Not on file Legal Sex Female 3:31 AM REFRIGERATION HOUSEMAN Gender Identity Not on file Sexual Orientation Not on file documented as of this encounter Plan of Treatment Not on file documented as of this encounter Procedures Procedure Name Priority Date/Time Associated Diagnosis Comments URINALYSIS MICROSCOPY ONLY Routine 06/12/2005 11:22 AM REFRIGERATION HOUSEMAN URINALYSIS W/REFLEX MICROSCOPIC Routine 06/12/2005 11:22 AM REFRIGERATION HOUSEMAN documented in this encounter Results * (ABNORMAL) URINALYSIS (06/12/2005 11:22 AM REFRIGERATION HOUSEMAN) COLOR UA Yellow Straw INTERFACE SYSTEM CLARITY UA Clear Clear INTERFACE SYSTEM LEUKOCYTE ESTERASE UA NEGATIVE NEGATIVE INTERFACE SYSTEM NITRITE UA NEGATIVE NEGATIVE INTERFACE SYSTEM PH UA 7.0 5.0 - 9.0 INTERFACE SYSTEM PROTEIN UA NEGATIVE NEGATIVE INTERFACE SYSTEM Comment: As of 05 positive protein results obtained on routine urinalysis will not be confirmed by sulfosalicylic acid (SSA) precipitation. Current methodology for protein detection is highly sensitive for detection of albumin; therefore, confirmation is not necessary. GLUCOSE UA NEGATIVE NEGATIVE INTERFACE SYSTEM KETONES UA NEGATIVE NEGATIVE INTERFACE SYSTEM UROBILINOGEN UA 0.2 0.2 INTE RFACE SYSTEM BILIRUBIN UA NEGATIVE NEGATIVE INTERFA CE SYSTEM BLOOD UA Trace(A) NEGATIVE INTERFACE SYSTEM SPECIFIC GRAVITY UA 1.015 1.005 - 1.030 INTERFACE SYSTEM MICRO EXAM Yes(A) No INTERFACE SYSTEM 06/12/2005 11:2 2 AM REFRIGERATION HOUSEMAN Santhosh Gamino MD URINE ORDERABLES Final Re sult Performing Organization Address City/[facility]/ZIP Co de Phone Number INTERFACE SYSTEM Refer to clinic/hospital department * URINALYSIS MICROSCOPY ONLY (06/12/2005 11:22 AM REFRIGERATION HOUSEMAN) WBC URINE None Seen 0 - 2 INTERFACE SYSTEM RBC UA None Seen 0 - 2 INTERFACE SYSTEM HYALINE CAST None Seen 0 - 2 INTERFA CE SYSTEM BACTERIA UA None Seen None Seen INTERFAC E SYSTEM 06/12/2005 11:2 2 AM REFRIGERATION HOUSEMAN Santhosh Gamino MD URINE ORDERABLES Final Re sult INTERFACE SYSTEM Refer to clinic/hospital department documented in this encounter Visit Diagnoses Diagnosis Lumbago- Primary documented in this encounter Care Teams Multimedia Production Assistant Relationship Specialty Start Date End Date Franko Savage MD [address] [place] [phone] PCP - General Family Practice 06/15/19 documented as of this encounter
--- OUTSIDE RECORDS SUMMARY | 2025-04-21 10:08 | XMS_ITS ---
Author Organization [facility] Address [address] [address] Care Team Providers Care Freezing Machine Operator Name Role Phone Franko Savage MD Primary Care Provider [phone] Active Problems Problem Noted Date Diagnosed Date Elevated parathyroid hormone 02/19/2023 Aortic stenosis 02/19/2023 Retroperitoneal bleed 02/18/2023 Acute encephalopathy 02/10/2023 Diarrhea 02/10/2023 Septicemia due to gram-negative organism 023 Septic shock 02/10/2023 Atrial fibrillation with rapid ventricular respo nse 02/09/2023 Acute respiratory failure with hypoxia Hypovolemic shock 02/09/2023 DEIRDRE (acute kidney injury) 02/09/2023 NSTEMI (non-ST elevated myocardial infarction) 0 02/09/2023 Influenza 05/21/2022 Severe sepsis with septic shock 05/20/2022 Urinary tract infection 05/20/2022 Chronic sinusitis 05/20/2022 Acute metabolic encephalopathy 05/20/2022 COPD with hypoxia 05/20/2022 Type 2 diabetes mellitus with hyperglycemia 01/2022 Steatopygia 02/15/2022 Limited mobility 02/15/2022 MCC current use of anticoagulant Age-related physical debility 02/09/2022 Use of cane as ambulatory aid 10/20/2021 Seasonal allergic rhinitis 10/20/2021 Squamous cell carcinoma of skin of left cheek Thrush 10/09/2021 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 At risk of fracture due to osteoporosis 07/16/19 22 Paroxysmal A-fib 07/16/2021 Chronic respiratory failure with hypoxia 021 Mixed hyperlipidemia 10/28/2020 Vitamin B12 deficiency (non anemic) 10/28/2020 Vitamin D deficiency 10/28/2020 Chronic pain of both shoulders 12/12/2019 Frequent falls 06/15/2019 Balance disorder 06/15/2019 Class 3 severe obesity with body mass index (BMI) of 40.0 to 44.9 in adult 02/13/2019 COPD (chronic obstructive pulmonary disease) 08/2018 History of cancer metastatic to lymph nodes 07/14 Overview (02/10/2023): Active Arthritis 07/27/2018 Overview (02/10/2023): Active HTN (hypertension), benign 10/19/2017 History of lymphoma 10/19/2017 Generalized osteoarthrosis, involving multiple s ites 10/19/2017 Major depressive disorder, s luis f episode, in full remission 10/19/2017 Diabetes mellitus 10/19/2017 Overview (02/10/2023): Active Current Treatment and Therapy Plans No current plan information found. Past Treatment and Therapy Plans No past plan information found. Lifetime Dose Tracking * Chemical Lifetime Dose Automatic Entry Manual Entr y Effective Dose 45.06 mSv 45.06 mSv 0 mSv Total DLP 5,862.52 DLP 5,862.52 DLP 0 DLP CTDIvol Max 132.27 mGy 132.27 mGy 0 mGy CTDIvol Min 34.66 mGy 34.66 mGy 0 mGy Resolved Problems Problem Noted Date Diagnosed Date Resolved Date Enterovirus infection 02/10/20232022 High anion gap metabolic acidosis 02/09/2023 02/10/2023 Acute cystitis without hematuria 05/23/2022 02/10/2023 Statin intolerance 06/15/2021
--- OUTSIDE RECORDS SUMMARY | 2025-04-21 10:08 | XMS_ITS | Encounter Summary ---
Author Organization [facility] Address [address] [place] [address] Care Team Providers Care Portable Track Crew Chief Name Role Phone Franko Savage MD Primary Care Provider [phone] Reason for Referral * Radiology Services (Routine) - Closed Specialty Diagnoses / Procedures Referred By Contac t Referred To Contact Radiology Diagnoses Inconclusive mammography Procedures MAMMO DIAG UNI RIGHT 3D VIPIN W OR WO CAD CHG DIAGNOSTIC MAMMOGRAPHY COMPUTER-AIDED DETCJ UNI CHG DIGITAL BREAST TOMOSYNTHESIS UNILATERAL Franko Savage MD [address] [place] [phone] Phone: tel: fax: [facility] [address] [address] Phone: tel: fax: Referral ID Status Reason Start Date Expiration Date Visits Requested Visits Authorized [id number] Closed Performing Department To Schedule (SGF) 01/17/2020 02/16/2021 1 1 Encounter Details Date Type Department Care Team (Latest Contact Info) Description 01/17/2020 Ancillary Orders [facility] [address] [address] Franko Savage MD [address] [place] [address] Inconclusive mammography Social History Tobacco Use Types Packs/Day Years Used Date Smoking Tobacco: Never Smokeless Tobacco: Never Alcohol Use Standard Drinks/Week Comments No 0 (1 standard drink = 0.6 oz pur e alcohol) Comments No Sex and Gender Information Value Date Recorded Sex Assigned at Not on file Legal 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 No / Unsure 12/31/2019 8:28 AM CDT documented as of this encounter Plan of Treatment Not on file documented as of this encounter Results * (ABNORMAL) MAMMO DIAG UNI RIGHT 3D VIPIN W OR WO CAD (03/18/2020 1:05 PM CDT) Anatomical Region Laterality Modality Breast Right Mammography 03/18/2020 1:06 PM CDT Impressions 03/19/2020 5:15 PM CDT : Probably benign 0.8 cm group of microcalcifications in the right breast at 1:00, 7 cm from the nipple for which short interval follow-up is recommended with right diagnostic mammogram follow-up in 6 months. The patient was given verbal and written results/recommendations. BI-RADS ASSESSMENT: 3 - Probably Benign RECOMMENDATION: Right diagnostic mammogram follow-up in 6 months [id number] Narrative 03/19/2020 5:15 PM CDT EXAM: MAMMO DIAG UNI RIGHT 3D VIPIN W OR WO CAD INDICATION: 70-year-old female presents for diagnostic evaluation of indeterminate calcifications in the upper inner quadrant of the right breast at anterior depth seen on recent screening mammography. COMPARISON: Mammogram 12/31/2019, 07/10/2018, 07/12/2014, 08/14/2012, 04/02/2011, 02/20/2010 MAMMOGRAM TECHNIQUE: Right 3-D ML digital tomosynthesis images were acquired. Synthesized 2-D images (C-view) were generated. This digital mammogram was also analyzed by the Computer Aided Detection System (CAD). In addition, magnification CC and magnification ML images of the right breast were obtained. FINDINGS: The breasts are almost entirely fatty. The calcifications in the right breast at 1:00, 7 cm from the nipple measure 0.8 cm and have predominantly round morphology. There are no suspicious associated masses or architectural distortions. us Franko Savage MD MAMMO ORDERABLES Final Result documented in this encounter Visit Diagnoses Diagnosis Inconclusive mammography Inconclusive mammogram Inconclusive mammography Inconclusive mammogram documented in this encounter Additional Health Concerns Assessment Noted Time PHQ-9 Depression Total Score: 2 12/31/19 20 9:00 AM CDT documented as of this encounter Care Teams Portable Track Crew Chief Relationship Specialty Start Date End Date Franko Savage MD [address] [place] [phone] PCP - General Family Practice 06/15/19 documented as of this encounter
--- OUTSIDE RECORDS SUMMARY | 2025-04-21 10:08 | XMS_ITS | Encounter Summary ---
Author Organization [facility] Address [address] [place] [address] Care Team Providers Care Sorting Livestock Worker Name Role Phone Franko Savage MD Primary Care Provider [phone] Encounter Details Date Type Department Care Team (Latest Contact Info) Description 08/03/2019 Ancillary Orders [facility] [address] [facility] [address] [place] [address] Franko Savage MD [address] [place] [address] Encounter for screening mammogram for breast cancer Social History Tobacco Use Types Packs/Day Years Used Date Smoking Tobacco: Never Smokeless Tobacco: Never Alcohol Use Standard Drinks/Week Comments No 0 (1 standard drink = 0.6 oz pur e alcohol) Comments No Sex and Gender Information Value Date Recorded Sex Assigned at Not on file Legal Sex Female 3:31 AM DEPARTMENT DIRECTOR Gender Identity Not on file Sexual Orientation Not on file documented as of this encounter Plan of Treatment Not on file documented as of this encounter Visit Diagnoses Diagnosis Encounter for screening mammogram for breast cancer documented in this encounter Additional Health Concerns Assessment Noted Time PHQ-9 Depression Total Score: 2 06/15/19 20 6:00 PM DEPARTMENT DIRECTOR documented as of this encounter Care Teams Sorting Livestock Worker Relationship Specialty Start Date End Date Franko Savage MD [facility] [address] [place] [phone] PCP - General Family Practice 06/15/19 documented as of this encounter
--- OUTSIDE RECORDS SUMMARY | 2025-04-21 10:08 | XMS_ITS | Encounter Summary ---
Author Organization [facility] Address [address] [place] [address] Care Team Providers Care Replacer Name Role Phone Franko Savage MD Primary Care Provider [phone] Encounter Details Date Type Department Care Team (Latest Contact Info) Description 06/15/2005 Outpatient Historical [facility] [address] [address] Lg Garrido Jr., MD [address] [place] [address] [address] [facility] [address] [place] [address] Sprain lumbosacral (Primary Dx) Social History Tobacco Use Types Packs/Day Years Used Date Smoking Tobacco: Never Assessed Comments Unknown Sex and Gender Information Value Date Recorded Sex Assigned at Not on file Legal Sex Female 3:31 AM OPERATIONS TECH Gender Identity Not on file Sexual Orientation Not on file documented as of this encounter Plan of Treatment Not on file documented as of this encounter Visit Diagnoses Diagnosis Sprain lumbosacral- Primary Sprain of lumbosacral (joint) (ligament) documented in this encounter Care Teams Replacer Relationship Specialty Start Date End Date Franko Savage MD [address] [address] PCP - General Family Practice 06/15/19 documented as of this encounter
--- OUTSIDE RECORDS SUMMARY | 2025-04-21 10:08 | XMS_ITS | Encounter Summary ---
Author Organization [employer] [facility] Address [address] [place] [address] Care Team Providers Care Timber Watchman Name Role Phone Franko Savage MD Primary Care Provider [phone] Encounter Details Date Type Department Care Team (Late st Contact Info) Description 12/31/2019 Ancillary Orders [facility] [address] [place] [address] Franko Savage MD [address] [place] [address] Social History Tobacco Use Types Packs/Day Years Used Date Smoking Tobacco: Never Smokeless Tobacco: Never Alcohol Use Standard Drinks/Week Comments No 0 (1 standard drink = 0.6 oz pur e alcohol) Comments No Sex and Gender Information Value Date Recorded Sex Assigned at Not on file Legal 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
--- OUTSIDE RECORDS SUMMARY | 2025-04-21 10:08 | XMS_ITS | Encounter Summary ---
Author Organization [facility] Address [address] [place] [address] Care Team Providers Care Radiology Administrator Name Role Phone Franko Savage MD Primary Care Provider [phone] Encounter Details Date Type Department Care Team (Latest Contact Info) Description 03/26/1999 Outpatient Historical [address] [phone] Amanda Callahan MD NO ADDRESS ON FILE Urinary tract infection, site not specified (Primary Dx) Social History Tobacco Use Types Packs/Day Years Used Date Smoking Tobacco: Never Assessed Comments Unknown Sex and Gender Information Value Date Recorded Sex Assigned at Not on file 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
--- OUTSIDE RECORDS SUMMARY | 2025-04-21 10:08 | XMS_ITS | Encounter Summary ---
Author Organization [facility] Address [address] [place] [address] Care Team Providers Care Shuttle Filler Name Role Phone Franko Savage MD Primary Care Provider [phone] Encounter Details Date Type Department Care Team (Late st Contact Info) Description 05/23/2008 Outpatient Historical [facility] [address] [place] [address] Santhosh Malhotra MD [address] [facility] [address] [place] [address] Social History Tobacco Use Types Packs/Day Years Used Date Smoking Tobacco: Never Assessed Comments No Sex and Gender Information Value Date Recorded Sex Assigned at Not on file Legal Sex Female 3:31 AM SAP TECHNICAL DEVELOPER Gender Identity Not on file Sexual Orientation Not on file documented as of this encounter Plan of Treatment Not on file documented as of this encounter Procedures Procedure Name Priority Date/Time Associated Diagnosis Comments PATHOLOGY Routine 05/23/2008 2:41 PM SAP TECHNICAL DEVELOPER documented in this encounter Results * PATHOLOGY (05/23/2008 2:41 PM SAP TECHNICAL DEVELOPER) PATHOLOGY/CYT OLOGY REPORT [facility] Anatomic Pathology Dept [address] [facility] [address] Patient: JARAD GLYNN Accn No: [id number] Collected: 05/23/2008 2:41:00 PM DERMATOPATHOLOGY FINAL REPORT Diagnosis A. SOLAR KERATOSIS, ACANTHOTIC AND ACANTHOLYTIC (SEE COMMENT) (702.0) (RIGHT LOWER NASAL SIDEWALL) B. BASAL CELL CARCINOMA, INFILTRATIVE PATTERN (173.3) (RIGHT UPPER NASAL SIDEWALL) Lance Ayala MD (Electronically signed by) Verified: 05/30/08 RP /WLS Pathologist Comment This lesion extends to the deep biopsy margin, and therefore underlying carcinoma cannot be entirely excluded. Rebiopsy is warranted if a lesion persists at this site. Clinical Information A. Rule out basal cell carcinoma. B. Rule out basal cell carcinoma. Specimen Source A. RIGHT LOWER NASAL SIDEWALL B. RIGHT UPPER NASAL SIDEWALL Gross Description A. Received in formalin is a white fragment of skin measuring 0.4 x 0.4 x 0.1 cm. The specimen is bisected and submitted in cassette A1. B. Received in formalin is a white papule measuring 0.3 x 0.3 x 0.1 cm. The specimen is submitted intact in cassette B1. *Gross examination performed at [facility], [address] [place] [id number] DI RP /WLS Microscopic Description A. Sections show an intraepithelial proliferation of atypical keratinocytes, confined largely to the interadnexal epidermis. The epithelium is thickened in some areas and acantholytic in others. B. Sections show angulate aggregations of peripherally palisaded basaloid cells, in infiltrative array in the dermis. The basal cell carcinoma is seen extending to the lateral and deep biopsy margins. INTERFACE SYSTEM 05/23/2008 2:41 PM SAP TECHNICAL DEVELOPER Santhosh Malhotra MD PATHOLOGY/CYTOLOGY ORDERABLES Final Result INTERFACE SYSTEM Refer to clinic/hospital department documented in this encounter Visit Diagnoses Not on filedocumented in this encounter Care Teams Shuttle Filler Relationship Specialty Start Date End Date Franko Savage MD [address] [place] [phone] PCP - General Family Practice 06/15/19 documented as of this encounter
--- OUTSIDE RECORDS SUMMARY | 2025-04-21 10:08 | XMS_ITS | Clinical Summary ---
Author Organization [facility] Brenda Address [address] [address] Care Team Providers Care Dressed Poultry Grader Name Role Phone Franko Savage MD Primary Care Provider [phone] Allergies Active Allergy Reactions Criticality Noted Date Comments Acetaminophen-Codeine Itching Low 01/03/2006 Atorvastatin Muscle Pain High 03/14/2020 Codeine Itching Low 01/13/2015 Iodine Itching Low 01/13/2015 Medications rOPINIRole (REQUIP) 0.5 mg tabletIndications: Restless leg syndrome Take 1 Tablet (0.5 mg) by mouth 1 time daily as needed (restless leg syndrome). 90 Tablet 0 08/07/19 20 Active Nebulizer & Compressor For Neb DeviceIndications: Chronic obstructive pulmonary disease, unspecified COPD type (CMS/HCC),Shortnes s of breath Nebulized albuterol 3 times daily as needed for shortness of breath, wheezing. Length of need. - 99 months. DUANE Maddox, 06/04/2020. Please refax to [phone]. 1 Each 0 06/03/20 20 Active dextromethorphan polistirex (DELSYM) 30 mg/5 mL Suspension, Sust. Release 12HRIndications:Co ugh Take 10 mL by mouth every 12 hours as needed for Cough. 03/30/20 19 Active albuterol (PROVENTIL,VENTOLI N) 2.5 mg /3 mL (0.083 %) Solution for NebulizationIndica tions:COPD with exacerbation ([facility]),Upper respiratory tract infection, unspecified type Take 3 mL (2.5 mg) by inhalation every 6 hours as needed for Shortness of Breath. 120 mL 1 10/22/19 21 Active ipratropium-albute roL (DUONEB) 0.5 mg-3 mg(2.5 mg base)/3 mL Solution for Nebulization USE 3 ML VIA NEBULIZER EVERY 6 HOURS NEEDED FOR SHORTNESS OF BREATH OR WHEEZING 270 mL 03/19/20 21 Active cyanocobalamin 1,000 mcg TabletIndications: Vitamin B12 deficiency (non anemic) Take 1 Tablet (1,000 mcg) by mouth daily. 90 Tablet 3 07/20/19 22 Active escitalopram oxalate (LEXAPRO) 20 mg tablet Take 1 Tablet (20 mg) by mouth daily. 90 Tablet 3 07/20/19 22 Active diclofenac sodium (VOLTAREN) 1 % gelIndications:Gen eralized osteoarthrosis, involving multiple sites APPLY 2 GRAMS EXTERNALLY TO THE AFFECTED AREA FOUR TIMES DAILY 100 Gram 3 09/03/19 22 Active Accu-Chek Fastclix Lancet Drum CHECK BLOOD SUGAR DAILY DIRECTED 102 Each 3 09/08/19 22 Active Blood-Glucose MeterIndications:T ype 2 diabetes mellitus with diabetic polyneuropathy, without long-term current use of insulin ([facility]) Check blood sugar twice daily as directed. 1 Each 09/10/19 22 Active blood sugar diagnostic Strip Check blood sugar twice daily as directed. 200 Each 11 09/10/19 22 Active triamcinolone acetonide (KENALOG) 0.1 % Cream APPLY TO THE AFFECTED AREA(S) TOPICALLY TWICE DAILY FOR 10 DAYS. (USE SPARINGLY) (BULK) 45 Gram 10/03/19 22 Active nystatin (MYCOSTATIN) 100,000 unit/gram Cream Apply to affected area 2 times daily. Apply sparingly. 30 Gram 3 10/06/19 22 Active cetirizine (ZyrTEC) 10 mg tabletIndications: Seasonal allergic rhinitis, unspecified trigger Take 1 Tablet (10 mg) by mouth 1 time daily as needed for Allergies. 30 Tablet 2 10/21/19 22 Active cholecalciferol 1,250 mcg (50,000 unit) CapsuleIndications :Vitamin D deficiency TAKE ONE CAPSULE BY MOUTH EVERY 7 DAYS (VIAL) 14 Capsule 1 11/03/19 Active potassium chloride (KLOR-CON) 20 mEq Extended Release tablet TAKE 1 TABLET(20 MEQ) BY MOUTH TWICE DAILY 180 Tablet 3 11/11/19 Active Mucus Relief ER 600 mg Extended Release Biphasic tabletIndications: Chronic obstructive pulmonary disease, unspecified COPD type (CMS/HCC),Acute maxillary sinusitis, recurrence not specified TAKE ONE TABLET BY MOUTH TWICE DAILY @9AM-5PM (bulk) 180 Tablet 3 12/03/19 22 Active gabapentin (NEURONTIN) 600 mg tablet TAKE ONE TABLET BY MOUTH THREE TIMES DAILY @ 9AM-1PM-5PM 90 Tablet 11 12/30/19 22 Active metoprolol tartrate (LOPRESSOR) 25 mg tablet Take 1 Tablet (25 mg) by mouth 2 times daily. 180 Tablet 3 01/22/20 Active olopatadine (Pataday Once Daily Relief) 0.2 % solution Administer 1 Drop in both eyes daily. 5 mL 5 02/10/20 22 Active fluticasone propionate (FLONASE) 50 mcg/spray [place], Suspension nasal inhalerIndications :Allergic rhinitis, unspecified seasonality, unspecified trigger INSTILL 2 SPRAYS IN EACH NOSTRIL ONCE DAILY SHAKE WELL BEFORE USE 16 Gram 3 04/13/20 Active colestipoL (COLESTID) 1 gram tabletIndications: Mixed hyperlipidemia TAKE 1 TABLET BY MOUTH TWICE DAILY AT 9 AM AND AT 5 PM 180 Tablet 3 04/26/20 22 Active traMADoL (ULTRAM) 50 mg tabletIndications: Generalized osteoarthrosis, involving multiple sites TAKE 1 TO 2 TABLETS(50 TO 100 MG) BY MOUTH EVERY 6 HOURS NEEDED FOR PAIN Strength: 50 mg 150 Tablet 04/27/20 Active oxygen home delivery Home Oxygen Concentrator yes at 2 L/M Rest, 2 L/M Activity, 2 L/M Sleep, Delivery Device: Nasal Cannula Portability: yes, 2 L/M Rest, 2 L/M Activity, May provide device best for patient needs(E system,home fill, conserving device) Length of Need: 99 months 1 Each 05/23/20 Active simvastatin (ZOCOR) 10 mg tablet Take 1 Tablet (10 mg) by mouth daily at bedtime. 90 Tablet 3 05/25/20 22 Active budesonide-formote roL (Symbicort) 160-4.5 mcg/actuation HFA Aerosol Inhaler INHALE TWO PUFFS BY MOUTH TWICE DAILY (BULK) Strength: 160-4.5 mcg/actuation 10.2 Gram 4 06/01/20 22 Active metFORMIN (GLUCOPHAGE) 1,000 mg tablet TAKE ONE TABLET BY MOUTH TWICE DAILY @ 9AM & 5PM WITH MEALS 180 Tablet 3 07/26/19 23 Active Active Problems Problem Noted Date Diagnosed [...] hyperglycemia 01/2022 Steatopygia 02/15/2022 Limited mobility 02/15/2022 correction current use of anticoagulant 2 Age-related physical debility 02/09/2022 Use of cane [...] 10/19/2017 Diabetes mellitus 10/19/2017 Overview (02/10/2023): Active Resolved Problems Problem Noted Date Diagnosed Date Resolved Date Enterovirus infection 02/10/20232022 High anion gap metabolic acidosis 02/09/2023 02/10/2023 Acute cystitis without hematuria 05/23/2022 02/10/2023 Statin intolerance 06/15/2021 2 Immunizations Immunization Administration Dates Next Due (Moderna Bivalent)(6 Mos Up) COVID-19 Vaccine - Emergency Use Authorization, MRNA(Pf) 50 Mcg/0.5 Ml Im Susp 04/07/2022 (PREVNAR 13)(6 WKS UP) PNEUM OCOCCAL CONJUGATE (PCV13) 0.5 ML, IM 02/28/2019 (SPIKEVAX) (12 YRS UP PRIMAR Y SERIES) COVID-19 VACCINE - MRNA-1273(PF) 100 MCG/0.5 ML IM SUSP 01/09/2022,05/26/2021,08/22/2020,07/25 INFLUENZA VACCINE HIGH DOSE QUADRIVALENT 65 YR UP PF IM 04/21/2020 Influenza Seasonal Unspecifi ed Formulation IM 04/06/2022,03/24/2021,02/28/2019,03/14,03/01/2018 PNEUMOVAX (PPSV23) pneumococ cecil polysaccharide 23-valent Vaccine [...] drink = 0.6 oz pur e alcohol) Feeling Safe Answer Date Recorded Fear of Current or Ex-Partner Not on file Within the last year, have y ou been humiliated or emotionally abused in other ways by your partner or ex-partner? No 07/02/2021 Within the last year, have y ou been kicked, hit, slapped, or otherwise physically hurt by your partner or ex-partner? No 07/02/2021 Within the last year, have y ou been raped or forced to have any kind of sexual activity by your partner or ex-partner? No 07/02/2021 Social Connections Answer Date Recorded In a typical week, how many times do you talk on the telephone with family, friends, or neighbors? Three times a week 06/14 How often do you get togethe r with friends or relatives? Once a week 07/02/2021 How often do you attend [facility] or gnosticist services? 1 to 4 times per year 07/02/2021 Do you belong to any clubs o r organizations such as jain groups, unions, fraternal or athletic groups, or school groups? No 07/02/2021 How often do you attend meet ings of the clubs or organizations you belong to? Never 07/02/2021 Are you , , di vorced, , never , or living with a partner? 07/02/2021 Financial Resource Strain Answer Date R ecorded How hard is it for you to pa y for the very basics like food, housing, medical care, and heating? Not very hard 07/20/2021 Food Insecurity Answer Date Recorded In the past 12 months, have you worried that your food would run out before you had money to buy more? Never true 07/20/2021 In the past 12 months, did y ou run out of food and didn't have money to buy more? Never true 07/20/2021 Transportation Needs Answer Date Record ed In the past 12 months, has l ack of transportation kept you from medical appointments or from getting medications? No 07/20/2021 Lack of Transportation (Non-Medical) Not on file 07/20/2021 Housing Stability Answer Date Recorded In the last 12 months, was t here a time when you were not able to pay the mortgage or rent on time? No 07/02/2021 In the past 12 months, how m any times have you moved where you were living? 1 07/02/2021 At any time in the past 12 m [facility], were you homeless or living in a custodial (including now)? No 07/02/2021 Comments No Sex and Gender Information Value Date Recorded Sex Assigned at Not on file Legal Sex Female 2:49 PM SENIOR BUSINESS CONSULTANT Gender Identity Not on file Sexual Orientation Not on file Last Filed Vital Signs Vital Sign Reading Time Taken Comments Blood Pressure 101/46 02/20/2023 7:20 AM CDT Pulse 89 02/20/2023 7:20 AM CDT Temperature 36.6 C (97.9 F) 02/20/2023 7:20 AM CDT Respiratory Rate 19 02/20/2023 7:20 AM CDT Oxygen Saturation 96% 02/20/2023 7:20 AM CDT Inhaled Oxygen Concentration - - Weight 127.9 kg (281 lb 15.5 oz) 02/20/2023 4:25 AM CDT Height 160 cm (5' 3 ) 05/20/2022 9:50 PM SENIOR BUSINESS CONSULTANT Body Mass Index 49.95 05/20/2022 9:50 PM SENIOR BUSINESS CONSULTANT Plan of Treatment Health Maintenance Due Date Last Done Comments DTAP/TDAP/TD VACCINES (1 - Tdap) 01/30/1967 ZOSTER VACCINE (1 of 2) 01/30/1998 DIABETES MICROALBUMIN ANNUAL SCREEN 06/15/2022 06/15/2021, 05/02/2020, 02/13/2019, Additional history exists DIABETES ANNUAL RETINAL EXAM 07/23/202203/2022, 12/12/2019, 04/16/2019, Additional history exists LDL CHOLESTEROL ANNUAL 01/19/2023 , 06/15/2021, 10/23/2020, Additional history exists RSV VACCINE (60+ or ) (1 - 1-dose 75+ series) 01/30/2023 DIABETES ANNUAL FOOT EXAM 02/24/20232021, 03/05/2021, 12/12/2019 DIABETES HBA1C Q 6 MONTHS 08/11/20232022, 01/19/2022, 06/15/2021, Additional history exists [place] Preventative Visit/Annual Wellness Visit 06/13/2024 10/20/2021, 07/20/2021, 03/16/2016, Additional history exists INFLUENZA VACCINE (#1) 2025 2, 04/06/2022, 03/24/2021, Additional history exists COVID-19 Vaccine (2024-2 6 season) 2025 04/07/2022, 01/09/2022, 05/26/2021, Additional history exists OSTEOPOROSIS SCREENING 07/23/2026 07/23/2021 COLORECTAL SCREENING Discontinued 04/09/2016, 04/09/2016, 04/16/2011, Additional history exists Colorectal Cancer Screening Discontinued PNEUMOCOCCAL VACCINE 50+ YEARS Completed 02/28/2019 , 03/18/2017 FIT-DNA Q 3 years Discontinued FIT/FOBT Q 1 year Discontinued Flex Sig/CT Colonography Q 5 years Discontinued Procedures Procedure Name Priority Date/Time Associated Diagnosis Comments HEMOGLOBIN A1C Routine 02/09/2023 7:32 PM CDT LIPID PANEL Routine 01/19/2022 8:09 AM CDT Type 2 diabetes mellitus with diabetic polyneuropathy, without long-term current use of insulin ([facility]) XR DEXA BONE DENSITY AXIAL 1 OR MORE SITES Routine 07/23/2021 10:01 AM SENIOR BUSINESS CONSULTANT Osteopenia of multiple sites HM DIABETES EYE EXAM Routine 07/23/2021 MICROALBUMIN/CREATIN INE RATIO, RANDOM UR Routine 06/15/2021 8:24 AM SENIOR BUSINESS CONSULTANT Type 2 diabetes mellitus with diabetic polyneuropathy, without long-term current use of insulin ([facility]) ENDOSCOPY, COLON, DIAGNOSTIC 04/09/2016 12:00 AM CDT from Last 3 Months or Most Recently Relevant to Health Maintenance Results * (ABNORMAL) HEMOGLOBIN A1C (02/09/2023 7:32 PM CDT) HEMOGLOBIN A1C 5.7(H) <=5.6 % 02/10/2023 12:54 AM CDT [facility] Edictive [facility] EST. AVG GLUCOSE, A1C 117 mg/dL 02/10/2023 12:54 AM CDT [facility] Edictive [facility] Blood Venipuncture / Unknown 02/09/2023 7:32 PM CDT 02/09/2023 7:37 PM CDT [facility] - 02/10/2023 12:54 AM CDT HGB A1C INTERPRETATION NORMAL: <5.7% PRE-DIABETES: 5.7 - 6.4% DIABETES: 6.5% OR GREATER Kristina Rae APN CHEMISTRY ORDERABLES Final Result [facility] Edictive [facility] CLIA# [id number] [address] [place] [address] * (ABNORMAL) LIPID PANEL (01/19/2022 8:09 AM CDT) Pathologist [facility] CHOLESTEROL 151 <200 mg/dL [facility] HDL 47(L) > OR = 50 mg/dL [facility] TRIGLYCERIDE 146 <150 mg/dL [facility] LDL CALCULATED 79 mg/dL (calc) [facility] Comment: Reference range: <100 Desirable range <100 mg/dL for primary prevention; <70 mg/dL for patients with CHD or diabetic patients with > or = 2 CHD risk factors. LDL-C is now calculated using the Kristen calculation, which is a validated novel method providing better accuracy than the Friedewald equation in the estimation of LDL-C. Christian BISHOP et al. JASON. 2013;310(19): 0573-2260 (http://education.[employer].MyWealth/faq/LEH073) CHOL/HDL RATIO 3.2 <5.0 (calc) [facility] TOTAL NON-HDL CHOL(LDL+VLDL) 104 <130 mg/dL (calc) [facility] Comment: For patients with diabetes plus 1 major ASCVD risk factor, treating to a non-HDL-C goal of <100 mg/dL (LDL-C of <70 mg/dL) is considered a therapeutic option. Test Performed at: [facility] [address] [address] Marlon Garza D.O., MPH Blood 01/19/2022 8:09 AM CDT 01/20/2022 3:17 AM CDT Sania Loco CURTAIN STRETCHER CHEMISTRY ORDERABLES Final Result [facility] [phone] [facility] [address] [address] * XR DEXA BONE DENSITY AXIAL 1 OR MORE SITES (07/23/2021 10:01 AM SENIOR BUSINESS CONSULTANT) Anatomical Region Laterality Modality Nuclear Medicine 07/23/2021 10:0 1 AM SENIOR BUSINESS CONSULTANT Impressions 07/24/2021 9:38 AM SENIOR BUSINESS CONSULTANT IMPRESSION: 1. Current findings consistent with osteopenia with site of lowest density at the femoral neck. 2. Age matched Z-score of greater than -2.0 is within expected range for age and does not indicate accelerated bone demineralization. Definitions: T-score > -0.99 = Normal T-score -1.00 to -2.49 = Osteopenia T-score < -2.50 = Osteoporosis Z-score >-2.0 = Normal Z-score <-2.0 = Low bone density for chronologic age N.B. Changes in density of <=0.05 g/cm2 are not statistically significant. RECOMMENDATIONS: Follow up 1 year after starting or changing therapy recommended. NOF guidelines recommend consideration of FDA-approved medical therapies in patients with FRAX determined 10-year probabilities of hip/major osteoporosis-related fractures equal or greater than 3%/20% respectively. Consider assessing fracture risk using the FRAX analysis tool for guidance of clinical management available online at www.shef.ac.uk/FRAX/. Enter [employer].com for Select DXA and the Femoral Neck BMD value. Narrative 07/24/2021 9:38 AM SENIOR BUSINESS CONSULTANT Exam: XR DEXA BONE DENSITY AXIAL 1 OR MORE SITES Reason For Exam: See Diagnosis, osteoporosis screening. Diagnosis: Osteopenia of multiple sites Findings: The following absorptiometry data were obtained. The quality of this examination is acceptable with regards to count density, processed images, data display and lack of important artifacts (including but not limited to motion and attenuation artifacts). L1-L4 BMD (g/cm2): 1.196 Adult T-score: 0.0 Adult Z-score: Normal Left Femur Neck BMD (g/cm2): 0.844 Adult T-score: -1.4 Adult Z-score: Normal Left Total Femur BMD (g/cm2): 0.893 Adult T-score: -0.9 Adult Z-score: Normal Procedure Note Valentino Rodriguez MD - 07/24/2021 Exam: XR DEXA BONE DENSITY AXIAL 1 OR MORE SITES Reason For Exam: See Diagnosis, osteoporosis screening. Diagnosis: Osteopenia of multiple sites Findings: The following absorptiometry data were obtained. The quality of this examination is acceptable with regards to count density, processed images, data display and lack of important artifacts (including but not limited to motion and attenuation artifacts). L1-L4 BMD (g/cm2): 1.196 Adult T-score: 0.0 Adult Z-score: Normal Left Femur Neck BMD (g/cm2): 0.844 Adult T-score: -1.4 Adult Z-score: Normal Left Total Femur BMD (g/cm2): 0.893 Adult T-score: -0.9 Adult Z-score: Normal IMPRESSION: 1. Current findings consistent with osteopenia with site of lowest density at the femoral neck. 2. Age matched Z-score of greater than -2.0 is within expected range for age and does not indicate accelerated bone demineralization. Definitions: T-score > -0.99 = Normal T-score -1.00 to -2.49 = Osteopenia T-score < -2.50 = Osteoporosis Z-score >-2.0 = Normal Z-score <-2.0 = Low bone density for chronologic age N.B. Changes in density of <=0.05 g/cm2 are not statistically significant. RECOMMENDATIONS: Follow up 1 year after starting or changing therapy recommended. NOF guidelines recommend consideration of FDA-approved medical therapies in patients with FRAX determined 10-year probabilities of hip/major osteoporosis-related fractures equal or greater than 3%/20% respectively. Consider assessing fracture risk using the FRAX analysis tool for guidance of clinical management available online at www.shef.ac.uk/FRAX/. Enter [employer]com for Select DXA and the Femoral Neck BMD value. Result [facility] Natalia Snowden NP DIAGNOSTIC IMAGING ORDERABLES Fi nal Result * HM DIABETES EYE EXAM (07/23/2021) Result [facility] Abstract Provider HEALTH MAINTENANCE Final Resul t * MICROALBUMIN/CREATININE RATIO, RANDOM UR (06/15/2021 8:24 AM SENIOR BUSINESS CONSULTANT) Creatinine, Urine 88 20 - 275 mg/dL [facility] MICROALBUMIN, URINE 0.5 See Note: mg/dL [facility] Comment: Reference Range: Reference Range Not established MICROALBUMIN/CREAT RATIO, UR 6 <30 mcg/mg creat [facility] Comment: The ADA defines abnormalities in albumin excretion as follows: Albuminuria Category Result (mcg/mg creatinine) Normal to Mildly increased <30 Moderately increased 30-299 Severely increased > OR = 300 The ADA recommends that at least two of three specimens collected within a 3-6 month period be abnormal before considering a patient to be within a diagnostic category. Test Performed at: [facility] [address] [address] Marlon Garza D.O., MPH Urine URINE SPECIMEN OBTAINED BY CLEAN CATCH PROCEDURE / Unknown 06/15/2021 8:24 AM SENIOR BUSINESS CONSULTANT 06/16/2021 9:14 AM SENIOR BUSINESS CONSULTANT Sania MCCONNELLP URINE ORDERABLES Final Res ult [facility] [address] [place] [address] * ENDOSCOPY, COLON, DIAGNOSTIC (04/09/2016 12:00 AM CDT) us Sgf Scanning GI PROCEDURE ORDERABLES Final Re sult from Last 3 Months or Most Recently Relevant to [place] [address] MEDICAID [facility] [id number] Advance Directives For more information, please contact: [phone] Documents on File Type Date Recorded Patient Production Roustabout Expl anation Advance Directive POA 02/21/2023 12:47 PM Advance Directive POA * NO CPR (In Event of Cardiopulmonary Arrest) (Latest Code Status on File) Date Activated Date Inactivated Comments 02/10/2023 5:40 PM 02/20/2023 1:48 PM Question Answer Comments Mechanical Ventilation (for respiratory distress) - Invasive (i.e. intubation): Yes Mechanical Ventilation (for respiratory distress) - Non-Invasive (i.e. BiPAP, CPAP): Yes * NO CPR (In Event of Cardiopulmonary Arrest) Date Activated Date Inactivated Comments 02/10/2023 1:51 PM 02/10/2023 5:40 PM Question Answer Comments Mechanical Ventilation (for respiratory distress) - Invasive (i.e. intubation): Yes Mechanical Ventilation (for respiratory distress) - Non-Invasive (i.e. BiPAP, CPAP): Yes * Default Full Code - Needs Discussion Date Activated Date Inactivated Comments 02/09/2023 7:47 PM 02/10/2023 1:51 PM * Default Full Code - Needs Discussion Date Activated Date Inactivated Comments 02/09/2023 7:10 PM 02/09/2023 7:47 PM * Full Code Date Activated Date Inactivated Comments 05/23/2022 10:09 AM 05/23/2022 6:49 PM Care Teams Dressed Poultry Grader Relationship Specialty Start Date End Date Franko Savage MD [address], [place] [address] PCP - General Family Practice 06/15/19
--- OUTSIDE RECORDS SUMMARY | 2025-04-21 10:08 | XMS_ITS | Encounter Summary ---
Author Organization [facility] Address [address] [place] [address] Care Team Providers Care Branch Examiner Name Role Phone Franko Savage MD Primary Care Provider [phone] Encounter Details Date Type Department Care Team (Latest Contact Info) Description 07/22/[address] 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
--- OUTSIDE RECORDS SUMMARY | 2025-04-21 10:08 | XMS_ITS | Encounter Summary ---
Author Organization [facility] Address [address] [place] [address] Care Team Providers Care Oracle Specialist Name Role Phone Franko Savage MD Primary Care Provider [phone] Encounter Details Date Type Department Care Team (Latest Contact Info) Description 01/26/2006 Outpatient Historical [facility] Family Medicine Brenda [facility] [address] [address] Lg Garrido Jr., MD [address] [place] [address] [address] [facility] [address] [place] [address] Polyuria (Primary Dx); Pain in Limb Social History Tobacco Use Types Packs/Day Years Used Date Smoking Tobacco: Never Assessed Comments Unknown Sex and Gender Information Value Date Recorded Sex Assigned at Not on file 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
--- OUTSIDE RECORDS SUMMARY | 2025-04-21 10:08 | XMS_ITS | Encounter Summary ---
Author Organization [facility] Address [address] [place] [address] Care Team Providers Care Cell Stripper Name Role Phone Franko Savage MD Primary Care Provider [phone] Encounter Details Date Type Department Care Team (Latest Contact Info) Description 07/01/2006 Outpatient Historical [facility] Family Medicine [facility] [address] [address] Lg Garrido Jr., MD [address] [place] [address] 248 [facility] [address] [place] [address] Achilles Bursitis or Tendinitis (Primary Dx); Enlargement of Lymph Nodes Social History Tobacco Use Types Packs/Day Years Used Date Smoking Tobacco: Never Assessed Comments Unknown Sex and Gender Information Value Date Recorded Sex Assigned at Not on file Legal 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
--- OUTSIDE RECORDS SUMMARY | 2025-04-21 10:08 | XMS_ITS | Encounter Summary ---
Author Organization [facility] Address [address] [place] [address] Care Team Providers Care Gallery Host Name Role Phone Franko Savage MD Primary Care Provider [phone] Encounter Details Date Type Department Care Team (Latest Contact Info) Description 06/21/2005 Outpatient Historical [facility] Family Medicine [facility] [address] [address] Lg Garrido Jr., MD [address] [place] [address] 248 [facility] [address] [place] [address] Sprain lumbar region (Primary Dx); SPRAIN OF KNEE & LEG NOS Social History Tobacco Use Types Packs/Day Years Used Date Smoking Tobacco: Never Assessed Comments Unknown Sex and Gender Information Value Date Recorded Sex Assigned at Not on file 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
--- OUTSIDE RECORDS SUMMARY | 2025-04-21 10:08 | XMS_ITS | Encounter Summary ---
Author Organization [facility] Address [address] [place] [address] Care Team Providers Care Rice Farmer Name Role Phone Franko Savage MD Primary Care Provider [phone] Encounter Details Date Type Department Care Team (Late st Contact Info) Description 04/18/2018 Ancillary Orders [facility] [address] [address] Phani Coles, JAYY [address] [place] [address] Pain of right hip joint Social History Tobacco Use Types Packs/Day Years Used Date Smoking Tobacco: Never Smokeless Tobacco: Never Alcohol Use Standard Drinks/Week Comments No 0 (1 standard drink = 0.6 oz pur e alcohol) Comments No Sex and Gender Information Value Date Recorded Sex Assigned at Not on file 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
--- NOTE | 2025-04-21 10:13 | XRR_ITS ---
PROCEDURE INFORMATION: Exam: XR Chest Exam date and time: 04/21/2025 10:34 AM Age: 75 years old Clinical indication: Cough and dyspnea and shortness of breath; Prior surgery; Surgery date: 6+ months; Surgery type: Loop recorder; Additional info: Dyspnea; Cough; AMS TECHNIQUE: Imaging protocol: Radiologic exam of the chest. Views: 1 view. COMPARISON: CR XR chest 1V portable [id number] 05/25/2024 9:56 AM FINDINGS: Tubes, catheters and devices: Loop recorder projects over the cardiac silhouette. Lungs: No focal consolidation. Mild interstitial and vascular prominence. Low lung volumes with bronchovascular crowding. Pleural spaces: No pneumothorax or pleural effusion. Heart/Mediastinum: Heart is enlarged. Mediastinal contours unremarkable.. Bones/joints: No acute osseous or soft tissue abnormality. XR/XR chest 1V portable [id number] IMPRESSION: 1. Pulmonary edema. Possible CHF. 2. Cardiomegaly.
--- NOTE | 2025-04-21 10:13 | CTR_ITS ---
PROCEDURE INFORMATION: Exam: CT Head Without Contrast Exam date and time: 04/21/2025 10:59 AM Age: 75 years old Clinical indication: Altered mental status/memory loss; Additional info: AMS TECHNIQUE: Imaging protocol: Computed tomography of the head without contrast. Radiation optimization: All CT scans at this facility use at least one of these dose optimization techniques: automated exposure control; mA and/or kV adjustment per patient size (includes targeted exams where dose is matched to clinical indication); or iterative reconstruction. COMPARISON: CT head wo con* [id number] 05/25/2024 10:11 AM RADIATION DOSE METRICS: Total DLP (mGy-cm): 1243.44 FINDINGS: Brain: No acute infarct, hemorrhage, mass, or mass effect. Moderate chronic white matter microvascular ischemic change. Cerebral ventricles: Normal ventricles. Persistent cavum septum pellucidum. Normal variant. No further follow-up needed. In the he No appreciable extra-axial fluid. Paranasal sinuses: Mucosal thickening in the paranasal sinuses. Mastoid air cells: Clear. Orbital cavities: Orbits are unremarkable. Sella is unremarkable. Bones: Unremarkable. Soft tissues: Unremarkable. CT/CT head wo con* [id number] IMPRESSION: 1. No acute intracranial abnormality.
--- NOTE | 2025-04-21 10:21 | W.ED.AMS ---
Documented by User: JAYY Rivera 04/21/25 14:40 HPI - Altered Mental Status General: Chief Complaint: Altered Mental Status Stated Complaint: AMS Time Seen by Provider: 04/21/25 10:06 Source: patient, EMS and old records reviewed Mode of arrival: EMS Limitations: altered mental status History of Present Illness: Patient is a 75-year-old female with extensive past medical history including recurrent UTI, acute kidney failure, metabolic encephalopathy, NSTEMI, paroxysmal A-fib, COPD, hypertension, and type 2 diabetes presenting to the emergency department by ambulance from long term for altered mental status beginning this morning. [facility] staff noted that the patient was seemly altered this morning and noted oxygen saturation 85% on room air, was placed on oxygen initially but at this time she is 95% on room air. Unknown baseline mentation at this time, she is alert and oriented to self but not to place and time. She has been complaining of chest pain as well as pain in her right lower extremity, also states that she feels weak all over, however for her altered mental status review of systems is unreliable at this time. She is tachycardic with elevated temperature 100.9 MD complaint: altered mental status Related Data Home Medications ?Medication ?Instructions ?Recorded ?Confirmed albuterol sulfate 2.5 mg/3 mL 2.5 mg inhalation Q6H PRN 01/03/23 03/21/25 (0.083 %) solution for nebulization Shortness Of Breath budesonide-formoterol HFA 160 2 puff inhalation BID 01/03/23 03/21/25 mcg-4.5 mcg/actuation aerosol inhaler cetirizine 10 mg tablet (Zyrtec) 10 mg PO QAM 01/03/23 03/21/25 cholecalciferol (vitamin D3) 1,250 50,000 unit PO Q7D 01/03/23 03/21/25 mcg (50,000 unit) capsule colestipol 1 gram tablet 1 g PO BID 01/03/23 03/21/25 cyanocobalamin (vitamin B-12) 1,000 mcg PO QAM 01/03/23 03/21/25 1,000 mcg tablet diclofenac sodium 1 % topical gel See Rx Instructions .Route .COMPLEX 01/03/23 03/21/25 escitalopram oxalate 20 mg tablet 20 mg PO QAM 01/03/23 03/21/25 fluticasone propionate 50 2 spray intranasal QAM 01/03/23 03/21/25 mcg/actuation nasal spray,suspension gabapentin 600 mg tablet 600 mg PO TID 01/03/23 03/21/25 ipratropium 0.5 mg-albuterol 3 mg 3 ml inhalation Q6H PRN Shortness 01/03/23 03/21/25 (2.5 mg base)/3 mL nebulization Of Breath soln metoprolol tartrate 25 mg tablet 25 mg PO BID 01/03/23 03/21/25 ropinirole 0.5 mg tablet 0.5 mg PO DAILY PRN Restless Leg(S) 01/03/23 03/21/25 aspirin 81 mg tablet,delayed 81 mg PO DAILY 04/24/23 03/21/25 release (Adult Low Dose Aspirin) magnesium hydroxide 400 mg/5 mL 30 ml PO DAILY PRN Constipation 04/24/23 03/21/25 oral suspension (Milk of Magnesia) metformin 1,000 mg tablet 1,000 mg PO BID 04/24/23 03/21/25 nystatin 100,000 unit/gram topical 1 applic topical BID 04/24/23 03/21/25 cream olopatadine 0.2 % eye drops 1 drp ophthalmic (eye) DAILY 04/24/23 03/21/25 potassium chloride 20 mEq 20 meq PO BID 04/24/23 03/21/25 tablet,extended release simvastatin 10 mg tablet 10 mg PO DAILY 04/24/23 03/21/25 furosemide 20 mg tablet 20 mg PO DAILY 05/15/23 03/21/25 bisacodyl 5 mg tablet 20 mg PO DAILY PRN Constipation 05/25/24 03/21/25 guaifenesin 600 mg tablet, 600 mg PO Q12H PRN Cough 05/25/24 03/21/25 extended release 12 hr (Mucinex) hydroxyzine HCl 25 mg tablet 25 mg PO Q6H 05/25/24 03/21/25 ondansetron HCl 8 mg tablet 8 mg PO Q8H PRN Nausea And Vomiting 05/25/24 03/21/25 sennosides 8.6 mg tablet (senna) 8.6 mg PO BID 05/25/24 03/21/25 tramadol 50 mg tablet 50 - 100 mg PO Q6H PRN Pain 05/25/24 03/21/25 glipizide 5 mg tablet 5 mg PO DAILY 08/19/24 03/21/25 acetaminophen 325 mg tablet 650 mg PO Q4H PRN pain/fever 10/26/24 03/21/25 (Tylenol) Previous Rx's ?Medication ?Instructions ?Recorded saliva stimulant comb. no.3 1 applic mucous membrane Q2H PRN 12/06/24 (Biotene Moisturizing Mouth dry mouth #44.3 mL mucosal spray) Allergies Allergy/AdvReac Type Severity Reaction Status Date / Time atorvastatin Allergy Unknown Verified 05/31/24 14:14 codeine Allergy Unknown Verified 05/31/24 14:14 iodine Allergy Unknown Verified 05/31/24 14:14 Review of Systems General: Reports: ROS unobtainable due to mental status PFS ED PFSH: Medical History Urinary tract infection Nonrheumatic aortic (valve) stenosis Acute kidney failure, unspecified Hemoperitoneum Morbid (severe) obesity with alveolar hypoventilation Muscle weakness (generalized) BMI 45.0-49.9, adult Candidiasis, unspecified Hypovolemic shock Pain in left shoulder Pain in right shoulder Primary osteoarthritis, unspecified site Weakness Metabolic encephalopathy Disorder of brain, unspecified snf (current) use of 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 Anxiety disorder, unspecified Personal history of COVID-19 Personal history of pneumonia (recurrent) Stiffness of left hip, not elsewhere classified Osteoarthritis of knee, unspecified Osteophyte, left knee Osteophyte, right knee NSTEMI (non-ST elevated myocardial infarction) Enterovirus infection Malignant melanoma Osteoarthritis, knee Non-Hodgkin lymphoma Paroxysmal A-fib COPD (chronic obstructive pulmonary disease) Diarrhea Gram-negative bacteremia HTN (hypertension) Type 2 diabetes mellitus History of recurrent UTIs Fever Acute alteration in mental status Social History Smoking and tobacco/nicotine status: never used tobacco/nicotine Alcohol intake: never Household members: other Housing: Long-Term Physical Exam Const: COMMON NORMALS: alert EXAM LIMITATIONS: altered mental status NUTRITIONAL APPEARANCE: obese morbidly obese ORIENTATION/CONSCIOUSNESS: Yes awake and Yes oriented to person HENMT: COMMON NORMALS: normocephalic and atraumatic HEAD & SCALP: normocephalic and atraumatic OTHER: dry oral mucosa Eye: OTHER: Pupils sluggish but equally responsive and reactive to light. Bilateral eyelid crusting Neck/C-Spine: COMMON NORMALS: full ROM Chest: COMMONS NORMALS: normal inspection of the chest and normal palpation of entire chest wall Resp: COMMON NORMALS: normal respiratory effort, No retractions, No use of accessory muscles and clear to auscultation bilaterally AUSCULTATION: clear to auscultation bilaterally OTHER: No respiratory distress Cardio: RATE: tachycardic RHYTHM: abnormal rhythm irregularly irregular HEART SOUNDS: Murmur heart sound present continuous GI: INSPECTION: Yes central obesity PALPATION: Yes Tenderness to palpation present (GI) (Diffusely tender) Extremity: COMMON NORMALS: full ROM and capillary refill normal NARRATIVE EXTREMITY EXAM: Bilateral pedal edema Neuro: COMMON NORMALS: moves all extremities, no focal motor deficits and no sensory deficits noted SENSORIUM/ORIENTATION: Yes alert, Yes oriented to person and Yes Orientation impaired SPEECH: speech normal MOTOR EXAM: 5/5 motor strength present throughout, Pronator motor function not present, no tremor noted, no asterixis, Motor fasciculations not present and Normal motor muscle tone present throughout Skin: COMMON NORMALS: no rashes or lesions noted GENERAL SKIN EXAM: no rashes or lesions noted Course Vital Signs: Vital signs: Vital Signs Temperature 99.5 F 04/21/25 13:44 Pulse Rate 107 H 04/21/25 14:10 Respiratory Rate 24 H 04/21/25 14:10 Blood Pressure 106/67 04/21/25 14:10 Pulse Oximetry 95 04/21/25 14:10 Oxygen Delivery Me thod Room Air 04/21/25 11:39 MDM - Altered Mental Status Medical Decision Making Patient presented by ambulance from long term, had been hypoxic reportedly and was altered this morning. History of frequent UTI, on exam morbidly obese and alert and oriented to self only, however it was noted to me that this is her baseline. Full code. Had some tenderness in the abdomen, continuous murmur but otherwise no concerning lung sounds at this time. Does not appear clinically fluid overloaded though she does have pedal edema bilaterally, nonpitting. She is febrile on arrival, and slightly tachycardic. She is not hypotensive. Careful fluid administration for the concern for presentation of septicemia, due to her history of heart failure. Chest x-ray showing pulmonary edema, negative. Mild leukocytosis, mild elevation with her lactic acid. Delta troponin negative. Blood cultures are obtained, and subsequently she is given Rocephin through IV. UTI present on urinalysis, and on CT chest abdomen pelvis there is concern for left lower lobe pneumonia, which could explain the reported hypoxia she had at the long term despite her being oxygenating well on room air here in the emergency department. Spoke to hospitalist, Dr. Nuñez, excepting to the hospital. Dr. Guido informed of patient's case putting in admit orders at this time. She is rechecked prior to admission and seems to have become more orientated. Lab Data 04/21/25 10:18 04/21/25 12:05 Radiology Impressions Chest X-Ray 04/21/25 10:13 IMPRESSION: 1. Pulmonary edema. Possible CHF. 2. Cardiomegaly. Head CT 04/21/25 10:13 IMPRESSION: 1. No acute intracranial abnormality. Chest/Abdomen/Pelvis CT 04/21/25 12:22 IMPRESSION: 1. Left lower lobe consolidation with air bronchograms, concerning for aspiration pneumonia or pneumonitis. 2. Small left pleural effusion. 3. Dilated main pulmonary artery measuring 35 mm, which can be seen with pulmonary arterial hypertension. 4. No pulmonary embolism 5. Cardiomegaly with aortic and mitral annular calcifications. Coronary artery calcifications indicating atherosclerosis. 6. Calcified right paratracheal and right perihilar lymph nodes, compatible with prior granulomatous disease. 7. Remote left rib fractures and thoracic spondylosis. IMPRESSION: 1. No acute intra-abdominal findings. 2. Hepatosplenomegaly with prominent splenorenal shunting, concerning for portal hypertension. No focal hepatic lesion identified. 3. Scattered punctate calcifications in the liver and spleen, compatible with prior granulomatous disease. 4. Aortoiliac and mesenteric ostial atherosclerosis without significant stenosis. 5. Right lower quadrant subcutaneous soft tissue stranding, which may reflect edema, contusion, or injection related change. Laboratory Results WBC 12.99 10^3/uL (3.29-11.43) H 04/21/25 10:18 RBC 4.52 10^6/uL (3.85-5.65) 04/21/25 10:18 Hgb 12.20 g/dL (11.27-16.99) 04/21/25 10:18 Hct 38.4 % (36-47) 04/21/25 10:18 MCV 85.0 fl (85-98) 04/21/25 10:18 MCH 27.0 pg (27-33) 04/21/25 10:18 MCHC 31.8 g/dL (30-55) 04/21/25 10:18 RDW 14.7 % (12.1-15.1) 04/21/25 10:18 Plt Count 159 10^3/cmm (157-399) 04/21/25 10:18 MPV 10.2 fL (7.4-10.4) 04/21/25 10:18 Neut % (Auto) 80.0 % 04/21/25 10:18 Lymph % (Auto) 12.7 % 04/21/25 10:18 Maury % (Auto) 5.9 % 04/21/25 10:18 Eos % (Auto) 0.4 % 04/21/25 10:18 Baso % (Auto) 0.5 % 04/21/25 10:18 Neut # (Auto) 10.40 10^3/uL (1.8-7.7) H 04/21/25 10:18 Lymph # (Auto) 1.7 10^3/uL (0.8-4.8) 04/21/25 10:18 Maury # (Auto) 0.8 10^3/uL (0.2-0.9) 04/21/25 10:18 Eos # (Auto) 0.1 10^3/uL (0.0-0.8) 04/21/25 10:18 Baso # (Auto) 0.1 10^3/uL (0.0-0.1) 04/21/25 10:18 Nucleated RBC % (auto) 0 % 04/21/25 10:18 Nucleated RBCs # 0.0 /100WBC 04/21/25 10:18 Specimen Type Arterial 04/21/25 10:23 Sample Site Brachial, right 04/21/25 10:23 ABG pH 7.48 (7.35-7.45) H 04/21/25 10:23 ABG pCO2 36.1 mmHg (35-45) 04/21/25 10:23 ABG pO2 58.9 mmHg (80.0-100.0) L 04/21/25 10:23 ABG PO2/FiO2 Ratio 280 04/21/25 10:23 ABG HCO3 26.6 mmol/L (22-26) H 04/21/25 10:23 ABG O2 Saturation 92.3 04/21/25 10:23 ABG Base Excess 3.1 mmol/L (-2.0-2.0) H 04/21/25 10:23 Juan J Test N/a 04/21/25 10:23 A-a O2 Gradient 6.1 mmHg (5-10) 04/21/25 10:23 Hematocrit 39.5 % (37-47) 04/21/25 10:23 Hgb O2 Saturation 90.0 % (95-100) L 04/21/25 10:23 Carboxyhemoglobin 1.3 %THgb (0.4-20.1) 04/21/25 10:23 Methemoglobin 1.2 % (0.4-1.5) 04/21/25 10:23 Total Hemoglobin 12.9 g/dL (12-16) 04/21/25 10:23 Sodium 140.0 mmol/L (131-143) 04/21/25 10:23 Potassium 3.4 mmol/L (3.5-5.0) L 04/21/25 10:23 Glucose 154.0 mg/dL (70-115) H 04/21/25 10:23 Ionized Calcium 1.2 mmol/L (1.1-1.4) 04/21/25 10:23 O2 Delivery Device Room air 04/21/25 10:23 FiO2 21.0 % 04/21/25 10:23 Embossing Machine Operator Helper ID [id number] 04/21/25 10:23 Sodium 139 mmol/L (136-145) 04/21/25 12:05 Potassium 3.5 mmol/L (3.5-5.1) 04/21/25 12:05 Chloride 103 mmol/L (98-107) 04/21/25 12:05 Carbon Dioxide 23 mmol/L (22-29) 04/21/25 12:05 Anion Gap 16.5 (5-19) 04/21/25 12:05 BUN 12 mg/dL (8-23) 04/21/25 12:05 Creatinine 0.9 mg/dL (0.5-0.9) 04/21/25 12:05 GFR Calculation Not Reportable 04/21/25 12:05 Glucose 139 mg/dL (65-115) H 04/21/25 12:05 Calculated Osmolality 290 mOsm/kg (285-295) 04/21/25 12:05 Lactic Acid 2.6 mmol/L (0.5-2.2) H 04/21/25 11:23 Calcium 9.0 mg/dL (8.5-10.5) 04/21/25 12:05 Magnesium 1.5 mg/dL (1.7-2.3) L 04/21/25 12:05 Total Bilirubin 1.2 mg/dL (0.15-1.2) 04/21/25 12:05 AST 13 U/L (0-32) 04/21/25 12:05 ALT 10 U/L (0-33) 04/21/25 12:05 Alkaline Phosphatase 101 U/L (35-105) 04/21/25 12:05 Troponin T Baseline 27 ng/L (0-10) H 04/21/25 10:18 Troponin T 120 Minute 30.40 ng/L (0-10) H 04/21/25 11:22 Delta Troponin T 3.40 ABS# (0-10) 04/21/25 11:22 NT-Pro-B Natriuret Pep 1536 pg/mL (0-450) H 04/21/25 12:05 Total Protein 5.2 g/dL (6.6-8.7) L 04/21/25 12:05 Albumin 3.8 g/dL (3.5-5.2) 04/21/25 12:05 Globulin 1.4 g/dL (1.3-4.6) 04/21/25 12:05 Urine Color Yellow (Yellow) 04/21/25 11:19 Urine Appearance Clear (CLEAR) 04/21/25 11:19 Urine pH 7.0 (5-7) 04/21/25 11:19 Ur Specific Hawks 1.016 (1.005-1.030) 04/21/25 11:19 Urine Protein Negative (Negative) 04/21/25 11:19 Urine Glucose (UA) Negative (Normal) 04/21/25 11:19 Urine Ketones Negative (Negative) 04/21/25 11:19 Urine Blood Negative (Negative) 04/21/25 11:19 Urine Nitrate Positive (Negative) A 04/21/25 11:19 Urine Bilirubin Negative (Negative) 04/21/25 11:19 Urine Urobilinogen 1.0 mg/dL (Negative) 04/21/25 11:19 Ur Leukocyte Esterase 1+ (Negative) A 04/21/25 11:19 Urine RBC 0-2 /hpf (0-2) 04/21/25 11:19 Urine WBC 21-50 /hpf (0-5) H 04/21/25 11:19 Ur Squamous Epith Cells 0-5 /hpf (0-5) 04/21/25 11:19 Amorphous Sediment Not Reportable 04/21/25 11:19 Urine Bacteria 4+ /hpf (NONE) H 04/21/25 11:19 Hyaline Casts 2.05 /lpf 04/21/25 11:19 Influenza A (PCR) Negative (Negative) 04/21/25 10:29 Influenza Type B (PCR) Negative (Negative) 04/21/25 10:29 RSV (PCR) Negative (Negative) 04/21/25 10:29 SARS-CoV-2 (PCR) Negative (Negative) 04/21/25 10:29 All radiology interpretation(s) finalized by discharge Discharge Plan Discharge Patient Disposition: Admitted As Inpatient Clinical Impression: Urinary tract infection Qualifiers: Urinary tract infection type: acute cystitis Hematuria presence: without hematuria Qualified Code(s): N30.00 - Acute cystitis without hematuria Pneumonia Qualifiers: Pneumonia type: due to unspecified organism Laterality: unspecified laterality Lung location: unspecified part of lung Qualified Code(s): J18.9 - Pneumonia, unspecified organism Sepsis Qualifiers: Sepsis type: sepsis due to unspecified organism Sepsis acute organ dysfunction status: unspecified Qualified Code(s): A41.9 - Sepsis, unspecified organism Condition: Stable Coding Level of Care Code ED Electrogalvanizing Machine Operator for Chg Fwd Documented by User: Anastacio Guido, 04/21/25 14:40 HPI - Altered Mental Status General: Chief Complaint: Altered Mental Status Stated Complaint: AMS Time Seen by Provider: 04/21/25 10:06 Related Data Home Medications ?Medication ?Instructions ?Recorded ?Confirmed albuterol sulfate 2.5 mg/3 mL 2.5 mg inhalation Q6H PRN 01/03/23 03/21/25 (0.083 %) solution for nebulization Shortness Of Breath budesonide-formoterol HFA 160 2 puff inhalation BID 01/03/23 03/21/25 mcg-4.5 mcg/actuation aerosol inhaler cetirizine 10 mg tablet (Zyrtec) 10 mg PO QAM 01/03/23 03/21/25 cholecalciferol (vitamin D3) 1,250 50,000 unit PO Q7D 01/03/23 03/21/25 mcg (50,000 unit) capsule colestipol 1 gram tablet 1 g PO BID 01/03/23 03/21/25 cyanocobalamin (vitamin B-12) 1,000 mcg PO QAM 01/03/23 03/21/25 1,000 mcg tablet diclofenac sodium 1 % topical gel See Rx Instructions .Route .COMPLEX 01/03/23 03/21/25 escitalopram oxalate 20 mg tablet 20 mg PO QAM 01/03/23 03/21/25 fluticasone propionate 50 2 spray intranasal QAM 01/03/23 03/21/25 mcg/actuation nasal spray,suspension gabapentin 600 mg tablet 600 mg PO TID 01/03/23 03/21/25 ipratropium 0.5 mg-albuterol 3 mg 3 ml inhalation Q6H PRN Shortness 01/03/23 03/21/25 (2.5 mg base)/3 mL nebulization Of Breath soln metoprolol tartrate 25 mg tablet 25 mg PO BID 01/03/23 03/21/25 ropinirole 0.5 mg tablet 0.5 mg PO DAILY PRN Restless Leg(S) 01/03/23 03/21/25 aspirin 81 mg tablet,delayed 81 mg PO DAILY 04/24/23 03/21/25 release (Adult Low Dose Aspirin) magnesium hydroxide 400 mg/5 mL 30 ml PO DAILY PRN Constipation 04/24/23 03/21/25 oral suspension (Milk of Magnesia) metformin 1,000 mg tablet 1,000 mg PO BID 04/24/23 03/21/25 nystatin 100,000 unit/gram topical 1 applic topical BID 04/24/23 03/21/25 cream olopatadine 0.2 % eye drops 1 drp ophthalmic (eye) DAILY 04/24/23 03/21/25 potassium chloride 20 mEq 20 meq PO BID 04/24/23 03/21/25 tablet,extended release simvastatin 10 mg tablet 10 mg PO DAILY 04/24/23 03/21/25 furosemide 20 mg tablet 20 mg PO DAILY 05/15/23 03/21/25 bisacodyl 5 mg tablet 20 mg PO DAILY PRN Constipation 05/25/24 03/21/25 guaifenesin 600 mg tablet, 600 mg PO Q12H PRN Cough 05/25/24 03/21/25 extended release 12 hr (Mucinex) hydroxyzine HCl 25 mg tablet 25 mg PO Q6H 05/25/24 03/21/25 ondansetron HCl 8 mg tablet 8 mg PO Q8H PRN Nausea And Vomiting 05/25/24 03/21/25 sennosides 8.6 mg tablet (senna) 8.6 mg PO BID 05/25/24 03/21/25 tramadol 50 mg tablet 50 - 100 mg PO Q6H PRN Pain 05/25/24 03/21/25 glipizide 5 mg tablet 5 mg PO DAILY 08/19/24 03/21/25 acetaminophen 325 mg tablet 650 mg PO Q4H PRN pain/fever 10/26/24 03/21/25 (Tylenol) Previous Rx's ?Medication ?Instructions ?Recorded saliva stimulant comb. no.3 1 applic mucous membrane Q2H PRN 12/06/24 (Biotene Moisturizing Mouth dry mouth #44.3 mL mucosal spray) Allergies Allergy/AdvReac Type Severity Reaction Status Date / Time atorvastatin Allergy Unknown Verified 05/31/24 14:14 codeine Allergy Unknown Verified 05/31/24 14:14 iodine Allergy Unknown Verified 05/31/24 14:14 PFSH ED PFSH: Medical History Urinary tract infection Nonrheumatic aortic (valve) stenosis Acute kidney failure, unspecified Hemoperitoneum Morbid (severe) obesity with alveolar hypoventilation Muscle weakness (generalized) BMI 45.0-49.9, adult Candidiasis, unspecified Hypovolemic shock Pain in left shoulder Pain in right shoulder Primary osteoarthritis, unspecified site Weakness Metabolic encephalopathy Disorder of brain, unspecified 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 Anxiety disorder, unspecified Personal history of COVID-19 Personal history of pneumonia (recurrent) Stiffness of left hip, not elsewhere classified Osteoarthritis of knee, unspecified Osteophyte, left knee Osteophyte, right knee NSTEMI (non-ST elevated myocardial infarction) Enterovirus infection Malignant melanoma Osteoarthritis, knee Non-Hodgkin lymphoma Paroxysmal A-fib COPD (chronic obstructive pulmonary disease) Diarrhea Gram-negative bacteremia HTN (hypertension) Type 2 diabetes mellitus History of recurrent UTIs Fever Acute alteration in mental status Social History Smoking and tobacco/nicotine status: never used tobacco/nicotine Alcohol intake: never Household members: other Housing: Long-Term Course Vital Signs: Vital signs: Vital Signs Temperature 99.5 F 04/21/25 13:44 Pulse Rate 107 H 04/21/25 14:10 Respiratory Rate 24 H 04/21/25 14:10 Blood Pressure 106/67 04/21/25 14:10 Pulse Oximetry 95 04/21/25 14:10 Oxygen Delivery Me thod Room Air 04/21/25 11:39 MDM - Altered Mental Status Medical Decision Making Patient presented by ambulance from long term, had been hypoxic reportedly and was altered this morning. History of frequent UTI, on exam morbidly obese and alert and oriented to self only, however it was noted to me that this is her baseline. Full code. Had some tenderness in the abdomen, continuous murmur but otherwise no concerning lung sounds at this time. Does not appear clinically fluid overloaded though she does have pedal edema bilaterally, nonpitting. She is febrile on arrival, and slightly tachycardic. She is not hypotensive. Careful fluid administration for the concern for presentation of septicemia, due to her history of heart failure. Chest x-ray showing pulmonary edema, negative. Mild leukocytosis, mild elevation with her lactic acid. Delta troponin negative. Blood cultures are obtained, and subsequently she is given Rocephin through IV. UTI present on urinalysis, and on CT chest abdomen pelvis there is concern for left lower lobe pneumonia, which could explain the reported hypoxia she had at the long term despite her being oxygenating well on room air here in the emergency department. Spoke to hospitalist, Dr. Nuñez, excepting to the hospital. Dr. Guido informed of patient's case putting in admit orders at this time. She is rechecked prior to admission and seems to have become more orientated. Chart reviewed and patient discussed with midlevel. Agree with assessment and plan. Lab Data 04/21/25 10:18 04/21/25 12:05 Radiology Impressions Chest X-Ray 04/21/25 10:13 IMPRESSION: 1. Pulmonary edema. Possible CHF. 2. Cardiomegaly. Head CT 04/21/25 10:13 IMPRESSION: 1. No acute intracranial abnormality. Chest/Abdomen/Pelvis CT 04/21/25 12:22 IMPRESSION: 1. Left lower lobe consolidation with air bronchograms, concerning for aspiration pneumonia or pneumonitis. 2. Small left pleural effusion. 3. Dilated main pulmonary artery measuring 35 mm, which can be seen with pulmonary arterial hypertension. 4. No pulmonary embolism 5. Cardiomegaly with aortic and mitral annular calcifications. Coronary artery calcifications indicating atherosclerosis. 6. Calcified right paratracheal and right perihilar lymph nodes, compatible with prior granulomatous disease. 7. Remote left rib fractures and thoracic spondylosis. IMPRESSION: 1. No acute intra-abdominal findings. 2. Hepatosplenomegaly with prominent splenorenal shunting, concerning for portal hypertension. No focal hepatic lesion identified. 3. Scattered punctate calcifications in the liver and spleen, compatible with prior granulomatous disease. 4. Aortoiliac and mesenteric ostial atherosclerosis without significant stenosis. 5. Right lower quadrant subcutaneous soft tissue stranding, which may reflect edema, contusion, or injection related change. Laboratory Results WBC 12.99 10^3/uL (3.29-11.43) H 04/21/25 10:18 RBC 4.52 10^6/uL (3.85-5.65) 04/21/25 10:18 Hgb 12.20 g/dL (11.27-16.99) 04/21/25 10:18 Hct 38.4 % (36-47) 04/21/25 10:18 MCV 85.0 fl (85-98) 04/21/25 10:18 MCH 27.0 pg (27-33) 04/21/25 10:18 MCHC 31.8 g/dL (30-55) 04/21/25 10:18 RDW 14.7 % (12.1-15.1) 04/21/25 10:18 Plt Count 159 10^3/cmm (157-399) 04/21/25 10:18 MPV 10.2 fL (7.4-10.4) 04/21/25 10:18 Neut % (Auto) 80.0 % 04/21/25 10:18 Lymph % (Auto) 12.7 % 04/21/25 10:18 Maury % (Auto) 5.9 % 04/21/25 10:18 Eos % (Auto) 0.4 % 04/21/25 10:18 Baso % (Auto) 0.5 % 04/21/25 10:18 Neut # (Auto) 10.40 10^3/uL (1.8-7.7) H 04/21/25 10:18 Lymph # (Auto) 1.7 10^3/uL (0.8-4.8) 04/21/25 10:18 Maury # (Auto) 0.8 10^3/uL (0.2-0.9) 04/21/25 10:18 Eos # (Auto) 0.1 10^3/uL (0.0-0.8) 04/21/25 10:18 Baso # (Auto) 0.1 10^3/uL (0.0-0.1) 04/21/25 10:18 Nucleated RBC % (auto) 0 % 04/21/25 10:18 Nucleated RBCs # 0.0 /100WBC 04/21/25 10:18 Specimen Type Arterial 04/21/25 10:23 Sample Site Brachial, right 04/21/25 10:23 ABG pH 7.48 (7.35-7.45) H 04/21/25 10:23 ABG pCO2 36.1 mmHg (35-45) 04/21/25 10:23 ABG pO2 58.9 mmHg (80.0-100.0) L 04/21/25 10:23 ABG PO2/FiO2 Ratio 280 04/21/25 10:23 ABG HCO3 26.6 mmol/L (22-26) H 04/21/25 10:23 ABG O2 Saturation 92.3 04/21/25 10:23 ABG Base Excess 3.1 mmol/L (-2.0-2.0) H 04/21/25 10:23 Juan J Test N/a 04/21/25 10:23 A-a O2 Gradient 6.1 mmHg (5-10) 04/21/25 10:23 Hematocrit 39.5 % (37-47) 04/21/25 10:23 Hgb O2 Saturation 90.0 % (95-100) L 04/21/25 10:23 Carboxyhemoglobin 1.3 %THgb (0.4-20.1) 04/21/25 10:23 Methemoglobin 1.2 % (0.4-1.5) 04/21/25 10:23 Total Hemoglobin 12.9 g/dL (12-16) 04/21/25 10:23 Sodium 140.0 mmol/L (131-143) 04/21/25 10:23 Potassium 3.4 mmol/L (3.5-5.0) L 04/21/25 10:23 Glucose 154.0 mg/dL (70-115) H 04/21/25 10:23 Ionized Calcium 1.2 mmol/L (1.1-1.4) 04/21/25 10:23 O2 Delivery Device Room air 04/21/25 10:23 FiO2 21.0 % 04/21/25 10:23 Embossing Machine Operator Helper ID [facility] 04/21/25 10:23 Sodium 139 mmol/L (136-145) 04/21/25 12:05 Potassium 3.5 mmol/L (3.5-5.1) 04/21/25 12:05 Chloride 103 mmol/L (98-107) 04/21/25 12:05 Carbon Dioxide 23 mmol/L (22-29) 04/21/25 12:05 Anion Gap 16.5 (5-19) 04/21/25 12:05 BUN 12 mg/dL (8-23) 04/21/25 12:05 Creatinine 0.9 mg/dL (0.5-0.9) 04/21/25 12:05 GFR Calculation Not Reportable 04/21/25 12:05 Glucose 139 mg/dL (65-115) H 04/21/25 12:05 Calculated Osmolality 290 mOsm/kg (285-295) 04/21/25 12:05 Lactic Acid 2.6 mmol/L (0.5-2.2) H 04/21/25 11:23 Calcium 9.0 mg/dL (8.5-10.5) 04/21/25 12:05 Magnesium 1.5 mg/dL (1.7-2.3) L 04/21/25 12:05 Total Bilirubin 1.2 mg/dL (0.15-1.2) 04/21/25 12:05 AST 13 U/L (0-32) 04/21/25 12:05 ALT 10 U/L (0-33) 04/21/25 12:05 Alkaline Phosphatase 101 U/L (35-105) 04/21/25 12:05 Troponin T Baseline 27 ng/L (0-10) H 04/21/25 10:18 Troponin T 120 Minute 30.40 ng/L (0-10) H 04/21/25 11:22 Delta Troponin T 3.40 ABS# (0-10) 04/21/25 11:22 NT-Pro-B Natriuret Pep 1536 pg/mL (0-450) H 04/21/25 12:05 Total Protein 5.2 g/dL (6.6-8.7) L 04/21/25 12:05 Albumin 3.8 g/dL (3.5-5.2) 04/21/25 12:05 Globulin 1.4 g/dL (1.3-4.6) 04/21/25 12:05 Urine Color Yellow (Yellow) 04/21/25 11:19 Urine Appearance Clear (CLEAR) 04/21/25 11:19 Urine pH 7.0 (5-7) 04/21/25 11:19 Ur Specific Hawks 1.016 (1.005-1.030) 04/21/25 11:19 Urine Protein Negative (Negative) 04/21/25 11:19 Urine Glucose (UA) Negative (Normal) 04/21/25 11:19 Urine Ketones Negative (Negative) 04/21/25 11:19 Urine Blood Negative (Negative) 04/21/25 11:19 Urine Nitrate Positive (Negative) A 04/21/25 11:19 Urine Bilirubin Negative (Negative) 04/21/25 11:19 Urine Urobilinogen 1.0 mg/dL (Negative) 04/21/25 11:19 Ur Leukocyte Esterase 1+ (Negative) A 04/21/25 11:19 Urine RBC 0-2 /hpf (0-2) 04/21/25 11:19 Urine WBC 21-50 /hpf (0-5) H 04/21/25 11:19 Ur Squamous Epith Cells 0-5 /hpf (0-5) 04/21/25 11:19 Amorphous Sediment Not Reportable 04/21/25 11:19 Urine Bacteria 4+ /hpf (NONE) H 04/21/25 11:19 Hyaline Casts 2.05 /lpf 04/21/25 11:19 Influenza A (PCR) Negative (Negative) 04/21/25 10:29 Influenza Type B (PCR) Negative (Negative) 04/21/25 10:29 RSV (PCR) Negative (Negative) 04/21/25 10:29 SARS-CoV-2 (PCR) Negative (Negative) 04/21/25 10:29 Discharge Plan Discharge Patient Disposition: Admitted As Inpatient Clinical Impression: Urinary tract infection Qualifiers: Urinary tract infection type: acute cystitis Hematuria presence: without hematuria Qualified Code(s): N30.00 - Acute cystitis without hematuria Pneumonia Qualifiers: Pneumonia type: due to unspecified organism Laterality: unspecified laterality Lung location: unspecified part of lung Qualified Code(s): J18.9 - Pneumonia, unspecified organism Sepsis Qualifiers: Sepsis type: sepsis due to unspecified organism Sepsis acute organ dysfunction status: unspecified Qualified Code(s): A41.9 - Sepsis, unspecified organism Condition: Stable Coding Level of Care Code ED Electrogalvanizing Machine Operator for Sergio Pinedo
--- NOTE | 2025-04-21 10:25 | ECG_ITS ---
[facility] Test Date: 2025-04-21 Pat Name: Herlinda Shah Department: Room: Gender: Female Director [employer]: : 1950 Requested By: Franko Ayon Order Number: [id number] Marcie MD: Tremayne Sanchez M.D. Measurements Intervals [place] Rate: 110 P: 96 NV: 200 QRS: -62 QRSD: 119 T: 67 QT: 341 QTc: 462 Interpretive Statements SINUS TACHYCARDIA WITH FREQUENT SUPRAVENTRICULAR PREMATURE COMPLEXES LEFT AXIS DEVIATION [QRS AXIS < -30] ANTEROSEPTAL MYOCARDIAL INFARCTION , OF INDETERMINATE AGE [40+ ms Q WAVE IN V1-V4] Compared to ECG 05/15/2023 13:45:51 Left ventricular hypertrophy no longer present ST (T wave) deviation no longer present Myocardial infarct finding still present Electronically Signed On 04-21-2025 20:10:58 LEHR LOADER by Tremayne Sanchez M.D. [id number]
[2025-04-21 10:29] LABS: Hematocrit 38.4 % (36-47); Hemoglobin 12.20 g/dL (11.27-16.99); Mean Corpuscular HGB Conc 31.8 g/dL (30-55); Mean Corpuscular Hemoglobin 27.0 pg (27-33); Mean Corpuscular Volume 85.0 fl (85-98); Nucleated Red Blood Cells % 0 %; Platelet Count 159 10^3/cmm (157-399); Red Blood Count 4.52 10^6/uL (3.85-5.65); White Blood Count 12.99 10^3/uL (3.29-11.43)
[2025-04-21 10:34] LABS: ABG PCO2 36.1 mmHg (35-45); ABG PH Result 7.48 (7.35-7.45); Alveolar-Arterial Oxygen Gradi 6.1 mmHg (5-10); Arterial Blood Gas Hematocrit 39.5 % (37-47); Blood Gas Operator Identificat AMH; Blood Gas Sample Site Brachial, right; Blood Gas Sample Type Arterial; Carboxyhemoglobin 1.3 %THgb (0.4-20.1); Glucose Level-ABG 154.0 mg/dL (70-115); HCO3 ABG 26.6 mmol/L (22-26); Ionized Calcium Level - ABG 1.2 mmol/L (1.1-1.4); Methemoglobin 1.2 % (0.4-1.5); Oxygen Saturation ABG 92.3; PO2 ABG 58.9 mmHg (80.0-100.0); PO2 FiO2 Ratio Arterial Blood 280; Potassium Level - ABG 3.4 mmol/L (3.5-5.0); Sodium Level - ABG 140.0 mmol/L (131-143)
[2025-04-21 10:44] LABS: Troponin(5th) Baseline 27 ng/L (0-10)
[2025-04-21 11:12] LABS: Respiratory Syncytial Virus Ce NEGATIVE (Negative); SARS-CoV-2 PCR NEGATIVE (Negative)
[2025-04-21 11:46] LABS: Lactic Sepsis W/Reflex 2.6 mmol/L (0.5-2.2)
[2025-04-21 11:46] LABS: Glucose Urine UA Negative (Normal); Nitrate Urine Positive (Negative); Specific Gravity, Urine 1.016 (1.005-1.030)
[2025-04-21 11:47] LABS: Reflex Lactate Order REFLEX LACTIC ORDERD
[2025-04-21 11:51] LABS: Add Urine Microscopic? YES
[2025-04-21 12:08] LABS: Troponin 5 2HR 30.40 ng/L (0-10); Troponin 5 2HR Delta 3.40 ABS# (0-10)
[2025-04-21] MEDS: cefTRIAXone 1,000 mg SDV 1000 MG IVP (12:08)
--- NOTE | 2025-04-21 12:15 | ECG_ITS ---
[facility] Date: 2025-04-21 Pat Name: Herlinda Shah Department: Room: Gender: Female Cad Drafter: : 1950 Requested By: Franko Ayon Order Number: [id number] Marcie MD: Tremayne Sanchez M.D. Measurements Intervals [place] Rate: 107 P: 77 MN: 205 QRS: -52 QRSD: 120 T: 65 QT: 369 QTc: 494 Interpretive Statements SINUS TACHYCARDIA WITH OCCASIONAL SUPRAVENTRICULAR PREMATURE COMPLEXES LEFT AXIS DEVIATION [QRS AXIS < -30] ANTEROSEPTAL MYOCARDIAL INFARCTION , OF INDETERMINATE AGE [40+ ms Q WAVE IN V1-V4] Compared to ECG 04/21/2025 10:25:57 No significant changes Electronically Signed On 04-21-2025 20:18:10 TEAR DOWN MAN by Tremayne Sanchez M.D. [id number]
--- NOTE | 2025-04-21 12:22 | CTR_ITS ---
PROCEDURE INFORMATION: Exam: CT Chest With Contrast; Diagnostic Exam date and time: 04/21/2025 12:38 PM Age: 75 years old Clinical indication: Abdominal tenderness; Shortness of breath; Prior surgery; Surgery date: 6+ months; Surgery type: Gb; Additional info: SOB, hypoxia, AMS, abd pain TECHNIQUE: Imaging protocol: Diagnostic computed tomography of the chest with contrast. Radiation optimization: All CT scans at this facility use at least one of these dose optimization techniques: automated exposure control; mA and/or kV adjustment per patient size (includes targeted exams where dose is matched to clinical indication); or iterative reconstruction. Contrast material: OMNI 350; Contrast volume: 100 ml; Contrast route: INTRAVENOUS (IV); COMPARISON: [place] [id number] 02/09/2023 6:37 AM RADIATION DOSE METRICS: Total DLP (mGy-cm): 1623.05 FINDINGS: Lungs: Left lower lobe consolidation with air bronchograms, concerning for aspiration pneumonia or pneumonitis. Pleural spaces: Small left pleural effusion. Heart: Aortic valve and mitral annular calcifications. Cardiomegaly. Coronary arteries: Coronary artery calcifications present. Lymph nodes: Partially calcified right paratracheal and right perihilar lymph nodes. Prominent left paratracheal lymph node measuring up to 0.9 cm. Vasculature: Dilated main pulmonary artery measuring 35 mm, which can be seen with pulmonary arterial hypertension. Pulmonary arteries are adequately opacified to the subsegmental level with no pulmonary embolism. Ascending aorta normal in caliber. Bones/joints: Remote lateral left rib fractures. Thoracic spondylosis. Soft tissues: Unremarkable. PROCEDURE INFORMATION: Exam: CT Abdomen And Pelvis With Contrast Exam date and time: 04/21/2025 12:38 PM Age: 75 years old Clinical indication: Abdominal tenderness; Shortness of breath; Prior surgery; Surgery date: 6+ months; Surgery type: Gb; Additional info: SOB, hypoxia, AMS, abd pain TECHNIQUE: Imaging protocol: Computed tomography of the abdomen and pelvis with contrast. Radiation optimization: All CT scans at this facility use at least one of these dose optimization techniques: automated exposure control; mA and/or kV adjustment per patient size (includes targeted exams where dose is matched to clinical indication); or iterative reconstruction. Contrast material: OMNI 350; Contrast volume: 100 ml; Contrast route: INTRAVENOUS (IV); COMPARISON: CT abdomen pelvis wo con [id number] 02/05/2023 1:56 AM RADIATION DOSE METRICS: Total DLP (mGy-cm): 1623.05 FINDINGS: Liver: Hepatomegaly measuring 21.8 cm. No suspicious liver lesions. Gallbladder and biliary ducts: Status post cholecystectomy. Pancreas: Normal. No ductal dilation. Spleen: Splenomegaly measuring 14.2 cm with scattered punctate calcifications in the spleen and liver, likely sequelae of prior granulomatous exposure. Adrenal glands: Normal. No mass. Kidneys and ureters: Normal. No hydronephrosis. Stomach and bowel: Unremarkable. No obstruction. No mucosal thickening. Appendix: No evidence of appendicitis. Intraperitoneal space: 1.9 x 2.6 centimeters low attenuating cystic structure anterior to the right psoas muscle. No free air. No significant fluid collection. Vasculature: Scattered calcified atherosclerotic plaques of the abdominal aorta and iliac arteries without significant stenosis. Calcified plaque at the origins of the celiac and SMA without significant stenosis. Prominent left upper quadrant splenorenal vascular shunting. Lymph nodes: No enlarged lymph nodes. Urinary bladder: Unremarkable as visualized. Reproductive: Unremarkable as visualized. Bones/joints: No acute fracture or subluxation. Mild multilevel osteophyte formation, disc space narrowing, and facet hypertrophy with subchondral sclerosis at multiple levels. Soft tissues: Soft tissue stranding in the right lower quadrant subcutaneous tissues. CT/CT chest abdpel w/*[id number] IMPRESSION: 1. Left lower lobe consolidation with air bronchograms, concerning for aspiration pneumonia or pneumonitis. 2. Small left pleural effusion. 3. Dilated main pulmonary artery measuring 35 mm, which can be seen with pulmonary arterial hypertension. 4. No pulmonary embolism 5. Cardiomegaly with aortic and mitral annular calcifications. Coronary artery calcifications indicating atherosclerosis. 6. Calcified right paratracheal and right perihilar lymph nodes, compatible with prior granulomatous disease. 7. Remote left rib fractures and thoracic spondylosis. IMPRESSION: 1. No acute intra-abdominal findings. 2. Hepatosplenomegaly with prominent splenorenal shunting, concerning for portal hypertension. No focal hepatic lesion identified. 3. Scattered punctate calcifications in the liver and spleen, compatible with prior granulomatous disease. 4. Aortoiliac and mesenteric ostial atherosclerosis without significant stenosis. 5. Right lower quadrant subcutaneous soft tissue stranding, which may reflect edema, contusion, or injection related change.
[2025-04-21 12:26] LABS: Alanine Aminotransferase 10 U/L (0-33); Albumin Level 3.8 g/dL (3.5-5.2); Alkaline Phosphatase 101 U/L (35-105); Anion Gap 16.5 (5-19); Aspartate Amino Transferase 13 U/L (0-32); Blood Urea Nitrogen 12 mg/dL (8-23); Calcium 9.0 mg/dL (8.5-10.5); Carbon Dioxide 23 mmol/L (22-29); Chloride 103 mmol/L (98-107); Globulin 1.4 g/dL (1.3-4.6); Glucose 139 mg/dL (65-115); Osmolality Calculated 290 mOsm/kg (285-295); Potassium 3.5 mmol/L (3.5-5.1); Sodium 139 mmol/L (136-145); Total Protein 5.2 g/dL (6.6-8.7)
[2025-04-21] MEDS: iohexol 350 mg/mL 500 mL Btl (per mL) IV (12:42)
[2025-04-21 12:43] LABS: Magnesium 1.5 mg/dL (1.7-2.3); NT Pro B Type Natriuretic Pept 1536 pg/mL (0-450)
[2025-04-21 15:10] LABS: Lactic Acid level (Lactate) 1.5 mmol/L (0.5-2.2)
--- NOTE | 2025-04-21 16:14 | ECG_ITS ---
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 Measurements Intervals [place] Rate: 107 P: 0 AL: 0 QRS: -56 QRSD: 123 T: 65 QT: 372 QTc: 497 Interpretive Statements ATRIAL FIBRILLATION WITH RAPID VENTRICULAR RESPONSE LEFT AXIS DEVIATION [QRS AXIS < -30] ANTEROSEPTAL MYOCARDIAL INFARCTION , OF INDETERMINATE AGE [40+ ms Q WAVE IN V1-V4] Compared to ECG 04/21/2025 12:15:36 Sinus tachycardia no longer present Myocardial infarct finding still present Electronically Signed On 04-21-2025 20:16:37 ESTIMATOR AND DRAFTER by Tremayne Sanchez M.D. [id number]
--- NOTE | 2025-04-21 16:37 | PM.HP ---
Providers/Chief Complaint Admitting Physician: Lissette Nuñez MD Primary Care Provider: Martha Lloyd NP Chief Complaint: AMS History of Present Illness History taken through chart review, speaking to nursing staff from [facility]. Herlinda Shah is a 75 year old female, custodial resident with past medical history of COPD, paroxysmal A-fib, not on anticoagulation, HTN, recurrent UTIs, DM 2, history of non-Hodgkin lymphoma, To the ER today via EMS because of altered mental status. As per nursing staff patient was at her baseline health till last night. Today morning when she woke up she was confused, not able to do her usual chores by herself. At baseline she is alert and oriented to self, place and time with occasional episodes of confusion but today she was not able to follow directions, sought out her pills, forgot how to take her inhalers. She was found to be hypoxic with saturation down to 80s for which she was placed on 4 L after which her saturation improved to 88. Even on 4 L on sleeping she was desaturating down to 80s hence she was sent into the ER. As per the nursing staff patient has not had any vomiting, diarrhea, new complaints in the last few days. Today morning she complained she feels as if 'she has been hit by a truck'. In the ER she was found to be saturating over 92% on room air though continued to remain confused hence hospitalist service was requested. Examination patient is saturating well on room air, sleeping but arousable, confused Review of Systems General: Reports: ROS unobtainable due to mental status Medications/Allergies Home Medications ?Medication ?Instructions ?Recorded ?Confirmed ?Last Taken ?Type albuterol sulfate 2.5 mg/3 mL 2.5 mg inhalation Q6H PRN 01/03/23 04/21/25 Unknown History (0.083 %) solution for nebulization Shortness Of Breath budesonide-formoterol HFA 160 2 puff inhalation BID 01/03/23 04/21/25 05/25/24 History mcg-4.5 mcg/actuation aerosol inhaler cetirizine 10 mg tablet (Zyrtec) 10 mg PO QAM 01/03/23 04/21/25 04/21/25 08:00 History cholecalciferol (vitamin D3) 1,250 50,000 unit PO Q7D 0704/21/25 04/20/25 History mcg (50,000 unit) capsule colestipol 1 gram tablet 1 g PO BID 01/03/23 04/21/25 04/21/25 07:00 History cyanocobalamin (vitamin B-12) 1,000 mcg PO QAM 01/03/23 04/21/25 04/21/25 07:00 History 1,000 mcg tablet diclofenac sodium 1 % topical gel See Rx Instructions .Route .COMPLEX 01/03/23 04/21/25 05/15/23 History fluticasone propionate 50 2 spray intranasal QAM 01/03/23 04/21/25 04/20/25 History mcg/actuation nasal spray,suspension gabapentin 600 mg tablet 600 mg PO TID 01/03/23 04/21/25 04/21/25 08:00 History ipratropium 0.5 mg-albuterol 3 mg 3 ml inhalation Q6H PRN Shortness 01/03/23 04/21/25 05/15/23 History (2.5 mg base)/3 mL nebulization Of Breath soln metoprolol tartrate 25 mg tablet 25 mg PO BID 01/03/23 04/21/25 04/21/25 08:00 History ropinirole 0.5 mg tablet 0.5 mg PO DAILY PRN Restless Leg(S) 01/03/23 04/21/25 04/20/25 History magnesium hydroxide 400 mg/5 mL 30 ml PO DAILY PRN Constipation 04/24/23 04/21/25 04/20/25 History oral suspension (Milk of Magnesia) metformin 1,000 mg tablet 1,000 mg PO BID 04/24/23 04/21/25 04/21/25 08:00 History nystatin 100,000 unit/gram topical 1 applic topical BID 04/24/23 04/21/25 05/25/24 History cream olopatadine 0.2 % eye drops 1 drp ophthalmic (eye) DAILY 04/24/23 04/21/25 04/20/25 History potassium chloride 20 mEq 20 meq PO BID 04/24/23 04/21/25 04/20/25 History tablet,extended release simvastatin 10 mg tablet 10 mg PO DAILY 04/24/23 04/21/25 04/20/25 History bisacodyl 5 mg tablet 20 mg PO DAILY PRN Constipation 05/25/24 04/21/25 Unknown History guaifenesin 600 mg tablet, 600 mg PO Q12H PRN Cough 05/25/24 04/21/25 04/21/25 08:00 History extended release 12 hr (Mucinex) ondansetron HCl 8 mg tablet 8 mg PO Q8H PRN Nausea And Vomiting 05/25/24 04/21/25 Unknown History sennosides 8.6 mg tablet (senna) 8.6 mg PO BID 05/25/24 04/21/25 04/21/25 08:00 History tramadol 50 mg tablet 100 mg PO Q6H PRN Pain 05/25/24 04/21/25 04/20/25 History glipizide 5 mg tablet 5 mg PO DAILY 08/19/24 04/21/25 04/21/25 08:00 History acetaminophen 325 mg tablet 650 mg PO Q4H PRN pain/fever 10/26/24 04/21/25 Unknown History (Tylenol) saliva stimulant comb. no.3 1 applic mucous membrane Q2H PRN 12/06/24 04/21/25 Unknown Rx (Biotene Moisturizing Mouth dry mouth #44.3 mL mucosal spray) buspirone 5 mg tablet 5 mg PO BID 04/21/25 04/21/25 04/21/25 07:00 History furosemide 40 mg tablet 40 mg PO DAILY 04/21/25 04/21/25 04/21/25 08:00 History Allergies Allergy/AdvReac Type Severity Reaction Status Date / Time atorvastatin Allergy Unknown Verified 05/31/24 14:14 codeine Allergy Unknown Verified 05/31/24 14:14 iodine Allergy Unknown Verified 05/31/24 14:14 PFSH Acute PFSH: Medical History (Updated 04/21/25 @ 16:45 by Alf Calderon MD) Urinary tract infection Nonrheumatic aortic (valve) stenosis Acute kidney failure, unspecified Hemoperitoneum Morbid (severe) obesity with alveolar hypoventilation Muscle weakness (generalized) BMI 45.0-49.9, adult Candidiasis, unspecified Hypovolemic shock Pain in left shoulder Pain in right shoulder Primary osteoarthritis, unspecified site Weakness Metabolic encephalopathy Disorder of brain, unspecified FPC (current) use of 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 Anxiety disorder, unspecified Personal history of COVID-19 Personal history of pneumonia (recurrent) Stiffness of left hip, not elsewhere classified Osteoarthritis of knee, unspecified Osteophyte, left knee Osteophyte, right knee NSTEMI (non-ST elevated myocardial infarction) Enterovirus infection Malignant melanoma Osteoarthritis, knee Non-Hodgkin lymphoma Paroxysmal A-fib COPD (chronic obstructive pulmonary disease) Diarrhea Gram-negative bacteremia HTN (hypertension) Type 2 diabetes mellitus History of recurrent UTIs Fever Acute alteration in mental status Social History Smoking and tobacco/nicotine status: never used tobacco/nicotine Alcohol intake: never Household members: other Housing: [facility] Vitals/I&O/Wt Last Vital Signs Temp 98.3 F 04/21/25 16:32 Pulse 103 H 04/21/25 16:32 Resp 18 04/21/25 16:32 BP 113/68 04/21/25 16:32 Pulse Ox 94 04/21/25 16:32 O2 Del Method Room Air 04/21/25 16:32 04/21/25 04/21/25 04/21/25 06:59 14:59 22:59 Intake Total 1000 / 1000 Balance 1000 / 1000 Weight last 48 hrs Weight 135.624 kg Physical Exam Narrative: General: No acute distress, AO x 1 to 2, drowsy, morbidly obese HEENT: PERRLA, pupils bilaterally equal and reactive Chest: Decreased air entry over lower lung hol[place] because of body habitus, coarse odor present in left lower zone, diffuse rhonchi lower lung [place] CVS: S1-S2 irregularly irregular, tachycardia, no gallops, no rubs Abdomen: Soft, nontender, no organomegaly, bowel sounds present Neuro: No focal deficits, no facial deformity, Data 04/21/25 10:18 04/21/25 12:05 A&P Assessment and plan 1. Sepsis: SIRS: Tachycardic, Febrile, Leukocytosis Source: Pneumonia/possible cellulitis End organ damage: Acute infectious encephalopathy Lactic acid elevated consistent Patient did not receive elevated full 30 mL/kg BW as to not further worsen edema of RUE d/t risk of compartment syndrome due to concern for possible congestive heart failure. For now continue with NS at 75 cc/h. Monitor blood pressure. Goal blood pressure less than 140/90 Joanie with mean over 65. Follow-up blood culture, trend procalcitonin, urine culture, urine bacterial antigen, MRSA swab, respiratory viral panel. Empirically continue patient on IV ceftriaxone and azithromycin. If MRSA swab positive will add vancomycin. CT chest abdomen pelvis on admission concerning for left lower lobe pneumonia. Concern for aspiration pneumonia. Concern for UTI in the ER. For now we will follow-up culture. Above antibiotic should cover for UTI as well. 2. Altered mental status: Frequent reorientation. Will continue to monitor. Decrease dose of gabapentin to 200 mg 3 times daily. 3. Left lower lobe pneumonia: As above. N.p.o. for now. Speech evaluation. 4. Chronic respiratory failure with hypoxia: Oxygen supplementation keeping saturation over 90%. Pulmicort twice daily, DuoNeb every 6 hours. Hold off on steroids for now. 5. COPD (chronic obstructive pulmonary disease): Plan: Continue chronic home medication including statin, BuSpar, gabapentin lower dose, metoprolol, Requip Hypertension: Goal blood pressure less than 140/90 [place] with mean over 65. Continue with home dose of metoprolol. CODE STATUS: As per nursing staff patient granddaughter is DPOA. DNR/DNI NPO. Protonix for PUD prophylaxis Heparin 5000 every 12 hours for DVT prophylaxis. PDMP PDMP Reviewed: Not Reviewed Attestations Medical Necessity Statement*: Admission for more than 2 midnights for management of sepsis in setting of left lower lobe pneumonia, altered mental status with concern for aspiration pneumonia Diagnoses Sepsis A41.9 Altered mental status R41.82 Left lower lobe pneumonia J18.9 Chronic respiratory failure with hypoxia J96.11 COPD (chronic obstructive pulmonary disease) J44.9
[2025-04-21 16:54] LABS: Estmated Average Glucose 134; Hemoglobin A1C 6.3 % (4.0-6.0)
[2025-04-21 17:03] LABS: Troponin 5 6HR 28.80 ng/L (0-10); Troponin 5 6HR Delta 1.80 ng/L (0-12)
[2025-04-21 17:05] LABS: Procalcitonin 0.15 ng/mL (0-0.5); Thyroid Stimulating Hormone 2.97 uIU/mL (0.27-4.20); Vitamin B12 805 pg/mL (232-1245)
[2025-04-21 17:16] LABS: Iron 54 ug/dL (37-145); Total Iron Binding Capacity 358 mcg/dl; Unsaturated Iron Binding 304 ug/dL (112-347)
[2025-04-21] MEDS: pantoprazole 40 mg SDV IVP (17:48)
[2025-04-21] MEDS: heparin 5,000 unit/mL INJ 1 mL 5000 UNIT SUBCUT (17:49)
[2025-04-22] VITALS (16 sets, daily range): BP systolic 93–136; BP diastolic 57–79; PULSE 84–110; RESP 16–18; TEMP 36.7–37.1; O2SAT 90–98
[2025-04-22] MEDS: blistex lip oint 7 gm Tube 1 APPLIC TOPICAL (00:36)
[2025-04-22] MEDS: ATORVASTATIN 10 MG TABLET PO (04:20)
[2025-04-22] MEDS: morphine 4 mg/mL SDV 1 mL 2 MG IVP (04:20)
[2025-04-22] MEDS: heparin 5,000 unit/mL INJ 1 mL 5000 UNIT SUBCUT ×2 (04:20→17:14)
[2025-04-22 06:07] LABS: Hematocrit 35.9 % (36-47); Hemoglobin 11.40 g/dL (11.27-16.99); Mean Corpuscular HGB Conc 31.8 g/dL (30-55); Mean Corpuscular Hemoglobin 27.0 pg (27-33); Mean Corpuscular Volume 84.9 fl (85-98); Nucleated Red Blood Cells % 0 %; Platelet Count 171 10^3/cmm (157-399); Red Blood Count 4.23 10^6/uL (3.85-5.65); White Blood Count 9.40 10^3/uL (3.29-11.43)
[2025-04-22 06:28] LABS: Alanine Aminotransferase 8 U/L (0-33); Albumin Level 3.5 g/dL (3.5-5.2); Alkaline Phosphatase 104 U/L (35-105); Anion Gap 14.1 (5-19); Aspartate Amino Transferase 14 U/L (0-32); Blood Urea Nitrogen 11 mg/dL (8-23); Calcium 8.8 mg/dL (8.5-10.5); Carbon Dioxide 26 mmol/L (22-29); Chloride 103 mmol/L (98-107); Cholesterol 132 mg/dL (0-200); Globulin 2.4 g/dL (1.3-4.6); Glucose 150 mg/dL (65-115); HDL Cholesterol 52 mg/dL (60-100); Magnesium 1.7 mg/dL (1.7-2.3); Osmolality Calculated 292 mOsm/kg (285-295); Potassium 3.1 mmol/L (3.5-5.1); Sodium 140 mmol/L (136-145); Total Protein 5.9 g/dL (6.6-8.7); Triglycerides 86 mg/dL (0-150)
[2025-04-22 06:31] LABS: Procalcitonin 0.12 ng/mL (0-0.5)
--- NOTE | 2025-04-22 09:05 | PC.CHAP ---
Pastoral Care Encounter/Spiritual Assessment Type of Contact [] Declined environmental engineer visit [] Patient/Family/Request visit [] Outpatient visit [] Follow-up visit [] Physician referral [] Code/Alert [x] Routine visit [] Staff referral [] Actively dying [] Patient sleeping [] Family support [] [] Out of room [] Palliative care [] [] Receiving care in room [] Pre-surgical visit [] Trauma [] Long length of stay [] ICU visit [] Other: Relational/Emotional Strength [] Patient feels connected with others/family/visitors/staff [] Distress [] Loneliness/isolation [] Abandonment Spirituality of Patient [x] Person of Salome [] Attends Quaker of their Salome [x] Believes in Prayer [] Reads Bible or Jainism materials [] There are Spiritual issues to be addressed Digital Product Specialist Interventions [x] Prayer [x] Active listening [] Non-anxious presence [] Spiritual/emotional support [] Crisis/trauma care [] Spiritual counseling [] Bereavement support [] Provided bereavement packet [x] Provided Bible/devotional materials [] Provided toy/stuffed animal, coloring book to patient or family member [] Provided Communion [] Anointing/Tomah [] Salvation [x] Completed spiritual assessment [] Other: Impact on Illness or Injury [] Angry [] Fearful [] Anxious [] Often cries [] Exhaustion [] Unable to work [] Unable to attend pentecostalism [] Unable to walk/stand [] Unable to read [] Unable to drive [] Unable to eat/drink [] Unable to sleep [] Unable to be with family [] Patient intubated [] Other: Summary Time spent with patient 5 min
--- NOTE | 2025-04-22 09:20 | P.PN_ITS ---
Subjective 2 Subjective: No acute events overnight. Patient more awake today. Currently alert to self, being in hospital, date of . Not sure why she is in the hospital. Denies any nausea, vomiting. States still having generalized soreness in the body. Tmax overnight 100.9 Fahrenheit. Vitals/I&O/Wt Last Vital Signs Temp 98.8 F 04/22/25 07:25 Pulse 95 04/22/25 08:29 Resp 18 04/22/25 08:00 BP 108/68 04/22/25 07:25 Pulse Ox 92 04/22/25 08:00 O2 Del Method Room Air 04/22/25 08:00 04/21/25 04/22/25 04/22/25 22:59 06:59 14:59 Intake Total 180 / 1180 786. Balance 180 / 1180 786. Weight last 48 hrs Weight 133.538 kg Weight 135.624 kg Weight 135.624 kg Physical Exam 2 Narrative: General: No acute distress, AO x 2 to 3, forgetful, confused, morbidly obese HEENT: PERRLA, pupils bilaterally equal and reactive Chest: Decreased air entry over lower lung [place] because of body habitus, coarse odor present in left lower zone, diffuse rhonchi lower lung [place] CVS: S1-S2 irregularly irregular, tachycardia, no gallops, no rubs Abdomen: Soft, nontender, no organomegaly, bowel sounds present Neuro: No focal deficits, no facial deformity, Data 04/22/25 05:25 04/22/25 05:25 Micro: Microbiology 04/21/25 11:19 Bacterial Antigens - Final Urine Kidney A&P Assessment and plan 1. Sepsis: SIRS: Tachycardic, Febrile, Leukocytosis Source: Pneumonia/possible cellulitis End organ damage: Acute infectious encephalopathy Lactic acid elevated consistent Patient did not receive elevated full 30 mL/kg BW as to not further worsen edema of RUE d/t risk of compartment syndrome due to concern for possible congestive heart failure. For now continue with NS at 75 cc/h. Monitor blood pressure. Goal blood pressure less than 140/90 mmHg with mean over 65. Follow-up blood culture, appreciate negative trend of procalcitonin, follow-up urine culture, negative urine bacterial antigen, pending MRSA swab and respiratory viral panel. Appreciate past cultures. Positive for E. coli, Enterobacter. Switch from ceftriaxone to cefepime for now. Continue with azithromycin. If MRSA swab positive will add vancomycin. CT chest abdomen pelvis on admission concerning for left lower lobe pneumonia. Concern for aspiration pneumonia. Sputum culture when possible. Concern for UTI in the ER. For now we will follow-up culture. Above antibiotic should cover for UTI as well. 2. Altered mental status: Frequent reorientation. Will continue to monitor. Decrease dose of gabapentin to 200 mg 3 times daily. 3. Left lower lobe pneumonia: As above. N.p.o. for now. Speech evaluation. Restart diet as per speech evaluation. 4. Chronic respiratory failure with hypoxia: Oxygen supplementation keeping saturation over 90%. Pulmicort twice daily, DuoNeb every 6 hours. Hold off on steroids for now. 5. COPD (chronic obstructive pulmonary disease): Plan: Continue chronic home medication including statin, BuSpar, gabapentin lower dose, metoprolol, Requip Hypertension: Goal blood pressure less than 140/90 mmHg with mean over 65. Continue with home dose of metoprolol. Physical therapy. Speech evaluation. Occupational Therapy. CODE STATUS: As per nursing staff patient granddaughter is DPOA. DNR/DNI NPO. Protonix for PUD prophylaxis Heparin 5000 every 12 hours for DVT prophylaxis. Tried calling patient's granddaughter Ms. Leticia Arango over the phone. Unfortunately could not get in touch. Left a voice message. PDMP PDMP Reviewed: Not Reviewed Attestations 2 Medical Necessity Statement*: Requires further hospitalization for management of altered mental status in setting of sepsis, left lower lobe pneumonia with concern for aspiration Diagnoses Sepsis A41.9 Sepsis acute organ dysfunction status: unspecified Sepsis type: sepsis due to unspecified organism Altered mental status R41.82 Left lower lobe pneumonia J18.9 Chronic respiratory failure with hypoxia J96.11 COPD (chronic obstructive pulmonary disease) J44.9
[2025-04-22] MEDS: cefepime 1,000 mg SDV 1000 MG IVP ×2 (11:56→17:13)
[2025-04-22 12:10] LABS: MRSA PCR OZH (swab) MRSA Detected (Not Detecte)
[2025-04-22 15:02] LABS: Coronavirus 229E,HKU1,NL63,OC4 Not Detected (NOT DETECT); Parainfluenza Virus Type 1 Not Detected (NOT DETECT); Parainfluenza Virus Type 2 Not Detected (NOT DETECT); Parainfluenza Virus Type 3 Not Detected (NOT DETECT); Parainfluenza Virus Type 4 Not Detected (NOT DETECT); SARS-COV-2 Not Detected (NOT DETECT)
--- NOTE | 2025-04-22 15:41 | PHA.VACGOAL ---
Vancomycin Goal - Goal Vancomycin Goal:: 15-20 mg/L Vancomycin Indication:: Pneumonia - Therapy Day of therpy:: Day []of [] . Actual body weight (kg): 294 lb 6.4 oz - Data Labs: WBC 9.40 10^3/uL (3.29-11.43) 04/22/25 05:25 RBC 4.23 10^6/uL (3.85-5.65) 04/22/25 05:25 Hgb 11.40 g/dL (11.27-16.99) 04/22/25 05:25 Hct 35.9 % (36-47) L 04/22/25 05:25 MCV 84.9 fl (85-98) L 04/22/25 05:25 MCH 27.0 pg (27-33) 04/22/25 05:25 MCHC 31.8 g/dL (30-55) 04/22/25 05:25 RDW 15.1 % (12.1-15.1) 04/22/25 05:25 Sodium 140 mmol/L (136-145) 04/22/25 05:25 Potassium 3.1 mmol/L (3.5-5.1) L 04/22/25 05:25 Chloride 103 mmol/L (98-107) 04/22/25 05:25 Carbon Dioxide 26 mmol/L (22-29) 04/22/25 05:25 Anion Gap 14.1 (5-19) 04/22/25 05:25 BUN 11 mg/dL (8-23) 04/22/25 05:25 Creatinine 0.9 mg/dL (0.5-0.9) 04/22/25 05:25 GFR Calculation Not Reportable 04/22/25 05:25 Treatment plan:: new consult Regimen:: 2000 mg now 1500 MG Q12H
[2025-04-22] MEDS: pantoprazole 40 mg SDV IVP (17:13)
[2025-04-23] VITALS (13 sets, daily range): BP systolic 110–135; BP diastolic 64–75; PULSE 82–110; RESP 16–20; TEMP 35.9–36.9; O2SAT 93–99
[2025-04-23] MEDS: cefepime 1,000 mg SDV 1000 MG IVP ×3 (00:33→17:11)
[2025-04-23] MEDS: ATORVASTATIN 10 MG TABLET PO (05:08)
[2025-04-23] MEDS: heparin 5,000 unit/mL INJ 1 mL 5000 UNIT SUBCUT ×2 (05:09→17:15)
[2025-04-23 05:33] LABS: Hematocrit 34.5 % (36-47); Hemoglobin 11.20 g/dL (11.27-16.99); Mean Corpuscular HGB Conc 32.5 g/dL (30-55); Mean Corpuscular Hemoglobin 27.4 pg (27-33); Mean Corpuscular Volume 84.4 fl (85-98); Nucleated Red Blood Cells % 0 %; Platelet Count 157 10^3/cmm (157-399); Red Blood Count 4.09 10^6/uL (3.85-5.65); White Blood Count 6.28 10^3/uL (3.29-11.43)
[2025-04-23 05:53] LABS: Alanine Aminotransferase 8 U/L (0-33); Albumin Level 3.4 g/dL (3.5-5.2); Alkaline Phosphatase 116 U/L (35-105); Anion Gap 18.7 (5-19); Aspartate Amino Transferase 13 U/L (0-32); Blood Urea Nitrogen 9 mg/dL (8-23); Calcium 9.0 mg/dL (8.5-10.5); Carbon Dioxide 20 mmol/L (22-29); Chloride 108 mmol/L (98-107); Globulin 2.3 g/dL (1.3-4.6); Glucose 182 mg/dL (65-115); Magnesium 1.8 mg/dL (1.7-2.3); Osmolality Calculated 299 mOsm/kg (285-295); Potassium 3.7 mmol/L (3.5-5.1); Sodium 143 mmol/L (136-145); Total Protein 5.7 g/dL (6.6-8.7)
--- NOTE | 2025-04-23 07:39 | PC.NURSE ---
pt has taken off telemetry twice during project developer. First time nurse walked in and pt stated she must have taken it off in her sleep. Second time she was confused as to where she was and what the monitor was
--- NOTE | 2025-04-23 09:25 | PM.DCS ---
Discharge Providers Date of Admission: 04/21/25 14:26 Date of Discharge: April 23, 2025 Attending Provider at Admission: Lissette Nuñez MD Attending Provider at Discharge: Alf Calderon MD Primary Care Provider: Martha Lloyd NP Diagnoses at Discharge Discharge Diagnosis 1. Sepsis: 2. Altered mental status: 3. Left lower lobe pneumonia: 4. Chronic respiratory failure with hypoxia: 5. COPD (chronic obstructive pulmonary disease): Reason for Visit Reason for Visit: AMS Discharge Data Studies Completed and Pending Completed Studies During Hospitalization Category Date Time Status CT chest abdomen pelvis [CT chest abdpel w/*[id number] Cat Scan 04/21/25 12:22 Completed ] Stat CT head wo con* [id number] Urgent Cat Scan 04/21/25 10:13 Completed XR chest 1V portable [id number] Stat Exams 04/21/25 10:13 Completed Pending at discharge Category Date Time Status Blood Culture Stat Lab 04/21/25 11:22 Received Complete Blood Count w/Auto AM LABS Lab 04/24/25 04:00 Ordered Comprehensive Metabolic Panel AM LABS Lab 04/24/25 04:00 Ordered Magnesium AM LABS Lab 04/24/25 04:00 Ordered Phosphorus AM LABS Lab 04/24/25 04:00 Ordered Sputum Culture and Gram Stain Stat Lab 04/22/25 15:08 Results Radiology Impressions Chest X-Ray 04/21/25 10:13 IMPRESSION: 1. Pulmonary edema. Possible CHF. 2. Cardiomegaly. Head CT 04/21/25 10:13 IMPRESSION: 1. No acute intracranial abnormality. Chest/Abdomen/Pelvis CT 04/21/25 12:22 IMPRESSION: 1. Left lower lobe consolidation with air bronchograms, concerning for aspiration pneumonia or pneumonitis. 2. Small left pleural effusion. 3. Dilated main pulmonary artery measuring 35 mm, which can be seen with pulmonary arterial hypertension. 4. No pulmonary embolism 5. Cardiomegaly with aortic and mitral annular calcifications. Coronary artery calcifications indicating atherosclerosis. 6. Calcified right paratracheal and right perihilar lymph nodes, compatible with prior granulomatous disease. 7. Remote left rib fractures and thoracic spondylosis. IMPRESSION: 1. No acute intra-abdominal findings. 2. Hepatosplenomegaly with prominent splenorenal shunting, concerning for portal hypertension. No focal hepatic lesion identified. 3. Scattered punctate calcifications in the liver and spleen, compatible with prior granulomatous disease. 4. Aortoiliac and mesenteric ostial atherosclerosis without significant stenosis. 5. Right lower quadrant subcutaneous soft tissue stranding, which may reflect edema, contusion, or injection related change. Laboratory Results WBC 6.28 10^3/uL (3.29-11.43) 04/23/25 04:59 RBC 4.09 10^6/uL (3.85-5.65) 04/23/25 04:59 Hgb 11.20 g/dL (11.27-16.99) L 04/23/25 04:59 Hct 34.5 % (36-47) L 04/23/25 04:59 MCV 84.4 fl (85-98) L 04/23/25 04:59 MCH 27.4 pg (27-33) 04/23/25 04:59 MCHC 32.5 g/dL (30-55) 04/23/25 04:59 RDW 14.8 % (12.1-15.1) 04/23/25 04:59 Plt Count 157 10^3/cmm (157-399) 04/23/25 04:59 MPV 10.3 fL (7.4-10.4) 04/23/25 04:59 Neut % (Auto) 73.2 % 04/23/25 04:59 Lymph % (Auto) 13.2 % 04/23/25 04:59 [place] % (Auto) 9.1 % 04/23/25 04:59 Eos % (Auto) 3.5 % 04/23/25 04:59 Baso % (Auto) 0.5 % 04/23/25 04:59 Neut # (Auto) 4.60 10^3/uL (1.8-7.7) 04/23/25 04:59 Lymph # (Auto) 0.8 10^3/uL (0.8-4.8) 04/23/25 04:59 [place] # (Auto) 0.6 10^3/uL (0.2-0.9) 04/23/25 04:59 Eos # (Auto) 0.2 10^3/uL (0.0-0.8) 04/23/25 04:59 Baso # (Auto) 0.0 10^3/uL (0.0-0.1) 04/23/25 04:59 Nucleated RBC % (auto) 0 % 04/23/25 04:59 Nucleated RBCs # 0.0 /100WBC 04/23/25 04:59 Specimen Type Arterial 04/21/25 10:23 Sample Site Brachial, right 04/21/25 10:23 ABG pH 7.48 (7.35-7.45) H 04/21/25 10:23 ABG pCO2 36.1 mmHg (35-45) 04/21/25 10:23 ABG pO2 58.9 mmHg (80.0-100.0) L 04/21/25 10:23 ABG PO2/FiO2 Ratio 280 04/21/25 10:23 ABG HCO3 26.6 mmol/L (22-26) H 04/21/25 10:23 ABG O2 Saturation 92.3 04/21/25 10:23 ABG Base Excess 3.1 mmol/L (-2.0-2.0) H 04/21/25 10:23 Juan J Test N/a 04/21/25 10:23 A-a O2 Gradient 6.1 mmHg (5-10) 04/21/25 10:23 Hematocrit 39.5 % (37-47) 04/21/25 10:23 Hgb O2 Saturation 90.0 % (95-100) L 04/21/25 10:23 Carboxyhemoglobin 1.3 %THgb (0.4-20.1) 04/21/25 10:23 Methemoglobin 1.2 % (0.4-1.5) 04/21/25 10:23 Total Hemoglobin 12.9 g/dL (12-16) 04/21/25 10:23 Sodium 140.0 mmol/L (131-143) 04/21/25 10:23 Potassium 3.4 mmol/L (3.5-5.0) L 04/21/25 10:23 Glucose 154.0 mg/dL (70-115) H 04/21/25 10:23 Ionized Calcium 1.2 mmol/L (1.1-1.4) 04/21/25 10:23 O2 Delivery Device Room air 04/21/25 10:23 FiO2 21.0 % 04/21/25 10:[address] Reporter ID Amh 04/21/25 10:23 Sodium 143 mmol/L (136-145) 04/23/25 04:59 Potassium 3.7 mmol/L (3.5-5.1) 04/23/25 04:59 Chloride 108 mmol/L (98-107) H 04/23/25 04:59 Carbon Dioxide 20 mmol/L (22-29) L 04/23/25 04:59 Anion Gap 18.7 (5-19) 04/23/25 04:59 BUN 9 mg/dL (8-23) 04/23/25 04:59 Creatinine 0.8 mg/dL (0.5-0.9) 04/23/25 04:59 GFR Calculation Not Reportable 04/23/25 04:59 Glucose 182 mg/dL (65-115) H 04/23/25 04:59 POC Glucose 177 mg/dL (70-110) H 04/23/25 06:21 Estimat Average Glucose 134 04/21/25 10:18 Hemoglobin A1c 6.3 % (4.0-6.0) H 04/21/25 10:18 Calculated Osmolality 299 mOsm/kg (285-295) H 04/23/25 04:59 Lactic Acid 2.6 mmol/L (0.5-2.2) H 04/21/25 11:23 Lactic Acid (Sepsis) 1.5 mmol/L (0.5-2.2) 04/21/25 14:39 Calcium 9.0 mg/dL (8.5-10.5) 04/23/25 04:59 Phosphorus 3.0 mg/dL (2.5-4.5) 04/23/25 04:59 Magnesium 1.8 mg/dL (1.7-2.3) 04/23/25 04:59 Iron 54 ug/dL (37-145) 04/21/25 12:05 TIBC 358 mcg/dl 04/21/25 12:05 % Saturation 15.0 % (20-50) L 04/21/25 12:05 Unsat Iron Binding 304 ug/dL (112-347) 04/21/25 12:05 Total Bilirubin 0.8 mg/dL (0.15-1.2) 04/23/25 04:59 AST 13 U/L (0-32) 04/23/25 04:59 ALT 8 U/L (0-33) 04/23/25 04:59 Alkaline Phosphatase 116 U/L (35-105) H 04/23/25 04:59 Troponin T Baseline 27 ng/L (0-10) H 04/21/25 10:18 Troponin T 120 Minute 30.40 ng/L (0-10) H 04/21/25 11:22 Delta Troponin T 3.40 ABS# (0-10) 04/21/25 11:22 Troponin T Hi Sens 6Hr 28.80 ng/L (0-10) H 04/21/25 16:37 Troponin T Hi Sens 6Hr Delta 1.80 ng/L (0-12) 04/21/25 16:37 NT-Pro-B Natriuret Pep 1536 pg/mL (0-450) H 04/21/25 12:05 Total Protein 5.7 g/dL (6.6-8.7) L 04/23/25 04:59 Albumin 3.4 g/dL (3.5-5.2) L 04/23/25 04:59 Globulin 2.3 g/dL (1.3-4.6) 04/23/25 04:59 Triglycerides 86 mg/dL (0-150) 04/22/25 05:25 Cholesterol 132 mg/dL (0-200) 04/22/25 05:25 LDL Cholesterol, Calc 63 mg/dL (50-129) 04/22/25 05:25 HDL Cholesterol 52 mg/dL (60-100) L 04/22/25 05:25 LDL/HDL Ratio 1.21 RATIO (0.00-3.22) 04/22/25 05:25 Cholesterol/HDL Ratio 2.54 mg/dL (0.0-4.40) 04/22/25 05:25 Vitamin B12 805 pg/mL (232-1245) 04/21/25 12:05 Folate > 20.0 ng/mL (4.8-37.3) 04/22/25 05:25 Procalcitonin 0.12 ng/mL (0-0.5) 04/22/25 05:25 TSH 2.97 uIU/mL (0.27-4.20) 04/21/25 12:05 Urine Color Yellow (Yellow) 04/21/25 11:19 Urine Appearance Clear (CLEAR) 04/21/25 11:19 Urine pH 7.0 (5-7) 04/21/25 11:19 Ur Specific [place] 1.016 (1.005-1.030) 04/21/25 11:19 Urine Protein Negative (Negative) 04/21/25 11:19 Urine Glucose (UA) Negative (Normal) 04/21/25 11:19 Urine Ketones Negative (Negative) 04/21/25 11:19 Urine Blood Negative (Negative) 04/21/25 11:19 Urine Nitrate Positive (Negative) A 04/21/25 11:19 Urine Bilirubin Negative (Negative) 04/21/25 11: Urine Urobilinogen 1.0 mg/dL (Negative) 04/21/25 11: Ur Leukocyte Esterase 1+ (Negative) A 04/21/25 11:19 Urine RBC 0-2 /hpf (0-2) 04/21/25 11:19 Urine WBC 21-50 /hpf (0-5) H 04/21/25 11:19 Ur Squamous Epith Cells 0-5 /hpf (0-5) 04/21/25 11:19 Amorphous Sediment Not Reportable 04/21/25 11:19 Urine Bacteria 4+ /hpf (NONE) H 04/21/25 11:19 Hyaline Casts 2.05 /lpf 04/21/25 11:19 Nasal MRSA (PCR) [place] detected (Not Detecte) A 04/22/25 10: Adenovirus (PCR) Not detected (NOT DETECT) 04/22/25 10: C. pneumoniae DNA (PCR) Not detected (NOT DETECT) 04/22/25 10: Coronavirus 229E (PCR) Not detected (NOT DETECT) 04/22/25 10: Human Metapneumovir PCR Not detected (NOT DETECT) 04/22/25 10: Influenza A (H1) PCR Not detected (NOT DETECT) 04/22/25 10: Influenza A (PCR) Negative (Negative) 04/21/25 10:29 Influ A (H1/09) PCR Not detected (NOT DETECT) 04/22/25 10: Influenza A (H3) PCR Not detected (NOT DETECT) 04/22/25 10: Influenza Type A (PCR) Not detected (NOT DETECT) 04/22/25 10: Influenza Type B (PCR) Not detected (NOT DETECT) 04/22/25 10: M. pneumoniae (PCR) Not detected (NOT DETECT) 04/22/25 10: Parainfluenza 1 (PCR) Not detected (NOT DETECT) 04/22/25 10: Parainfluenza 2 (PCR) Not detected (NOT DETECT) 04/22/25 10: Parainfluenza 3 (PCR) Not detected (NOT DETECT) 04/22/25 10: Parainfluenza 4 (PCR) Not detected (NOT DETECT) 04/22/25 10: RSV (PCR) Negative (Negative) 04/21/25 10:29 RSV Type A (PCR) Not detected (NOT DETECT) 04/22/25 10: RSV Type B (PCR) Not detected (NOT DETECT) 04/22/25 10: Entero/Rhino (PCR) Not detected (NOT DETECT) 04/22/25 10: SARS-CoV-2 (PCR) Not detected (NOT DETECT) 04/22/25 10: Vitals Last Vital Signs Temp 96.7 F L 04/23/25 07:49 Pulse 91 04/23/25 07:49 Resp 20 H 04/23/25 07:49 BP 123/69 04/23/25 07:49 Pulse Ox 97 04/23/25 07:49 O2 Del Method Room Air 04/23/25 07:49 Discharge Plan Discharge Patient Disposition: Home Condition: Stable Prescriptions: No Action metformin 1,000 mg tablet 1,000 mg PO BID magnesium hydroxide [Milk of Magnesia] 400 mg/5 mL suspension 30 ml PO DAILY PRN (Reason: Constipation) nystatin 100,000 unit/gram cream 1 applic topical BID olopatadine 0.2 % drops 1 drp ophthalmic (eye) DAILY potassium chloride 20 mEq tablet extended release 20 meq PO BID simvastatin 10 mg tablet 10 mg PO DAILY Biotene Moisturizing Mouth [place],Non-Aerosol 1 applic mucous membrane Q2H PRN (Reason: dry mouth) Qty: 44.3 5RF Rx Instructions: while awake glipizide 5 mg tablet 5 mg PO DAILY buspirone 5 mg tablet 5 mg PO BID furosemide 40 mg tablet 40 mg PO DAILY gabapentin 600 mg tablet 600 mg PO TID ipratropium-albuterol 0.5 mg-3 mg(2.5 mg base)/3 mL solution for nebulization 3 ml INHALATION Q6H PRN (Reason: Shortness Of Breath) albuterol sulfate 2.5 mg /3 mL (0.083 %) Solution For Nebulization 2.5 mg INHALATION Q6H PRN (Reason: Shortness Of Breath) cetirizine [Zyrtec] 10 mg Tablet 10 mg PO QAM cyanocobalamin (vitamin B-12) 1,000 mcg Tablet 1,000 mcg PO QAM ropinirole 0.5 mg tablet 0.5 mg PO DAILY PRN (Reason: Restless Leg(S)) fluticasone propionate 50 mcg/actuation [place],Suspension 2 spray INTRANASAL QAM Rx Instructions: administer into each nostril colestipol 1 gram tablet 1 g PO BID metoprolol tartrate 25 mg tablet 25 mg PO BID cholecalciferol (vitamin D3) 1,250 mcg (50,000 unit) Capsule 50,000 unit PO Q7D Rx Instructions: on budesonide-formoterol 160-4.5 mcg/actuation HFA aerosol inhaler 2 puff INHALATION BID diclofenac sodium 1 % gel See Rx Instructions .ROUTE .COMPLEX Rx Instructions: apply 2 grams topically up to four times a day to upper ext and 4 grams up to four times to lower ext max dose per joint 16gm/day on lower ext and 8gm/day upper ext acetaminophen [Tylenol] 325 mg tablet 650 mg PO Q4H PRN (Reason: pain/fever) sennosides [senna] 8.6 mg Tablet 8.6 mg PO BID ondansetron HCl 8 mg Tablet 8 mg PO Q8H PRN (Reason: Nausea And Vomiting) tramadol 50 mg Tablet 100 mg PO Q6H PRN (Reason: Pain) bisacodyl 5 mg Tablet 20 mg PO DAILY PRN (Reason: Constipation) guaifenesin [Mucinex] 600 mg Tablet Extended Release 12hr 600 mg PO Q12H PRN (Reason: Cough) Referrals: Martha Lloyd NP [Primary Care Provider, Family Practice] Patient Instructions: Altered Mental Status (ED), Opioid Safety, Patient Portal & [place] Instructions Coding Level of Care Code Acute Code for [facility] Diagnoses Sepsis A41.9 Sepsis acute organ dysfunction status: unspecified Sepsis type: sepsis due to unspecified organism Altered mental status R41.82 Left lower lobe pneumonia J18.9 Chronic respiratory failure with hypoxia J96.11 COPD (chronic obstructive pulmonary disease) J44.9
--- NOTE | 2025-04-23 09:51 | P.PN_ITS ---
Subjective 2 Subjective: No acute events overnight. Patient has remained hemodynamically stable and afebrile. Sitting up in chair today. Denies any nausea, matting, headache. Seems to be at her baseline mentation. Vitals/I&O/Wt Last Vital Signs Temp 96.7 F L 04/23/25 07:49 Pulse 91 04/23/25 07:49 Resp 20 H 04/23/25 07:49 BP 123/69 04/23/25 07:49 Pulse Ox 97 04/23/25 07:49 O2 Del Method Room Air 04/23/25 07:49 04/22/25 04/23/25 04/23/25 22:59 06:59 14:59 Intake Total 1722.5 / 1782.5 1300 / 3082.5 360 / 360 Balance 1722.5 / 1782.5 1300 / 3082.5 360 / 360 Weight last 48 hrs Weight 130.89 kg Weight 133.538 kg Weight 135.624 kg Weight 135.624 kg Physical Exam 2 Narrative: General: No acute distress, AO x 2 to 3, forgetful, morbidly obese HEENT: PERRLA, pupils bilaterally equal and reactive Chest: Decreased air entry over lower lung [place] because of body habitus, coarse odor present in left lower zone, diffuse rhonchi lower lung [place] CVS: S1-S2 irregularly irregular, tachycardia, no gallops, no rubs Abdomen: Soft, nontender, no organomegaly, bowel sounds present Neuro: No focal deficits, no facial deformity, Data 04/23/25 04:59 04/23/25 04:59 Micro: Microbiology 04/21/25 11:19 Urine Culture - Final Urine,Clean Catch Escherichia coli 04/22/25 15:08 Gram Stain - Final Sputum - Expectorated Sputum A&P Assessment and plan 1. Sepsis: SIRS: Tachycardic, Febrile, Leukocytosis Source: Pneumonia/possible cellulitis End organ damage: Acute infectious encephalopathy Lactic acid elevated consistent Patient did not receive elevated full 30 mL/kg BW as to not further worsen edema of RUE d/t risk of compartment syndrome due to concern for possible congestive heart failure. For now continue with NS at 75 cc/h. Monitor blood pressure. Goal blood pressure less than 140/90 mmHg with mean over 65. Follow-up blood culture, appreciate negative trend of procalcitonin, follow-up urine culture, negative urine bacterial antigen, pending MRSA swab and respiratory viral panel. Appreciate past cultures. Positive for E. coli, Enterobacter. Switch from ceftriaxone to cefepime for now. Continue with azithromycin. If MRSA swab positive will add vancomycin. CT chest abdomen pelvis on admission concerning for left lower lobe pneumonia. Concern for aspiration pneumonia. Sputum culture when possible. Concern for UTI in the ER. For now we will follow-up culture. Above antibiotic should cover for UTI as well. 2. Altered mental status: Frequent reorientation. Will continue to monitor. Decrease dose of gabapentin to 200 mg 3 times daily. 3. Left lower lobe pneumonia: As above. N.p.o. for now. Speech evaluation. Restart diet as per speech evaluation. 4. Chronic respiratory failure with hypoxia: Oxygen supplementation keeping saturation over 90%. Pulmicort twice daily, DuoNeb every 6 hours. Hold off on steroids for now. 5. COPD (chronic obstructive pulmonary disease): Plan: Continue chronic home medication including statin, BuSpar, gabapentin lower dose, metoprolol, Requip Hypertension: Goal blood pressure less than 140/90 mmHg with mean over 65. Continue with home dose of metoprolol. Physical therapy. Speech evaluation. Occupational Therapy. CODE STATUS: As per nursing staff patient granddaughter is DPOA. DNR/DNI Dysphagia level 7 diet. Protonix for PUD prophylaxis Heparin 5000 every 12 hours for DVT prophylaxis. Plan for the day: Appreciate urine culture growing E. coli. Resistant to Levaquin. For now continue with IV cefepime. MRSA swab positive. Concern for UTI and aspiration pneumonia. Advance diet as per speech evaluation. Continue with IV vancomycin and cefepime for now. Most likely can transition to IV ceftriaxone to finish a 7-day course along with oral Levaquin on discharge. Will request case management. Patient most likely would not need a PICC line/midline as she will only need 4 days of IV antibiotics. Continue with speech evaluation. Respiratory viral panel negative. Continue other chronic home medications. Out of bed to chair. PDMP PDMP Reviewed: Not Reviewed Attestations 2 Medical Necessity Statement*: Requires further hospitalization for management of altered status in setting of aspiration pneumonia, UTI in a patient with dementia from senior living Diagnoses Sepsis A41.9 Sepsis acute organ dysfunction status: unspecified Sepsis type: sepsis due to unspecified organism Altered mental status R41.82 Left lower lobe pneumonia J18.9 Chronic respiratory failure with hypoxia J96.11 COPD (chronic obstructive pulmonary disease) J44.9
[2025-04-23] MEDS: pantoprazole 40 mg SDV IVP (17:11)
--- NOTE | 2025-04-23 17:20 | PC.NURSE ---
Pt refusing tele all day today. This nurse as well as SIDE [facility]WYER has attempted to replace tele x3, but have been unsuccessful.
[2025-04-24] MEDS: cefepime 1,000 mg SDV 1000 MG IVP (01:17)
[2025-04-24 02:46] VITALS: PULSE 87; RESP 14; O2SAT 97
[2025-04-24 03:38] VITALS: BP 127/71; PULSE 91; RESP 19; TEMP 36.9; O2SAT 95
[2025-04-24] MEDS: heparin 5,000 unit/mL INJ 1 mL 5000 UNIT SUBCUT (04:12)
[2025-04-24] MEDS: ATORVASTATIN 10 MG TABLET PO (04:12)
[2025-04-24 05:34] LABS: Hematocrit 35.4 % (36-47); Hemoglobin 11.10 g/dL (11.27-16.99); Mean Corpuscular HGB Conc 31.4 g/dL (30-55); Mean Corpuscular Hemoglobin 26.4 pg (27-33); Mean Corpuscular Volume 84.1 fl (85-98); Nucleated Red Blood Cells % 0 %; Platelet Count 190 10^3/cmm (157-399); Red Blood Count 4.21 10^6/uL (3.85-5.65); White Blood Count 5.77 10^3/uL (3.29-11.43)
[2025-04-24 05:55] LABS: Alanine Aminotransferase 9 U/L (0-33); Albumin Level 3.7 g/dL (3.5-5.2); Alkaline Phosphatase 119 U/L (35-105); Anion Gap 16.8 (5-19); Aspartate Amino Transferase 10 U/L (0-32); Blood Urea Nitrogen 9 mg/dL (8-23); Calcium 9.2 mg/dL (8.5-10.5); Carbon Dioxide 21 mmol/L (22-29); Chloride 108 mmol/L (98-107); Globulin 2.2 g/dL (1.3-4.6); Glucose 152 mg/dL (65-115); Magnesium 1.8 mg/dL (1.7-2.3); Osmolality Calculated 296 mOsm/kg (285-295); Potassium 3.8 mmol/L (3.5-5.1); Sodium 142 mmol/L (136-145); Total Protein 5.9 g/dL (6.6-8.7)
[2025-04-24 06:00] VITALS: PULSE 90
[2025-04-24 07:24] VITALS: PULSE 87; RESP 16; O2SAT 96
[2025-04-24 07:42] VITALS: BP 118/74; PULSE 88; RESP 17; TEMP 36.6; O2SAT 96
--- NOTE | 2025-04-24 08:47 | P.DS_ITS ---
Discharge Providers Date of Admission: 04/21/25 14:26 Date of Discharge: April 24, 2025 Attending Provider at Admission: Lissette Nuñez MD Attending Provider at Discharge: Alf Calderon MD Primary Care Provider: Martha Lloyd NP Diagnoses at Discharge Discharge Diagnosis 1. Sepsis: 2. Altered mental status: 3. Left lower lobe pneumonia: 4. Chronic respiratory failure with hypoxia: 5. COPD (chronic obstructive pulmonary disease): Reason for Visit Reason for Visit: AMS Hospital Course Hospital Course History taken through chart review, speaking to nursing staff from [facility]. Herlinda Shah is a 75 year old female, fdc resident with past medical history of COPD, paroxysmal A-fib, not on anticoagulation, HTN, recurrent UTIs, DM 2, history of non-Hodgkin lymphoma, To the ER today via EMS because of altered mental status. As per nursing staff patient was at her baseline health till last night. Today morning when she woke up she was confused, not able to do her usual chores by herself. At baseline she is alert and oriented to self, place and time with occasional episodes of confusion but today she was not able to follow directions, sought out her pills, forgot how to take her inhalers. She was found to be hypoxic with saturation down to 80s for which she was placed on 4 L after which her saturation improved to 88. Even on 4 L on sleeping she was desaturating down to 80s hence she was sent into the ER. As per the nursing staff patient has not had any vomiting, diarrhea, new complaints in the last few days. Today morning she complained she feels as if 'she has been hit by a truck'. In the ER she was found to be saturating over 92% on room air though continued to remain confused hence hospitalist service was requested. Examination patient is saturating well on room air, sleeping but arousable, confused She was admitted to floor for further evaluation and management of altered mental status in setting of possible left lower lobe aspiration pneumonia, sepsis with concern for recurrent UTIs. During hospitalization her blood cul ture remained negative, sputum culture is growing coag positive staph, urine culture is positive for E. coli. She responded well to the treatment and seems to be back to her baseline mentation for more than 48 hours. During hospitalization he did not have any episodes of agitation. She is been discharged back to SNF in hemodynamically stable condition on IV ceftriaxone for 5 more days, oral linezolid for 1 more week. Diet was changed as per speech evaluation to dysphagia level 7 which she is been tolerating well. Physical Exam Narrative: General: No acute distress, AO x 2 to 3, forgetful, morbidly obese HEENT: PERRLA, pupils bilaterally equal and reactive Chest: Decreased air entry over lower lung [place] because of body habitus, coarse odor present in left lower zone, diffuse rhonchi lower lung [place] CVS: S1-S2 irregularly irregular, tachycardia, no gallops, no rubs Abdomen: Soft, nontender, no organomegaly, bowel sounds present Neuro: No focal deficits, no facial deformity, Discharge Data Studies Completed and Pending Completed Studies During Hospitalization Category Date Time Status CT chest abdomen pelvis [CT chest abdpel w/*[id number] Cat Scan 04/21/25 12:22 Completed ] Stat CT head wo con* [id number] Urgent Cat Scan 04/21/25 10:13 Completed XR chest 1V portable [id number] Stat Exams 04/21/25 10:13 Completed Pending at discharge Category Date Time Status Blood Culture Stat Lab 04/21/25 11:22 Received Sputum Culture and Gram Stain Stat Lab 04/22/25 15:08 Results Vancomycin Trough Timed Lab 04/24/25 12:00 Ordered Radiology Impressions Chest X-Ray 04/21/25 10:13 IMPRESSION: 1. Pulmonary edema. Possible CHF. 2. Cardiomegaly. Head CT 04/21/25 10:13 IMPRESSION: 1. No acute intracranial abnormality. Chest/Abdomen/Pelvis CT 04/21/25 12:22 IMPRESSION: 1. Left lower lobe consolidation with air bronchograms, concerning for aspiration pneumonia or pneumonitis. 2. Small left pleural effusion. 3. Dilated main pulmonary artery measuring 35 mm, which can be seen with pulmonary arterial hypertension. 4. No pulmonary embolism 5. Cardiomegaly with aortic and mitral annular calcifications. Coronary artery calcifications indicating atherosclerosis. 6. Calcified right paratracheal and right perihilar lymph nodes, compatible with prior granulomatous disease. 7. Remote left rib fractures and thoracic spondylosis. IMPRESSION: 1. No acute intra-abdominal findings. 2. Hepatosplenomegaly with prominent splenorenal shunting, concerning for portal hypertension. No focal hepatic lesion identified. 3. Scattered punctate calcifications in the liver and spleen, compatible with prior granulomatous disease. 4. Aortoiliac and mesenteric ostial atherosclerosis without significant stenosis. 5. Right lower quadrant subcutaneous soft tissue stranding, which may reflect edema, contusion, or injection related change. Microbiology 04/22/25 15:08 Sputum - Expectorated Sputum Gram Stain - Final 04/22/25 15:08 Sputum - Expectorated Sputum Sputum Culture - Preliminary Coag positive Staphylococcus 04/21/25 11:19 Urine,Clean Catch Urine Culture - Final Escherichia coli 04/21/25 11:19 Urine Kidney Bacterial Antigens - Final Laboratory Results WBC 5.77 10^3/uL (3.29-11.43) 04/24/25 05:06 RBC 4.21 10^6/uL (3.85-5.65) 04/24/25 05:06 Hgb 11.10 g/dL (11.27-16.99) L 04/24/25 05:06 Hct 35.4 % (36-47) L 04/24/25 05:06 MCV 84.1 fl (85-98) L 04/24/25 05:06 MCH 26.4 pg (27-33) L 04/24/25 05:06 MCHC 31.4 g/dL (30-55) 04/24/25 05:06 RDW 15.0 % (12.1-15.1) 04/24/25 05:06 Plt Count 190 10^3/cmm (157-399) 04/24/25 05:06 MPV 10.3 fL (7.4-10.4) 04/24/25 05:06 Neut % (Auto) 68.3 % 04/24/25 05:06 Lymph % (Auto) 17.5 % 04/24/25 05:06 Twiggs % (Auto) 8.3 % 04/24/25 05:06 Eos % (Auto) 5.0 % 04/24/25 05:06 Baso % (Auto) 0.7 % 04/24/25 05:06 Neut # (Auto) 3.94 10^3/uL (1.8-7.7) 04/24/25 05:06 Lymph # (Auto) 1.0 10^3/uL (0.8-4.8) 04/24/25 05:06 [place] # (Auto) 0.5 10^3/uL (0.2-0.9) 04/24/25 05:06 Eos # (Auto) 0.3 10^3/uL (0.0-0.8) 04/24/25 05:06 Baso # (Auto) 0.0 10^3/uL (0.0-0.1) 04/24/25 05:06 Nucleated RBC % (auto) 0 % 04/24/25 05:06 Nucleated RBCs # 0.0 /100WBC 04/24/25 05:06 Specimen Type Arterial 04/21/25 10:23 Sample Site Brachial, right 04/21/25 10:23 ABG pH 7.48 (7.35-7.45) H 04/21/25 10:23 ABG pCO2 36.1 mmHg (35-45) 04/21/25 10:23 ABG pO2 58.9 mmHg (80.0-100.0) L 04/21/25 10:23 ABG PO2/FiO2 Ratio 280 04/21/25 10:23 ABG HCO3 26.6 mmol/L (22-26) H 04/21/25 10:23 ABG O2 Saturation 92.3 04/21/25 10:23 ABG Base Excess 3.1 mmol/L (-2.0-2.0) H 04/21/25 10:23 Juan J Test N/a 04/21/25 10:23 A-a O2 Gradient 6.1 mmHg (5-10) 04/21/25 10:23 Hematocrit 39.5 % (37-47) 04/21/25 10:23 Hgb O2 Saturation 90.0 % (95-100) L 04/21/25 10:23 Carboxyhemoglobin 1.3 %THgb (0.4-20.1) 04/21/25 10:23 Methemoglobin 1.2 % (0.4-1.5) 04/21/25 10:23 Total Hemoglobin 12.9 g/dL (12-16) 04/21/25 10:23 Sodium 140.0 mmol/L (131-143) 04/21/25 10:23 Potassium 3.4 mmol/L (3.5-5.0) L 04/21/25 10:23 Glucose 154.0 mg/dL (70-115) H 04/21/25 10:23 Ionized Calcium 1.2 mmol/L (1.1-1.4) 04/21/25 10:23 O2 Delivery Device Room air 04/21/25 10:23 FiO2 21.0 % 04/21/25 10:23 Apprentice Photographer ID [id number] 04/21/25 10:23 Sodium 142 mmol/L (136-145) 04/24/25 05:06 Potassium 3.8 mmol/L (3.5-5.1) 04/24/25 05:06 Chloride 108 mmol/L (98-107) H 04/24/25 05:06 Carbon Dioxide 21 mmol/L (22-29) L 04/24/25 05:06 Anion Gap 16.8 (5-19) 04/24/25 05:06 BUN 9 mg/dL (8-23) 04/24/25 05:06 Creatinine 0.7 mg/dL (0.5-0.9) 04/24/25 05:06 GFR Calculation Not Reportable 04/24/25 05:06 Glucose 152 mg/dL (65-115) H 04/24/25 05:06 POC Glucose 182 mg/dL (70-110) H 04/24/25 06:24 Estimat Average Glucose 134 04/21/25 10:18 Hemoglobin A1c 6.3 % (4.0-6.0) H 04/21/25 10:18 Calculated Osmolality 296 mOsm/kg (285-295) H 04/24/25 05:06 Lactic Acid 2.6 mmol/L (0.5-2.2) H 04/21/25 11:23 Lactic Acid (Sepsis) 1.5 mmol/L (0.5-2.2) 04/21/25 14:39 Calcium 9.2 mg/dL (8.5-10.5) 04/24/25 05:06 Phosphorus 3.5 mg/dL (2.5-4.5) 04/24/25 05:06 Magnesium 1.8 mg/dL (1.7-2.3) 04/24/25 05:06 Iron 54 ug/dL (37-145) 04/21/25 12:05 TIBC 358 mcg/dl 04/21/25 12:05 % Saturation 15.0 % (20-50) L 04/21/25 12:05 Unsat Iron Binding 304 ug/dL (112-347) 04/21/25 12:05 Total Bilirubin 0.7 mg/dL (0.15-1.2) 04/24/25 05:06 AST 10 U/L (0-32) 04/24/25 05:06 ALT 9 U/L (0-33) 04/24/25 05:06 Alkaline Phosphatase 119 U/L (35-105) H 04/24/25 05:06 Troponin T Baseline 27 ng/L (0-10) H 04/21/25 10:18 Troponin T 120 Minute 30.40 ng/L (0-10) H 04/21/25 11:22 Delta Troponin T 3.40 ABS# (0-10) 04/21/25 11:22 Troponin T Hi Sens 6Hr 28.80 ng/L (0-10) H 04/21/25 16:37 Troponin T Hi Sens 6Hr Delta 1.80 ng/L (0-12) 04/21/25 16:37 NT-Pro-B Natriuret Pep 1536 pg/mL (0-450) H 04/21/25 12:05 Total Protein 5.9 g/dL (6.6-8.7) L 04/24/25 05:06 Albumin 3.7 g/dL (3.5-5.2) 04/24/25 05:06 Globulin 2.2 g/dL (1.3-4.6) 04/24/25 05:06 Triglycerides 86 mg/dL (0-150) 04/22/25 05:25 Cholesterol 132 mg/dL (0-200) 04/22/25 05:25 LDL Cholesterol, Calc 63 mg/dL (50-129) 04/22/25 05:25 HDL Cholesterol 52 mg/dL (60-100) L 04/22/25 05:25 LDL/HDL Ratio 1.21 RATIO (0.00-3.22) 04/22/25 05:25 Cholesterol/HDL Ratio 2.54 mg/dL (0.0-4.40) 04/22/25 05:25 Vitamin B12 805 pg/mL (232-1245) 04/21/25 12:05 Folate > 20.0 ng/mL (4.8-37.3) 04/22/25 05:25 Procalcitonin 0.12 ng/mL (0-0.5) 04/22/25 05:25 TSH 2.97 uIU/mL (0.27-4.20) 04/21/25 12:05 Urine Color Yellow (Yellow) 04/21/25 11:19 Urine Appearance Clear (CLEAR) 04/21/25 11:19 Urine pH 7.0 (5-7) 04/21/25 11:19 Ur Specific [place] 1.016 (1.005-1.030) 04/21/25 11:19 Urine Protein Negative (Negative) 04/21/25 11:19 Urine Glucose (UA) Negative (Normal) 04/21/25 11:19 Urine Ketones Negative (Negative) 04/21/25 11:19 Urine Blood Negative (Negative) 04/21/25 11:19 Urine Nitrate Positive (Negative) A 04/21/25 11:19 Urine Bilirubin Negative (Negative) 04/21/25 11:19 Urine Urobilinogen 1.0 mg/dL (Negative) 04/21/25 11:19 Ur Leukocyte Esterase 1+ (Negative) A 04/21/25 11:19 Urine RBC 0-2 /hpf (0-2) 04/21/25 11:19 Urine WBC 21-50 /hpf (0-5) H 04/21/25 11:19 Ur Squamous Epith Cells 0-5 /hpf (0-5) 04/21/25 11:19 Amorphous Sediment Not Reportable 04/21/25 11:19 Urine Bacteria 4+ /hpf (NONE) H 04/21/25 11:19 Hyaline Casts 2.05 /lpf 04/21/25 11:19 Nasal MRSA (PCR) Mrsa detected (Not Detecte) A 04/22/25 10: Adenovirus (PCR) Not detected (NOT DETECT) 04/22/25 10: C. pneumoniae DNA (PCR) Not detected (NOT DETECT) 04/22/25 10: Coronavirus 229E (PCR) Not detected (NOT DETECT) 04/22/25 10: Human Metapneumovir PCR Not detected (NOT DETECT) 04/22/25 10:25 Influenza A (H1) PCR Not detected (NOT DETECT) 04/22/25 10: Influenza A (PCR) Negative (Negative) 04/21/25 10:29 Influ A (H1/09) PCR Not detected (NOT DETECT) 04/22/25 10: Influenza A (H3) PCR Not detected (NOT DETECT) 04/22/25 10: Influenza Type A (PCR) Not detected (NOT DETECT) 04/22/25 10: Influenza Type B (PCR) Not detected (NOT DETECT) 04/22/25 10: M. pneumoniae (PCR) Not detected (NOT DETECT) 04/22/25 10: Parainfluenza 1 (PCR) Not detected (NOT DETECT) 04/22/25 10: Parainfluenza 2 (PCR) Not detected (NOT DETECT) 04/22/25 10: Parainfluenza 3 (PCR) Not detected (NOT DETECT) 04/22/25 10: Parainfluenza 4 (PCR) Not detected (NOT DETECT) 04/22/25 10: RSV (PCR) Negative (Negative) 04/21/25 10: RSV Type A (PCR) Not detected (NOT DETECT) 04/22/25 10: RSV Type B (PCR) Not detected (NOT DETECT) 04/22/25 10: Entero/Rhino (PCR) Not detected (NOT DETECT) 04/22/25 10: SARS-CoV-2 (PCR) Not detected (NOT DETECT) 04/22/25: Vitals Last Vital Signs Temp 97.8 F 04/24/25 07:42 Pulse 88 04/24/25 07:42 Resp 17 04/24/25 07:42 BP 118/74 04/24/25 07:42 Pulse Ox 96 04/24/25 07:42 O2 Del Method Room Air 04/24/25 07:42 Discharge Plan Discharge Patient Disposition: Xfer SNF Condition: Stable Prescriptions: New linezolid 600 mg tablet 600 mg PO BID 5 Days Qty: 10 0RF Continued metformin 1,000 mg tablet 1,000 mg PO BID magnesium hydroxide [Milk of Magnesia] 400 mg/5 mL suspension 30 ml PO DAILY PRN (Reason: Constipation) nystatin 100,000 unit/gram cream 1 applic topical BID olopatadine 0.2 % drops 1 drp ophthalmic (eye) DAILY potassium chloride 20 mEq tablet extended release 20 meq PO BID simvastatin 10 mg tablet 10 mg PO DAILY Biotene Moisturizing Mouth [place],Non-Aerosol 1 applic mucous membrane Q2H PRN (Reason: dry mouth) Qty: 44.3 5RF Rx Instructions: while awake buspirone 5 mg tablet 5 mg PO BID furosemide 40 mg tablet 40 mg PO DAILY gabapentin 600 mg tablet 600 mg PO TID ipratropium-albuterol 0.5 mg-3 mg(2.5 mg base)/3 mL solution for nebulization 3 ml INHALATION Q6H PRN (Reason: Shortness Of Breath) albuterol sulfate 2.5 mg /3 mL (0.083 %) Solution For Nebulization 2.5 mg INHALATION Q6H PRN (Reason: Shortness Of Breath) cetirizine [Zyrtec] 10 mg Tablet 10 mg PO QAM cyanocobalamin (vitamin B-12) 1,000 mcg Tablet 1,000 mcg PO QAM ropinirole 0.5 mg tablet 0.5 mg PO DAILY PRN (Reason: Restless Leg(S)) fluticasone propionate 50 mcg/actuation [place],Suspension 2 spray INTRANASAL QAM Rx Instructions: administer into each nostril colestipol 1 gram tablet 1 g PO BID metoprolol tartrate 25 mg tablet 25 mg PO BID cholecalciferol (vitamin D3) 1,250 mcg (50,000 unit) Capsule 50,000 unit PO Q7D Rx Instructions: on budesonide-formoterol 160-4.5 mcg/actuation HFA aerosol inhaler 2 puff INHALATION BID diclofenac sodium 1 % gel See Rx Instructions .ROUTE .COMPLEX Rx Instructions: apply 2 grams topically up to four times a day to upper ext and 4 grams up to four times to lower ext max dose per joint 16gm/day on lower ext and 8gm/day upper ext acetaminophen [Tylenol] 325 mg tablet 650 mg PO Q4H PRN (Reason: pain/fever) sennosides [senna] 8.6 mg Tablet 8.6 mg PO BID ondansetron HCl 8 mg Tablet 8 mg PO Q8H PRN (Reason: Nausea And Vomiting) tramadol 50 mg Tablet 100 mg PO Q6H PRN (Reason: Pain) bisacodyl 5 mg Tablet 20 mg PO DAILY PRN (Reason: Constipation) guaifenesin [Mucinex] 600 mg Tablet Extended Release 12hr 600 mg PO Q12H PRN (Reason: Cough) Changed glipizide 5 mg tablet 2.5 mg PO DAILY Qty: 30 0RF Discharge Order = DC NOW: Discharge Order (Routine); Ordered 04/24/25 Ordered By: Alf Calderon Referrals: [facility] [Outside] Martha Lloyd NP [Primary Care Provider, Family Practice] Patient Instructions: Linezolid (By mouth), Altered Mental Status (ED), Opioid Safety, Pneumonia Stoplight, Patient Portal & [place] Instructions Activity Restrictions/Additional Instructions: Dysphagia level 7 diet Discharge Attestations Time Spent in Discharge Care*: greater than 30 min Specific Discharge Activities: educating and/or supporting family/caregiver, discussing with pcp/other providers, discussing with disability case manager/social workers/dc planners, documenting/other paperwork and evaluating patient/reviewing data Status at Discharge: Cognitive status at discharge: moderately impaired cognition , Behavioral status at discharge: cooperative , Functional status at discharge: uses cane/walker , Overall status at discharge: patient is back to baseline Quality Metrics Clinical Quality Measures [ No reported AMI, CVA or VTE this stay] Coding Level of Care Code 27970 Total time (in minutes) for Discharge: 50 Diagnoses Sepsis A41.9 Sepsis acute organ dysfunction status: unspecified Sepsis type: sepsis due to unspecified organism Altered mental status R41.82 Left lower lobe pneumonia J18.9 Chronic respiratory failure with hypoxia J96.11 COPD (chronic obstructive pulmonary disease) J44.9
[2025-04-24] MEDS: cefTRIAXone 1,000 mg SDV 1000 MG IVP (10:03)
--- NOTE | 2025-04-24 10:47 | PC.SOCIAL ---
IMM Updated Updated pt on IMM. No questions voiced. Provided pt a copy. Initialed, dated, & timed a copy & placed in chart.
--- NOTE | 2025-04-24 12:08 | PC.OT ---
OT TREATMENT HELD TODAY DUE TO SCHEDULED PATIENT D/C TODAY
--- NOTE | 2025-04-24 12:51 | PC.NURSE ---
pt discharged to [facility] with 20g to left ac for IV ABT. Report called to Elena. Pt had no issues upon leaving facility.
[2025-04-24 12:53] VITALS: BP 118/74; PULSE 88; RESP 17; TEMP 36.6; O2SAT 96
== END 2025-04-24 12:55 | disposition skilled nursing facility (03) | DRG 871 ==
LOC: ER 14:27 → MEDSURG 15:03
PROVIDERS: Admitting Provider Student in an Organized Health Care Education/Training Program; Emergency Provider Physician Assistant; PCP Nurse Practitioner Family; Visit Provider Student in an Organized Health Care Education/Training Program
DX: A41.9 Sepsis, unspecified organism (principal); J18.9 Pneumonia, unspecified organism; J69.0 Pneumonitis due to inhalation of food and vomit; J96.11 Chronic respiratory failure with hypoxia; J44.0 Chronic obstructive pulmonary disease with (acute) lower respiratory infection; N39.0 Urinary tract infection, site not specified; G93.49 Other encephalopathy; Z16.23 Resistance to quinolones and fluoroquinolones; R65.20 Severe sepsis without septic shock; I10 Essential (primary) hypertension; Z66 Do not resuscitate; Z79.51 Long term (current) use of inhaled steroids; Z79.84 Long term (current) use of oral hypoglycemic drugs; I48.0 Paroxysmal atrial fibrillation; E11.9 Type 2 diabetes mellitus without complications; Z87.440 Personal history of urinary (tract) infections; M17.9 Osteoarthritis of knee, unspecified; M25.762 Osteophyte, left knee; M25.761 Osteophyte, right knee; Z79.82 Long term (current) use of aspirin; B96.89 Other specified bacterial agents as the cause of diseases classified elsewhere; B96.20 Unspecified Escherichia coli [E. coli] as the cause of diseases classified elsewhere; Z22.322 Carrier or suspected carrier of Methicillin resistant Staphylococcus aureus
CPT/HCPCS: 36415; 36416; 36600; 70450; 71045; 71260; 74177; 80051; 80053; 80061; 80162; 80306; 81001; 82330; 82607; 82746; 82805; 82962; 83036; 83540; 83550; 83605; 83735; 83880; 84100; 84145; 84443; 84484; 85025; 85730; 86140; 86403; 87040; 87070; 87077; 87086; 87186; 87205; 87486; 87581; 87633; 87637; 92610; 93005; 93306; 94640; 94664; 96365; 96366; 96367; 96372; 96374; 96375; 96376; 97110; 97161; 97167; 97530; 99285; 99291; J0282; J0283; J0692; J0696; J1160; J1644; J1815; J1938; J2270; J2470; J3372; J3373; J3475; J3490; J7030; J7040; J7614; J7626; J7644; J9999

== ENCOUNTER 2025-04-24 23:08 | Inpatient (IN) | payer MEDICARE, MEDICAID, SELFPAY ==
[2025-04-24 22:50] VITALS: BP 126/85; PULSE 158; RESP 18; TEMP 36.6; O2SAT 98
[2025-04-24 22:55] VITALS: BP 124/83; PULSE 163; O2SAT 97
--- NOTE | 2025-04-24 22:58 | ECG_ITS ---
[facility] Test Date: 2025-04-24 Pat Name: Herlinda Shah Department: Room: Gender: Female Manager Packaging: : [id number] Requested By: Radha Angulo Order Number: [id number] Marcie MD: eTjas Kwon M.D. Measurements Intervals [place] Rate: 160 P: 0 AR: 0 QRS: -54 QRSD: 131 T: 45 QT: 302 QTc: 493 Interpretive Statements ATRIAL FLUTTER WITH RAPID VENTRICULAR RESPONSE LEFT AXIS DEVIATION [QRS AXIS < -30] INTRAVENTRICULAR CONDUCTION DELAY [130+ ms QRS DURATION] POSSIBLE ANTERIOR MYOCARDIAL INFARCTION , OF INDETERMINATE AGE [30 ms Q WAVE IN V3/V4, OR R < 0.2 mV IN V4] Compared to ECG 04/21/2025 17:38:44 Intraventricular conduction delay now present Atrial fibrillation no longer present Myocardial infarct finding still present Electronically Signed On 04-26-2025 13:14:05 MD [facility]ER[facility] IMMUNOLOGY by Tejas Kwon M.D. [email or web address]
--- NOTE | 2025-04-24 23:09 | XRR_ITS ---
PROCEDURE INFORMATION: Exam: XR Chest Exam date and time: 04/24/2025 11:12 PM Age: 75 years old Clinical indication: Other: Palpitations TECHNIQUE: Imaging protocol: Radiologic exam of the chest. Views: 1 view. COMPARISON: CT chest abdpel w/*[id number] 04/21/2025 12:38 PM FINDINGS: Tubes, catheters and devices: A loop recorder is seen in the chest wall soft tissues. Lungs: Subtle bibasilar airspace opacities are present, [id number]-right. Findings favor atelectasis. Airspace disease is not completely excluded. Pleural spaces: Unremarkable. No pleural effusion. No pneumothorax. Heart/Mediastinum: The heart is mildly enlarged for the AP view, which may be artifactual or represent a component of cardiomegaly. Vasculature: Atherosclerotic changes of the aorta are noted. Bones/joints: Mild bilateral shoulder osteoarthritis is present. Chronic left rib fracture deformities are present. XR/XR chest 1V portable [id number] IMPRESSION: Subtle bibasilar airspace opacities are present, [id number]-right. Findings favor atelectasis. Airspace disease is not completely excluded.
[2025-04-24 23:10] VITALS: BP 124/78; PULSE 158; O2SAT 96
--- NOTE | 2025-04-24 23:12 | W.ED.ARRPALP ---
Documented by User: JAYY Crowe 04/25/25 01:18 HPI - Arrhythmia/Palpitations General: Chief Complaint: Arrhythmia/Palpitations Stated Complaint: possible afib History of Present Illness: Patient is a 75-year-old female from [facility] with history of DM, HTN, Paroxysmal atrial fibrillation, history of non-Hodgkin's lymphoma, discharged from the hospital today with sepsis, pneumonia, and history of recurrent UTIs that returns to the ED with palpitations. As noted, patient has a history of paroxysmal atrial fibrillation, however states she has not had an issue in some time, and she returns to the emergency room with palpitations abruptly starting at 7 PM tonight. She is sure of the time because [employer] were coming on TV. She is not on anticoagulation. She is not having chest pain. She does endorse synthetic anxiety. patient is without any other symptoms. She waited until her show's were over to inform the [facility] she had palpitations. Chart review: Last EF on echocardiogram 2022 55-60%. Nuclear medicine stress test 2021 does not indicate any reversible ischemia. Associated symptoms: Deny anxiety, nausea or vomiting Related Data Home Medications ?Medication ?Instructions ?Recorded ?Confirmed albuterol sulfate 2.5 mg/3 mL 2.5 mg inhalation Q6H PRN 01/03/23 04/21/25 (0.083 %) solution for nebulization Shortness Of Breath budesonide-formoterol HFA 160 2 puff inhalation BID 01/03/23 04/21/25 mcg-4.5 mcg/actuation aerosol inhaler cetirizine 10 mg tablet (Zyrtec) 10 mg PO QAM 01/03/23 04/21/25 cholecalciferol (vitamin D3) 1,250 50,000 unit PO Q7D 01/03/23 04/21/25 mcg (50,000 unit) capsule colestipol 1 gram tablet 1 g PO BID 01/03/23 04/21/25 cyanocobalamin (vitamin B-12) 1,000 mcg PO QAM 01/03/23 04/21/25 1,000 mcg tablet diclofenac sodium 1 % topical gel See Rx Instructions .Route .COMPLEX 01/03/23 04/21/25 fluticasone propionate 50 2 spray intranasal QAM 01/03/23 04/21/25 mcg/actuation nasal spray,suspension gabapentin 600 mg tablet 600 mg PO TID 01/03/23 04/21/25 ipratropium 0.5 mg-albuterol 3 mg 3 ml inhalation Q6H PRN Shortness 01/03/23 04/21/25 (2.5 mg base)/3 mL nebulization Of Breath soln metoprolol tartrate 25 mg tablet 25 mg PO BID 01/03/23 04/21/25 ropinirole 0.5 mg tablet 0.5 mg PO DAILY PRN Restless Leg(S) 01/03/23 04/21/25 magnesium hydroxide 400 mg/5 mL 30 ml PO DAILY PRN Constipation 04/24/23 04/21/25 oral suspension (Milk of Magnesia) metformin 1,000 mg tablet 1,000 mg PO BID 04/24/23 04/21/25 nystatin 100,000 unit/gram topical 1 applic topical BID 04/24/23 04/21/25 cream olopatadine 0.2 % eye drops 1 drp ophthalmic (eye) DAILY 04/24/23 04/21/25 potassium chloride 20 mEq 20 meq PO BID 04/24/23 04/21/25 tablet,extended release simvastatin 10 mg tablet 10 mg PO DAILY 04/24/23 04/21/25 bisacodyl 5 mg tablet 20 mg PO DAILY PRN Constipation 05/25/24 04/21/25 guaifenesin 600 mg tablet, 600 mg PO Q12H PRN Cough 05/25/24 04/21/25 extended release 12 hr (Mucinex) ondansetron HCl 8 mg tablet 8 mg PO Q8H PRN Nausea And Vomiting 05/25/24 04/21/25 sennosides 8.6 mg tablet (senna) 8.6 mg PO BID 05/25/24 04/21/25 tramadol 50 mg tablet 100 mg PO Q6H PRN Pain 05/25/24 04/21/25 acetaminophen 325 mg tablet 650 mg PO Q4H PRN pain/fever 10/26/24 04/21/25 (Tylenol) buspirone 5 mg tablet 5 mg PO BID 04/21/25 04/21/25 furosemide 40 mg tablet 40 mg PO DAILY 04/21/25 04/21/25 Previous Rx's ?Medication ?Instructions ?Recorded saliva stimulant comb. no.3 1 applic mucous membrane Q2H PRN 12/06/24 (Biotene Moisturizing Mouth dry mouth #44.3 mL mucosal spray) glipizide 5 mg tablet 2.5 mg (1/2 x 5 mg) PO DAILY #30 04/24/25 tabs linezolid 600 mg tablet 600 mg PO BID 5 days #10 tabs 04/24/25 Allergies Allergy/AdvReac Type Severity Reaction Status Date / Time atorvastatin Allergy Unknown Verified 05/31/24 14:14 codeine Allergy Unknown Verified 05/31/24 14:14 iodine Allergy Unknown Verified 05/31/24 14:14 Review of Systems General: Reports: 10 or more systems reviewed and unremarkable except in HPI and below Const: Denies: fever(s) or chills Eyes: Denies: change in vision or blurry vision ENMT: Denies: throat pain Card: Reports: palpitations; Denies: chest pain Resp: Denies: dyspnea or non-productive cough GI: Denies: abdominal pain, nausea or vomiting : Denies: flank pain or difficulty voiding Musc: Denies: neck pain or back pain Skin/Breast: Denies: rash or pruritus Neuro: Denies: headache(s) or numbness in extremities Psych: Denies: anxiety or depression PFSH ED PFSH: Medical History Urinary tract infection Nonrheumatic aortic (valve) stenosis Acute kidney failure, unspecified Hemoperitoneum Morbid (severe) obesity with alveolar hypoventilation Muscle weakness (generalized) BMI 45.0-49.9, adult Candidiasis, unspecified Hypovolemic shock Pain in left shoulder Pain in right shoulder Primary osteoarthritis, unspecified site Weakness Metabolic encephalopathy Disorder of brain, unspecified MCFP (current) use of 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 Anxiety disorder, unspecified Personal history of COVID-19 Personal history of pneumonia (recurrent) Stiffness of left hip, not elsewhere classified Osteoarthritis of knee, unspecified Osteophyte, left knee Osteophyte, right knee NSTEMI (non-ST elevated myocardial infarction) Enterovirus infection Malignant melanoma Osteoarthritis, knee Non-Hodgkin lymphoma Paroxysmal A-fib COPD (chronic obstructive pulmonary disease) Diarrhea Gram-negative bacteremia HTN (hypertension) Type 2 diabetes mellitus History of recurrent UTIs Fever Acute alteration in mental status Social History Smoking and tobacco/nicotine status: never used tobacco/nicotine Alcohol intake: never Household members: other Housing: Senior [facility] Physical Exam Const: COMMON NORMALS: no acute distress, average body habitus and patient oriented x3 GENERAL APPEARANCE: cooperative and comfortable ORIENTATION/CONSCIOUSNESS: Yes awake, Yes oriented to person and Yes oriented to place HENMT: COMMON NORMALS: normocephalic, atraumatic and hearing grossly normal bilaterally HEAD & SCALP: normocephalic and atraumatic Eye: COMMON NORMALS: Equal, round and reactive pupils present, EOMs intact bilaterally and conjunctivae normal CONJUNCTIVA: Yes conjunctivae normal PUPIL: Yes Equal, round and reactive pupils present Neck/C-Spine: COMMON NORMALS: full ROM, no lymphadenopathy, supple, no meningeal signs, no JVD, Thyroid normal ( TSH 11/9 is 2.1) and No carotid bruits THYROID: Thyroid normal ( TSH 11/9 is 2.1) Chest: COMMONS NORMALS: normal inspection of the chest and normal palpation of entire chest wall Resp: COMMON NORMALS: normal respiratory effort, No retractions, No use of accessory muscles, clear to auscultation bilaterally and percussion normal AUSCULTATION: clear to auscultation bilaterally PERCUSSION: percussion normal Cardio: COMMON NORMALS: no JVD RATE: tachycardic GI: COMMON NORMALS: Normal to inspection, nondistended, normoactive bowel sounds present, Soft to palpation, non-tender, No hepatosplenomegaly present, no masses and no bruits PALPATION: Yes Soft to palpation and Yes No hepatosplenomegaly present : COMMON NORMALS: Yes no CVA tenderness BLADDER/KIDNEY EXAM: Yes no CVA tenderness Back/Pelvis: COMMON NORMALS: no CVA tenderness, thoracic and lumbar spine normal to inspection, no thoracic nor lumbar tenderness and thoraco-lumbar ROM normal Neuro: COMMON NORMALS: patient oriented x3 SENSORIUM/ORIENTATION: Yes oriented to person and Yes oriented to place MENINGEAL SIGNS: Yes no meningeal signs Course Reevaluation(s): Reevaluation #1: no change Reevaluation #2: No change. Still no complaints of symptoms. Consultations: Consultation #1: discussed with Dr. Duff, accepted admission Vital Signs: Vital signs: Vital Signs Temperature 97.9 F 04/24/25 22:50 Pulse Rate 150 H 04/25/25 02:15 Respiratory Rate 20 H 04/25/25 02:15 Blood Pressure 126/93 04/25/25 02:15 Pulse Oximetry 96 04/25/25 02:15 Oxygen Delivery Me thod Room Air 04/24/25 22:50 MDM - Arrhythmia/Palpitations Medical Decision Making Patient is a 75-year-old female discharged today with bilateral pneumonia, sepsis, returns to ED with abrupt onset of palpitations. She has a history of paroxysmal atrial fibrillation and is not on AC, however continues on beta-lynette, Metoprolol to tartrate 25 mg twice daily. Fairly common noted with sepsis. Patient is sure of the time. Will place her on heparin, Cardizem IV push initially attempted. Cardizem p.o. attempted to try to convert, and discharge patient, however patient did not tolerate. Lanoxin 250 mcg were given as a load. She continues with atrial flutter rate of 160. Discussed the case with Dr. Duff, whom recommends admission. Patient had 2 doses of Lanoxin to load, magnesium 2 g to increase this over 2, After Cardizem IV 10 mg push, Cardizem 30 mg p.o., however patient continued to have symptoms. suspect this is secondary to recent sepsis. Patient is without any concerns or symptoms. The case was turned over to hospitalist for admission. Medical Records I reviewed the patient's medical records. Lab Data I reviewed the patient's lab results. 04/24/25 23:06 04/24/25 23:06 Radiology Impressions Chest X-Ray 04/24/25 23:09 IMPRESSION: Subtle bibasilar airspace opacities are present, [id number]. Findings favor atelectasis. Airspace disease is not completely excluded. Laboratory Results WBC 6.05 10^3/uL (3.29-11.43) 04/24/25 23:06 RBC 4.50 10^6/uL (3.85-5.65) 04/24/25 23:06 Hgb 12.00 g/dL (11.27-16.99) 04/24/25 23:06 Hct 36.8 % (36-47) 04/24/25 23:06 MCV 81.8 fl (85-98) L 04/24/25 23:06 MCH 26.7 pg (27-33) L 04/24/25 23:06 MCHC 32.6 g/dL (30-55) 04/24/25 23:06 RDW 14.8 % (12.1-15.1) 04/24/25 23:06 Plt Count 205 10^3/cmm (157-399) 04/24/25 23:06 MPV 10.4 fL (7.4-10.4) 04/24/25 23:06 Neut % (Auto) 63.9 % 04/24/25 23:06 Lymph % (Auto) 21.0 % 04/24/25 23:06 [place] % (Auto) 9.1 % 04/24/25 23:06 Eos % (Auto) 5.0 % 04/24/25 23:06 Baso % (Auto) 0.5 % 04/24/25 23:06 Neut # (Auto) 3.87 10^3/uL (1.8-7.7) 04/24/25 23:06 Lymph # (Auto) 1.3 10^3/uL (0.8-4.8) 04/24/25 23:06 [place] # (Auto) 0.6 10^3/uL (0.2-0.9) 04/24/25 23:06 Eos # (Auto) 0.3 10^3/uL (0.0-0.8) 04/24/25 23:06 Baso # (Auto) 0.0 10^3/uL (0.0-0.1) 04/24/25 23:06 Nucleated RBC % (auto) 0 % 04/24/25 23:06 Nucleated RBCs # 0.0 /100WBC 04/24/25 23:06 APTT 19.4 SECONDS (23.9-36.7) L 04/25/25 00:52 Sodium 141 mmol/L (136-145) 04/24/25 23:06 Potassium 3.5 mmol/L (3.5-5.1) 04/24/25 23:06 Chloride 105 mmol/L (98-107) 04/24/25 23:06 Carbon Dioxide 21 mmol/L (22-29) L 04/24/25 23:06 Anion Gap 18.5 (5-19) 04/24/25 23:06 BUN 10 mg/dL (8-23) 04/24/25 23:06 Creatinine 0.8 mg/dL (0.5-0.9) 04/24/25 23:06 GFR Calculation Not Reportable 04/24/25 23:06 Glucose 195 mg/dL (65-115) H 04/24/25 23:06 Calculated Osmolality 296 mOsm/kg (285-295) H 04/24/25 23:06 Calcium 9.7 mg/dL (8.5-10.5) 04/24/25 23:06 Magnesium 1.9 mg/dL (1.7-2.3) 04/24/25 23:06 Total Bilirubin 0.6 mg/dL (0.15-1.2) 04/24/25 23:06 AST 15 U/L (0-32) 04/24/25 23:06 ALT 11 U/L (0-33) 04/24/25 23:06 Alkaline Phosphatase 115 U/L (35-105) H 04/24/25 23:06 Troponin T Baseline 23 ng/L (0-10) H 04/24/25 23:06 Troponin T 120 Minute 23.16 ng/L (0-10) H 04/25/25 00:52 Delta Troponin T 0.16 ABS# (0-10) 04/25/25 00:52 C-Reactive Protein 47.9 mg/L (0.0-4.9) H 04/24/25 23:06 NT-Pro-B Natriuret Pep 637 pg/mL (0-450) H 04/24/25 23:06 Total Protein 6.5 g/dL (6.6-8.7) L 04/24/25 23:06 Albumin 4.0 g/dL (3.5-5.2) 04/24/25 23:06 Globulin 2.5 g/dL (1.3-4.6) 04/24/25 23:06 Procalcitonin 0.07 ng/mL (0-0.5) 04/24/25 23:06 Urine Color Yellow (Yellow) 04/24/25 23:31 Urine Appearance Clear (CLEAR) 04/24/25 23:31 Urine pH 6.0 (5-7) 04/24/25 23:31 Ur Specific [place] 1.005 (1.005-1.030) 04/24/25 23:31 Urine Protein Negative (Negative) 04/24/25 23: Urine Glucose (UA) Negative (Normal) 04/24/25 23: Urine Ketones Negative (Negative) 04/24/25 23:31 Urine Blood Trace (Negative) A 04/24/25 23: Urine Nitrate Negative (Negative) 04/24/25 23: Urine Bilirubin Negative (Negative) 04/24/25 23: Urine Urobilinogen 0.2 mg/dL (Negative) 04/24/25 23: Ur Leukocyte Esterase Negative (Negative) 04/24/25 23: Urine RBC 0-2 /hpf (0-2) 04/24/25 23: Urine WBC 0-5 /hpf (0-5) 04/24/25 23: Ur Squamous Epith Cells 0-5 /hpf (0-5) 04/24/25 23: Amorphous Sediment Not Reportable 04/24/25 23: Urine Bacteria None seen /hpf (NONE) 04/24/25 23: Hyaline Casts 0-4 /lpf H 04/24/25 23:31 Digoxin 0.3 ng/mL (0.6-1.2) L 04/24/25 23:06 Urine Opiates Screen Negative ng/mL (Negative) 04/24/25 23: Ur Barbiturates Screen Negative ng/mL (Negative) 04/24/25 23:31 Ur Phencyclidine Scrn Negative ng/mL (Negative) 04/24/25 23: Ur Amphetamines Screen Negative ng/mL (Negative) 04/24/25 23:31 U Benzodiazepines Scrn Negative ng/mL (Negative) 04/24/25 23:31 Urine Cocaine Screen Negative ng/mL (Negative) 04/24/25 23:31 U Marijuana (THC) Screen Negative ng/mL (Negative) 04/24/25 23:31 All radiology interpretation(s) finalized by discharge ED provider radiology interpretation(s): Cardiomegaly, infiltrate bibasilar, left greater than right EKG Data EKG 1: Interpretation: atrial flutter Other EKG comments: Chest X-Ray 04/24/25 23:09 IMPRESSION: Subtle bibasilar airspace opacities are present, [id number]. Findings favor atelectasis. Airspace disease is not completely excluded. Discharge Plan Discharge Patient Disposition: Admitted As Inpatient Admit Provider: Wellington Duff Clinical Impression: Atrial fibrillation with rapid ventricular response Condition: Stable Coding Level of Care Code ED Fast Food Manager for Chg Fwd Documented by User: Maggy Mitchell MD 04/25/25 02:42 HPI - Arrhythmia/Palpitations General: Chief Complaint: Arrhythmia/Palpitations Stated Complaint: possible afib Related Data Home Medications ?Medication ?Instructions ?Recorded ?Confirmed albuterol sulfate 2.5 mg/3 mL 2.5 mg inhalation Q6H PRN 01/03/23 04/21/25 (0.083 %) solution for nebulization Shortness Of Breath budesonide-formoterol HFA 160 2 puff inhalation BID 01/03/23 04/21/25 mcg-4.5 mcg/actuation aerosol inhaler cetirizine 10 mg tablet (Zyrtec) 10 mg PO QAM 01/03/23 04/21/25 cholecalciferol (vitamin D3) 1,250 50,000 unit PO Q7D 01/03/23 04/21/25 mcg (50,000 unit) capsule colestipol 1 gram tablet 1 g PO BID 01/03/23 04/21/25 cyanocobalamin (vitamin B-12) 1,000 mcg PO QAM 01/03/23 04/21/25 1,000 mcg tablet diclofenac sodium 1 % topical gel See Rx Instructions .Route .COMPLEX 01/03/23 04/21/25 fluticasone propionate 50 2 spray intranasal QAM 01/03/23 04/21/25 mcg/actuation nasal spray,suspension gabapentin 600 mg tablet 600 mg PO TID 01/03/23 04/21/25 ipratropium 0.5 mg-albuterol 3 mg 3 ml inhalation Q6H PRN Shortness 01/03/23 04/21/25 (2.5 mg base)/3 mL nebulization Of Breath soln metoprolol tartrate 25 mg tablet 25 mg PO BID 01/03/23 04/21/25 ropinirole 0.5 mg tablet 0.5 mg PO DAILY PRN Restless Leg(S) 01/03/23 04/21/25 magnesium hydroxide 400 mg/5 mL 30 ml PO DAILY PRN Constipation 04/24/23 04/21/25 oral suspension (Milk of Magnesia) metformin 1,000 mg tablet 1,000 mg PO BID 04/24/23 04/21/25 nystatin 100,000 unit/gram topical 1 applic topical BID 04/24/23 04/21/25 cream olopatadine 0.2 % eye drops 1 drp ophthalmic (eye) DAILY 04/24/23 04/21/25 potassium chloride 20 mEq 20 meq PO BID 04/24/23 04/21/25 tablet,extended release simvastatin 10 mg tablet 10 mg PO DAILY 04/24/23 04/21/25 bisacodyl 5 mg tablet 20 mg PO DAILY PRN Constipation 05/25/24 04/21/25 guaifenesin 600 mg tablet, 600 mg PO Q12H PRN Cough 05/25/24 04/21/25 extended release 12 hr (Mucinex) ondansetron HCl 8 mg tablet 8 mg PO Q8H PRN Nausea And Vomiting 05/25/24 04/21/25 sennosides 8.6 mg tablet (senna) 8.6 mg PO BID 05/25/24 04/21/25 tramadol 50 mg tablet 100 mg PO Q6H PRN Pain 05/25/24 04/21/25 acetaminophen 325 mg tablet 650 mg PO Q4H PRN pain/fever 10/26/24 04/21/25 (Tylenol) buspirone 5 mg tablet 5 mg PO BID 04/21/25 04/21/25 furosemide 40 mg tablet 40 mg PO DAILY 04/21/25 04/21/25 Previous Rx's ?Medication ?Instructions ?Recorded saliva stimulant comb. no.3 1 applic mucous membrane Q2H PRN 12/06/24 (Biotene Moisturizing Mouth dry mouth #44.3 mL mucosal spray) glipizide 5 mg tablet 2.5 mg (1/2 x 5 mg) PO DAILY #30 04/24/25 tabs linezolid 600 mg tablet 600 mg PO BID 5 days #10 tabs 04/24/25 Allergies Allergy/AdvReac Type Severity Reaction Status Date / Time atorvastatin Allergy Unknown Verified 05/31/24 14:14 codeine Allergy Unknown Verified 05/31/24 14:14 iodine Allergy Unknown Verified 05/31/24 14:14 PFS ED PFSH: Medical History Urinary tract infection Nonrheumatic aortic (valve) stenosis Acute kidney failure, unspecified Hemoperitoneum Morbid (severe) obesity with alveolar hypoventilation Muscle weakness (generalized) BMI 45.0-49.9, adult Candidiasis, unspecified Hypovolemic shock Pain in left shoulder Pain in right shoulder Primary osteoarthritis, unspecified site Weakness Metabolic encephalopathy Disorder of brain, unspecified long term care social worker (current) use of 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 Anxiety disorder, unspecified Personal history of COVID-19 Personal history of pneumonia (recurrent) Stiffness of left hip, not elsewhere classified Osteoarthritis of knee, unspecified Osteophyte, left knee Osteophyte, right knee NSTEMI (non-ST elevated myocardial infarction) Enterovirus infection Malignant melanoma Osteoarthritis, knee Non-Hodgkin lymphoma Paroxysmal A-fib COPD (chronic obstructive pulmonary disease) Diarrhea Gram-negative bacteremia HTN (hypertension) Type 2 diabetes mellitus History of recurrent UTIs Fever Acute alteration in mental status Social History Smoking and tobacco/nicotine status: never used tobacco/nicotine Alcohol intake: never Household members: other Housing: Senior Care Course Vital Signs: Vital signs: Vital Signs Temperature 97.9 F 04/24/25 22:50 Pulse Rate 150 H 04/25/25 02:15 Respiratory Rate 20 H 04/25/25 02:15 Blood Pressure 126/93 04/25/25 02:15 Pulse Oximetry 96 04/25/25 02:15 Oxygen Delivery Me thod Room Air 04/24/25 22:50 MDM - Arrhythmia/Palpitations Medical Decision Making Patient is a 75-year-old female discharged today with bilateral pneumonia, sepsis, returns to ED with abrupt onset of palpitations. She has a history of paroxysmal atrial fibrillation and is not on AC, however continues on beta-lynette, Metoprolol to tartrate 25 mg twice daily. Fairly common noted with sepsis. Patient is sure of the time. Will place her on heparin, Cardizem IV push initially attempted. Cardizem p.o. attempted to try to convert, and discharge patient, however patient did not tolerate. Lanoxin 250 mcg were given as a load. She continues with atrial flutter rate of 160. Discussed the case with Dr. Duff, whom recommends admission. Patient had 2 doses of Lanoxin to load, magnesium 2 g to increase this over 2, After Cardizem IV 10 mg push, Cardizem 30 mg p.o., however patient continued to have symptoms. suspect this is secondary to recent sepsis. Patient is without any concerns or symptoms. The case was turned over to hospitalist for admission. ATTENDING PHYSICIAN ATTESTATION: I, Maggy Mitchell MD, have provided a substantive portion of the care for this patient. I have personally evaluated this patient, performed an independent history, physical exam, reviewed labwork, imaging, and agree with the plan of care as hereby documented by LAKESHA. MDM: Patient is a 75-year-old female who is a [facility] resident presents for chief complaint of a high heart rate. She has a history of COPD, paroxysmal atrial fibrillation, not on anticoagulation, high blood pressure, type 2 diabetes, non-Hodgkin lymphoma presents with a chief complaint of elevated heart rate. Patient is relatively asymptomatic but her heart rate has been in the 150s. She denies any fever, chest pain, shortness of breath, orthopnea, abdominal pain, nausea, vomiting, diarrhea, dysuria or leg swelling. She has not syncopized or injured herself. She was sent for evaluation for elevated and irregular heart rate. Exam: Patient is alert, oriented and able to provide history. She is normotensive but is tachycardic with an irregularly irregular rhythm. Lungs are clear to auscultation. Heart sounds normal. Abdomen is soft, nondistended nontender. There is no lower extremity symmetry or edema. Lab work was reviewed. She has a normal white blood cell count and is not anemic. She does not have any actionable electrolyte abnormalities. She has an elevated troponin but I would expect to see this with a heart rate that high. No delta. Mildly elevated BNP. UA does not show evidence of infection. Patient was treated with diltiazem IV, p.o., digoxin, started on diltiazem drip without resolution. Patient will need admission for treatment of A-fib with RVR. Lab Data 04/24/25 23:06 04/24/25 23:06 Radiology Impressions Chest X-Ray 04/24/25 23:09 IMPRESSION: Subtle bibasilar airspace opacities are present, [id number]. Findings favor atelectasis. Airspace disease is not completely excluded. Laboratory Results WBC 6.05 10^3/uL (3.29-11.43) 04/24/25 23:06 RBC 4.50 10^6/uL (3.85-5.65) 04/24/25 23:06 Hgb 12.00 g/dL (11.27-16.99) 04/24/25 23:06 Hct 36.8 % (36-47) 04/24/25 23:06 MCV 81.8 fl (85-98) L 04/24/25 23:06 MCH 26.7 pg (27-33) L 04/24/25 23:06 MCHC 32.6 g/dL (30-55) 04/24/25 23:06 RDW 14.8 % (12.1-15.1) 04/24/25 23:06 Plt Count 205 10^3/cmm (157-399) 04/24/25 23:06 MPV 10.4 fL (7.4-10.4) 04/24/25 23:06 Neut % (Auto) 63.9 % 04/24/25 23:06 Lymph % (Auto) 21.0 % 04/24/25 23:06 [place] % (Auto) 9.1 % 04/24/25 23:06 Eos % (Auto) 5.0 % 04/24/25 23:06 Baso % (Auto) 0.5 % 04/24/25 23:06 Neut # (Auto) 3.87 10^3/uL (1.8-7.7) 04/24/25 23:06 Lymph # (Auto) 1.3 10^3/uL (0.8-4.8) 04/24/25 23:06 [place] # (Auto) 0.6 10^3/uL (0.2-0.9) 04/24/25 23:06 Eos # (Auto) 0.3 10^3/uL (0.0-0.8) 04/24/25 23:06 Baso # (Auto) 0.0 10^3/uL (0.0-0.1) 04/24/25 23:06 Nucleated RBC % (auto) 0 % 04/24/25 23:06 Nucleated RBCs # 0.0 /100WBC 04/24/25 23:06 APTT 19.4 SECONDS (23.9-36.7) L 04/25/25 00:52 Sodium 141 mmol/L (136-145) 04/24/25 23:06 Potassium 3.5 mmol/L (3.5-5.1) 04/24/25 23:06 Chloride 105 mmol/L (98-107) 04/24/25 23:06 Carbon Dioxide 21 mmol/L (22-29) L 04/24/25 23:06 Anion Gap 18.5 (5-19) 04/24/25 23:06 BUN 10 mg/dL (8-23) 04/24/25 23:06 Creatinine 0.8 mg/dL (0.5-0.9) 04/24/25 23:06 GFR Calculation Not Reportable 04/24/25 23:06 Glucose 195 mg/dL (65-115) H 04/24/25 23:06 Calculated Osmolality 296 mOsm/kg (285-295) H 04/24/25 23:06 Calcium 9.7 mg/dL (8.5-10.5) 04/24/25 23:06 Magnesium 1.9 mg/dL (1.7-2.3) 04/24/25 23:06 Total Bilirubin 0.6 mg/dL (0.15-1.2) 04/24/25 23:06 AST 15 U/L (0-32) 04/24/25 23:06 ALT 11 U/L (0-33) 04/24/25 23:06 Alkaline Phosphatase 115 U/L (35-105) H 04/24/25 23:06 Troponin T Baseline 23 ng/L (0-10) H 04/24/25 23:06 Troponin T 120 Minute 23.16 ng/L (0-10) H 04/25/25 00:52 Delta Troponin T 0.16 ABS# (0-10) 04/25/25 00:52 C-Reactive Protein 47.9 mg/L (0.0-4.9) H 04/24/25 23:06 NT-Pro-B Natriuret Pep 637 pg/mL (0-450) H 04/24/25 23:06 Total Protein 6.5 g/dL (6.6-8.7) L 04/24/25 23: Albumin 4.0 g/dL (3.5-5.2) 04/24/25 23: Globulin 2.5 g/dL (1.3-4.6) 04/24/25 23:06 Procalcitonin 0.07 ng/mL (0-0.5) 04/24/25 23: Urine Color Yellow (Yellow) 04/24/25 23: Urine Appearance Clear (CLEAR) 04/24/25: Urine pH 6.0 (5-7) 04/24/25: Ur Specific [place] 1.005 (1.005-1.030) 04/24/25 23: Urine Protein Negative (Negative) 04/24/25: Urine Glucose (UA) Negative (Normal) 04/24/25: Urine Ketones Negative (Negative) 04/24/25 23: Urine Blood Trace (Negative) A 04/24/25: Urine Nitrate Negative (Negative) 04/24/25: Urine Bilirubin Negative (Negative) 04/24/25: Urine Urobilinogen 0.2 mg/dL (Negative) 04/24/25 23: Ur Leukocyte Esterase Negative (Negative) 04/24/25 23: Urine RBC 0-2 /hpf (0-2) 04/24/25: Urine WBC 0-5 /hpf (0-5) 04/24/25 23: Ur Squamous Epith Cells 0-5 /hpf (0-5) 04/24/25 23: Amorphous Sediment Not Reportable 04/24/25: Urine Bacteria None seen /hpf (NONE) 04/24/25: Hyaline Casts 0-4 /lpf H 04/24/25 23: Digoxin 0.3 ng/mL (0.6-1.2) L 04/24/25 23: Urine Opiates Screen Negative ng/mL (Negative) 04/24/25: Ur Barbiturates Screen Negative ng/mL (Negative) 04/24/25 23:31 Ur Phencyclidine Scrn Negative ng/mL (Negative) 04/24/25 23:31 Ur Amphetamines Screen Negative ng/mL (Negative) 04/24/25 23:31 U Benzodiazepines Scrn Negative ng/mL (Negative) 04/24/25 23:31 Urine Cocaine Screen Negative ng/mL (Negative) 04/24/25 23:31 U Marijuana (THC) Screen Negative ng/mL (Negative) 04/24/25 23:31 EKG Data EKG 1: Interpretation: Supraventricular tachycardia with a heart rate of 149, left axis deviation, widened QRS, normal QT/QTc, no STEMI. Other EKG comments: Chest X-Ray 04/24/25 23:09 IMPRESSION: Subtle bibasilar airspace opacities are present, cyin-[id number]. Findings favor atelectasis. Airspace disease is not completely excluded. Discharge Plan Discharge Patient Disposition: Admitted As Inpatient Admit Provider: Wellington Duff Clinical Impression: Atrial fibrillation with rapid ventricular response Condition: Stable Coding Level of Care Code ED Fast Food Manager for Sergio Pinedo
--- OUTSIDE RECORDS SUMMARY | 2025-04-24 23:12 | XMS_ITS | Encounter Summary ---
Author Organization [facility] Address [address] [place] [address] Care Team Providers Care Coarse Wire Drawer Name Role Phone Franko Savage MD Primary Care Provider [phone] Encounter Details Date Type Department Care Team (Late st Contact Info) Description 04/18/2018 Ancillary Orders [facility] Medicine Brenda [address] [facility] [address] [place] [address] Phani Coles, JAYY [address] [place] [address] Pain of right hip joint Social History Tobacco Use Types Packs/Day Years Used Date Smoking Tobacco: Never Smokeless Tobacco: Never Alcohol Use Standard Drinks/Week Comments No 0 (1 standard drink = 0.6 oz pur e alcohol) Comments No Sex and Gender Information Value Date Recorded Sex Assigned at Not on file Legal Sex Female 3:31 AM CORPORATE GENERAL MANAGER Gender Identity Not on file Sexual Orientation Not on file documented as of this encounter Plan of Treatment Not on file documented as of this encounter Results * XR HIP 1 VW RIGHT (04/18/2018 1:03 PM CORPORATE GENERAL MANAGER) Anatomical Region Laterality Modality Lower Extremity Right Computed Radiogr aphy 04/18/2018 1:05 PM CORPORATE GENERAL MANAGER Impressions 04/18/2018 1:49 PM CORPORATE GENERAL MANAGER IMPRESSION: Moderate degenerative changes. Indeterminate lucency overlying the left iliac crest making lytic lesion difficult to exclude. MRI could assess further if clinically indicated. Narrative 04/18/2018 1:49 PM CORPORATE GENERAL MANAGER Exam: XR HIP 1 VW RIGHT [...] joint documented in this encounter Care Teams Coarse Wire Drawer Relationship Specialty Start Date End Date Franko Savage MD [address] [place] [phone] PCP - General Family Practice 06/15/19 documented as of this encounter
--- OUTSIDE RECORDS SUMMARY | 2025-04-24 23:12 | XMS_ITS | Encounter Summary ---
Author Organization [facility] Address [address] [place] [address] Care Team Providers Care Wire Tester Name Role Phone Franko Savage MD Primary Care Provider [phone] Encounter Details Date Type Department Care Team (Latest Contact Info) Description 03/26/1999 Outpatient Historical [address] [phone] Amanda Callahan MD NO ADDRESS ON FILE Urinary tract infection, site not specified (Primary Dx) Social History Tobacco Use Types Packs/Day Years Used Date Smoking Tobacco: Never Assessed Comments Unknown Sex and Gender Information Value Date Recorded Sex Assigned at Not on file Legal Sex Female 3:31 AM WIRE TESTER Gender Identity Not on file Sexual Orientation Not on file documented as of this encounter Plan of Treatment Not on file documented as of this encounter Visit Diagnoses Diagnosis Urinary tract infection, site not specified- Primary documented in this encounter Care Teams Wire Tester Relationship Specialty Start Date End Date Franko Savage MD [address] [place] [address] [address] [place] [phone] PCP - General Family Practice 06/15/19 documented as of this encounter
--- OUTSIDE RECORDS SUMMARY | 2025-04-24 23:12 | XMS_ITS | Encounter Summary ---
Author Organization [employer] [facility] Address [address] [place] [address] Care Team Providers Care Cylinder Valve Repairer Name Role Phone Franko Savage MD Primary Care Provider [phone] Encounter Details Date Type Department Care Team (Latest Contact Info) Description 08/03/2019 Ancillary Orders [facility] [place] [address] [facility] [address] [place] [address] Franko Savage MD [address] [place] [address] Encounter for screening mammogram for breast cancer Social History Tobacco Use Types Packs/Day Years Used Date Smoking Tobacco: Never Smokeless Tobacco: Never Alcohol Use Standard Drinks/Week Comments No 0 (1 standard drink = 0.6 oz pur e alcohol) Comments No Sex and Gender Information Value Date Recorded Sex Assigned at Not on file Legal Sex Female 3:31 AM MINCEMEAT MAKER Gender Identity Not on file Sexual Orientation Not on file documented as of this encounter Plan of Treatment Not on file documented as of this encounter Visit Diagnoses Diagnosis Encounter for screening mammogram for breast cancer documented in this encounter Additional Health Concerns Assessment Noted Time PHQ-9 Depression Total Score: 2 06/15/19 20 6:00 PM MINCEMEAT MAKER documented as of this encounter Care Teams Cylinder Valve Repairer Relationship Specialty Start Date End Date Franko Savage MD [facility] [address] [place] [phone] PCP - General Family Practice 06/15/19 documented as of this encounter
--- OUTSIDE RECORDS SUMMARY | 2025-04-24 23:12 | XMS_ITS | Encounter Summary ---
Author Organization [facility] Address [address] [place] [address] Care Team Providers Care Stock Clipper Name Role Phone Franko Savage MD Primary Care Provider [phone] Encounter Details Date Type Department Care Team (Latest Contact Info) Description 06/15/2005 Outpatient Historical [facility] Family Medicine Brenda [facility] [address] [address] Lg Garrido Jr., MD [address] [place] [address] 248 [facility] [address] [place] [address] Sprain lumbosacral (Primary Dx) Social History Tobacco Use Types Packs/Day Years Used Date Smoking Tobacco: Never Assessed Comments Unknown Sex and Gender Information Value Date Recorded Sex Assigned at Not on file Legal Sex Female 3:31 AM JOINERY PATTERNMAKER Gender Identity Not on file Sexual Orientation Not on file documented as of this encounter Plan of Treatment Not on file documented as of this encounter Visit Diagnoses Diagnosis Sprain lumbosacral- Primary Sprain of lumbosacral (joint) (ligament) documented in this encounter Care Teams Stock Clipper Relationship Specialty Start Date End Date Franko Savage MD [address] [address] PCP - General Family Practice 06/15/19 documented as of this encounter
--- OUTSIDE RECORDS SUMMARY | 2025-04-24 23:12 | XMS_ITS | Encounter Summary ---
Author Organization [facility] Address [address] [place] [address] Care Team Providers Care Medical Recruiter Name Role Phone Franko Savage MD Primary Care Provider [phone] Encounter Details Date Type Department Care Team (Latest Contact Info) Description 01/26/[address] [facility] Family Medicine Brenda [facility] [address] [address] Lg Garrido Jr., MD [address] [place] [address] 248 [facility] [address] [place] [address] Polyuria (Primary Dx); Pain in Limb Social History Tobacco Use Types Packs/Day Years Used Date Smoking Tobacco: Never Assessed Comments Unknown Sex and Gender Information Value Date Recorded Sex Assigned at Not on file Legal Sex Female 3:31 AM WIND TUNNEL MECHANIC Gender Identity Not on file Sexual Orientation Not on file documented as of this encounter Plan of Treatment Not on file documented as of this encounter Visit Diagnoses Diagnosis Polyuria- Primary Pain in limb Pain in soft tissues of limb documented in this encounter Care Teams Medical Recruiter Relationship Specialty Start Date End Date Franko Savage MD [address] [address] PCP - General Family Practice 06/15/19 documented as of this encounter
--- OUTSIDE RECORDS SUMMARY | 2025-04-24 23:12 | XMS_ITS | Encounter Summary ---
Author Organization [facility] Address [address] [place] [address] Care Team Providers Care Coal Drier Operator Name Role Phone Franko Savage MD Primary Care Provider Encounter Details Date Type Department Care Team (Late st Contact Info) Description 04/18/2018 Ancillary Orders [facility] Medicine Brenda [address] [address] Phani Coles, JAYY [address] [place] [address] Pain of right hip joint Social History Tobacco Use Types Packs/Day Years Used Date Smoking Tobacco: Never Smokeless Tobacco: Never Alcohol Use Standard Drinks/Week Comments No 0 (1 standard drink = 0.6 oz pur e alcohol) Comments No Sex and Gender Information Value Date Recorded Sex Assigned at Not on file Legal Sex Female 3:31 AM DRAG OUT MAN Gender Identity Not on file Sexual Orientation Not on file documented as of this encounter Plan of Treatment Not on file documented as of this encounter Visit Diagnoses Diagnosis Pain of right hip joint documented in this encounter Care Teams Coal Drier Operator Relationship Specialty Start Date End Date Franko Savage MD [address] [facility] [address] [place] [address] PCP - General Family Practice 06/15/19 documented as of this encounter
--- OUTSIDE RECORDS SUMMARY | 2025-04-24 23:12 | XMS_ITS | Encounter Summary ---
Author Organization [employer] [facility] Address [address] [place] [address] Care Team Providers Care Promotion Writer Name Role Phone Franko Savage MD Primary Care Provider [phone] Reason for Referral * Radiology Services (Routine) - Closed Specialty Diagnoses / Procedures Referred By Ciro murry Referred To Contact Diagnoses Visit for screening mammogram Procedures MAMMO SCRN BILAT MOBILE W OR WO CAD Franko Savage MD [address] [address] Phone: tel: fax: Referral ID Status Reason Start Date Expiration Date Visits Re quested Visits Authorized [id number] Closed 12/31/2019 01/30/2021 1 1 Encounter Details Date Type Department Care Team (Latest Contact Info) Description 12/31/2019 Ancillary Orders [facility] [place] [address] [address] Franko Savage MD [address] [place] [address] Visit for screening mammogram Social History Tobacco Use Types Packs/Day Years Used Date Smoking Tobacco: Never Smokeless Tobacco: Never Alcohol Use Standard Drinks/Week Comments No 0 (1 standard drink = 0.6 oz pur e alcohol) Comments No Sex and Gender Information Value Date Recorded Sex Assigned at Not on file Legal Sex Female 3:31 AM SALES PROJECT ENGINEER Gender Identity Not on file Sexual [...] by the Computer Aided Detection System (CAD), [employer] Image[employer]omer[employer], Version 8.3. Indeterminate calcifications are seen within [...] in the CC and true lateral projections. [id number] Franko Savage MD MAMMO ORDERABLES Final Result documented in this encounter Visit Diagnoses Diagnosis Encounter for screening mammogram for breast cancer Visit for screening mammogram Other screening mammogram Visit for screening mammogram Other screening mammogram documented in this encounter Additional Health Concerns Assessment Noted Time PHQ-9 Depression Total Score: 2 12/31/19 20 9:00 AM CDT documented as of this encounter Care Teams Promotion Writer Relationship Specialty Start Date End Date Franko Savage MD [address] [place] [address] [place] [address] PCP - General Family Practice 06/15/19 documented as of this encounter
--- OUTSIDE RECORDS SUMMARY | 2025-04-24 23:12 | XMS_ITS | Clinical Summary ---
Author Organization [facility] Address [address] [facility] [address] [place] [address] Care Team Providers Care Technical Business Analyst Name Role Phone Franko Savage MD Primary Care Provider [phone] Allergies Active Allergy Reactions Criticality Noted Date Comments Atorvastatin Muscle Pain High 03/14/2020 Medications dextromethorphan polistirex (DELSYM) 30 mg/5 mL Suspension, Sust. Release 12HRIndications:Co ugh Take 10 mL by mouth every 12 hours as needed for Cough. 03/30/20 19 Active lancetsIndications :Type 2 diabetes mellitus with diabetic polyneuropathy, without long-term current use of insulin ([facility]) Check blood sugar 1-2 times daily [...] polyneuropathy, without long-term current use of insulin ([facility]),Chronic pain of both shoulders Take 2 Capsules (600 mg) by mouth 3 times daily. 180 Capsule 11 12/12/19 20 Active Blood-Glucose MeterIndications:T ype 2 diabetes mellitus with diabetic polyneuropathy, without long-term current use of insulin ([facility]) Check blood sugar daily as directed. 1 Each 12/27/19 20 Active lancetsIndications :Type 2 diabetes mellitus with diabetic polyneuropathy, without long-term current use of insulin ([facility]) Check blood sugar daily as directed. [...] Chronic obstructive pulmonary disease, unspecified COPD type ([facility]),Shortnes s of breath Nebulized albuterol 3 times daily as needed for shortness of breath, wheezing. Length of need. - 99 months. DUANE Maddox, 06/04/2020. Please refax to [phone]. 1 Each 06/03/20 20 Active metFORMIN (GLUCOPHAGE) [...] polyneuropathy, without long-term current use of insulin ([facility]) CHECK BLOOD GLUCOSE ONCE TO TWICE DAILY 100 Strip 3 09/02/19 21 Active oxygen home deliveryIndication s:Chronic obstructive pulmonary disease with acute lower respiratory infection ([facility]),Chronic obstructive pulmonary disease, unspecified COPD type ([facility]) daily at bedtime. Home Oxygen Concentrator [...] respiratory tract infection, unspecified type,COPD with exacerbation ([facility]) Take 3 mL (2.5 mg) by inhalation every 6 hours as needed for Shortness of Breath. 120 mL 1 10/22/19 21 Active fluticasone propionate (FLONASE) 50 mcg/spray [place], Suspension nasal inhalerIndications :Allergic rhinitis, unspecified seasonality, [...] file Legal Sex Female 3:31 AM SOLAR HOT WATER INSTALLER Gender Identity Not on file Sexual Orientation [...] 10/23/2020, 12/26/2019, Additional history exists [place] Preventative Visit/Annual Wellness Visit 06/13/2024 10/30/2020, 03/16/2016 [...] polyneuropathy, without long-term current use of insulin ([facility]) Benign hypertension HEMOGLOBIN A1C Routine 10/23/2020 8:45 AM CDT Type 2 diabetes mellitus with diabetic polyneuropathy, without long-term current use of insulin ([facility]) Benign hypertension MICROALBUMIN/CREATI NINE RATIO, RANDOM UR Routine 05/02/2020 9:29 AM SOLAR HOT WATER INSTALLER Type 2 diabetes mellitus with diabetic polyneuropathy, without long-term current use of insulin ([facility]) HM DIABETES EYE EXAM Routine 04/16/2019 ENDOSCOPY, COLON, DIAGNOSTIC Routine 04/09/2016 from Last 3 Months or Most Recently Relevant to Health Maintenance Results * (ABNORMAL) LIPID RFLX (10/23/2020 8:45 AM CDT) CHOLESTEROL 200(H) <200 mg/dL 10/24/2020 8:33 AM CDT [facility] TRIGLYCERIDE 118 <150 mg/dL 10/24/2020 8:33 AM CDT [facility] HDL 53 40 - 59 mg/dL 10/24/2020 8:33 AM CDT [facility] LDL CALCULATED 123(H) <100 mg/dL 10/24/2020 8:33 AM CDT [facility] NON-HDL CHOLESTEROL 147(H) <130 mg/dL 10/24/2020 8:33 AM CDT [facility] Blood Venipuncture / Unknown 10/23/2020 8:45 AM CDT 10/23/2020 8:12 PM CDT Narrative [facility] - 10/24/2020 8:33 AM [...] for Lipid Panels (NCEP/AMA) . Sania Loco MORTGAGE FIELD INSPECTOR CHEMISTRY ORDERABLES Final Result [facility] CLIA# [id number] [address] [place] [address] * (ABNORMAL) HEMOGLOBIN A1C (10/23/2020 8:45 AM CDT) HEMOGLOBIN A1C 6.3(H) See Comment % 10/23/2020 9:20 PM CDT [facility] EST. AVG GLUCOSE, A1C 134 mg/dL 10/23/2020 9:20 PM CDT [facility] Blood Venipuncture / Unknown 10/23/2020 8:45 AM CDT 10/23/2020 8:12 PM CDT Narrative [facility] - 10/23/2020 9:20 PM CDT HGB A1C INTERPRETATION NORMAL: <5.7% PRE-DIABETES: 5.7 - 6.4% DIABETES: 6.5% OR GREATER Falsely low A1C measurements can occur when: 1. Anemia and/or hemolytic anemia is present. 2. Hemoglobin variants present. 3. Renal failure. 4. Transfusion of blood product in the last 120 days. We recommend ordering a fructosamine test([id number]) to more accurately assess glycemic status if any of the above conditions are present. Sania Loco [facility] CHEMISTRY ORDERABLES Final Result [facility] CLIA# [id number] [address] [place] [address] * MICROALBUMIN/CREATININE RATIO, RANDOM UR (05/02/2020 9:29 AM SOLAR HOT WATER INSTALLER) MICROALBUMIN, URINE <1.2 No Reference Range mg/dL 05/02/2020 9:27 PM [facility] CREATININE, URINE 92.5 29.0 - 226.0 mg/dL 05/02/2020 9:27 PM [facility] Comment:Reference Range vari es with fluid intake and diet. MICROALBUMIN/C REAT RATIO, UR <13.0 <25.0 mg/g 05/02/2020 9:27 PM [facility] Urine URINE SPECIMEN OBTAINED BY CLEAN CATCH PROCEDURE / Unknown Collection / Unknown 05/02/2020 9:29 AM SOLAR HOT WATER INSTALLER 05/02/2020 7:59 PM SOLAR HOT WATER INSTALLER Narrative [facility] - 05/02/2020 9:27 PM SOLAR HOT WATER INSTALLER Condition Microalbumin/Creat ratio Normal Males <17 Normal Females <25 Microalbuminuria Males 17-299 Microalbuminuria Females 25-299 Overt proteinuria >=300 us Sania Loco MORTGAGE FIELD INSPECTOR URINE ORDERABLES Final Res ult Performing Organization Address City/[facility]/ZIP Co de Phone Number [facility] CLIA# [id number] [address] [place] [address] * DIABETES EYE EXAM (04/16/2019) us Abstract Spg Provider HEALTH MAINTENANCE Final R esult Performing Organization Address [facility] Co de Phone Number [facility] * ENDOSCOPY, COLON, DIAGNOSTIC (04/09/2016) us Abstract Spg Provider GI PROCEDURE ORDERABLES Fi nal Result from Last 3 Months or Most Recently Relevant to Health Maintenance Insurance [facility]ICA[facility] Care Teams Technical Business Analyst Relationship Specialty Start Date End Date Franko Savage MD [address] [place] [address] PCP - General Family Practice 06/15/19
--- OUTSIDE RECORDS SUMMARY | 2025-04-24 23:12 | XMS_ITS | Encounter Summary ---
Author Organization [facility] Address [address] [place] [address] Care Team Providers Care Core Microarchitect Name Role Phone Franko Savage MD Primary Care Provider [phone] Encounter Details Date Type Department Care Team (Late st Contact Info) Description 12/31/2019 Ancillary Orders [facility] [address] [facility] [address] [place] [address] Franko Savage MD [address] [place] [address] Social History Tobacco Use Types Packs/Day Years Used Date Smoking Tobacco: Never Smokeless Tobacco: Never Alcohol Use Standard Drinks/Week Comments No 0 (1 standard drink = 0.6 oz pur e alcohol) Comments No Sex and Gender Information Value Date Recorded Sex Assigned at Not on file Legal Sex Female 3:31 AM LAPPER Gender Identity Not on file Sexual Orientation [...] documented as of this encounter Care Teams Core Microarchitect Relationship Specialty Start Date End Date Franko Savage MD [facility] [address] [place] [address] PCP - General Family Practice 06/15/19 documented as of this encounter
--- OUTSIDE RECORDS SUMMARY | 2025-04-24 23:12 | XMS_ITS | Encounter Summary ---
Author Organization [facility] Address [address] [place] [address] Care Team Providers Care Char Conveyor Tender Cellar Name Role Phone Franko Savage MD Primary Care Provider [phone] Encounter Details Date Type Department Care Team (Late st Contact Info) Description 06/12/2005 Emergency [facility] Emergency Department [address] [place] [address] Santhosh Gamino MD NO ADDRESS ON FILE LUMBAGO (Primary Dx) Social History Tobacco Use Types Packs/Day Years Used Date Smoking Tobacco: Never Assessed Comments Unknown Sex and Gender Information Value Date Recorded Sex Assigned at Not on file Legal Sex Female 3:31 AM FIELD EVIDENCE TECHNICIAN Gender Identity Not on file Sexual Orientation Not on file documented as of this encounter Plan of Treatment Not on file documented as of this encounter Procedures Procedure Name Priority Date/Time Associated Diagnosis Comments URINALYSIS MICROSCOPY ONLY Routine 06/12/2005 11:22 AM FIELD EVIDENCE TECHNICIAN URINALYSIS W/REFLEX MICROSCOPIC Routine 06/12/2005 11:22 AM FIELD EVIDENCE TECHNICIAN documented in this encounter Results * (ABNORMAL) URINALYSIS (06/12/2005 11:22 AM FIELD EVIDENCE TECHNICIAN) COLOR UA Yellow Straw INTERFACE SYSTEM CLARITY [...] No INTERFACE SYSTEM 06/12/2005 11:2 2 AM FIELD EVIDENCE TECHNICIAN Santhosh Gamino MD URINE ORDERABLES Final Re sult Performing Organization Address City/[facility]/ZIP Co de Phone Number INTERFACE SYSTEM Refer to clinic/hospital department * URINALYSIS MICROSCOPY ONLY (06/12/2005 11:22 AM FIELD EVIDENCE TECHNICIAN) WBC URINE None Seen 0 - 2 INTERFACE SYSTEM RBC UA None Seen 0 - 2 INTERFACE SYSTEM HYALINE CAST None Seen 0 - 2 INTERFA CE SYSTEM BACTERIA UA None Seen None Seen INTERFAC E SYSTEM 06/12/2005 11:2 2 AM FIELD EVIDENCE TECHNICIAN Santhosh Gamino MD URINE ORDERABLES Final Re sult INTERFACE SYSTEM Refer to clinic/hospital department documented in this encounter Visit Diagnoses Diagnosis Lumbago- Primary documented in this encounter Care Teams Char Conveyor Tender Cellar Relationship Specialty Start Date End Date Franko Savage MD [address] [place] [phone] PCP - General Family Practice 06/15/19 documented as of this encounter
--- OUTSIDE RECORDS SUMMARY | 2025-04-24 23:12 | XMS_ITS | Encounter Summary ---
Author Organization [facility] Address [address] [place] [address] Care Team Providers Care Freezer Person Name Role Phone Franko Savage MD Primary Care Provider [phone] Encounter Details Date Type Department Care Team (Latest Contact Info) Description 06/21/2005 Outpatient Historical [facility] Family Medicine [facility] [address] [address] Lg Garrido Jr., MD [address] [place] [address] 248 [facility] [address] [place] [address] Sprain lumbar region (Primary Dx); SPRAIN OF KNEE & LEG NOS Social History Tobacco Use Types Packs/Day Years Used Date Smoking Tobacco: Never Assessed Comments Unknown Sex and Gender Information Value Date Recorded Sex Assigned at Not on file Legal Sex Female 3:31 AM LEARNING ADMINISTRATOR Gender Identity Not on file Sexual Orientation Not on file documented as of this encounter Plan of Treatment Not on file documented as of this encounter Visit Diagnoses Diagnosis Sprain lumbar region- Primary Sprain of lumbar region Sprain and strain of unspecified site of knee and leg documented in this encounter Care Teams Freezer Person Relationship Specialty Start Date End Date Franko Savage MD [address] [facility] [address] [place] [address] PCP - General Family Practice 06/15/19 documented as of this encounter
--- OUTSIDE RECORDS SUMMARY | 2025-04-24 23:12 | XMS_ITS | Encounter Summary ---
Author Organization [facility] Address [address] [place] [address] Care Team Providers Care Project Administrator Name Role Phone Franko Savage MD Primary Care Provider [phone] Reason for Referral * Radiology Services (Routine) [...] Expiration Date Visits Re quested Visits Authorized [id number] Closed 06/26/2018 07/27/2019 1 1 STIC NUTRITIONIST Encounter Details Date Type Department Care Team (Latest Contact Info) Description 06/26/2018 Ancillary Orders [facility] [place] [address] [phone] Phani Coles PA [address] [place] [phone] Visit for screening mammogram Social History Tobacco Use Types Packs/Day Years Used Date Smoking Tobacco: Never Smokeless Tobacco: Never Alcohol Use Standard Drinks/Week Comments No 0 (1 standard drink = 0.6 oz pur e alcohol) Comments No Sex and Gender Information Value Date Recorded Sex Assigned at Not on file Legal Sex Female 3:31 AM HOLISTIC NUTRITIONIST Gender Identity Not on file Sexual Orientation Not on file documented as of this encounter Plan of Treatment Not on file documented as of this encounter Results * MAMMO SCRN BILAT 3D VIPIN W OR WO CAD MOBILE (07/10/2018 7:26 AM HOLISTIC NUTRITIONIST) Anatomical Region Laterality Modality Breast Bilateral Mammography 07/10/2018 7:41 AM HOLISTIC NUTRITIONIST Impressions 07/13/2018 2:50 PM HOLISTIC NUTRITIONIST : No specific mammographic evidence of malignancy. No change from previous exams. BI-RADS: 2 Recommendation: Annual screening mammography Recommendation Laterality: Bilateral [id number] Narrative 07/13/2018 2:50 PM HOLISTIC NUTRITIONIST EXAM: MAMMO SCRN BILAT 3D VIPIN W [...] mammogram documented in this encounter Care Teams Project Administrator Relationship Specialty Start Date End Date Franko Savage MD [address] [place] [phone] PCP - General Family Practice 06/15/19 documented as of this encounter
--- OUTSIDE RECORDS SUMMARY | 2025-04-24 23:12 | XMS_ITS | Encounter Summary ---
Author Organization [facility] Address [address] [place] [address] Care Team Providers Care Seafood Team Member Name Role Phone Franko Savage MD Primary Care Provider Encounter Details Date Type Department Care Team (Late st Contact Info) Description 05/23/2008 Outpatient Historical [facility] [address] [place] [address] [place] [address] Santhosh Malhotra MD [address] [facility] [address] [place] [address] Social History Tobacco Use Types Packs/Day Years Used Date Smoking Tobacco: Never Assessed Comments No Sex and Gender Information Value Date Recorded Sex Assigned at Not on file Legal Sex Female 3:31 AM MINE ENGINEERING SUPERINTENDENT Gender Identity Not on file Sexual Orientation Not on file documented as of this encounter Plan of Treatment Not on file documented as of this encounter Procedures Procedure Name Priority Date/Time Associated Diagnosis Comments PATHOLOGY Routine 05/23/2008 2:41 PM MINE ENGINEERING SUPERINTENDENT documented in this encounter Results * PATHOLOGY (05/23/2008 2:41 PM MINE ENGINEERING SUPERINTENDENT) PATHOLOGY/CYT OLOGY REPORT [facility] Anatomic Pathology Dept [address] [facility] [address] Patient: JARAD GLYNN Accn No: [id number] Collected: 05/23/2008 2:41:00 PM DERMATOPATHOLOGY FINAL REPORT [...] in cassette B1. *Gross examination performed at [facility], [address] [place] [address] DI RP /WLS Microscopic Description A. Sections [...] biopsy margins. INTERFACE SYSTEM 05/23/2008 2:41 PM MINE ENGINEERING SUPERINTENDENT Santhosh Malhotra MD PATHOLOGY/CYTOLOGY ORDERABLES Final Result INTERFACE SYSTEM Refer to clinic/hospital department documented in this encounter Visit Diagnoses Not on filedocumented in this encounter Care Teams Seafood Team Member Relationship Specialty Start Date End Date Franko Savage MD [address] [place] [phone] PCP - General Family Practice 06/15/19 documented as of this encounter
--- OUTSIDE RECORDS SUMMARY | 2025-04-24 23:12 | XMS_ITS | Encounter Summary ---
Author Organization [facility] Address [address] [place] [address] Care Team Providers Care Administration Intern Name Role Phone Franko Savage MD Primary Care Provider [phone] Encounter Details Date Type Department Care Team (Late st Contact Info) Description 08/20/2020 Ancillary Orders [facility] Pre-Registration [place] CALL TO MAKE APPOINTMENT ONLY [address] [place] [address] Franko Savage MD [address] [place] [address] Abnormal mammogram Social History Tobacco Use Types Packs/Day Years Used Date Smoking Tobacco: Never Smokeless Tobacco: Never Alcohol Use Standard Drinks/Week Comments No 0 (1 standard drink = 0.6 oz pur e alcohol) Comments No Sex and Gender Information Value Date Recorded Sex Assigned at Not on file Legal Sex Female 3:31 AM RESTAURANT FLOOR MANAGER Gender Identity Not on file Sexual Orientation Not on file documented as of this encounter Plan of Treatment Not on file documented as of this encounter Visit Diagnoses Diagnosis Abnormal mammogram Abnormal mammogram, unspecified documented in this encounter Additional Health Concerns Assessment Noted Time PHQ-9 Depression Total Score: 1 06/25/19 21 12:00 PM RESTAURANT FLOOR MANAGER documented as of this encounter Care Teams Administration Intern Relationship Specialty Start Date End Date Franko Savage MD [address] [facility] 5 [place] [phone] PCP - General Family Practice 06/15/19 documented as of this encounter
--- OUTSIDE RECORDS SUMMARY | 2025-04-24 23:12 | XMS_ITS | Encounter Summary ---
Author Organization [facility] Address [address] [place] [address] Care Team Providers Care Classified Advertising Manager Name Role Phone Franko Savage MD Primary Care Provider [phone] Encounter Details Date Type Department Care Team (Latest Contact Info) Description 07/01/2006 Outpatient Historical [facility] [place] [facility] [address] [address] Lg Garrido Jr., MD [address] [place] [address] 248 [facility] [address] [place] [address] Achilles Bursitis or Tendinitis (Primary Dx); Enlargement of Lymph Nodes Social History Tobacco Use Types Packs/Day Years Used Date Smoking Tobacco: Never Assessed Comments Unknown Sex and Gender Information Value Date Recorded Sex Assigned at Not on file Legal Sex Female 3:31 AM VEHICLE SERVICE AGENT Gender Identity Not on file Sexual Orientation Not on file documented as of this encounter Plan of Treatment Not on file documented as of this encounter Visit Diagnoses Diagnosis Achilles bursitis or tendinitis- Primary Enlargement of lymph nodes documented in this encounter Care Teams Classified Advertising Manager Relationship Specialty Start Date End Date Franko Savage MD [address] [address] PCP - General Family Practice 06/15/19 documented as of this encounter
--- OUTSIDE RECORDS SUMMARY | 2025-04-24 23:12 | XMS_ITS | Encounter Summary ---
Author Organization [facility] Address [address] [place] [address] Care Team Providers Care Special Education Superintendent Name Role Phone Franko Savage MD Primary Care Provider [phone] Reason for Referral * Radiology Services (Routine) - Closed Specialty Diagnoses / Procedures Referred By Contac t Referred To Contact Radiology Diagnoses Inconclusive mammography Procedures MAMMO DIAG UNI RIGHT 3D VIPIN W OR WO CAD CHG DIAGNOSTIC MAMMOGRAPHY COMPUTER-AIDED DETCJ UNI CHG DIGITAL BREAST TOMOSYNTHESIS UNILATERAL Franko Savage MD [address] [place] [phone] Phone: tel: fax: [facility] [address] [address] Phone: tel: fax: Referral ID Status Reason Start Date Expiration Date Visits Requested Visits Authorized [id number] Closed Performing Department To Schedule (SGF) 01/17/2020 02/16/2021 1 1 Encounter Details Date Type Department Care Team (Latest Contact Info) Description 01/17/2020 Ancillary Orders [facility] [address] [address] Franko Savage MD [address] [place] [address] Inconclusive mammography Social History Tobacco Use Types Packs/Day Years Used Date Smoking Tobacco: Never Smokeless Tobacco: Never Alcohol Use Standard Drinks/Week Comments No 0 (1 standard drink = 0.6 oz pur e alcohol) Comments No Sex and Gender Information Value Date Recorded Sex Assigned at Not on file Legal Sex Female 3:31 AM PIPELINE WELDER Gender Identity Not on file Sexual Orientation [...] Right diagnostic mammogram follow-up in 6 months [id number] Narrative 03/19/2020 5:15 PM CDT EXAM: MAMMO [...] documented as of this encounter Care Teams Special Education Superintendent Relationship Specialty Start Date End Date Franko Savage MD [address] [place] [phone] PCP - General Family Practice 06/15/19 documented as of this encounter
--- OUTSIDE RECORDS SUMMARY | 2025-04-24 23:12 | XMS_ITS | Clinical Summary ---
Author Organization [facility] Brenda Address [address] [address] Care Team Providers Care Client Relations Associate Name Role Phone Franko Savage MD Primary Care Provider [phone] Allergies Active Allergy Reactions Criticality Noted Date [...] months. DUANE Maddox, 06/04/2020. Please refax to [phone]. 1 Each 0 06/03/20 20 Active dextromethorphan polistirex (DELSYM) 30 mg/5 mL Suspension, Sust. Release 12HRIndications:Co ugh Take 10 mL by mouth every 12 hours as needed for Cough. 03/30/20 19 Active albuterol (PROVENTIL,VENTOLI N) 2.5 mg /3 mL (0.083 %) Solution for NebulizationIndica tions:COPD with exacerbation ([facility]),Upper respiratory tract infection, unspecified type Take 3 [...] polyneuropathy, without long-term current use of insulin ([facility]) Check blood sugar twice daily as directed. 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 1 to 4 times per year 07/02/2021 Do you belong to any clubs o r organizations such as voodoo groups, unions, fraternal or athletic groups, or [...] any time in the past 12 m [facility], were you homeless or living in a long-term (including now)? No 07/02/2021 Comments No Sex and Gender Information Value Date Recorded Sex Assigned at Not on file Legal Sex Female 2:49 PM BUCKSHOT SWAGE OPERATOR Gender Identity Not on file Sexual Orientation [...] cm (5' 3 ) 05/20/2022 9:50 PM BUCKSHOT SWAGE OPERATOR Body Mass Index 49.95 05/20/2022 9:50 PM BUCKSHOT SWAGE OPERATOR Plan of Treatment Health Maintenance Due Date [...] polyneuropathy, without long-term current use of insulin ([facility]) XR DEXA BONE DENSITY AXIAL 1 OR MORE SITES Routine 07/23/2021 10:01 AM BUCKSHOT SWAGE OPERATOR Osteopenia of multiple sites HM DIABETES EYE EXAM Routine 07/23/2021 MICROALBUMIN/CREATIN INE RATIO, RANDOM UR Routine 06/15/2021 8:24 AM BUCKSHOT SWAGE OPERATOR Type 2 diabetes mellitus with diabetic polyneuropathy, without long-term current use of insulin ([facility]) ENDOSCOPY, COLON, DIAGNOSTIC 04/09/2016 12:00 AM CDT from Last 3 Months or Most Recently Relevant to Health Maintenance Results * (ABNORMAL) HEMOGLOBIN A1C (02/09/2023 7:32 PM CDT) HEMOGLOBIN A1C 5.7(H) <=5.6 % 02/10/2023 12:54 AM CDT [facility] EST. AVG GLUCOSE, A1C 117 mg/dL 02/10/2023 12:54 AM CDT [facility] Blood Venipuncture / Unknown 02/09/2023 7:32 PM CDT 02/09/2023 7:37 PM CDT Narrative [facility] - 02/10/2023 12:54 AM CDT HGB A1C INTERPRETATION NORMAL: <5.7% PRE-DIABETES: 5.7 - 6.4% DIABETES: 6.5% OR GREATER Kristina Rae APN CHEMISTRY ORDERABLES Final Result [facility] CLIA# [id number] [address] [place] [address] * (ABNORMAL) LIPID PANEL (01/19/2022 8:09 AM CDT) Pathologist [facility] CHOLESTEROL 151 <200 mg/dL [facility] HDL 47(L) > OR = 50 mg/dL [facility] TRIGLYCERIDE 146 <150 mg/dL [facility] LDL CALCULATED 79 mg/dL (calc) [facility] Comment: Reference range: <100 Desirable range <100 mg/dL for primary prevention; <70 mg/dL for patients with CHD or diabetic patients with > or = 2 CHD risk factors. LDL-C is now calculated using the Kristen calculation, which is a validated novel method providing better accuracy than the Friedewald equation in the estimation of LDL-C. Christian BISHOP et al. JASON. 2013;310(19): 8131-2611 (http://education.Its Time Compliance.Activity Rocket/faq/DKQ118) CHOL/HDL RATIO 3.2 <5.0 (calc) [facility] TOTAL NON-HDL CHOL(LDL+VLDL) 104 <130 mg/dL (calc) [facility] Comment: For patients with diabetes plus 1 major ASCVD risk factor, treating to a non-HDL-C goal of <100 mg/dL (LDL-C of <70 mg/dL) is considered a therapeutic option. Test Performed at: [facility] [address] [address] Marlon Garza D.O., MPH Blood 01/19/2022 8:09 AM CDT 01/20/2022 3:17 AM CDT Sania Loco SHOWROOM SALESPERSON CHEMISTRY ORDERABLES Final Result [facility] [phone] [facility] [address] [address] * XR DEXA BONE DENSITY AXIAL 1 OR MORE SITES (07/23/2021 10:01 AM BUCKSHOT SWAGE OPERATOR) Anatomical Region Laterality Modality Nuclear Medicine 07/23/2021 10:0 1 AM BUCKSHOT SWAGE OPERATOR Impressions 07/24/2021 9:38 AM BUCKSHOT SWAGE OPERATOR IMPRESSION: 1. Current findings consistent with osteopenia [...] clinical management available online at www.shef.ac.uk/FRAX/. Enter [facility] DXA and the Femoral Neck BMD value. Narrative 07/24/2021 9:38 AM BUCKSHOT SWAGE OPERATOR Exam: XR DEXA BONE DENSITY AXIAL 1 [...] clinical management available online at www.shef.ac.uk/FRAX/. Enter [employer] for [facility] DXA and the Femoral Neck BMD value. Result [facility] Natalia Snowden NP DIAGNOSTIC IMAGING ORDERABLES Fi nal Result * HM DIABETES EYE EXAM (07/23/2021) Result [facility] Abstract Provider HEALTH MAINTENANCE Final Resul t * MICROALBUMIN/CREATININE RATIO, RANDOM UR (06/15/2021 8:24 AM BUCKSHOT SWAGE OPERATOR) Creatinine, Urine 88 20 - 275 mg/dL [facility] MICROALBUMIN, URINE 0.5 See Note: mg/dL [facility] Comment: Reference Range: Reference Range Not established MICROALBUMIN/CREAT RATIO, UR 6 <30 mcg/mg creat [facility] Comment: The ADA defines abnormalities in albumin excretion as follows: Albuminuria Category Result (mcg/mg creatinine) Normal to Mildly increased <30 Moderately increased 30-299 Severely increased > OR = 300 The ADA recommends that at least two of three specimens collected within a 3-6 month period be abnormal before considering a patient to be within a diagnostic category. Test Performed at: [facility] [address] [address] Marlon Garza D.O., MPH Urine URINE SPECIMEN OBTAINED BY CLEAN CATCH PROCEDURE / Unknown 06/15/2021 8:24 AM BUCKSHOT SWAGE OPERATOR 06/16/2021 9:14 AM BUCKSHOT SWAGE OPERATOR Sania MCCONNELLP URINE ORDERABLES Final Res ult [facility] [address] [place] [address] * ENDOSCOPY, COLON, DIAGNOSTIC (04/09/2016 12:00 AM CDT) us Sgf Scanning GI PROCEDURE ORDERABLES Final Re sult from Last 3 Months or Most Recently Relevant to [place] [address] MEDICAID [facility] [id number] Advance Directives For more information, please contact: [phone] Documents on File Type Date Recorded 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
--- OUTSIDE RECORDS SUMMARY | 2025-04-24 23:12 | XMS_ITS ---
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
--- OUTSIDE RECORDS SUMMARY | 2025-04-24 23:12 | XMS_ITS | Encounter Summary ---
Author Organization [facility] Address [address] [place] [address] Care Team Providers Care Senior Mechanical Engineer Name Role Phone Franko Savage MD Primary Care Provider [phone] Encounter Details Date Type Department Care Team (Latest Contact Info) Description 07/22/1998 Outpatient Historical [facility] Family Medicine [facility] [address] [address] Eldon Coleman MD NO ADDRESS ON FILE Obesity, unspecified (Primary Dx); Acute sinusitis, unspecified Social History Tobacco Use Types Packs/Day Years Used Date Smoking Tobacco: Never Assessed Comments Unknown Sex and Gender Information Value Date Recorded Sex Assigned at Not on file Legal Sex Female 3:31 AM PLASTER CASTER Gender Identity Not on file Sexual Orientation Not on file documented as of this encounter Plan of Treatment Not on file documented as of this encounter Visit Diagnoses Diagnosis Obesity, unspecified- Primary Acute sinusitis, unspecified documented in this encounter Care Teams Senior Mechanical Engineer Relationship Specialty Start Date End Date Franko Savage MD [facility] [address] [phone] PCP - General Family Practice 06/15/19 documented as of this encounter
--- OUTSIDE RECORDS SUMMARY | 2025-04-24 23:12 | XMS_ITS | Encounter Summary ---
Author Organization [facility] Address [address] [place] [address] Care Team Providers Care Plugger Name Role Phone Franko Savage MD Primary Care Provider [phone] Encounter Details Date Type Department Care Team (Late st Contact Info) Description 06/13/2005 Emergency [facility] Emergency Department [address] [place] [phone] Leonor Mariscal, [facility] NO ADDRESS ON FILE JOINT PAIN-L/LEG (Primary Dx) Social History Tobacco Use Types Packs/Day Years Used Date Smoking Tobacco: Never Assessed Comments Unknown Sex and Gender Information Value Date Recorded Sex Assigned at Not on file Legal Sex Female 3:31 AM GUEST RELATIONS MANAGER Gender Identity Not on file Sexual Orientation Not on file documented as of this encounter Plan of Treatment Not on file documented as of this encounter Procedures Procedure Name Priority Date/Time Associated Diagnosis Comments XR KNEE 1 OR 2 VW RIGHT Routine 06/13/2005 12:25 PM GUEST RELATIONS MANAGER documented in this encounter Results * XR KNEE 1 OR 2 VW RIGHT (06/13/2005 12:25 PM GUEST RELATIONS MANAGER) Anatomical Region Laterality Modality Lower Extremity Other 06/13/2005 12:2 5 PM GUEST RELATIONS MANAGER Narrative 06/13/2005 12:25 PM GUEST RELATIONS MANAGER RIGHT KNEE: 06-13-05 HISTORY: Knee pain. Views [...] and no joint effusion. No acute abnormality. [facility] D: 06-13-05 1426 Dictated By: Phani Moreno M.D. Electronically Signed By: Phani Moreno M.D. Date Signed: 06/15/05 Leonor Mariscal NP DIAGNOSTIC IMAGING ORDERABLE S Edited documented in this encounter Visit Diagnoses Diagnosis Pain in joint, lower leg- Primary documented in this encounter Care Teams Plugger Relationship Specialty Start Date End Date Franko Savage MD [address] [place] [phone] PCP - General Family Practice 06/15/19 documented as of this encounter
--- OUTSIDE RECORDS SUMMARY | 2025-04-24 23:12 | XMS_ITS | Encounter Summary ---
Author Organization [facility] Address [address] [place] [address] Care Team Providers Care Letter Carrier Name Role Phone Franko Savage MD Primary Care Provider [phone] Encounter Details Date Type Department Care Team (Latest Contact Info) Description 05/25/2006 Outpatient Historical [facility] Family Medicine [facility] [address] [address] Lg Garrido Jr., MD [address] [place] [address] 248 [facility] [address] [place] [address] Gout, Unspecified (Primary Dx) Social History Tobacco Use Types Packs/Day Years Used Date Smoking Tobacco: Never Assessed Comments Unknown Sex and Gender Information Value Date Recorded Sex Assigned at Not on file Legal Sex Female 3:31 AM FOOD MANAGER Gender Identity Not on file Sexual Orientation Not on file documented as of this encounter Plan of Treatment Not on file documented as of this encounter Visit Diagnoses Diagnosis Gout, unspecified- Primary documented in this encounter Care Teams Letter Carrier Relationship Specialty Start Date End Date Franko Savage MD [address] [phone] PCP - General Family Practice 06/15/19 documented as of this encounter
--- OUTSIDE RECORDS SUMMARY | 2025-04-24 23:12 | XMS_ITS | Encounter Summary ---
Author Organization [facility] Address [address] [place] [address] Care Team Providers Care Customer Supply Chain Analyst Name Role Phone Franko Savage MD Primary Care Provider [phone] Encounter Details Date Type Department Care Team (Late st Contact Info) Description 12/31/2019 Ancillary Orders [facility] [address] [facility] [address] [place] [address] Franko Savage MD [address] [place] [address] Social History Tobacco Use Types Packs/Day Years Used Date Smoking Tobacco: Never Smokeless Tobacco: Never Alcohol Use Standard Drinks/Week Comments No 0 (1 standard drink = 0.6 oz pur e alcohol) Comments No Sex and Gender Information Value Date Recorded Sex Assigned at Not on file Legal Sex Female 3:31 AM SHERIFF DETECTIVE Gender Identity Not on file Sexual Orientation [...] documented as of this encounter Care Teams Customer Supply Chain Analyst Relationship Specialty Start Date End Date Franko Savage MD [facility] [address] [place] [address] PCP - General Family Practice 06/15/19 documented as of this encounter
--- OUTSIDE RECORDS SUMMARY | 2025-04-24 23:12 | XMS_ITS | Encounter Summary ---
Author Organization [facility] Address [address] [place] [address] Care Team Providers Care Investigator Fraud Name Role Phone Franko Savage MD Primary Care Provider [phone] Encounter Details Date Type Department Care Team (Latest Contact Info) Description 06/30/2005 Outpatient Historical [facility] Family Medicine [facility] [address] [address] Lg Garrido Jr., MD [address] [place] [address] [address] [place] [address] Sprain lumbar region (Primary Dx); Pain in limb Social History Tobacco Use Types Packs/Day Years Used Date Smoking Tobacco: Never Assessed Comments Unknown Sex and Gender Information Value Date Recorded Sex Assigned at Not on file Legal Sex Female 3:31 AM OUTREACH ASSOCIATE Gender Identity Not on file Sexual Orientation Not on file documented as of this encounter Plan of Treatment Not on file documented as of this encounter Visit Diagnoses Diagnosis Sprain lumbar region- Primary Sprain of lumbar region Pain in limb Pain in soft tissues of limb documented in this encounter Care Teams Investigator Fraud Relationship Specialty Start Date End Date Franko Savage MD [address] [address] PCP - General Family Practice 06/15/19 documented as of this encounter
[2025-04-24 23:20] LABS: Hematocrit 36.8 % (36-47); Hemoglobin 12.00 g/dL (11.27-16.99); Mean Corpuscular HGB Conc 32.6 g/dL (30-55); Mean Corpuscular Hemoglobin 26.7 pg (27-33); Mean Corpuscular Volume 81.8 fl (85-98); Nucleated Red Blood Cells % 0 %; Platelet Count 205 10^3/cmm (157-399); Red Blood Count 4.50 10^6/uL (3.85-5.65); White Blood Count 6.05 10^3/uL (3.29-11.43)
[2025-04-24] MEDS: dilTIAZem 5 mg/mL SDV 5 mL 10 MG IVP (23:20)
[2025-04-24 23:25] VITALS: BP 119/80; PULSE 157; O2SAT 97
[2025-04-24 23:40] VITALS: BP 107/83; PULSE 163; O2SAT 93
[2025-04-24 23:41] LABS: Troponin(5th) Baseline 23 ng/L (0-10)
[2025-04-24 23:45] LABS: Glucose Urine UA Negative (Normal); Nitrate Urine Negative (Negative); Specific Gravity, Urine 1.005 (1.005-1.030)
[2025-04-24 23:47] LABS: Add Urine Microscopic? YES
[2025-04-24 23:51] LABS: Alanine Aminotransferase 11 U/L (0-33); Albumin Level 4.0 g/dL (3.5-5.2); Alkaline Phosphatase 115 U/L (35-105); Anion Gap 18.5 (5-19); Aspartate Amino Transferase 15 U/L (0-32); Blood Urea Nitrogen 10 mg/dL (8-23); Calcium 9.7 mg/dL (8.5-10.5); Carbon Dioxide 21 mmol/L (22-29); Chloride 105 mmol/L (98-107); Globulin 2.5 g/dL (1.3-4.6); Glucose 195 mg/dL (65-115); Magnesium 1.9 mg/dL (1.7-2.3); NT Pro B Type Natriuretic Pept 637 pg/mL (0-450); Osmolality Calculated 296 mOsm/kg (285-295); Potassium 3.5 mmol/L (3.5-5.1); Sodium 141 mmol/L (136-145); Total Protein 6.5 g/dL (6.6-8.7)
[2025-04-24 23:52] LABS: PCP Screen Urine Negative (Negative)
[2025-04-24] MEDS: DILTIAZEM HCL/D5W 125 MG/125 ML BAG IV (23:54)
[2025-04-24 23:55] VITALS: BP 115/79; PULSE 161; O2SAT 90
[2025-04-25] VITALS (49 sets, daily range): BP systolic 94–141; BP diastolic 44–101; PULSE 70–208; RESP 16–30; TEMP 36.2–36.6; O2SAT 93–99; BMI 47.7
[2025-04-25 00:02] LABS: UA Slide Review UA Slide Review Perf
[2025-04-25 00:05] LABS: Slide Review Slide Review Perform
[2025-04-25] MEDS: digoxin 250 mcg/ml INJ 2 mL IVP ×2 (00:14→01:16)
[2025-04-25] MEDS: magnesium sulfate premix 2 GM/50 ML PIGGYBACK IV (01:00)
[2025-04-25] MEDS: heparin 5,000 unit/mL INJ 1 mL IVP (01:14)
[2025-04-25] MEDS: heparin drip 25,000 UNIT/500 ML PREMIX 36 UNIT IV (01:16)
[2025-04-25 01:33] LABS: Partial Thromboplastin Time 19.4 SECONDS (23.9-36.7)
--- NOTE | 2025-04-25 01:34 | ECG_ITS ---
[employer] Test Date: 2025-04-25 Pat Name: Herlinda Shah Department: Room: Gender: Female Therapist Rrt: : 1950 Requested By: Radha Angulo Order Number: [id number] Marcie MD: Tejas Kwon M.D. Measurements Intervals [place] Rate: 149 P: 0 NM: 0 QRS: -55 QRSD: 135 T: 54 QT: 301 QTc: 475 Interpretive Statements ATRIAL FIBRILLATION WITH RAPID VENTRICULAR RESPONSE WITH ABERRANT CONDUCTION OR VENTRICULAR PREMATURE COMPLEXES LEFT AXIS DEVIATION [QRS AXIS < -30] INTRAVENTRICULAR CONDUCTION DELAY [130+ ms QRS DURATION] POSSIBLE ANTERIOR MYOCARDIAL INFARCTION , OF INDETERMINATE AGE [30 ms Q WAVE IN V3/V4, OR R < 0.2 mV IN V4] Compared to ECG 04/24/2025 22:58:21 Ventricular premature complex(es) now present Aberrant conduction of supraventricular beat(s) now present Atrial flutter no longer present Myocardial infarct finding still present Electronically Signed On 04-26-2025 19:46:52 MANAGER FIELD SERVICE by Tejas Kwon M.D. [email or web address]
[2025-04-25 01:39] LABS: Troponin 5 2HR 23.16 ng/L (0-10); Troponin 5 2HR Delta 0.16 ABS# (0-10)
--- NOTE | 2025-04-25 01:44 | USCV_ITS ---
Herlinda Shah Age: 75 Gender: F : 1950 Exam Date: 04/25/2025 14:33 Ordering Phys: Wellington Duff MD Technologist: Exam Location: [facility] Indication: cp sob as BP: 108 / 67 HR: 84 Rhythm: Sinus Technical Quality: Adequate MEASUREMENTS (Male / Female) Normal Values 2D ECHO LV Diastolic Diameter PLAX 3.6 cm 4.2 - 5.9 / 3.9 - 5.3 cm IVS Diastolic Thickness 1.4 cm 0.6 - 1.0 / 0.6 - 0.9 cm IVS Systolic Thickness 2.2 cm LVPW Diastolic Thickness 1.6 cm 0.6 - 1.0 / 0.6 - 0.9 cm LVPW Systolic Thickness 2.0 cm LVOT Diameter 2.0 cm LV Ejection Fraction 2D Teich 60.3 % LV Ejection Fraction MOD 4C 51.1 % LV Ejection Fraction MOD 2C 49.3 % LV Ejection Fraction 2C AL 56.5 % LA Diameter 3.8 cm RA Systolic Volume 4C AL 53.7 ml RA Systolic Volume 4C MOD 50.5 ml Aorta at Sinotubular Diameter 3.3 cm M-MODE LA Ao Ratio MM 1.3 AV Cusp Separation MM 1.1 cm DOPPLER AV Peak Velocity 460.3 cm/s LVOT Peak Velocity 77.0 cm/s AV Area Cont Eq vti 0.6 cm squared AV Area Cont Eq pk 0.5 cm squared MV Peak Velocity 163.0 cm/s MV Area PHT 3.9 cm squared Mitral E to A Ratio 0.8 TR Peak Velocity 183.0 cm/s TR Peak Gradient 13.4 mmHg TV Peak E Velocity 70.0 cm/s PV Peak Velocity 130.0 cm/s FINDINGS Left Ventricle Normal left ventricular size and systolic function, EF 55-60%. No regional wall motion abnormalities. Moderate left ventricular hypertrophy. Grade 1 diastolic dysfunction Right Ventricle Normal in size and function Right Atrium Normal in size Left Atrium Dilated IA Septum Grossly normal Mitral Valve Moderate mitral annular calcification. Mild mitral stenosis with mean gradient across mitral valve 4 mmHg. Trace mitral regurgitation Aortic Valve Aortic valve is thickened and calcified. Severe aortic stenosis with aortic valve area of 0.64 cm2 and mean gradient across aortic valve of 42 mmHg. Mild aortic regurgitation Tricuspid Valve Insufficient TR jet to evaluate RVSP. Pulmonic Valve Not well visualized Pericardium Normal Aorta Normal in size IVC Not well visualized CONCLUSIONS LV systolic function is normal with EF of 55-60% Grade 1 diastolic dysfunction Left atrial dilation Mild mitral stenosis Trace mitral regurgitation Severe aortic stenosis Mild aortic regurgitation Tejas Kwon MD (Electronically Signed) Final Date: 26 April 2025 15:24 S
--- NOTE | 2025-04-25 01:45 | PM.HP ---
Providers/Chief Complaint Primary Care Provider: Martha Lloyd NP Chief Complaint: possible afib History of Present Illness Herlinda Shah is a 75 year old female with a past medical history of coagulase positive staph, UTI on IV Rocephin, type 2 diabetes, recent hospitalization for sepsis, pneumonia, UTI, altered mental status, hypertension, chronic respiratory failure, COPD, who presents to [facility] from her alf facility due to A-fib with RVR. Patient tells me that this evening she was watching the lawn order when she noticed to have palpitations, no chest pain, no shortness of breath, started about 7 PM, in the emergency room she was found to have A-fib RVR heart rates in the 160s, normotensive alert oriented x 3, following all commands, on room air, is comfortable, has been given a loading dose of digoxin of 500 mcg, is on Cardizem drip, Review of Systems Const: Denies: fever(s) or chills Card: Reports: palpitations Medications/Allergies Home Medications ?Medication ?Instructions ?Recorded ?Confirmed ?Last Taken ?Type albuterol sulfate 2.5 mg/3 mL 2.5 mg inhalation Q6H PRN 01/03/23 04/21/25 Unknown History (0.083 %) solution for nebulization Shortness Of Breath budesonide-formoterol HFA 160 2 puff inhalation BID 01/03/23 04/21/25 05/25/24 History mcg-4.5 mcg/actuation aerosol inhaler cetirizine 10 mg tablet (Zyrtec) 10 mg PO QAM 01/03/23 04/21/25 04/21/25 08:00 History cholecalciferol (vitamin D3) 1,250 50,000 unit PO Q7D 01/03/23 04/21/25 04/20/25 History mcg (50,000 unit) capsule colestipol 1 gram tablet 1 g PO BID 01/03/23 04/21/25 04/21/25 07:00 History cyanocobalamin (vitamin B-12) 1,000 mcg PO QAM 01/03/23 04/21/25 04/21/25 07:00 History 1,000 mcg tablet diclofenac sodium 1 % topical gel See Rx Instructions .Route .COMPLEX 01/03/23 04/21/25 05/15/23 History fluticasone propionate 50 2 spray intranasal QAM 01/03/23 04/21/25 04/20/25 History mcg/actuation nasal spray,suspension gabapentin 600 mg tablet 600 mg PO TID 01/03/23 04/21/25 04/21/25 08:00 History ipratropium 0.5 mg-albuterol 3 mg 3 ml inhalation Q6H PRN Shortness 01/03/23 04/21/25 05/15/23 History (2.5 mg base)/3 mL nebulization Of Breath soln metoprolol tartrate 25 mg tablet 25 mg PO BID 01/03/23 04/21/25 04/21/25 08:00 History ropinirole 0.5 mg tablet 0.5 mg PO DAILY PRN Restless Leg(S) 01/03/23 04/21/25 04/20/25 History magnesium hydroxide 400 mg/5 mL 30 ml PO DAILY PRN Constipation 04/24/23 04/21/25 04/20/25 History oral suspension ([employer]) metformin 1,000 mg tablet 1,000 mg PO BID 04/24/23 04/21/25 04/21/25 08:00 History nystatin 100,000 unit/gram topical 1 applic topical BID 04/24/23 04/21/25 05/25/24 History cream olopatadine 0.2 % eye drops 1 drp ophthalmic (eye) DAILY 04/24/23 04/21/25 04/20/25 History potassium chloride 20 mEq 20 meq PO BID 04/24/23 04/21/25 04/20/25 History tablet,extended release simvastatin 10 mg tablet 10 mg PO DAILY 04/24/23 04/21/25 04/20/25 History bisacodyl 5 mg tablet 20 mg PO DAILY PRN Constipation 05/25/24 04/21/25 Unknown History guaifenesin 600 mg tablet, 600 mg PO Q12H PRN Cough 05/25/24 04/21/25 04/21/25 08:00 History extended release 12 hr (Mucinex) ondansetron HCl 8 mg tablet 8 mg PO Q8H PRN Nausea And Vomiting 05/25/24 04/21/25 Unknown History sennosides 8.6 mg tablet (senna) 8.6 mg PO BID 05/25/24 04/21/25 04/21/25 08:00 History tramadol 50 mg tablet 100 mg PO Q6H PRN Pain 05/25/24 04/21/25 04/20/25 History acetaminophen 325 mg tablet 650 mg PO Q4H PRN pain/fever 10/26/24 04/21/25 Unknown History (Tylenol) saliva stimulant comb. no.3 1 applic mucous membrane Q2H PRN 12/06/24 04/21/25 Unknown Rx (Biotene Moisturizing Mouth dry mouth #44.3 mL mucosal spray) buspirone 5 mg tablet 5 mg PO BID 04/21/25 04/21/25 04/21/25 07:00 History furosemide 40 mg tablet 40 mg PO DAILY 04/21/25 04/21/25 04/21/25 08:00 History glipizide 5 mg tablet 2.5 mg (1/2 x 5 mg) PO DAILY #30 04/24/25 04/21/25 04/21/25 08:00 Rx tabs linezolid 600 mg tablet 600 mg PO BID 5 days #10 tabs 04/24/25 Unknown Rx Allergies Allergy/AdvReac Type Severity Reaction Status Date / Time atorvastatin Allergy Unknown Verified 05/31/24 14:14 codeine Allergy Unknown Verified 05/31/24 14:14 iodine Allergy Unknown Verified 05/31/24 14:14 PFSH Acute PFSH: Medical History Urinary tract infection Nonrheumatic aortic (valve) stenosis Acute kidney failure, unspecified Hemoperitoneum Morbid (severe) obesity with alveolar hypoventilation Muscle weakness (generalized) BMI 45.0-49.9, adult Candidiasis, unspecified Hypovolemic shock Pain in left shoulder Pain in right shoulder Primary osteoarthritis, unspecified site Weakness Metabolic encephalopathy Disorder of brain, unspecified adjunct faculty for medical terminology (current) use of 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 Anxiety disorder, unspecified Personal history of COVID-19 Personal history of pneumonia (recurrent) Stiffness of left hip, not elsewhere classified Osteoarthritis of knee, unspecified Osteophyte, left knee Osteophyte, right knee NSTEMI (non-ST elevated myocardial infarction) Enterovirus infection Malignant melanoma Osteoarthritis, knee Non-Hodgkin lymphoma Paroxysmal A-fib COPD (chronic obstructive pulmonary disease) Diarrhea Gram-negative bacteremia HTN (hypertension) Type 2 diabetes mellitus History of recurrent UTIs Fever Acute alteration in mental status Social History Smoking and tobacco/nicotine status: never used tobacco/nicotine Alcohol intake: never Household members: other Housing: Custodial Vitals/I&O/Wt Last Vital Signs Temp 97.9 F 04/24/25 22:50 Pulse 158 H 04/24/25 22:50 Resp 18 04/24/25 22:50 BP 126/85 04/24/25 22:50 Pulse Ox 98 04/24/25 22:50 O2 Del Method Room Air 04/24/25 22:50 04/24/25 04/24/25 04/25/25 14:59 22:59 06:59 Intake Total 316 / Balance Weight last 48 hrs Weight 133.81 kg Physical Exam Const: COMMON NORMALS: no acute distress and patient oriented x3 HENMT: COMMON NORMALS: normocephalic HEAD & SCALP: normocephalic Eye: COMMON NORMALS: Equal, round and reactive pupils present Neck/C-Spine: COMMON NORMALS: no JVD Lymph: LYMPHATIC: no lymphadenopathy noted Resp: COMMON NORMALS: normal respiratory effort, No retractions, No use of accessory muscles and clear to auscultation bilaterally AUSCULTATION: clear to auscultation bilaterally Cardio: COMMON NORMALS: S1 normal heart sound present and S2 normal heart sound present RATE: tachycardic RHYTHM: abnormal rhythm irregularly irregular HEART SOUNDS: S1 normal heart sound present and S2 normal heart sound present GI: COMMON NORMALS: Normal to inspection, nondistended, normoactive bowel sounds present, Soft to palpation and non-tender Extremity: NARRATIVE EXTREMITY EXAM: 1+ edema Neuro: COMMON NORMALS: patient oriented x3, CN's II-XII intact bilaterally and moves all extremities Psych: COMMON NORMALS: mental status grossly normal Data 04/24/25 23:06 04/24/25 23:06 A&P Assessment and plan 1. Atrial fibrillation with rapid ventricular response: Plan: Atrial fibrillation with rapid ventricular response - New onset - Status post loading dose of digoxin 500 mcg in the emergency room, check digoxin level at 9 AM - On Cardizem drip - If heart rates do not improve will consider switching to amiodarone drip - Heparin drip - Will keep n.p.o. - She wants to be a full code, agreeable to cardioversion if required Diastolic CHF, Lasix 40 IV daily History of urinary tract infection continue IV Rocephin History of pneumonia, continue p.o. Zyvox Type 2 diabetes mellitus, low-dose sliding scale Full code Heparin drip for DVT prophylaxis PDMP PDMP Reviewed: Not Reviewed Attestations Medical Necessity Statement*: Patient requires hospitalization, inpatient, greater than 2 midnights for A-fib with RVR Diagnoses Atrial fibrillation with rapid ventricular response I48.91
[2025-04-25 02:12] LABS: Digoxin 0.3 ng/mL (0.6-1.2)
--- NOTE | 2025-04-25 02:19 | PC.NURSE ---
DR. LEIVA VERBAL ORDER TO DISCONTINUE CARDIZEM.
[2025-04-25 02:22] LABS: Procalcitonin 0.07 ng/mL (0-0.5)
[2025-04-25] MEDS: amiodarone 150 MG/100 ML PREMIX 400 MG IV (02:35)
[2025-04-25] MEDS: AMIODARONE HCL/D5W 900 MG/500 ML BAG 33.33 MG IV (03:30)
[2025-04-25] MEDS: cefTRIAXone 1,000 mg SDV 1000 MG IVP (04:32)
[2025-04-25] MEDS: pantoprazole 40 mg SDV IVP (04:33)
--- NOTE | 2025-04-25 05:20 | ECG_ITS ---
[employer] Test Date: 2025-04-25 Pat Name: Herlinda Shah Department: Room: ED Gender: Female Territory Business Manager: : 1950 Requested By: Radha Angulo Order Number: [id number] Marcie MD: Tejas Kwon M.D. Measurements Intervals [place] Rate: 81 P: 48 AR: 202 QRS: -47 QRSD: 133 T: 34 QT: 395 QTc: 460 Interpretive Statements SINUS RHYTHM LEFT AXIS DEVIATION [QRS AXIS < -30] INTRAVENTRICULAR CONDUCTION DELAY [130+ ms QRS DURATION] ANTEROSEPTAL MYOCARDIAL INFARCTION , OF INDETERMINATE AGE [40+ ms Q WAVE IN V1-V4] Compared to ECG 04/25/2025 01:34:45 Atrial fibrillation no longer present Ventricular premature complex(es) no longer present Aberrant conduction of supraventricular beat(s) no longer present Myocardial infarct finding still present Electronically Signed On 04-26-2025 19:46:15 BENCH WORKER BINDING by Tejas Kwon M.D. [email or web address]
[2025-04-25 05:40] LABS: Troponin 5 6HR 28.17 ng/L (0-10); Troponin 5 6HR Delta 5.17 ng/L (0-12)
--- OUTSIDE RECORDS SUMMARY | 2025-04-25 05:54 | XMS_ITS | Encounter Summary ---
Author Organization [facility] Address [address] [place] [address] Care Team Providers Care Termite Treater Name Role Phone Franko Savage MD Primary Care Provider [phone] Encounter Details Date Type Department Care Team (Latest Contact Info) Description 06/21/2005 Outpatient Historical [facility] [address] [address] Lg Garrido Jr., MD [address] [place] [address] 248 [facility] [[email or web address] [address] [place] [address] Sprain lumbar region (Primary Dx); SPRAIN OF KNEE & LEG NOS Social History Tobacco Use Types Packs/Day Years Used Date Smoking Tobacco: Never Assessed Comments Unknown Sex and Gender Information Value Date Recorded Sex Assigned at Not on file Legal Sex Female 3:31 AM CORRECTIONS SERGEANT Gender Identity Not on file Sexual Orientation Not on file documented as of this encounter Plan of Treatment Not on file documented as of this encounter Visit Diagnoses Diagnosis Sprain lumbar region- Primary Sprain of lumbar region Sprain and strain of unspecified site of knee and leg documented in this encounter Care Teams Termite Treater Relationship Specialty Start Date End Date Franko Savage MD [address] [facility] [address] [place] [address] PCP - General Family Practice 06/15/19 documented as of this encounter
--- OUTSIDE RECORDS SUMMARY | 2025-04-25 05:54 | XMS_ITS | Encounter Summary ---
Author Organization [facility] Address [address] [place] [address] Care Team Providers Care Field Service Supervisor Name Role Phone Franko Savage MD Primary Care Provider [phone] Encounter Details Date Type Department Care Team (Late st Contact Info) Description 04/18/2018 Ancillary Orders [facility] Medicine Brenda [address] [facility] 5 [place] [address] Phani Coles, JAYY [address] [place] [address] Pain of right hip joint Social History Tobacco Use Types Packs/Day Years Used Date Smoking Tobacco: Never Smokeless Tobacco: Never Alcohol Use Standard Drinks/Week Comments No 0 (1 standard drink = 0.6 oz pur e alcohol) Comments No Sex and Gender Information Value Date Recorded Sex Assigned at Not on file Legal Sex Female 3:31 AM DICTATING MACHINE TRANSCRIBER Gender Identity Not on file Sexual Orientation Not on file documented as of this encounter Plan of Treatment Not on file documented as of this encounter Results * XR HIP 1 VW RIGHT (04/18/2018 1:03 PM DICTATING MACHINE TRANSCRIBER) Anatomical Region Laterality Modality Lower Extremity Right Computed Radiogr aphy 04/18/2018 1:05 PM DICTATING MACHINE TRANSCRIBER Impressions 04/18/2018 1:49 PM DICTATING MACHINE TRANSCRIBER IMPRESSION: Moderate degenerative changes. Indeterminate lucency overlying the left iliac crest making lytic lesion difficult to exclude. MRI could assess further if clinically indicated. Narrative 04/18/2018 1:49 PM DICTATING MACHINE TRANSCRIBER Exam: XR HIP 1 VW RIGHT Date/Time [...] joint documented in this encounter Care Teams Field Service Supervisor Relationship Specialty Start Date End Date Franko Savage MD [address] [place] [phone] PCP - General Family Practice 06/15/19 documented as of this encounter
--- OUTSIDE RECORDS SUMMARY | 2025-04-25 05:54 | XMS_ITS | Clinical Summary ---
Author Organization [facility] Brenda Address [address] [address] Care Team Providers Care Belt Maker Name Role Phone Franko Savage MD Primary Care Provider [phone] Allergies Active Allergy Reactions Criticality Noted Date [...] months. DUANE Maddox, 06/04/2020. Please refax to [phone]. 1 Each 0 06/03/20 20 Active dextromethorphan polistirex (DELSYM) 30 mg/5 mL Suspension, Sust. Release 12HRIndications:Co ugh Take 10 mL by mouth every 12 hours as needed for Cough. 03/30/20 19 Active albuterol (PROVENTIL,VENTOLI N) 2.5 mg /3 mL (0.083 %) Solution for NebulizationIndica tions:COPD with exacerbation ([facility]),Upper respiratory tract infection, unspecified type Take 3 [...] polyneuropathy, without long-term current use of insulin ([facility]) Check blood sugar twice daily as directed. 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 1 to 4 times per year 07/02/2021 Do you belong to any clubs o r organizations such as moravian groups, unions, fraternal or athletic groups, or [...] any time in the past 12 [facility], were you homeless or living in a [facility] (including now)? No 07/02/2021 Comments No Sex and Gender Information Value Date Recorded Sex Assigned at Not on file Legal Sex Female 2:49 PM PROJECT SPECIALIST Gender Identity Not on file Sexual Orientation [...] cm (5' 3 ) 05/20/2022 9:50 PM PROJECT SPECIALIST Body Mass Index 49.95 05/20/2022 9:50 PM PROJECT SPECIALIST Plan of Treatment Health Maintenance Due Date [...] polyneuropathy, without long-term current use of insulin ([facility]) XR DEXA BONE DENSITY AXIAL 1 OR MORE SITES Routine 07/23/2021 10:01 AM PROJECT SPECIALIST Osteopenia of multiple sites HM DIABETES EYE EXAM Routine 07/23/2021 MICROALBUMIN/CREATIN INE RATIO, RANDOM UR Routine 06/15/2021 8:24 AM PROJECT SPECIALIST Type 2 diabetes mellitus with diabetic polyneuropathy, without long-term current use of insulin ([facility]) ENDOSCOPY, COLON, DIAGNOSTIC 04/09/2016 12:00 AM CDT from Last 3 Months or Most Recently Relevant to Health Maintenance Results * (ABNORMAL) HEMOGLOBIN A1C (02/09/2023 7:32 PM CDT) HEMOGLOBIN A1C 5.7(H) <=5.6 % 02/10/2023 12:54 AM CDT [place] [employer] [facility] EST. AVG GLUCOSE, A1C 117 mg/dL 02/10/2023 12:54 AM CDT [place] [facility] [employer] [facility] [facility] Blood Venipuncture / Unknown 02/09/2023 7:32 PM CDT 02/09/2023 7:37 PM CDT Narrative [facility] - 02/10/2023 12:54 AM CDT HGB A1C INTERPRETATION NORMAL: <5.7% PRE-DIABETES: 5.7 - 6.4% DIABETES: 6.5% OR GREATER Kristina Rae APN CHEMISTRY ORDERABLES Final Result [place] [employer] [facility] CLIA# [id number] [address] [place] [address] * (ABNORMAL) LIPID PANEL (01/19/2022 8:09 AM CDT) Pathologist [facility] CHOLESTEROL 151 <200 mg/dL [facility] HDL 47(L) > OR = 50 mg/dL [facility] TRIGLYCERIDE 146 <150 mg/dL [facility] LDL CALCULATED 79 mg/dL (calc) [facility] Comment: Reference range: <100 Desirable range <100 mg/dL for primary prevention; <70 mg/dL for patients with CHD or diabetic patients with > or = 2 CHD risk factors. LDL-C is now calculated using the Kristen calculation, which is a validated novel method providing better accuracy than the Friedewald equation in the estimation of LDL-C. Christian BISHOP et al. JASON. 2013;310(19): 4882-0623 (http://education.Valcon.Weichaishi.com/faq/MUQ220) CHOL/HDL RATIO 3.2 <5.0 (calc) [facility] TOTAL NON-HDL CHOL(LDL+VLDL) 104 <130 mg/dL (calc) [facility] Comment: For patients with diabetes plus 1 major ASCVD risk factor, treating to a non-HDL-C goal of <100 mg/dL (LDL-C of <70 mg/dL) is considered a therapeutic option. Test Performed at: [facility] [address] [address] Marlon Garza D.O., MPH Blood 01/19/2022 8:09 AM CDT 01/20/2022 3:17 AM CDT Sania Loco AMMONIA REFRIGERATION WORKER CHEMISTRY ORDERABLES Final Result [facility] [phone] [email or web address] [address] [address] * XR DEXA BONE DENSITY AXIAL 1 OR MORE SITES (07/23/2021 10:01 AM PROJECT SPECIALIST) Anatomical Region Laterality Modality Nuclear Medicine 07/23/2021 10:0 1 AM PROJECT SPECIALIST Impressions 07/24/2021 9:38 AM PROJECT SPECIALIST IMPRESSION: 1. Current findings consistent with osteopenia [...] clinical management available online at [email or web address] Enter Exegy for Select DXA and the Femoral Neck BMD value. Narrative 07/24/2021 9:38 AM PROJECT SPECIALIST Exam: XR DEXA BONE DENSITY AXIAL 1 [...] clinical management available online at [email or web address] Enter Exegy for Select DXA and the Femoral Neck BMD value. Result [facility] Natalia Snowden NP DIAGNOSTIC IMAGING ORDERABLES Fi nal Result * HM DIABETES EYE EXAM (07/23/2021) Result [facility] Abstract Provider HEALTH MAINTENANCE Final Resul t * MICROALBUMIN/CREATININE RATIO, RANDOM UR (06/15/2021 8:24 AM PROJECT SPECIALIST) Creatinine, Urine 88 20 - 275 mg/dL [facility] MICROALBUMIN, URINE 0.5 See Note: mg/dL [facility] Comment: Reference Range: Reference Range Not established MICROALBUMIN/CREAT RATIO, UR 6 <30 mcg/mg creat [facility] Comment: The ADA defines abnormalities in albumin excretion as follows: Albuminuria Category Result (mcg/mg creatinine) Normal to Mildly increased <30 Moderately increased 30-299 Severely increased > OR = 300 The ADA recommends that at least two of three specimens collected within a 3-6 month period be abnormal before considering a patient to be within a diagnostic category. Test Performed at: [email or web address] [address] [address] Marlon Garza D.O., MPH Urine URINE SPECIMEN OBTAINED BY CLEAN CATCH PROCEDURE / Unknown 06/15/2021 8:24 AM PROJECT SPECIALIST 06/16/2021 9:14 AM PROJECT SPECIALIST Sania MCCONNELLP URINE ORDERABLES Final Res ult [facility] [address] [place] [address] * ENDOSCOPY, COLON, DIAGNOSTIC (04/09/2016 12:00 AM CDT) us Sgf Scanning GI PROCEDURE ORDERABLES Final Re sult from Last 3 Months or Most Recently Relevant to Health [place] [address] MEDICAID [facility] [id number] Advance Directives For more information, please contact: [phone] Documents on File Type Date Recorded Patient Experimental Welder Expl anation Advance Directive POA 02/21/2023 12:47 [...] 10:09 AM 05/23/2022 6:49 PM Care Teams Belt Maker Relationship Specialty Start Date End Date Franko Savage MD [address] [address] PCP - General Family Practice 06/15/19
--- OUTSIDE RECORDS SUMMARY | 2025-04-25 05:54 | XMS_ITS | Encounter Summary ---
Author Organization [facility] Address [address] [place] [address] Care Team Providers Care Molecular Physicist Name Role Phone Franko Savage MD Primary Care Provider Encounter Details Date Type Department Care Team (Latest Contact Info) Description 08/03/2019 Ancillary Orders [facility] [place] [address] [facility] [address] [place] [address] Franko Savage MD [address] [place] [address] Encounter for screening mammogram for breast cancer Social History Tobacco Use Types Packs/Day Years Used Date Smoking Tobacco: Never Smokeless Tobacco: Never Alcohol Use Standard Drinks/Week Comments No 0 (1 standard drink = 0.6 oz pur e alcohol) Comments No Sex and Gender Information Value Date Recorded Sex Assigned at Not on file Legal Sex Female 3:31 AM ACCOUNTING POLICY CONSULTANT Gender Identity Not on file Sexual Orientation Not on file documented as of this encounter Plan of Treatment Not on file documented as of this encounter Visit Diagnoses Diagnosis Encounter for screening mammogram for breast cancer documented in this encounter Additional Health Concerns Assessment Noted Time PHQ-9 Depression Total Score: 2 06/15/19 20 6:00 PM ACCOUNTING POLICY CONSULTANT documented as of this encounter Care Teams Molecular Physicist Relationship Specialty Start Date End Date Franko Savage MD [facility] [address] [place] [phone] PCP - General Family Practice 06/15/19 documented as of this encounter
--- OUTSIDE RECORDS SUMMARY | 2025-04-25 05:54 | XMS_ITS ---
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
--- OUTSIDE RECORDS SUMMARY | 2025-04-25 05:54 | XMS_ITS | Encounter Summary ---
Author Organization [facility] [facility] Address [address] [place] [address] Care Team Providers Care Grazing Examiner Name Role Phone Franko Savage MD Primary Care Provider Encounter Details Date Type Department Care Team (Late st Contact Info) Description 05/23/2008 Outpatient Historical [facility] [address] [place] [address] [place] [address] Santhosh Malhotra MD [address] [facility] [address] [place] [address] Social History Tobacco Use Types Packs/Day Years Used Date Smoking Tobacco: Never Assessed Comments No Sex and Gender Information Value Date Recorded Sex Assigned at Not on file Legal Sex Female 3:31 AM HUMAN RESOURCE MANAGER Gender Identity Not on file Sexual Orientation Not on file documented as of this encounter Plan of Treatment Not on file documented as of this encounter Procedures Procedure Name Priority Date/Time Associated Diagnosis Comments PATHOLOGY Routine 05/23/2008 2:41 PM HUMAN RESOURCE MANAGER documented in this encounter Results * PATHOLOGY (05/23/2008 2:41 PM HUMAN RESOURCE MANAGER) PATHOLOGY/CYT OLOGY REPORT [facility] Anatomic Pathology Dept [address] [facility] [address] Patient: JARAD GLYNN Accn No: [id number] Collected: 05/23/2008 2:41:00 PM DERMATOPATHOLOGY FINAL REPORT [...] in cassette B1. *Gross examination performed at [facility], [address] [place] [id number] DI RP /WLS Microscopic Description A. Sections [...] biopsy margins. INTERFACE SYSTEM 05/23/2008 2:41 PM HUMAN RESOURCE MANAGER Santhosh Malhotra MD PATHOLOGY/CYTOLOGY ORDERABLES Final Result INTERFACE SYSTEM Refer to clinic/hospital department documented in this encounter Visit Diagnoses Not on filedocumented in this encounter Care Teams Grazing Examiner Relationship Specialty Start Date End Date Franko Savage MD [address] [place] [phone] PCP - General Family Practice 06/15/19 documented as of this encounter
--- OUTSIDE RECORDS SUMMARY | 2025-04-25 05:54 | XMS_ITS | Encounter Summary ---
Author Organization [employer] [facility] Address [address] [place] [address] Care Team Providers Care Enterprise Account Executive Name Role Phone Franko Savage MD Primary Care Provider [phone] Reason for Referral * Radiology Services (Routine) - Closed Specialty Diagnoses / Procedures Referred By Ciro murry Referred To Contact Diagnoses Visit for screening mammogram Procedures MAMMO SCRN BILAT MOBILE W OR WO CAD Franko Savage MD [address], [place] [address] Phone: tel: fax: Referral ID Status Reason Start Date Expiration Date Visits Re quested Visits Authorized [id number] Closed 12/31/2019 01/30/2021 1 1 Encounter Details Date Type Department Care Team (Latest Contact Info) Description 12/31/2019 Ancillary Orders [facility] [place] [address] [address] Franko Savage MD [address] [place] [address] Visit for screening mammogram Social History Tobacco Use Types Packs/Day Years Used Date Smoking Tobacco: Never Smokeless Tobacco: Never Alcohol Use Standard Drinks/Week Comments No 0 (1 standard drink = 0.6 oz pur e alcohol) Comments No Sex and Gender Information Value Date Recorded Sex Assigned at Not on file Legal Sex Female 3:31 AM TIRE MAINTENANCE TECHNICIAN Gender Identity Not on file Sexual [...] by the Computer Aided Detection System (CAD), [employer], Version 8.3. Indeterminate calcifications are seen within [...] in the CC and true lateral projections. [id number] Franko Savage MD MAMMO ORDERABLES Final Result documented in this encounter Visit Diagnoses Diagnosis Encounter for screening mammogram for breast cancer Visit for screening mammogram Other screening mammogram Visit for screening mammogram Other screening mammogram documented in this encounter Additional Health Concerns Assessment Noted Time PHQ-9 Depression Total Score: 2 12/31/19 20 9:00 AM CDT documented as of this encounter Care Teams Enterprise Account Executive Relationship Specialty Start Date End Date Franko Savage MD [address] [place] [address] [place] [address] PCP - General Family Practice 06/15/19 documented as of this encounter
--- OUTSIDE RECORDS SUMMARY | 2025-04-25 05:54 | XMS_ITS | Encounter Summary ---
Author Organization [facility] Address [address] [place] [address] Care Team Providers Care Automated Manufacturing Instructor Name Role Phone Franko Savage MD Primary Care Provider Encounter Details Date Type Department Care Team (Late st Contact Info) Description 06/13/2005 Emergency [facility] Emergency Department [address] [place] [phone] Leonor Mariscal, [facility] NO ADDRESS ON FILE JOINT PAIN-L/LEG (Primary Dx) Social History Tobacco Use Types Packs/Day Years Used Date Smoking Tobacco: Never Assessed Comments Unknown Sex and Gender Information Value Date Recorded Sex Assigned at Not on file Legal Sex Female 3:31 AM CHIEF SUSTAINABILITY OFFICER Gender Identity Not on file Sexual Orientation Not on file documented as of this encounter Plan of Treatment Not on file documented as of this encounter Procedures Procedure Name Priority Date/Time Associated Diagnosis Comments XR KNEE 1 OR 2 VW RIGHT Routine 06/13/2005 12:25 PM CHIEF SUSTAINABILITY OFFICER documented in this encounter Results * XR KNEE 1 OR 2 VW RIGHT (06/13/2005 12:25 PM CHIEF SUSTAINABILITY OFFICER) Anatomical Region Laterality Modality Lower Extremity Other 06/13/2005 12:2 5 PM CHIEF SUSTAINABILITY OFFICER Narrative 06/13/2005 12:25 PM CHIEF SUSTAINABILITY OFFICER RIGHT KNEE: 06-13-05 HISTORY: Knee pain. Views [...] and no joint effusion. No acute abnormality. [facility] D: 06-13-05 1426 Dictated By: Phani Moreno M.D. Electronically Signed By: Phani Moreno M.D. Date Signed: 06/15/05 Leonor Mariscal NP DIAGNOSTIC IMAGING ORDERABLE S Edited documented in this encounter Visit Diagnoses Diagnosis Pain in joint, lower leg- Primary documented in this encounter Care Teams Automated Manufacturing Instructor Relationship Specialty Start Date End Date Franko Savage MD [address] [place] [phone] PCP - General Family Practice 06/15/19 documented as of this encounter
--- OUTSIDE RECORDS SUMMARY | 2025-04-25 05:54 | XMS_ITS | Encounter Summary ---
Author Organization [facility] Address [address] [place] [address] Care Team Providers Care Supervisory Training Specialist Name Role Phone Franko Savage MD Primary Care Provider [phone] Encounter Details Date Type Department Care Team (Latest Contact Info) Description 07/01/2006 Outpatient Historical [facility] Family Medicine [place] [facility] [address] [address] Lg Garrido Jr., MD [address] [place] [address] 248 [facility] [address] [place] [address] Achilles Bursitis or Tendinitis (Primary Dx); Enlargement of Lymph Nodes Social History Tobacco Use Types Packs/Day Years Used Date Smoking Tobacco: Never Assessed Comments Unknown Sex and Gender Information Value Date Recorded Sex Assigned at Not on file Legal Sex Female 3:31 AM CREW MEMBER Gender Identity Not on file Sexual Orientation Not on file documented as of this encounter Plan of Treatment Not on file documented as of this encounter Visit Diagnoses Diagnosis Achilles bursitis or tendinitis- Primary Enlargement of lymph nodes documented in this encounter Care Teams Supervisory Training Specialist Relationship Specialty Start Date End Date Franko Savage MD [address] [phone] PCP - General Family Practice 06/15/19 documented as of this encounter
--- OUTSIDE RECORDS SUMMARY | 2025-04-25 05:54 | XMS_ITS | Encounter Summary ---
Author Organization [facility] Address [address] [place] [address] Care Team Providers Care Metal Buildings Assembler Name Role Phone Franko Savage MD Primary Care Provider [phone] Encounter Details Date Type Department Care Team (Latest Contact Info) Description 06/30/2005 Outpatient Historical [facility] [place] [facility] [address] [address] Lg Garrido Jr., MD [address] [place] [address] 248 [facility] [address] [place] [address] Sprain lumbar region (Primary Dx); Pain in limb Social History Tobacco Use Types Packs/Day Years Used Date Smoking Tobacco: Never Assessed Comments Unknown Sex and Gender Information Value Date Recorded Sex Assigned at Not on file Legal Sex Female 3:31 AM BANK SALES AND SERVICE MANAGER Gender Identity Not on file Sexual Orientation Not on file documented as of this encounter Plan of Treatment Not on file documented as of this encounter Visit Diagnoses Diagnosis Sprain lumbar region- Primary Sprain of lumbar region Pain in limb Pain in soft tissues of limb documented in this encounter Care Teams Metal Buildings Assembler Relationship Specialty Start Date End Date Franko Savage MD [address] [address] PCP - General Family Practice 06/15/19 documented as of this encounter
--- OUTSIDE RECORDS SUMMARY | 2025-04-25 05:54 | XMS_ITS | Encounter Summary ---
Author Organization [facility] Address [address] [place] [address] Care Team Providers Care Information Broker Name Role Phone Franko Savage MD Primary Care Provider [phone] Encounter Details Date Type Department Care Team (Late st Contact Info) Description 12/31/2019 Ancillary Orders [facility] [address] [place] [address] [place] [address] Franko Savage MD [address] [place] [address] Social History Tobacco Use Types Packs/Day Years Used Date Smoking Tobacco: Never Smokeless Tobacco: Never Alcohol Use Standard Drinks/Week Comments No 0 (1 standard drink = 0.6 oz pur e alcohol) Comments No Sex and Gender Information Value Date Recorded Sex Assigned at Not on file Legal Sex Female 3:31 AM SERVICE TEAM LEADER Gender Identity Not on file Sexual Orientation [...] documented as of this encounter Care Teams Information Broker Relationship Specialty Start Date End Date Franko Savage MD [facility] [address] [place] [address] PCP - General Family Practice 06/15/19 documented as of this encounter
--- OUTSIDE RECORDS SUMMARY | 2025-04-25 05:54 | XMS_ITS | Encounter Summary ---
Author Organization [facility] Address [address] [place] [address] Care Team Providers Care Supervisor Dry Cleaning Name Role Phone Franko Savage MD Primary Care Provider [phone] Encounter Details Date Type Department Care Team (Latest Contact Info) Description 07/22/1998 Outpatient Historical [facility] Family Medicine [facility] [address] [address] Eldon Coleman MD NO ADDRESS ON FILE Obesity, unspecified (Primary Dx); Acute sinusitis, unspecified Social History Tobacco Use Types Packs/Day Years Used Date Smoking Tobacco: Never Assessed Comments Unknown Sex and Gender Information Value Date Recorded Sex Assigned at Not on file Legal Sex Female 3:31 AM LOCKS TENDER Gender Identity Not on file Sexual Orientation Not on file documented as of this encounter Plan of Treatment Not on file documented as of this encounter Visit Diagnoses Diagnosis Obesity, unspecified- Primary Acute sinusitis, unspecified documented in this encounter Care Teams Supervisor Dry Cleaning Relationship Specialty Start Date End Date Franko Savage MD [facility] [address] [phone] PCP - General Family Practice 06/15/19 documented as of this encounter
--- OUTSIDE RECORDS SUMMARY | 2025-04-25 05:54 | XMS_ITS | Clinical Summary ---
Author Organization [facility] Address [address] [facility] 5 [place] [address] Care Team Providers Care Surveying Crew Rodman Name Role Phone Franko Savage MD Primary Care Provider [phone] Allergies Active Allergy Reactions Criticality Noted Date Comments Atorvastatin Muscle Pain High 03/14/2020 Medications dextromethorphan polistirex (DELSYM) 30 mg/5 mL Suspension, Sust. Release 12HRIndications:Co ugh Take 10 mL by mouth every 12 hours as needed for Cough. 03/30/20 19 Active lancetsIndications :Type 2 diabetes mellitus with diabetic polyneuropathy, without long-term current use of insulin ([facility]) Check blood sugar 1-2 times daily as [...] polyneuropathy, without long-term current use of insulin ([facility]),Chronic pain of both shoulders Take 2 Capsules (600 mg) by mouth 3 times daily. 180 Capsule 11 12/12/19 20 Active Blood-Glucose MeterIndications:T ype 2 diabetes mellitus with diabetic polyneuropathy, without long-term current use of insulin ([facility]) Check blood sugar daily as directed. 1 Each 12/27/19 20 Active lancetsIndications :Type 2 diabetes mellitus with diabetic polyneuropathy, without long-term current use of insulin ([facility]) Check blood sugar daily as directed. 100 [...] Chronic obstructive pulmonary disease, unspecified COPD type ([facility]),Shortnes s of breath Nebulized albuterol 3 times daily as needed for shortness of breath, wheezing. Length of need. - 99 months. DUANE Maddox, 06/04/2020. Please refax to [phone]. 1 Each 06/03/20 20 Active metFORMIN (GLUCOPHAGE) [...] polyneuropathy, without long-term current use of insulin ([facility]) CHECK BLOOD GLUCOSE ONCE TO TWICE DAILY 100 Strip 3 09/02/19 21 Active oxygen home deliveryIndication s:Chronic obstructive pulmonary disease with acute lower respiratory infection ([facility]),Chronic obstructive pulmonary disease, unspecified COPD type ([facility]) daily at bedtime. Home Oxygen Concentrator yes [...] respiratory tract infection, unspecified type,COPD with exacerbation ([facility]) Take 3 mL (2.5 mg) by inhalation every 6 hours as needed for Shortness of Breath. 120 mL 1 10/22/19 21 Active fluticasone propionate (FLONASE) 50 mcg/spray [place], Suspension nasal inhalerIndications :Allergic rhinitis, unspecified seasonality, [...] on file Legal Sex Female 3:31 AM COREMAKING MACHINE SETTER Gender Identity Not on file Sexual Orientation [...] 10/23/2020, 12/26/2019, Additional history exists [place] Preventative Visit/Annual Wellness Visit 06/13/2024 10/30/2020, 03/16/2016 [...] polyneuropathy, without long-term current use of insulin ([facility]) Benign hypertension HEMOGLOBIN A1C Routine 10/23/2020 8:45 AM CDT Type 2 diabetes mellitus with diabetic polyneuropathy, without long-term current use of insulin ([facility]) Benign hypertension MICROALBUMIN/CREATI NINE RATIO, RANDOM UR Routine 05/02/2020 9:29 AM COREMAKING MACHINE SETTER Type 2 diabetes mellitus with diabetic polyneuropathy, without long-term current use of insulin ([facility]) HM DIABETES EYE EXAM Routine 04/16/2019 ENDOSCOPY, COLON, DIAGNOSTIC Routine 04/09/2016 from Last 3 Months or Most Recently Relevant to Health Maintenance Results * (ABNORMAL) LIPID RFLX (10/23/2020 8:45 AM CDT) CHOLESTEROL 200(H) <200 mg/dL 10/24/2020 8:33 AM CDT [facility] TRIGLYCERIDE 118 <150 mg/dL 10/24/2020 8:33 AM CDT [facility] HDL 53 40 - 59 mg/dL 10/24/2020 8:33 AM CDT [facility] LDL CALCULATED 123(H) <100 mg/dL 10/24/2020 8:33 AM CDT [facility] NON-HDL CHOLESTEROL 147(H) <130 mg/dL 10/24/2020 8:33 AM CDT [facility] Blood Venipuncture / Unknown 10/23/2020 8:45 AM CDT 10/23/2020 8:12 PM CDT Narrative [facility] - 10/24/2020 8:33 [...] for Lipid Panels (NCEP/AMA) . Sania Loco FIELD SUPPORT TECHNICIAN CHEMISTRY ORDERABLES Final Result [facility] CLIA# [id number] [address] [place] [address] * (ABNORMAL) HEMOGLOBIN A1C (10/23/2020 8:45 AM CDT) HEMOGLOBIN A1C 6.3(H) See Comment % 10/23/2020 9:20 PM CDT [facility] EST. AVG GLUCOSE, A1C 134 mg/dL 10/23/2020 9:20 PM CDT [facility] Blood Venipuncture / Unknown 10/23/2020 8:45 AM CDT 10/23/2020 8:12 PM CDT Narrative [facility] - 10/23/2020 9:20 PM CDT HGB A1C INTERPRETATION NORMAL: <5.7% PRE-DIABETES: 5.7 - 6.4% DIABETES: 6.5% OR GREATER Falsely low A1C measurements can occur when: 1. Anemia and/or hemolytic anemia is present. 2. Hemoglobin variants present. 3. Renal failure. 4. Transfusion of blood product in the last 120 days. We recommend ordering a fructosamine test([id number]) to more accurately assess glycemic status if any of the above conditions are present. Sania Loco [facility] CHEMISTRY ORDERABLES Final Result [facility] CLIA# [id number] [place] [address] * MICROALBUMIN/CREATININE RATIO, RANDOM UR (05/02/2020 9:29 AM COREMAKING MACHINE SETTER) MICROALBUMIN, URINE <1.2 No Reference Range mg/dL 05/02/2020 9:27 PM [facility] CREATININE, URINE 92.5 29.0 - 226.0 mg/dL 05/02/2020 9:27 PM [facility] Comment:Reference Range vari es with fluid intake and diet. MICROALBUMIN/C REAT RATIO, UR <13.0 <25.0 mg/g 05/02/2020 9:27 PM [facility] Urine URINE SPECIMEN OBTAINED BY CLEAN CATCH PROCEDURE / Unknown Collection / Unknown 05/02/2020 9:29 AM COREMAKING MACHINE SETTER 05/02/2020 7:59 PM COREMAKING MACHINE SETTER Narrative [facility] - 05/02/2020 9:27 PM COREMAKING MACHINE SETTER Condition Microalbumin/Creat ratio Normal Males <17 Normal Females <25 Microalbuminuria Males 17-299 Microalbuminuria Females 25-299 Overt proteinuria >=300 us Sania Loco FIELD SUPPORT TECHNICIAN URINE ORDERABLES Final Res ult Performing Organization Address City/[facility]/ZIP Co de Phone Number [facility] CLIA# [id number] [address] [place] [address] * DIABETES EYE EXAM (04/16/2019) us Abstract Spg Provider HEALTH MAINTENANCE Final R esult Performing Organization Address [facility] Co de Phone Number [facility] * ENDOSCOPY, COLON, DIAGNOSTIC (04/09/2016) us Abstract Spg Provider GI PROCEDURE ORDERABLES Fi nal Result from Last 3 Months or Most Recently Relevant to Health Maintenance Insurance MEDICAID [facility] Care Teams Surveying Crew Rodman Relationship Specialty Start Date End Date Franko Savage MD [address] [place] [phone] PCP - General Family Practice 06/15/19
--- OUTSIDE RECORDS SUMMARY | 2025-04-25 05:54 | XMS_ITS | Encounter Summary ---
Author Organization [facility] Address [address] [place] [address] Care Team Providers Care Quality Measurement Specialist Name Role Phone Franko Savage MD Primary Care Provider [phone] Reason for Referral * Radiology Services (Routine) - Closed Specialty Diagnoses / Procedures Referred By Contac t Referred To Contact Radiology Diagnoses Inconclusive mammography Procedures MAMMO DIAG UNI RIGHT 3D VIPIN W OR WO CAD CHG DIAGNOSTIC MAMMOGRAPHY COMPUTER-AIDED DETCJ UNI CHG DIGITAL BREAST TOMOSYNTHESIS UNILATERAL Franko Savage MD [address] [place] [phone] Phone: tel: fax: [facility] [address] [address] Phone: tel: fax: Referral ID Status Reason Start Date Expiration Date Visits Requested Visits Authorized [id number] Closed Performing Department To Schedule (SGF) 01/17/2020 02/16/2021 1 1 Encounter Details Date Type Department Care Team (Latest Contact Info) Description 01/17/2020 Ancillary Orders [facility] [address] [address] Franko Savage MD [address] [place] [address] Inconclusive mammography Social History Tobacco Use Types Packs/Day Years Used Date Smoking Tobacco: Never Smokeless Tobacco: Never Alcohol Use Standard Drinks/Week Comments No 0 (1 standard drink = 0.6 oz pur e alcohol) Comments No Sex and Gender Information Value Date Recorded Sex Assigned at Not on file Legal Sex Female 3:31 AM VEHICLE DETAILER Gender Identity Not on file Sexual Orientation [...] Right diagnostic mammogram follow-up in 6 months [id number] Narrative 03/19/2020 5:15 PM CDT EXAM: MAMMO [...] documented as of this encounter Care Teams Quality Measurement Specialist Relationship Specialty Start Date End Date Franko Savage MD [address] [place] [phone] PCP - General Family Practice 06/15/19 documented as of this encounter
--- OUTSIDE RECORDS SUMMARY | 2025-04-25 05:54 | XMS_ITS | Encounter Summary ---
Author Organization [facility] Address [address] [place] [address] Care Team Providers Care Bordereau Clerk Name Role Phone Franko Savage MD Primary Care Provider [phone] Encounter Details Date Type Department Care Team (Late st Contact Info) Description 08/20/2020 Ancillary Orders [facility] Pre-Registration [place] CALL TO MAKE APPOINTMENT ONLY [address] [place] [address] Franko Savage MD [address] [place] [address] Abnormal mammogram Social History Tobacco Use Types Packs/Day Years Used Date Smoking Tobacco: Never Smokeless Tobacco: Never Alcohol Use Standard Drinks/Week Comments No 0 (1 standard drink = 0.6 oz pur e alcohol) Comments No Sex and Gender Information Value Date Recorded Sex Assigned at Not on file Legal Sex Female 3:31 AM HAND SIGN WRITER Gender Identity Not on file Sexual Orientation Not on file documented as of this encounter Plan of Treatment Not on file documented as of this encounter Visit Diagnoses Diagnosis Abnormal mammogram Abnormal mammogram, unspecified documented in this encounter Additional Health Concerns Assessment Noted Time PHQ-9 Depression Total Score: 1 06/25/19 21 12:00 PM HAND SIGN WRITER documented as of this encounter Care Teams Bordereau Clerk Relationship Specialty Start Date End Date Franko Savage MD [address] [facility] 5 [place] [phone] PCP - General Family Practice 06/15/19 documented as of this encounter
--- OUTSIDE RECORDS SUMMARY | 2025-04-25 05:54 | XMS_ITS | Encounter Summary ---
Author Organization [facility] Address [address] [place] [address] Care Team Providers Care Destination Imagination Coordinator Name Role Phone Franko Savage MD Primary Care Provider [phone] Encounter Details Date Type Department Care Team (Late st Contact Info) Description 04/18/2018 Ancillary Orders [facility] Medicine [place] [address] [address] Phani Coles, JAYY [address] [place] [address] Pain of right hip joint Social History Tobacco Use Types Packs/Day Years Used Date Smoking Tobacco: Never Smokeless Tobacco: Never Alcohol Use Standard Drinks/Week Comments No 0 (1 standard drink = 0.6 oz pur e alcohol) Comments No Sex and Gender Information Value Date Recorded Sex Assigned at Not on file Legal Sex Female 3:31 AM STEAM AND POWER SUPERVISOR Gender Identity Not on file Sexual Orientation Not on file documented as of this encounter Plan of Treatment Not on file documented as of this encounter Visit Diagnoses Diagnosis Pain of right hip joint documented in this encounter Care Teams Destination Imagination Coordinator Relationship Specialty Start Date End Date Franko Savage MD [address] [facility] 5 [place] [address] PCP - General Family Practice 06/15/19 documented as of this encounter
--- OUTSIDE RECORDS SUMMARY | 2025-04-25 05:54 | XMS_ITS | Encounter Summary ---
Author Organization [facility] Address [address] [place] [address] Care Team Providers Care Slate Trimmer Name Role Phone Franko Savage MD Primary Care Provider [phone] Encounter Details Date Type Department Care Team (Late st Contact Info) Description 12/31/2019 Ancillary Orders [facility] [address] [place] [address] Franko Savage MD [address] [place] [address] Social History Tobacco Use Types Packs/Day Years Used Date Smoking Tobacco: Never Smokeless Tobacco: Never Alcohol Use Standard Drinks/Week Comments No 0 (1 standard drink = 0.6 oz pur e alcohol) Comments No Sex and Gender Information Value Date Recorded Sex Assigned at Not on file Legal Sex Female 3:31 AM DISEASE AND INSECT CONTROL BOSS Gender Identity Not on file Sexual Orientation [...] documented as of this encounter Care Teams Slate Trimmer Relationship Specialty Start Date End Date Franko Savage MD [facility] [address] [place] [address] PCP - General Family Practice 06/15/19 documented as of this encounter
--- OUTSIDE RECORDS SUMMARY | 2025-04-25 05:54 | XMS_ITS | Encounter Summary ---
Author Organization [facility] Address [address] [place] [address] Care Team Providers Care Fiber Glass Worker Name Role Phone Franko Savage MD Primary Care Provider [phone] Encounter Details Date Type Department Care Team (Latest Contact Info) Description 06/15/2005 Outpatient Historical [facility] Family Medicine [place]da [facility] [address] [address] Lg Garrido Jr., MD [address] [place] [address] [address] [place] [address] Sprain lumbosacral (Primary Dx) Social History Tobacco Use Types Packs/Day Years Used Date Smoking Tobacco: Never Assessed Comments Unknown Sex and Gender Information Value Date Recorded Sex Assigned at Not on file Legal 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
--- OUTSIDE RECORDS SUMMARY | 2025-04-25 05:54 | XMS_ITS | Encounter Summary ---
Author Organization [facility] Address [address] [place] [address] Care Team Providers Care Screw Driver Operator Name Role Phone Franko Savage MD Primary Care Provider [phone] Encounter Details Date Type Department Care Team (Latest Contact Info) Description 03/26/1999 Outpatient Historical [address] [phone] Amanda Callahan MD NO ADDRESS ON FILE Urinary tract infection, site not specified (Primary Dx) Social History Tobacco Use Types Packs/Day Years Used Date Smoking Tobacco: Never Assessed Comments Unknown Sex and Gender Information Value Date Recorded Sex Assigned at Not on file Legal Sex Female 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
--- OUTSIDE RECORDS SUMMARY | 2025-04-25 05:54 | XMS_ITS | Encounter Summary ---
Author Organization [facility] Address [address] [place] [address] Care Team Providers Care Bilingual Executive Assistant Name Role Phone Franko Savage MD Primary Care Provider [phone] Reason for Referral * Radiology Services (Routine) [...] Expiration Date Visits Re quested Visits Authorized [id number] Closed 06/26/2018 07/27/2019 1 1 SPORTATION TECHNICIAN Encounter Details Date Type Department Care Team (Latest Contact Info) Description 06/26/2018 Ancillary Orders [facility] [employer] Mammography [place] [address] [phone] Phani Coles PA [address] [place] [phone] Visit for screening mammogram Social History Tobacco Use Types Packs/Day Years Used Date Smoking Tobacco: Never Smokeless Tobacco: Never Alcohol Use Standard Drinks/Week Comments No 0 (1 standard drink = 0.6 oz pur e alcohol) Comments No Sex and Gender Information Value Date Recorded Sex Assigned at Not on file Legal Sex Female 3:31 AM TRANSPORTATION TECHNICIAN Gender Identity Not on file Sexual Orientation Not on file documented as of this encounter Plan of Treatment Not on file documented as of this encounter Results * MAMMO SCRN BILAT 3D VIPIN W OR WO CAD MOBILE (07/10/2018 7:26 AM TRANSPORTATION TECHNICIAN) Anatomical Region Laterality Modality Breast Bilateral Mammography 07/10/2018 7:41 AM TRANSPORTATION TECHNICIAN Impressions 07/13/2018 2:50 PM TRANSPORTATION TECHNICIAN : No specific mammographic evidence of malignancy. No change from previous exams. BI-RADS: 2 Recommendation: Annual screening mammography Recommendation Laterality: Bilateral [id number] Narrative 07/13/2018 2:50 PM TRANSPORTATION TECHNICIAN EXAM: MAMMO SCRN BILAT 3D VIPIN W [...] mammogram documented in this encounter Care Teams Bilingual Executive Assistant Relationship Specialty Start Date End Date Franko Savage MD [address] [place] [phone] PCP - General Family Practice 06/15/19 documented as of this encounter
--- OUTSIDE RECORDS SUMMARY | 2025-04-25 05:54 | XMS_ITS | Encounter Summary ---
Author Organization [facility] Address [address] [place] [address] Care Team Providers Care Company Laundry Worker Name Role Phone Franko Savage MD Primary Care Provider [phone] Encounter Details Date Type Department Care Team (Latest Contact Info) Description 01/26/2006 Outpatient Historical [facility] Family Medicine [place]da [facility] [address] [address] Lg Garrido Jr., MD [address] [place] [address] 248 [facility] 140 [place] [address] Polyuria (Primary Dx); Pain in Limb Social History Tobacco Use Types Packs/Day Years Used Date Smoking Tobacco: Never Assessed Comments Unknown Sex and Gender Information Value Date Recorded Sex Assigned at Not on file Legal Sex Female 3:31 AM POLICE BOOKING OFFICER Gender Identity Not on file Sexual Orientation Not on file documented as of this encounter Plan of Treatment Not on file documented as of this encounter Visit Diagnoses Diagnosis Polyuria- Primary Pain in limb Pain in soft tissues of limb documented in this encounter Care Teams Company Laundry Worker Relationship Specialty Start Date End Date Franko Savage MD [address] [address] PCP - General Family Practice 06/15/19 documented as of this encounter
--- OUTSIDE RECORDS SUMMARY | 2025-04-25 05:54 | XMS_ITS | Encounter Summary ---
Author Organization [facility] Address [address] [place] [address] Care Team Providers Care Finishing Lab Technician Name Role Phone Franko Savage MD Primary Care Provider [phone] Encounter Details Date Type Department Care Team (Latest Contact Info) Description 05/25/[address] 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
--- OUTSIDE RECORDS SUMMARY | 2025-04-25 05:54 | XMS_ITS | Encounter Summary ---
Author Organization [facility] Address [address] [place] [address] Care Team Providers Care Reducing System Operator Name Role Phone Franko Savage MD Primary Care Provider [phone] Encounter Details Date Type Department Care Team (Late st Contact Info) Description 06/12/[address] [facility] Emergency Department [address] [place] [address] Santhosh Gamino MD NO ADDRESS ON FILE LUMBAGO (Primary Dx) Social History Tobacco Use Types Packs/Day Years Used Date Smoking Tobacco: Never Assessed Comments Unknown Sex and Gender Information Value Date Recorded Sex Assigned at Not on file Legal Sex Female 3:31 AM MERGERS AND ACQUISITIONS MANAGER Gender Identity Not on file Sexual Orientation Not on file documented as of this encounter Plan of Treatment Not on file documented as of this encounter Procedures Procedure Name Priority Date/Time Associated Diagnosis Comments URINALYSIS MICROSCOPY ONLY Routine 06/12/2005 11:22 AM MERGERS AND ACQUISITIONS MANAGER URINALYSIS W/REFLEX MICROSCOPIC Routine 06/12/2005 11:22 AM MERGERS AND ACQUISITIONS MANAGER documented in this encounter Results * (ABNORMAL) URINALYSIS (06/12/2005 11:22 AM MERGERS AND ACQUISITIONS MANAGER) COLOR UA Yellow Straw INTERFACE SYSTEM CLARITY [...] No INTERFACE SYSTEM 06/12/2005 11:2 2 AM MERGERS AND ACQUISITIONS MANAGER Santhosh Gamino MD URINE ORDERABLES Final Re sult Performing Organization Address City/[facility]/ZIP Co de Phone Number INTERFACE SYSTEM Refer to clinic/hospital department * URINALYSIS MICROSCOPY ONLY (06/12/2005 11:22 AM MERGERS AND ACQUISITIONS MANAGER) WBC URINE None Seen 0 - 2 INTERFACE SYSTEM RBC UA None Seen 0 - 2 INTERFACE SYSTEM HYALINE CAST None Seen 0 - 2 INTERFA CE SYSTEM BACTERIA UA None Seen None Seen INTERFAC E SYSTEM 06/12/2005 11:2 2 AM MERGERS AND ACQUISITIONS MANAGER Santhosh Gamino MD URINE ORDERABLES Final Re sult INTERFACE SYSTEM Refer to clinic/hospital department documented in this encounter Visit Diagnoses Diagnosis Lumbago- Primary documented in this encounter Care Teams Reducing System Operator Relationship Specialty Start Date End Date Franko Savage MD [address] [place] [phone] PCP - General Family Practice 06/15/19 documented as of this encounter
--- OUTSIDE RECORDS SUMMARY | 2025-04-25 05:55 | XMS_ITS | Clinical Summary ---
Author Organization [facility] Address [address] [place] [address] Care Team Providers Care Licensing Services Clerk Name Role Phone Unavailable Primary Care Provider [...] st Contact Info) Description 05/22/2025 11:00 AM BEEF SKINNER [facility] [address] [place] [address] Camilo Alcantar [address] [place] [address] Health Maintenance Due Date Last Done Comments Dental Perio Charting 1948 Dental Prophy 1948 Hepatitis C Screening 1950 Urine Drug Screen 1950 Medicare Annual Wellness Visit 01/30/1966 Imm-Zoster, Recombinant (1 of 2) 01/30/1998 Falls Prevention 01/30/2013 Alcohol and Drug Screen 06/13/2024 Depression Annual Screen 06/13/2024 Imm-DTaP/Tdap/Td (3 - Td or Tdap) 09/02/2024 015, 06/17/2011 [id number] ( season) 2025 04/12/2024, 12/22/2023, 04/06/2022, Additional [...] PANORAMIC RADIOGRAPHIC IMAGE Routine 07/26/2024 2:45 PM BEEF SKINNER Caries BITEWINGS - FOUR RADIOGRAPHIC IMAGES Routine 07/26/2024 2:45 PM BEEF SKINNER Caries COMP ORAL EVALUATION - NEW/ESTABLISHED PATIENT Routine 07/26/2024 2:45 PM BEEF SKINNER Caries from Last 3 Months or Most Recently Relevant to Health Maintenance [place] [address] [place] [address] MEDICARE ADVANTAGE DENTAL
[2025-04-25] MEDS: FUROsemide 10 mg/mL SDV 4mL 40 MG IVP (06:08)
[2025-04-25 07:52] LABS: Partial Thromboplastin Time 228.2 SECONDS (23.9-36.7)
--- NOTE | 2025-04-25 08:20 | PC.NURSE ---
this nurse contacted Dr. Calderon d/t 6hr repeat pTT of 228. per verbal order of Dr. Calderon to stop heparin gtt and repeat pTT in 6hours. that times next pTT @1420
--- NOTE | 2025-04-25 08:38 | PC.PHAR ---
Patient was discharged on 04/24/25 from [facility] and was not at [facility] for more than a few hours before she was sent to the ER . Patient had meds before discharge in [facility] ,is what patient's nurse understood and nothing at [facility] before arriving back in the ER.
--- NOTE | 2025-04-25 10:02 | PC.NURSE ---
pt was assisted to side of bed to sit up for approx 15 min with supervision.
--- NOTE | 2025-04-25 12:29 | PC.NURSE ---
Patient transferred from ED to CSU via a bed with amio drip running at 0.5. here at 1220.
--- NOTE | 2025-04-25 13:09 | PC.NURSE ---
received into room 104 from er at 1210.report recieved.pt is alert and wake and oriented x3.denies pain at present.appears sr with freq apc's on monitor.on amiodarone drip at 0.5 mg /hr.oriented to room environment.instructed to notify staff for any pain,sob,if has to get up out of bed..or for any concerns at all.pt verb understanding of instructions
[2025-04-25 15:05] LABS: Partial Thromboplastin Time 29.1 SECONDS (23.9-36.7)
[2025-04-25 22:56] LABS: Partial Thromboplastin Time 36.1 SECONDS (23.9-36.7)
[2025-04-26] VITALS: BP 123/54; PULSE 85; RESP 15; O2SAT 91
[2025-04-26] MEDS: AMIODARONE HCL/D5W 900 MG/500 ML BAG 16.67 MG IV (01:57)
[2025-04-26] MEDS: heparin drip 25,000 UNIT/500 ML PREMIX 23 UNIT IV (02:07)
[2025-04-26 04:00] VITALS: BP 120/59; PULSE 83; RESP 17; O2SAT 97
[2025-04-26 04:08] LABS: Hematocrit 31.3 % (36-47); Hemoglobin 10.10 g/dL (11.27-16.99); Mean Corpuscular HGB Conc 32.3 g/dL (30-55); Mean Corpuscular Hemoglobin 26.7 pg (27-33); Mean Corpuscular Volume 82.8 fl (85-98); Nucleated Red Blood Cells % 0 %; Platelet Count 178 10^3/cmm (157-399); Red Blood Count 3.78 10^6/uL (3.85-5.65); White Blood Count 5.85 10^3/uL (3.29-11.43)
[2025-04-26 04:31] LABS: Partial Thromboplastin Time 63.5 SECONDS (23.9-36.7)
[2025-04-26 04:38] LABS: Alanine Aminotransferase 9 U/L (0-33); Albumin Level 3.3 g/dL (3.5-5.2); Alkaline Phosphatase 94 U/L (35-105); Anion Gap 15.5 (5-19); Aspartate Amino Transferase 12 U/L (0-32); Blood Urea Nitrogen 9 mg/dL (8-23); Calcium 8.9 mg/dL (8.5-10.5); Carbon Dioxide 23 mmol/L (22-29); Chloride 105 mmol/L (98-107); Globulin 2.0 g/dL (1.3-4.6); Glucose 180 mg/dL (65-115); Osmolality Calculated 293 mOsm/kg (285-295); Potassium 3.5 mmol/L (3.5-5.1); Sodium 140 mmol/L (136-145); Total Protein 5.3 g/dL (6.6-8.7)
[2025-04-26] MEDS: cefTRIAXone 1,000 mg SDV 1000 MG IVP (05:19)
[2025-04-26] MEDS: FUROsemide 10 mg/mL SDV 4mL 40 MG IVP (05:20)
[2025-04-26] MEDS: pantoprazole 40 mg SDV IVP (05:20)
[2025-04-26 07:38] VITALS: BP 115/72; PULSE 70; RESP 17; TEMP 36.3; O2SAT 96
--- NOTE | 2025-04-26 08:17 | P.DS_ITS ---
Discharge Providers Date of Admission: 04/25/25 01:40 Date of Discharge: April 26, 2025 Attending Provider at Admission: Wellington Duff MD Attending Provider at Discharge: Alf Calderon MD Primary Care Provider: Martha Lloyd NP Diagnoses at Discharge Discharge Diagnosis 1. Atrial fibrillation with rapid ventricular response: Reason for Visit Reason for Visit: possible afib Brief History: Herlinda Shah is a 75 year old female with a past medical history of coagulase positive staph, UTI on IV Rocephin, type 2 diabetes, recent hospitalization for sepsis, pneumonia, UTI, altered mental status, hypertension, chronic respiratory failure, COPD, who [facility] to [facility] facility due to A-fib with RVR. Patient tells me that this evening she was watching the lawn order when she noticed to have palpitations, no chest pain, no shortness of breath, started about 7 PM, in the emergency room she was found to have A-fib RVR heart rates in the 160s, normotensive alert oriented x 3, following all commands, on room air, is comfortable, has been given a loading d ose of digoxin of 500 mcg, is on Cardizem drip, Hospital Course Hospital Course Patient admitted to the hospital further evaluation and management. Her heart rate difficult to control with Cardizem and she started on amiodarone drip after which her heart rate was well-controlled. Hospitalization otherwise remained unremarkable. She has been discharged back to SNF in hemodynamically stable condition on oral amiodarone 200 mg twice daily for 1 week followed by 200 mg daily. Benefits of the demerits of anticoagulation discussed in detail with patient and DPOA over the phone. They both verbalized understanding and wanted to go ahead with anticoagulation for now. She will be started on Eliquis 5 mg twice daily for stroke prevention. She is to continue to finish the course of antibiotics with IV ceftriaxone 1 g daily and oral linezolid twice daily. Physical Exam Const: COMMON NORMALS: no acute distress and patient oriented x3 HENMT: COMMON NORMALS: normocephalic HEAD & SCALP: normocephalic Eye: COMMON NORMALS: Equal, round and reactive pupils present PUPIL: Yes Equal, round and reactive pupils present Neck/C-Spine: COMMON NORMALS: no JVD Lymph: LYMPHATIC: no lymphadenopathy noted Resp: COMMON NORMALS: normal respiratory effort, No retractions, No use of accessory muscles and clear to auscultation bilaterally AUSCULTATION: clear to auscultation bilaterally Cardio: COMMON NORMALS: no JVD, S1 normal heart sound present and S2 normal heart sound present RATE: tachycardic RHYTHM: abnormal rhythm irregularly irregular HEART SOUNDS: S1 normal heart sound present and S2 normal heart sound present GI: COMMON NORMALS: Normal to inspection, nondistended, normoactive bowel sounds present, Soft to palpation and non-tender PALPATION: Yes Soft to palpation Extremity: NARRATIVE EXTREMITY EXAM: 1+ edema Neuro: COMMON NORMALS: patient oriented x3, CN's II-XII intact bilaterally and moves all extremities Psych: COMMON NORMALS: mental status grossly normal Discharge Data Studies Completed and Pending Completed Studies During Hospitalization Category Date Time Status XR chest 1V portable [id number] Stat Exams 04/24/25 23:09 Completed Pending at discharge Category Date Time Status PTT [Partial Thromboplastin Time] Timed Lab 04/26/25 09:45 Ordered Platelet Count Q2D Lab 04/27/25 04:00 Ordered Platelet Count Q2D Lab 04/29/25 04:00 Ordered CV. echo complete* [id number] Stat Ultrasound 04/25/25 01:44 Taken Radiology Impressions Chest X-Ray 04/24/25 23:09 IMPRESSION: Subtle bibasilar airspace opacities are present, [id number]. Findings favor atelectasis. Airspace disease is not completely excluded. Laboratory Results WBC 5.85 10^3/uL (3.29-11.43) 04/26/25 03:45 RBC 3.78 10^6/uL (3.85-5.65) L 04/26/25 03:45 Hgb 10.10 g/dL (11.27-16.99) L 04/26/25 03:45 Hct 31.3 % (36-47) L 04/26/25 03:45 MCV 82.8 fl (85-98) L 04/26/25 03:45 MCH 26.7 pg (27-33) L 04/26/25 03:45 MCHC 32.3 g/dL (30-55) 04/26/25 03:45 RDW 15.0 % (12.1-15.1) 04/26/25 03:45 Plt Count 178 10^3/cmm (157-399) 04/26/25 03:45 MPV 9.9 fL (7.4-10.4) 04/26/25 03:45 Neut % (Auto) 65.8 % 04/26/25 03:45 Lymph % (Auto) 20.0 % 04/26/25 03:45 [place] % (Auto) 8.4 % 04/26/25 03:45 Eos % (Auto) 5.0 % 04/26/25 03:45 Baso % (Auto) 0.5 % 04/26/25 03:45 Neut # (Auto) 3.85 10^3/uL (1.8-7.7) 04/26/25 03:45 Lymph # (Auto) 1.2 10^3/uL (0.8-4.8) 04/26/25 03:45 [place] # (Auto) 0.5 10^3/uL (0.2-0.9) 04/26/25 03:45 Eos # (Auto) 0.3 10^3/uL (0.0-0.8) 04/26/25 03:45 Baso # (Auto) 0.0 10^3/uL (0.0-0.1) 04/26/25 03:45 Nucleated RBC % (auto) 0 % 04/26/25 03:45 Nucleated RBCs # 0.0 /100WBC 04/26/25 03:45 APTT 63.5 SECONDS (23.9-36.7) H D 04/26/25 03:45 Sodium 140 mmol/L (136-145) 04/26/25 03:45 Potassium 3.5 mmol/L (3.5-5.1) 04/26/25 03:45 Chloride 105 mmol/L (98-107) 04/26/25 03:45 Carbon Dioxide 23 mmol/L (22-29) 04/26/25 03:45 Anion Gap 15.5 (5-19) 04/26/25 03:45 BUN 9 mg/dL (8-23) 04/26/25 03:45 Creatinine 0.8 mg/dL (0.5-0.9) 04/26/25 03:45 GFR Calculation Not Reportable 04/26/25 03:45 Glucose 180 mg/dL (65-115) H 04/26/25 03:45 POC Glucose 163 mg/dL (70-110) H 04/26/25 06:06 Calculated Osmolality 293 mOsm/kg (285-295) 04/26/25 03:45 Calcium 8.9 mg/dL (8.5-10.5) 04/26/25 03:45 Magnesium 1.9 mg/dL (1.7-2.3) 04/24/25 23:06 Total Bilirubin 0.4 mg/dL (0.15-1.2) 04/26/25 03:45 AST 12 U/L (0-32) 04/26/25 03:45 ALT 9 U/L (0-33) 04/26/25 03:45 Alkaline Phosphatase 94 U/L (35-105) 04/26/25 03:45 Troponin T Baseline 23 ng/L (0-10) H 04/24/25 23:06 Troponin T 120 Minute 23.16 ng/L (0-10) H 04/25/25 00:52 Delta Troponin T 0.16 ABS# (0-10) 04/25/25 00:52 Troponin T Hi Sens 6Hr 28.17 ng/L (0-10) H 04/25/25 05:15 Troponin T Hi Sens 6Hr Delta 5.17 ng/L (0-12) 04/25/25 05:15 C-Reactive Protein 47.9 mg/L (0.0-4.9) H 04/24/25 23:06 NT-Pro-B Natriuret Pep 637 pg/mL (0-450) H 04/24/25 23:06 Total Protein 5.3 g/dL (6.6-8.7) L 04/26/25 03:45 Albumin 3.3 g/dL (3.5-5.2) L 04/26/25 03:45 Globulin 2.0 g/dL (1.3-4.6) 04/26/25 03:45 Procalcitonin 0.07 ng/mL (0-0.5) 04/24/25 23:06 Urine Color Yellow (Yellow) 04/24/25 23:31 Urine Appearance Clear (CLEAR) 04/24/25 23:31 Urine pH 6.0 (5-7) 04/24/25 23:31 Ur Specific [place] 1.005 (1.005-1.030) 04/24/25 23:31 Urine Protein Negative (Negative) 04/24/25 23:31 Urine Glucose (UA) Negative (Normal) 04/24/25 23: Urine Ketones Negative (Negative) 04/24/25 23:31 Urine Blood Trace (Negative) A 04/24/25 23: Urine Nitrate Negative (Negative) 04/24/25 23: Urine Bilirubin Negative (Negative) 04/24/25 23: Urine Urobilinogen 0.2 mg/dL (Negative) 04/24/25 23:31 Ur Leukocyte Esterase Negative (Negative) 04/24/25 23: Urine RBC 0-2 /hpf (0-2) 04/24/25 23: Urine WBC 0-5 /hpf (0-5) 04/24/25 23:31 Ur Squamous Epith Cells 0-5 /hpf (0-5) 04/24/25 23: Amorphous Sediment Not Reportable 04/24/25 23: Urine Bacteria None seen /hpf (NONE) 04/24/25 23:31 Hyaline Casts 0-4 /lpf H 04/24/25 23:31 Digoxin 0.3 ng/mL (0.6-1.2) L 04/24/25 23:06 Urine Opiates Screen Negative ng/mL (Negative) 04/24/25 23:31 Ur Barbiturates Screen Negative ng/mL (Negative) 04/24/25 23:31 Ur Phencyclidine Scrn Negative ng/mL (Negative) 04/24/25 23:31 Ur Amphetamines Screen Negative ng/mL (Negative) 04/24/25 23:31 U Benzodiazepines Scrn Negative ng/mL (Negative) 04/24/25 23:31 Urine Cocaine Screen Negative ng/mL (Negative) 04/24/25 23:31 U Marijuana (THC) Screen Negative ng/mL (Negative) 04/24/25 23:31 Vitals Last Vital Signs Temp 97.3 F L 04/26/25 07:38 Pulse 70 04/26/25 07:38 Resp 17 04/26/25 07:38 BP 115/72 04/26/25 07:38 Pulse Ox 96 04/26/25 07:38 O2 Del Method Room Air 04/26/25 07:38 Discharge Plan Discharge Patient Disposition: Xfer SNF Condition: Stable Prescriptions: New amiodarone 200 mg tablet 200 mg PO DAILY Qty: 60 0RF Rx Instructions: Take 200 mg twice daily for 1 week followed by 200 mg daily Eliquis 5 mg tablet 5 mg PO BID Qty: 60 0RF Continued metformin 1,000 mg tablet 1,000 mg PO BID magnesium hydroxide [Milk of Magnesia] 400 mg/5 mL suspension 30 ml PO DAILY PRN (Reason: Constipation) nystatin 100,000 unit/gram cream 1 applic topical BID olopatadine 0.2 % drops 1 drp ophthalmic (eye) DAILY potassium chloride 20 mEq tablet extended release 20 meq PO BID simvastatin 10 mg tablet 10 mg PO DAILY Biotene Moisturizing Mouth [place],Non-Aerosol 1 applic mucous membrane Q2H PRN (Reason: dry mouth) Qty: 44.3 5RF Rx Instructions: while awake buspirone 5 mg tablet 5 mg PO BID furosemide 40 mg tablet 40 mg PO DAILY linezolid 600 mg tablet 600 mg PO BID 5 Days Qty: 10 0RF glipizide 5 mg tablet 2.5 mg PO DAILY Qty: 30 0RF gabapentin 600 mg tablet 600 mg PO TID ipratropium-albuterol 0.5 mg-3 mg(2.5 mg base)/3 mL solution for nebulization 3 ml INHALATION Q6H PRN (Reason: Shortness Of Breath) albuterol sulfate 2.5 mg /3 mL (0.083 %) Solution For Nebulization 2.5 mg INHALATION Q6H PRN (Reason: Shortness Of Breath) cetirizine [Zyrtec] 10 mg Tablet 10 mg PO QAM cyanocobalamin (vitamin B-12) 1,000 mcg Tablet 1,000 mcg PO QAM ropinirole 0.5 mg tablet 0.5 mg PO DAILY PRN (Reason: Restless Leg(S)) fluticasone propionate 50 mcg/actuation [place],Suspension 2 spray INTRANASAL QAM Rx Instructions: administer into each nostril colestipol 1 gram tablet 1 g PO BID metoprolol tartrate 25 mg tablet 25 mg PO BID cholecalciferol (vitamin D3) 1,250 mcg (50,000 unit) Capsule 50,000 unit PO Q7D Rx Instructions: on budesonide-formoterol 160-4.5 mcg/actuation HFA aerosol inhaler 2 puff INHALATION BID diclofenac sodium 1 % gel See Rx Instructions .ROUTE .COMPLEX Rx Instructions: apply 2 grams topically up to four times a day to upper ext and 4 grams up to four times to lower ext max dose per joint 16gm/day on lower ext and 8gm/day upper ext acetaminophen [Tylenol] 325 mg tablet 650 mg PO Q4H PRN (Reason: pain/fever) sennosides [senna] 8.6 mg Tablet 8.6 mg PO BID ondansetron HCl 8 mg Tablet 8 mg PO Q8H PRN (Reason: Nausea And Vomiting) tramadol 50 mg Tablet 100 mg PO Q6H PRN (Reason: Pain) bisacodyl 5 mg Tablet 20 mg PO DAILY PRN (Reason: Constipation) guaifenesin [Mucinex] 600 mg Tablet Extended Release 12hr 600 mg PO Q12H PRN (Reason: Cough) Discharge Order = DC NOW: Discharge Order (Routine); Ordered 04/26/25 Ordered By: Alf Calderon Referrals: [facility] [Outside] Martha Lloyd NP [Primary Care Provider, Family Practice] Discharge Diet: Regular, Cardiac and Diabetic Discharge Activity: Resume usual activity and Increase activity as tolerated Patient Instructions: Atrial Fibrillation, Amiodarone (By mouth), Apixaban (By mouth) (Eliquis), Opioid Safety, Patient Portal & [facility] Instructions Activity Restrictions/Additional Instructions: Continue linezolid and ceftriaxone to finish a course of antibiotic as before. Take amiodarone 200 mg twice daily for 1 week followed by 200 mg daily. Eliquis is a blood thinner which is supposed to take 5 mg morning and evening. Recheck hemoglobin in 1 month. If you have any concerns of melena or hematem esis please hold Eliquis and discussed with the primary care provider. Discharge Attestations Time Spent in Discharge Care*: greater than 30 min Specific Discharge Activities: educating and/or supporting family/caregiver, discussing with pcp/other providers, discussing with gearcase assembler/social workers/dc planners, documenting/other paperwork and evaluating patient/reviewing data Status at Discharge: Cognitive status at discharge: moderately impaired cognition , Behavioral status at discharge: cooperative , Functional status at discharge: uses cane/walker , Overall status at discharge: patient is back to baseline Quality Metrics Clinical Quality Measures [ No reported AMI, CVA or VTE this stay] Coding Level of Care Code 97523 Total time (in minutes) for Discharge: 65 Diagnoses Atrial fibrillation with rapid ventricular response I48.91
--- NOTE | 2025-04-26 10:01 | PC.NURSE ---
Patients merlos catheter is removed per protocol prior to patient being discharge.
[2025-04-26 10:23] LABS: Partial Thromboplastin Time 42.7 SECONDS (23.9-36.7)
--- NOTE | 2025-04-26 11:36 | PC.SOCIAL ---
IMM Update pg 2 of IMM Updated and reviewed w/ patient. Copy provided and copy dated, initialed and placed in chart.
--- NOTE | 2025-04-26 11:47 | PC.NURSE ---
Report is called to [facility] to RN. Ready transport will transfer to [facility] per case management.
[2025-04-26 11:58] VITALS: BP 122/59; PULSE 73; TEMP 36.4; O2SAT 97
== END 2025-04-26 12:29 | disposition skilled nursing facility (03) | DRG 309 ==
LOC: ER 04-25 01:48 → ER IP 04-25 02:42 → CSU 04-25 11:13
PROVIDERS: Admitting Provider Family Medicine; Emergency Provider Physician Assistant; PCP Nurse Practitioner Family; Visit Provider Student in an Organized Health Care Education/Training Program
DX: I48.0 Paroxysmal atrial fibrillation (principal); E66.2 Morbid (severe) obesity with alveolar hypoventilation; I50.30 Unspecified diastolic (congestive) heart failure; J96.10 Chronic respiratory failure, unspecified whether with hypoxia or hypercapnia; Z68.42 Body mass index [BMI] 45.0-49.9, adult; E11.9 Type 2 diabetes mellitus without complications; I11.0 Hypertensive heart disease with heart failure; J44.9 Chronic obstructive pulmonary disease, unspecified; F41.9 Anxiety disorder, unspecified; I35.0 Nonrheumatic aortic (valve) stenosis; Z79.01 Long term (current) use of 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; Z79.84 Long term (current) use of oral hypoglycemic drugs; Z87.440 Personal history of urinary (tract) infections; Z85.72 Personal history of non-Hodgkin lymphomas; Z87.01 Personal history of pneumonia (recurrent); Z86.16 Personal history of COVID-19; Z85.820 Personal history of malignant melanoma of skin
CPT/HCPCS: 36415; 36416; 71045; 80053; 80162; 80306; 81001; 82962; 83735; 83880; 84145; 84484; 85025; 85730; 86140; 93005; 93306; 94664; 96372; 99291; J0282; J0283; J0696; J1160; J1644; J1815; J1938; J2470; J3475; J3490; J9999

== ENCOUNTER → 2025-05-13 12:54 | Outpatient (BNVA) | payer MEDICARE, MEDICAID, SELFPAY | PROVIDERS: PCP Nurse Practitioner Family; Visit Provider Nurse Practitioner Family | DX: R30.0 Dysuria (principal); N30.00 Acute cystitis without hematuria | CPT/HCPCS: 81000 ==